=== PATIENT | female | born 1970 | race Caucasian/White ===

== ENCOUNTER → 2020-07-24 14:32 | Outpatient (BNVA) | payer OTHER, SELFPAY | PROVIDERS: PCP Internal Medicine; Referring Provider Internal Medicine; Visit Provider Student in an Organized Health Care Education/Training Program | DX: M25.50 Pain in unspecified joint (principal); R70.0 Elevated erythrocyte sedimentation rate; R79.82 Elevated C-reactive protein (CRP) | CPT/HCPCS: 99212 ==

== ENCOUNTER 2020-07-28 10:46 | Outpatient (REF) | payer OTHER, SELFPAY ==
[2020-07-30 14:21] LABS: Prot Elec - Albumin 3.3 g/dL (3.8-4.8); Prot Elec - Alpha1 0.3 g/dL (0.2-0.3); Prot Elec - Alpha2 0.8 g/dL (0.5-0.9); Prot Elec - Beta 1 0.5 g/dL (0.4-0.6); Prot Elec - Beta 2 0.5 g/dL (0.2-0.5); Prot Elec - Total Protein 6.3 g/dL (6.1-8.1)
[2020-08-01 09:47] LABS: IgA 357 mg/dL (47-310); IgG 1096 mg/dL (600-1640); IgM 42 mg/dL (50-300)
== END 2020-07-28 10:47 | disposition home or self-care (01) ==
LOC: HO.LAB 10:46
PROVIDERS: PCP Internal Medicine; Visit Provider Student in an Organized Health Care Education/Training Program
DX: R70.0 Elevated erythrocyte sedimentation rate (principal)
CPT/HCPCS: 36415; 82784; 84155; 84165; 86334; 86335

== ENCOUNTER 2020-08-13 15:13 | Outpatient (REF) | payer OTHER, SELFPAY | END 2020-08-13 15:14 | disposition home or self-care (01) | LOC: HO.US 15:13 | PROVIDERS: Visit Provider Student in an Organized Health Care Education/Training Program | DX: Z13.89 Encounter for screening for other disorder (principal) ==

== ENCOUNTER → 2020-08-20 10:34 | Outpatient (BNVA) | payer OTHER, SELFPAY | PROVIDERS: PCP Internal Medicine; Visit Provider Surgery | DX: Z76.89 Persons encountering health services in other specified circumstances (principal) ==

== ENCOUNTER → 2020-08-21 09:25 | Outpatient (BNVA) | payer OTHER, SELFPAY | PROVIDERS: PCP Internal Medicine; Visit Provider Surgery | DX: Z76.89 Persons encountering health services in other specified circumstances (principal) ==

== ENCOUNTER 2020-08-25 08:27 | Outpatient (REF) | payer OTHER, SELFPAY ==
--- NOTE | 2020-08-25 09:51 | ECG_ITS ---
Test Reason : FATTY LIVER, PREOP Blood Pressure : / mmHG Vent. Rate : 098 BPM Atrial Rate : 098 BPM P-R Int : 134 ms QRS Dur : 080 ms QT Int : 354 ms P-R-T Axes : 060 057 013 degrees QTc Int : 451 ms Normal sinus rhythm Normal ECG No previous ECGs available Referred By: Pb Harrell Electronically Signed By:RAFI CASTANEDA MD
[2020-08-25 10:21] LABS: MANUAL DIFF FLAG NO
[2020-08-25 10:26] LABS: Basophils Absolute Auto 0.1 X10*3/uL (0.0-0.2); Basophils Percent Auto 0.4 % (0-2); Eosinophils Absolute Auto 0.3 X10*3/uL (0.0-0.4); Hematocrit 38.3 % (37-47); Hemoglobin 12.3 g/dl (12.0-16.0); Imm Gran Abs Auto 0.05 X10*3/uL (0.00-0.03); Imm Gran Pct Auto 0.4 % (0.0-0.4); Lymphocytes Absolute Auto 2.1 X10*3/uL (1.2-4.9); Lymphocytes Percent Auto 16.3 % (20-40); Mean Corpuscular HGB Conc 32.1 g/dl (31.0-35.0); Mean Corpuscular Hemoglobin 28.7 pg (27.0-33.0); Mean Corpuscular Volume 89.3 fL (80-98); Mean Platelet Volume 10.2 fL (9.4-12.3); Monocytes Absolute Auto 0.6 X10*3/uL (0.1-1.2); Monocytes Percent Auto 4.6 % (2-11); Neutrophils Percent Auto 76.3 % (45-73); Platelet Count 328 X10*3/uL (160-400); Red Blood Count 4.29 X10*6/uL (4.20-5.50); Red Cell Distribution Width 13.8 % (11.0-16.0); White Blood Count 13.1 X10*3/uL (4.8-10.8)
[2020-08-25 10:55] LABS: Alanine Aminotransferase 35 U/L (0-31); Alkaline Phosphatase 148 U/L (39-117); Anion Gap 14 (12-20); Aspartate Amino Transferase 26 U/L (5-31); Bilirubin Total 0.3 mg/dL (0.0-1.0); Blood Urea Nitrogen 23 mg/dL (9-16); C Reactive Protein 2.33 mg/dL (< or = 0.50); Calcium 9.4 mg/dL (8.4-10.2); Carbon Dioxide 27 mmol/L (22-29); Chloride 101 mmol/L (96-108); Cholesterol 211 mg/dL; Estimated Glomerular Filt Rate > 60; Glucose Random 195 mg/dL (60-115); HDL Cholesterol 52 mg/dL; LDL Cholesterol Calculated 122 mg/dl; Potassium 4.5 mmol/l (3.3-5.1); Sodium 137 mmol/L (135-145); Total Protein 7.5 g/dL (6.5-8.0); Triglycerides 186 mg/dL
[2020-08-25 11:16] LABS: Ferritin 137 ng/mL (10-250); TSH reflex Free T4 0.66 mIU/mL (0.32-4.0); Vitamin D 25-OH Total 29.3 ng/mL (>30)
[2020-08-25 11:41] LABS: Folate 9.4 ng/mL (> or = 4.0); Vitamin B12 187 pg/mL (200-900)
[2020-08-25 12:03] LABS: Estimated Average Glucose 197 mg/dL; Hemoglobin A1c % 8.5 %
[2020-08-26 13:43] LABS: Calcium (PTHI) 9.4 mg/dL (8.6-10.4); PTHI 53 pg/mL (14-64)
[2020-08-26 17:12] LABS: Insulin Level Total 34.6 uIU/mL
[2020-08-27 13:53] LABS: H Pylori Breath Test NOT DETECTED (NOT DETECTED)
[2020-08-28 15:38] LABS: Zinc 78 mcg/dL (60-130)
[2020-08-30 10:22] LABS: Vitamin A 51 mcg/dL (38-98)
[2020-08-31 12:03] LABS: Vitamin B1 <6 nmol/L (8-30)
== END 2020-08-25 08:28 | disposition home or self-care (01) ==
LOC: HO.LAB 08:27
PROVIDERS: PCP Internal Medicine; Referring Provider Surgery; Visit Provider Physician Assistant
DX: K76.0 Fatty (change of) liver, not elsewhere classified (principal); Z11.0 Encounter for screening for intestinal infectious diseases
CPT/HCPCS: 36415; 80053; 80061; 82306; 82607; 82728; 82746; 83013; 83036; 83525; 83970; 84425; 84443; 84590; 84630; 85025; 86140; 93005; 99211

== ENCOUNTER 2020-09-11 08:38 | Outpatient (REF) | payer OTHER, SELFPAY ==
--- NOTE | 2020-09-11 | FL_ITS ---
EXAMINATION: FL UPPER GI SERIES CLINICAL INFORMATION: Bariatric service evaluation. K76.0. COMPARISON: None TECHNIQUE: Upper GI series is performed using fluoroscopic evaluation in addition to multiple fluoroscopic spot views. The patient is imaged both upright and prone and using both thick and thin barium sulfate along with effervescent granules. Exam is technically challenging with some difficulty breath-holding. Fluoroscopy time: 1.7 minutes DAP: 38.372 Gycm2 Fluoroscopic spot images: 17 FINDINGS: There is respiratory motion artifact on some of the images. There is normal esophageal motility. There is no obstruction, stricture, or ulceration. There is small intermittent sliding hiatal hernia. No gastroesophageal reflux is demonstrated. The stomach shows no thickened folds or ulcer crater or outlet obstruction. The duodenal bulb is pliable and without ulcer crater or scarring. The post bulbar duodenum the jejunal mucosal pattern are unremarkable. FL/FL upper GI series IMPRESSION: 1. Small intermittent sliding hiatal hernia. No reflux demonstrated. 2. Otherwise unremarkable exam.
--- NOTE | 2020-09-11 08:42 | XR_ITS ---
EXAMINATION: XR CHEST CLINICAL INFORMATION: Fatty change of liver. Chest pain per COMPARISON: None TECHNIQUE: 2 views of the chest were obtained. FINDINGS: No significant abnormality is noted involving the heart, lungs, mediastinum, bony thorax or soft tissues. XR/XR chest 2V IMPRESSION: Unremarkable chest examination.
--- NOTE | 2020-09-11 08:42 | US_ITS ---
EXAMINATION: US COMPLETE ABDOMEN WITH LIVER ELASTOGRAPHY CLINICAL INFORMATION: Obesity. COMPARISON: None. TECHNIQUE: Real-time imaging of the abdominal viscera. Noninvasive ultrasound liver fibrosis assessment is performed using Giovanni ElastPQ point quantification shear wave elastography (pSWE) with a 5 MHz transducer. Multiple elastography samples are obtained. FINDINGS: PANCREAS: The visualized pancreatic head and body are normal in appearance. The tail of the pancreas is obscured from visualization by the overlying bowel gas. ABDOMINAL AORTA: The proximal and mid aortic segments are normal in caliber. The distal abdominal aorta is obscured by overlying gas. INFERIOR VENA CAVA: Visualized portions are normal. LIVER: The liver demonstrates increased size, normal contour and increased echogenicity. There are areas of focal fatty sparing. No other focal lesion or intrahepatic biliary duct dilatation. The right lobe measures 26.8 cm in length. The left lobe measures 16.2 cm in length. There is normal hepatopedal flow seen in the portal vein. Shear wave elastography provides a median stiffness of 1.56 m/s (reference: normal median stiffness is 0.81 - 1.22 m/s). The IQR/median stiffness to assess sampling precision is 0.29 (reference: optimal IQR/median stiffness is under 0.3). GALLBLADDER: Normal. The gallbladder is physiologically distended without evidence of stones, sludge, polyps, wall thickening, or pericholecystic fluid. COMMON BILE DUCT: Normal in caliber measuring 0.24 cm in diameter. RIGHT KIDNEY: Normal. No hydronephrosis. No renal calculi or focal parenchymal lesions. The kidney measures 12.5 cm in maximum dimension. LEFT KIDNEY: Normal. No hydronephrosis. No renal calculi or focal parenchymal lesions. The kidney measures 11.9 cm in maximum dimension. SPLEEN: Normal. The spleen measures 12.2 cm in maximum dimension. FREE FLUID: None. US/US abdomen comp w elastography IMPRESSION: 1. Diffuse fatty infiltration of the liver with areas of focal fatty sparing. Mild hepatomegaly. 2. The rest of the abdominal ultrasound is unremarkable. 3. Elastography: [id number] fibrosis.
== END 2020-09-11 08:39 | disposition home or self-care (01) ==
LOC: HO.US 08:38
PROVIDERS: Visit Provider Surgery
DX: Z01.818 Encounter for other preprocedural examination (principal); E66.01 Morbid (severe) obesity due to excess calories; K21.9 Gastro-esophageal reflux disease without esophagitis; E11.65 Type 2 diabetes mellitus with hyperglycemia; I10 Essential (primary) hypertension; E78.5 Hyperlipidemia, unspecified; K76.0 Fatty (change of) liver, not elsewhere classified
CPT/HCPCS: 71046; 74240; 76705; 76981

== ENCOUNTER → 2020-09-17 09:38 | Outpatient (REF) | payer OTHER, SELFPAY | LOC: HO.SL 09:38 | PROVIDERS: Visit Provider Surgery | DX: Z01.818 Encounter for other preprocedural examination (principal); E66.9 Obesity, unspecified; G47.10 Hypersomnia, unspecified; G47.19 Other hypersomnia | CPT/HCPCS: 95806 ==

== ENCOUNTER → 2020-09-19 08:16 | Outpatient (BNVA) | payer OTHER, SELFPAY | PROVIDERS: PCP Internal Medicine; Visit Provider Surgery | DX: Z76.89 Persons encountering health services in other specified circumstances (principal) ==

== ENCOUNTER → 2020-09-29 08:11 | Outpatient (BNVA) | payer OTHER, SELFPAY | PROVIDERS: PCP Internal Medicine; Visit Provider Dietitian, Registered ==

== ENCOUNTER → 2020-10-09 12:34 | Outpatient (BNVA) | payer OTHER, SELFPAY | PROVIDERS: PCP Internal Medicine; Visit Provider Physician Assistant ==

== ENCOUNTER 2020-10-09 12:54 | Outpatient (REF) | payer OTHER, SELFPAY | END 2020-10-09 12:55 | disposition home or self-care (01) | LOC: HO.LAB 12:54 | PROVIDERS: Visit Provider Internal Medicine | DX: Z20.822 Contact with and (suspected) exposure to COVID-19 (principal) | CPT/HCPCS: 36415; C9803; U0003; U0005 ==

== ENCOUNTER → 2020-10-15 11:21 | Outpatient (BNVA) | payer OTHER, SELFPAY | PROVIDERS: PCP Internal Medicine; Visit Provider Surgery | DX: E66.01 Morbid (severe) obesity due to excess calories (principal); I10 Essential (primary) hypertension; E11.65 Type 2 diabetes mellitus with hyperglycemia | CPT/HCPCS: 99212 ==

== ENCOUNTER → 2020-10-21 12:51 | Outpatient (BNVA) | payer OTHER, SELFPAY | PROVIDERS: PCP Internal Medicine; Visit Provider Physician Assistant ==

== ENCOUNTER → 2020-10-22 11:18 | Outpatient (BNVA) | payer OTHER, SELFPAY | PROVIDERS: PCP Internal Medicine; Visit Provider Physician Assistant ==

== ENCOUNTER → 2020-10-29 09:25 | Outpatient (BNVA) | payer OTHER, SELFPAY | PROVIDERS: PCP Internal Medicine; Visit Provider Physician Assistant ==

== ENCOUNTER → 2020-11-05 11:14 | Outpatient (BNVA) | payer OTHER, SELFPAY | PROVIDERS: PCP Internal Medicine; Visit Provider Physician Assistant ==

== ENCOUNTER → 2020-11-10 07:34 | Outpatient (BNVA) | payer OTHER, SELFPAY | PROVIDERS: PCP Internal Medicine; Visit Provider Surgery ==

== ENCOUNTER → 2020-11-12 12:57 | Outpatient (BNVA) | payer OTHER, SELFPAY | PROVIDERS: PCP Internal Medicine; Visit Provider Physician Assistant ==

== ENCOUNTER → 2020-11-19 10:47 | Outpatient (BNVA) | payer OTHER, SELFPAY | PROVIDERS: PCP Internal Medicine; Visit Provider Physician Assistant ==

== ENCOUNTER → 2020-11-26 10:06 | Outpatient (BNVA) | payer OTHER, SELFPAY | PROVIDERS: PCP Internal Medicine; Visit Provider Physician Assistant ==

== ENCOUNTER 2020-12-04 10:32 | Outpatient (REF) | payer OTHER, SELFPAY ==
[2020-12-04 12:02] LABS: Alanine Aminotransferase 19 U/L (0-31); Albumin Level 4.1 g/dL (3.5-5.0); Alkaline Phosphatase 126 U/L (39-117); Anion Gap 14 (12-20); Aspartate Amino Transferase 17 U/L (5-31); Bilirubin Total 0.3 mg/dL (0.0-1.0); Blood Urea Nitrogen 22 mg/dL (9-16); Calcium 9.3 mg/dL (8.4-10.2); Carbon Dioxide 29 mmol/L (22-29); Chloride 102 mmol/L (96-108); Estimated Glomerular Filt Rate > 60; Glucose Fasting 103 mg/dL (60-99); Potassium 5.2 mmol/L (3.3-5.1); Sodium 140 mmol/L (135-145); Total Protein 7.3 g/dL (6.5-8.0)
[2020-12-04 12:20] LABS: Creatinine Urine 55.84 mg/dL; Microalbumin Urine < 5.0 mg/L
[2020-12-04 13:44] LABS: Folate 10.5 ng/mL (> or = 4.0); Vitamin B12 192 pg/mL (200-900)
[2020-12-08 06:51] LABS: Vitamin B1 43 nmol/L (8-30)
[2020-12-08 20:22] LABS: Intrinsic Factor Antibodies Negative (Negative)
[2020-12-14 11:36] LABS: Parietal Cell Antibody 22.8 Unit (<=20.0)
== END 2020-12-04 10:33 | disposition home or self-care (01) ==
LOC: HO.LAB 10:32
PROVIDERS: PCP Internal Medicine; Visit Provider Internal Medicine
DX: E11.65 Type 2 diabetes mellitus with hyperglycemia (principal); E51.9 Thiamine deficiency, unspecified; E53.8 Deficiency of other specified B group vitamins
CPT/HCPCS: 36415; 80053; 82043; 82607; 82746; 83516; 84425; 86340

== ENCOUNTER → 2020-12-05 08:12 | Outpatient (BNVA) | payer OTHER, SELFPAY | PROVIDERS: PCP Internal Medicine; Visit Provider Surgery ==

== ENCOUNTER → 2020-12-09 08:09 | Outpatient (BNVA) | payer OTHER, SELFPAY | PROVIDERS: PCP Internal Medicine; Visit Provider Dietitian, Registered ==

== ENCOUNTER → 2020-12-10 14:36 | Outpatient (BNVA) | payer OTHER, SELFPAY | PROVIDERS: PCP Internal Medicine; Visit Provider Dietitian, Registered | DX: E66.01 Morbid (severe) obesity due to excess calories (principal) | CPT/HCPCS: 97803 ==

== ENCOUNTER → 2020-12-11 11:49 | Outpatient (BNVA) | payer OTHER, SELFPAY | PROVIDERS: PCP Internal Medicine ==

== ENCOUNTER → 2020-12-18 11:54 | Outpatient (BNVA) | payer OTHER, SELFPAY | PROVIDERS: PCP Internal Medicine; Visit Provider Physician Assistant ==

== ENCOUNTER → 2020-12-23 12:31 | Outpatient (BNVA) | payer OTHER, SELFPAY | PROVIDERS: PCP Internal Medicine; Visit Provider Dietitian, Registered | DX: E66.01 Morbid (severe) obesity due to excess calories (principal); Z68.43 Body mass index [BMI] 50.0-59.9, adult | CPT/HCPCS: 97803 ==

== ENCOUNTER → 2020-12-26 12:37 | Outpatient (BNVA) | payer OTHER, SELFPAY | PROVIDERS: PCP Internal Medicine; Visit Provider Physician Assistant ==

== ENCOUNTER → 2020-12-31 08:29 | Outpatient (BNVA) | payer OTHER, SELFPAY | PROVIDERS: PCP Internal Medicine; Visit Provider Surgery ==

== ENCOUNTER 2021-01-01 11:01 | Outpatient (REF) | payer OTHER, SELFPAY ==
[2021-01-01 12:19] LABS: MANUAL DIFF FLAG NO
[2021-01-01 12:43] LABS: Basophils Absolute Auto 0.1 X10*3/uL (0.0-0.2); Basophils Percent Auto 0.4 % (0-2); Eosinophils Absolute Auto 0.4 X10*3/uL (0.0-0.4); Eosinophils Percent Auto 2.5 % (0-4); Hematocrit 36.9 % (37-47); Hemoglobin 11.6 g/dl (12.0-16.0); Imm Gran Abs Auto 0.06 X10*3/uL (0.00-0.03); Imm Gran Pct Auto 0.4 % (0.0-0.4); Lymphocytes Absolute Auto 2.6 X10*3/uL (1.2-4.9); Lymphocytes Percent Auto 18.3 % (20-40); Mean Corpuscular HGB Conc 31.4 g/dl (31.0-35.0); Mean Corpuscular Hemoglobin 28.2 pg (27.0-33.0); Mean Corpuscular Volume 89.8 fL (80-98); Mean Platelet Volume 10.6 fL (9.4-12.3); Monocytes Absolute Auto 0.6 X10*3/uL (0.1-1.2); Monocytes Percent Auto 4.3 % (2-11); Neutrophils Absolute Auto 10.5 X10*3/uL (2.0-8.3); Neutrophils Percent Auto 74.1 % (45-73); Platelet Count 373 X10*3/uL (160-400); Red Blood Count 4.11 X10*6/uL (4.20-5.50); Red Cell Distribution Width 13.2 % (11.0-16.0); White Blood Count 14.2 X10*3/uL (4.8-10.8)
[2021-01-01 12:55] LABS: Alanine Aminotransferase 17 U/L (0-31); Alkaline Phosphatase 142 U/L (39-117); Anion Gap 16 (12-20); Aspartate Amino Transferase 12 U/L (5-31); Bilirubin Total 0.4 mg/dL (0.0-1.0); Blood Urea Nitrogen 36 mg/dL (9-16); Calcium 9.3 mg/dL (8.4-10.2); Carbon Dioxide 24 mmol/L (22-29); Chloride 104 mmol/L (96-108); Cholesterol 132 mg/dL; Estimated Glomerular Filt Rate > 60; Glucose Fasting 120 mg/dL (60-99); HDL Cholesterol 36 mg/dL; LDL Cholesterol Calculated 70 mg/dl; Potassium 4.6 mmol/L (3.3-5.1); Sodium 139 mmol/L (135-145); Total Protein 7.1 g/dL (6.5-8.0); Triglycerides 132 mg/dL
[2021-01-01 13:15] LABS: Folate 9.5 ng/mL (> or = 4.0); Vitamin B12 411 pg/mL (200-900)
[2021-01-01 13:49] LABS: Creatinine Urine 79.24 mg/dL; Microalbumin Urine < 5.0 mg/L
[2021-01-01 13:53] LABS: Estimated Average Glucose 120 mg/dL; Hemoglobin A1c % 5.8 %
[2021-01-05 14:01] LABS: Vitamin B1 98 nmol/L (8-30)
== END 2021-01-01 11:02 | disposition home or self-care (01) ==
LOC: HO.LAB 11:01
PROVIDERS: PCP Internal Medicine; Visit Provider Surgery
DX: E66.01 Morbid (severe) obesity due to excess calories (principal); E11.65 Type 2 diabetes mellitus with hyperglycemia; D64.9 Anemia, unspecified; E53.8 Deficiency of other specified B group vitamins; E78.5 Hyperlipidemia, unspecified; E51.9 Thiamine deficiency, unspecified
CPT/HCPCS: 36415; 80053; 80061; 82043; 82607; 82746; 83036; 84425; 85025

== ENCOUNTER → 2021-01-08 11:47 | Outpatient (BNVA) | payer OTHER, SELFPAY | PROVIDERS: PCP Internal Medicine; Visit Provider Physician Assistant ==

== ENCOUNTER → 2021-01-14 08:48 | Outpatient (BNVA) | payer OTHER, SELFPAY | PROVIDERS: PCP Internal Medicine; Visit Provider Dietitian, Registered | DX: E66.01 Morbid (severe) obesity due to excess calories (principal); Z68.42 Body mass index [BMI] 45.0-49.9, adult | CPT/HCPCS: 97803 ==

== ENCOUNTER → 2021-01-21 11:58 | Outpatient (BNVA) | payer OTHER, SELFPAY | PROVIDERS: PCP Internal Medicine; Visit Provider Physician Assistant ==

== ENCOUNTER → 2021-01-23 08:01 | Outpatient (BNVA) | payer OTHER, SELFPAY | PROVIDERS: PCP Internal Medicine; Visit Provider Surgery ==

== ENCOUNTER → 2021-01-30 11:13 | Outpatient (BNVA) | payer OTHER, SELFPAY | PROVIDERS: PCP Internal Medicine; Visit Provider Physician Assistant ==

== ENCOUNTER 2021-02-03 09:27 | Outpatient (REF) | payer OTHER, SELFPAY ==
[2021-02-03 10:12] LABS: MANUAL DIFF FLAG NO
[2021-02-03 10:16] LABS: Basophils Absolute Auto 0.1 X10*3/uL (0.0-0.2); Basophils Percent Auto 0.4 % (0-2); Eosinophils Absolute Auto 0.3 X10*3/uL (0.0-0.4); Hemoglobin 12.4 g/dl (12.0-16.0); Imm Gran Abs Auto 0.03 X10*3/uL (0.00-0.03); Imm Gran Pct Auto 0.2 % (0.0-0.4); Lymphocytes Absolute Auto 2.1 X10*3/uL (1.2-4.9); Lymphocytes Percent Auto 16.1 % (20-40); Mean Corpuscular HGB Conc 32.6 g/dl (31.0-35.0); Mean Corpuscular Volume 88.8 fL (80-98); Mean Platelet Volume 10.2 fL (9.4-12.3); Monocytes Absolute Auto 0.8 X10*3/uL (0.1-1.2); Neutrophils Percent Auto 75.3 % (45-73); Platelet Count 378 X10*3/uL (160-400); Red Blood Count 4.28 X10*6/uL (4.20-5.50); Red Cell Distribution Width 12.9 % (11.0-16.0); White Blood Count 13.3 X10*3/uL (4.8-10.8)
[2021-02-03 10:35] LABS: Estimated Average Glucose 114 mg/dL; Hemoglobin A1c % 5.6 %
== END 2021-02-03 09:28 | disposition home or self-care (01) ==
LOC: HO.LAB 09:27
PROVIDERS: PCP Internal Medicine; Visit Provider Surgery
DX: E11.65 Type 2 diabetes mellitus with hyperglycemia (principal)
CPT/HCPCS: 36415; 83036; 85025

== ENCOUNTER → 2021-02-09 10:08 | Outpatient (BNVA) | payer OTHER, SELFPAY | PROVIDERS: PCP Internal Medicine; Visit Provider Surgery ==

== ENCOUNTER → 2021-02-16 09:05 | Outpatient (BNVA) | payer OTHER, SELFPAY | PROVIDERS: PCP Internal Medicine; Referring Provider Internal Medicine; Visit Provider Physician Assistant ==

== ENCOUNTER → 2021-02-19 07:49 | Outpatient (BNVA) | payer OTHER, SELFPAY | PROVIDERS: PCP Internal Medicine; Visit Provider Surgery ==

== ENCOUNTER → 2021-02-23 09:30 | Outpatient (BNVA) | payer OTHER, SELFPAY | PROVIDERS: PCP Internal Medicine; Visit Provider Physician Assistant ==

== ENCOUNTER → 2021-03-06 08:57 | Outpatient (BNVA) | payer OTHER, SELFPAY | PROVIDERS: PCP Internal Medicine; Referring Provider Internal Medicine; Visit Provider Physician Assistant ==

== ENCOUNTER → 2021-03-12 11:22 | Outpatient (BNVA) | payer OTHER, SELFPAY | PROVIDERS: PCP Internal Medicine; Visit Provider Physician Assistant ==

== ENCOUNTER 2021-03-17 07:43 | Inpatient (IN) | payer OTHER, SELFPAY ==
[2021-03-17 07:55] VITALS: BP 115/66; PULSE 93; RESP 16; TEMP 37.1; O2SAT 95; BMI 48.1
--- NOTE | 2021-03-17 08:20 | ED.GENADULT ---
HPI - General Adult General Chief complaint: General Medical Stated complaint: Low Sodium Time Seen by Provider: 03/17/21 08:09 Source: patient Mode of arrival: ambulatory Limitations: no limitations History of Present Illness HPI narrative: 51 y/o female with history of morbid obesity, DM2, HTN, HLD, anxiety, fatty liver who presents to the ER from short stay surgery for evaluation of hyponatremia. Sodium level was found to be 120. She was there for a lap gastric sleeve with Dr. Schwab. She reports over the weekend she started a medication to help clear her bowels and she has been having watery diarrhea several times per day, she lost count of how many episodes. Yesterday she continued having diarrhea and also developed nausea and vomiting. She had several episodes of vomiting liquid yesterday and was dry heaving this morning. She has essentially been on a liquid diet for weight loss and feels very weak. She has some epigastric abdominal pain that she attributes to hunger pains. MD complaint: hyponatremia Onset (ago): day(s) Location: abdomen Radiation: non-radiation Quality: aching Pain Consistency: intermittent Relieving factors: none Exacerbating factors: eating Associated symptoms: loss of appetite, malaise, nausea/vomiting and weakness Treatments prior to arrival: none Related Data Home Medications Medication Instructions Recorded Confirmed lisinopril 40 mg PO BEDTIME 03/11/21 03/17/21 dulaglutide [Trulicity] 0.75 mg SUBCUT FR 03/17/21 03/17/21 ondansetron HCl [Zofran] 4 mg PO Q12H PRN 03/17/21 03/17/21 Previous Rx's Medication Instructions Recorded blood sugar diagnostic #50 ea 09/17/20 glimepiride 4 mg tablet 4 mg PO DAILY #90 tab 09/17/20 hydrochlorothiazide 50 mg tablet 50 mg PO DAILY #90 tab 09/17/20 lancets 28 gauge #100 ea 09/17/20 metformin 1,000 mg tablet 1,000 mg PO BID 90 Days #180 tab 09/17/20 metoprolol succinate 100 mg 100 mg PO DAILY #90 tab 09/17/20 tablet,extended release 24 hr naproxen 375 mg tablet 375 mg PO BID PRN 30 Days #60 tab 09/17/20 atorvastatin 20 mg tablet 20 mg PO BEDTIME 90 Days #90 tab 11/13/20 folic acid 1 mg tablet 1 mg PO DAILY 90 Days #90 tab 11/13/20 thiamine HCl (vitamin B1) 100 mg 100 mg PO DAILY 30 Days #30 tab 11/13/20 tablet insulin syringe,safetyneedle 1 mL #1 ea 12/06/20 30 gauge x 3/16 cyanocobalamin (vitamin B-12) 1,000 mcg IM .once a month 30 Days 12/10/20 1,000 mcg/mL injection kit #1 ea syringe with needle, safety 3 mL #1 ea 12/10/20 22 gauge x 1 1/2 pantoprazole 40 mg tablet,delayed 40 mg PO DAILY #30 tab 02/19/21 release sucralfate 100 mg/mL oral 10 ml PO BID #400 ml 02/19/21 suspension Allergies Allergy/AdvReac Type Severity Reaction Status Date / Time sertraline Allergy Severe Anaphylaxis Verified 03/17/21 07:55 citalopram Allergy Mild Rash Verified 03/17/21 07:55 Review of Systems Review of Systems: Constitutional: No Fever, No Chills ENT/Mouth: No sore throat, No Rhinorrhea, No Swallowing Difficulty Cardiovascular: No Chest Pain, No SOB, No Orthopnea, No Edema Respiratory: No Cough, No Sputum, No Wheezing, No dyspnea Gastrointestinal: + Nausea, + Vomiting, + Diarrhea, + abdominal Pain, No Hematochezia, No Melena Genitourinary: No Dysuria, No Urinary Frequency, No Hematuria Musculoskeletal: No joint pain, No Myalgias Skin: No Skin Lesions, No rash Neuro: + Weakness, No Numbness, + Dizziness, No Headache Psych: No Anxiety/Panic, No Depression Heme/Lymph: No Bruising, No Lymphadenopathy Endocrine: No Polyuria, No Polydipsia PMFSH Past Medical History Attestation statement: The following information was validated with the patient. Medical History Anxiety B12 deficiency Depression Diabetes mellitus Essential hypertension Hyperlipidemia Morbid obesity Obese Pure hypercholesterolemia Rash Steatosis, liver Thiamine deficiency Surgical History History of foot surgery History of total abdominal hysterectomy and bilateral salpingo-oophorectomy Status post debridement Family History Family History Father Diabetes Hypertension Prostate cancer Mother Hypertension Stomach cancer Social History Social History Household Members Other:: Brother Are you a primary housekeeper child care to a significant other at home: No Do you presently have visiting nurse or other home services: No Alcohol intake: never Patient Tobacco Use Status: Never used Tobacco Use of substances other than those prescribed or required for medical reasons: No Advance Directives: Yes Advance Directives Information Provided: Yes Advance Directives on File: No Patient : No Physical Exam Vital Signs: Vital Signs: Last Vital Signs Temp 98.7 F 03/17/21 09:58 Pulse 88 03/17/21 09:58 Resp 16 03/17/21 09:58 BP 121/67 03/17/21 09:58 Pulse Ox 95 03/17/21 09:58 Body Mass Index 48.1 Appearance: Alert. Oriented X3. No acute distress. Eyes: Pupils equal, round and reactive to light. ENT: Pharynx normal. Neck: Normal inspection. Neck supple. CVS: Normal heart rate and rhythm. Pulses normal. Respiratory: No respiratory distress. Breath sounds normal. Abdomen: Obese Soft with epigastric tenderness +BS x4 Skin: Skin warm and dry. Normal skin color. Normal skin turgor. No rashes. Extremities: No lower extremity edema. Neuro: Oriented X 3. No motor deficit. No sensory deficit. Course Course Course Narrative: 51 y/o female with morbid obesity and plan for gastric sleeve today presents to the ER with sodium of 120, associated with GI losses of diarrhea and vomiting. She is also on HCTZ 50 mg per day. Her hyponatremia does not appear to be acute; her sodium was 126 on 03/10 (although normal back in December). She is currently symptomatic with nausea, vomiting and generalized weakness. Suspect due to diarrhea in combination with her HCTZ. Will give 500 cc NS and repeat labs. Reevaluation(s) Reevaluation #1: Sodium went from 122 to 124 after IVF. She has an MAURI with BUN/Cr 18/1.63 from a baseline of 20/1.04 last week. Will continue gentle IVF 100cc/hr of NS. Dr. Harrell TT for recs, question admission for continued hydration prior to surgery. Reevaluation #2: Case reviewed by Daniela Carrera - recommending admission to medicine for further management of MAURI and hyponatremia. Repeat chemistry pending. Will plan for admission. Dr. Vargas TT for admit. Consultations Consultation #1: Bariatric surgery - Dr. Harrell & Daniela Carrera Medical Decision Making Lab Data Result diagrams: 03/17/21 09:05 03/17/21 09:05 Labs: Lab Results 03/17/21 03/17/21 03/17/21 Range/Units 09:05 09:05 09:05 WBC 18.8 H (4.8-10.8) X10*3/uL RBC 3.99 L (4.20-5.50) X10*6/uL Hgb 11.2 L (12.0-16.0) g/dl Hct 32.2 L (37-47) % MCV 80.7 (80-98) fL MCH 28.1 (27.0-33.0) pg MCHC 34.8 (31.0-35.0) g/dl RDW 12.3 (11.0-16.0) % Plt Count 430 H (160-400) X10*3/uL MPV 9.5 (9.4-12.3) fL Immature Gran % (Auto) 0.5 H (0.0-0.4) % Neut % (Auto) 87.1 H (45-73) % Lymph % (Auto) 8.0 L (20-40) % [place] % (Auto) 3.9 (2-11) % Eos % (Auto) 0.2 (0-4) % Baso % (Auto) 0.3 (0-2) % Lymph # (Auto) 1.5 (1.2-4.9) X10*3/uL [place] # (Auto) 0.7 (0.1-1.2) X10*3/uL Eos # (Auto) 0.0 (0.0-0.4) X10*3/uL Baso # (Auto) 0.1 (0.0-0.2) X10*3/uL Abs Immat Gran (auto) 0.09 H (0.00-0.03) X10*3/uL Absolute Neuts (auto) 16.4 H (2.0-8.3) X10*3/uL Absolute Nucleated RBC 0.000 (0.0-0.012) X10*3/uL Nucleated RBC % (auto) 0.0 (0.0-0.2) /100WBC Sodium 124 L (135-145) mmol/L Potassium 4.9 D (3.3-5.1) mmol/L Chloride 87 L (96-108) mmol/L Carbon Dioxide 23 (22-29) mmol/L Anion Gap 19 (12-20) BUN 18 H (9-16) mg/dL Creatinine 1.63 H (0.5-1.4) mg/dL Estim Creat Clear Calc 42.8 Estimated GFR 33 Random Glucose 95 (60-115) mg/dL Osmolality 265 L (281-305) mosm/kg Calcium 9.6 D (8.4-10.2) mg/dL Magnesium 1.7 (1.6-2.6) mg/dL Total Bilirubin 0.4 (0.0-1.0) mg/dL Direct Bilirubin 0.2 (0.0-0.5) mg/dL AST 19 (5-31) U/L ALT 18 (0-31) U/L Alkaline Phosphatase 129 H (39-117) U/L B-Natriuretic Peptide (<100) pg/mL Total Protein 7.3 (6.5-8.0) g/dL Albumin 4.3 (3.5-5.0) g/dL Lipase 20 (8-78) U/L // Range/Units 09:05 WBC (4.8-10.8) X10*3/uL RBC (4.20-5.50) X10*6/uL Hgb (12.0-16.0) g/dl Hct (37-47) % MCV (80-98) fL MCH (27.0-33.0) pg MCHC (31.0-35.0) g/dl RDW (11.0-16.0) % Plt Count (160-400) X10*3/uL MPV (9.4-12.3) fL Immature Gran % (Auto) (0.0-0.4) % Neut % (Auto) (45-73) % Lymph % (Auto) (20-40) % [place] % (Auto) (2-11) % Eos % (Auto) (0-4) % Baso % (Auto) (0-2) % Lymph # (Auto) (1.2-4.9) X10*3/uL [place] # (Auto) (0.1-1.2) X10*3/uL Eos # (Auto) (0.0-0.4) X10*3/uL Baso # (Auto) (0.0-0.2) X10*3/uL Abs Immat Gran (auto) (0.00-0.03) X10*3/uL Absolute Neuts (auto) (2.0-8.3) X10*3/uL Absolute Nucleated RBC (0.0-0.012) X10*3/uL Nucleated RBC % (auto) (0.0-0.2) /100WBC Sodium (135-145) mmol/L Potassium (3.3-5.1) mmol/L Chloride (96-108) mmol/L Carbon Dioxide (22-29) mmol/L Anion Gap (12-20) BUN (9-16) mg/dL Creatinine (0.5-1.4) mg/dL Estim Creat Clear Calc Estimated GFR Random Glucose (60-115) mg/dL Osmolality (281-305) mosm/kg Calcium (8.4-10.2) mg/dL Magnesium (1.6-2.6) mg/dL Total Bilirubin (0.0-1.0) mg/dL Direct Bilirubin (0.0-0.5) mg/dL AST (5-31) U/L ALT (0-31) U/L Alkaline Phosphatase (39-117) U/L B-Natriuretic Peptide < 10 (<100) pg/mL Total Protein (6.5-8.0) g/dL Albumin (3.5-5.0) g/dL Lipase (8-78) U/L Critical Care Time Critical Care Time Critical Care Time: Yes Total Critical Care Time: 42 Attestation: I have personally provided critical care time exclusive of time spent on separately billable procedures. Time includes review of lab data, radiology results, discussion with consultants, and monitoring for potential decompensation. Intervention performed as documented. Discharge Plan Discharge Clinical Impression: Hyponatremia, MAURI (acute kidney injury), Dehydration Patient Disposition: Admitted As Inpatient
[2021-03-17] MEDS: 0.9 % Sodium Chloride 500 ML IV (09:07)
[2021-03-17] MEDS: ondansetron HCL 4 MG/2 ML VIAL IVPUSH (09:09)
[2021-03-17 09:51] LABS: MANUAL DIFF FLAG NO
[2021-03-17 09:57] LABS: Basophils Absolute Auto 0.1 X10*3/uL (0.0-0.2); Basophils Percent Auto 0.3 % (0-2); Eosinophils Percent Auto 0.2 % (0-4); Hematocrit 32.2 % (37-47); Hemoglobin 11.2 g/dl (12.0-16.0); Imm Gran Abs Auto 0.09 X10*3/uL (0.00-0.03); Imm Gran Pct Auto 0.5 % (0.0-0.4); Lymphocytes Absolute Auto 1.5 X10*3/uL (1.2-4.9); Mean Corpuscular HGB Conc 34.8 g/dl (31.0-35.0); Mean Corpuscular Hemoglobin 28.1 pg (27.0-33.0); Mean Corpuscular Volume 80.7 fL (80-98); Mean Platelet Volume 9.5 fL (9.4-12.3); Monocytes Absolute Auto 0.7 X10*3/uL (0.1-1.2); Monocytes Percent Auto 3.9 % (2-11); Neutrophils Absolute Auto 16.4 X10*3/uL (2.0-8.3); Neutrophils Percent Auto 87.1 % (45-73); Platelet Count 430 X10*3/uL (160-400); Red Blood Count 3.99 X10*6/uL (4.20-5.50); Red Cell Distribution Width 12.3 % (11.0-16.0); White Blood Count 18.8 X10*3/uL (4.8-10.8)
[2021-03-17 09:58] VITALS: BP 121/67; PULSE 88; RESP 16; TEMP 37.1; O2SAT 95
[2021-03-17 10:19] LABS: Alanine Aminotransferase 18 U/L (0-31); Albumin Level 4.3 g/dL (3.5-5.0); Alkaline Phosphatase 129 U/L (39-117); Aspartate Amino Transferase 19 U/L (5-31); B Type Natriuretic Peptide < 10 pg/mL (<100); Bilirubin Direct 0.2 mg/dL (0.0-0.5); Bilirubin Total 0.4 mg/dL (0.0-1.0); Blood Urea Nitrogen 18 mg/dL (9-16); Calcium 9.6 mg/dL (8.4-10.2); Creatinine Clr Calc Pharmacy 42.8; Estimated Glomerular Filt Rate 33; Glucose Random 95 mg/dL (60-115); Magnesium 1.7 mg/dL (1.6-2.6); Total Protein 7.3 g/dL (6.5-8.0)
[2021-03-17 10:25] LABS: Anion Gap 19 (12-20); Carbon Dioxide 23 mmol/L (22-29); Chloride 87 mmol/L (96-108); Potassium 4.9 mmol/L (3.3-5.1); Sodium 124 mmol/L (135-145)
[2021-03-17 10:29] LABS: Osmolality, Serum 265 mosm/kg (281-305)
[2021-03-17 10:45] LABS: Lipase 20 U/L (8-78)
[2021-03-17] MEDS: 0.9 % Sodium Chloride 1,000 ML 100 ML IVCONT ×2 (11:04→23:13)
--- NOTE | 2021-03-17 11:48 | PHA.MEDREC ---
Pharmacy Consult ? Medication Reconciliation Pharmacy has completed the medication reconciliation.
[2021-03-17 14:01] LABS: Glucose Urine UA NEG (NEG); Leukocyte Esterase Urine 1+ (NEG); Nitrite Urine NEG (NEG); PH 5.5 (5.0-8.0); Specific Gravity - Urine >= 1.030 (1.005-1.025); UACC Culture Trigger YES; Urine Blood 2+ (NEG); Urine Ketones 15 MG/DL (NEG); Urine Protein TRACE MG/DL (NEG-TRACE)
[2021-03-17 14:02] LABS: Appearance Urine HAZY; Color Urine YELLOW
[2021-03-17 14:14] LABS: Osmolality Urine 497 mosm/kg (373-1093)
[2021-03-17 14:15] LABS: Bacteria Urine 1+ /LPF; RBC Urine 0-2 /HPF (0); Sodium Urine Random < 20.0 mmol/L; Squamous Epithelial Cell Urine 1+ /LPF
[2021-03-17 14:19] LABS: COVID-19 Test Negative (Negative); IDNOW Serial# 9DD0AD1C
[2021-03-17 14:25] LABS: Blood Urea Nitrogen 17 mg/dL (9-16); Calcium 9.2 mg/dL (8.4-10.2); Creatinine Clr Calc Pharmacy 46.4; Estimated Glomerular Filt Rate 37; Glucose Random 95 mg/dL (60-115)
--- NOTE | 2021-03-17 14:29 | P.HPHOSP_ITS ---
History of Present Illness Date of Service: 03/17/21 Chief Complaint: nausea, weakness 51F presented from preop for Gastric sleeve with hyponatremia and MAURI found on preop labs. patient is on HCTZ, has been getting bowel prep for surgery and having diarrhea. patient reports that she has been feeling weak for the last couple of days. denies chest pain, sob, fever, chills, dyspnea. sodium was 124, creatinine 1.63. uriene sodium <20, urine osm 497. patient was given NS. Review of Systems Review of Systems: Constitutional: Denies fever, denies Chills Eyes: denies blurry vision ENT: denies sore throat CVS: denies chest pain Respiratory: Denies dyspnea GI: no abdominal pain : denies dysuria MSK: denies neck pain Skin: denies rash Neuro: denies specific motor weakness Psych: denies suicidal ideation Endocrine: denies heat/cold intoleratnce Hematologic: denies easy bleeding Allergy: denies hives [facility] Medical History Anxiety B12 deficiency Depression Diabetes mellitus Essential hypertension Hyperlipidemia Morbid obesity Obese Pure hypercholesterolemia Rash Steatosis, liver Thiamine deficiency Family History Father Diabetes Hypertension Prostate cancer Mother Hypertension Stomach cancer Family history: reviewed and not pertinent Surgical History History of foot surgery History of total abdominal hysterectomy and bilateral salpingo-oophorectomy Status post debridement Social History Household Members Other:: Brother Are you a primary acute care physical therapist to a significant other at home: No Do you presently have visiting nurse or other home services: No Alcohol intake: never Patient Tobacco Use Status: Never used Tobacco Use of substances other than those prescribed or required for medical reasons: No Advance Directives: Yes Advance Directives Information Provided: Yes Advance Directives on File: No Patient : No Meds Allergies Allergy/AdvReac Type Severity Reaction Status Date / Time sertraline Allergy Severe Anaphylaxis Verified 03/17/21 07:55 citalopram Allergy Mild Rash Verified 03/17/21 07:55 Active Medications: Current Medications Generic Name Dose Route Start Last Admin Trade Name Freq PRN Reason Stop Dose Admin Atorvastatin Calcium 20 mg 03/17/21 21:00 Atorvastatin Calcium 20 Mg Tablet PO BEDTIME [facility] Folic Acid 1 mg 03/18/21 09:00 Folic Acid 1 Mg Tablet PO DAILY [facility] Sodium Chloride 1,000 mls @ 100 mls/hr 03/17/21 10:45 03/17/21 11:04 Ns IVCONT 100 mls/hr .Q10H [facility] Administration Sodium Chloride 1,000 mls @ 100 mls/hr 03/17/21 14:30 Ns IVCONT .Q10H [facility] Insulin Human Lispro 0 unit 03/17/21 16:30 Insulin Lispro 100 Unit/Ml 3 Ml Vial SUBCUT QIDACHS [facility] Protocol Metoprolol Succinate 100 mg 03/18/21 09:00 Metoprolol Succinate Er 100 Mg Tab.Er.24h PO DAILY [facility] Protocol Non-Formulary Medication 40 mg 03/18/21 09:00 Pantoprazole PO DAILY [facility] Ondansetron HCl 4 mg 03/17/21 14:23 Ondansetron Odt 4 Mg Tab.Rapdis TRANSLINGU Q12H PRN Nausea And Vomiting Pharmacy Consult 1 each 03/17/21 08:10 Consult Rx Perform Med Rec MISCELLANE ONCE PRN Consult order Rivaroxaban 10 mg 03/18/21 09:00 Rivaroxaban 10 Mg Tablet PO DAILY [facility] Sodium Chloride 3 ml 03/17/21 16:00 0.9 % Sodium Chloride Flush 3 Ml Syringe IVFLUSH QSHIFT [facility] Sucralfate gm 03/17/21 21:00 Sucralfate Oral Suspension 1 Gm/10 Ml Oral.Susp PO BID [facility] Thiamine HCl 100 mg 03/18/21 09:00 Thiamine Hcl 100 Mg Tablet PO DAILY [facility] Home Medications Medication Instructions Recorded Confirmed Last Taken Type lisinopril 40 mg PO BEDTIME 03/11/21 03/17/21 03/16/21 History dulaglutide [Trulicity] 0.75 mg SUBCUT FR 03/17/21 03/17/21 03/13/21 History ondansetron HCl [Zofran] 4 mg PO Q12H PRN 03/17/21 03/17/21 Unknown History Physical Exam Vital Signs and Narrative: Vital Signs: Last Vital Signs Temp 98.7 F 03/17/21 09:58 Pulse 88 07/13/21 09:58 Resp 16 03/17/21 09:58 BP 121/67 03/17/21 09:58 Pulse Ox 95 03/17/21 09:58 Body Mass Index 48.1 General: no acute distress HEENT: atraumatic Neck: normal to visual inspection CVS: S1, S2, RRR Resp: CTA bilateral Chest: non tender GI: soft, non tender, non distended : no CVA tenderness Skin: no rashes Extremities: no edema Neuro: Oriented X3, grossly intact Psych: cooperative Results Labs CBC and Chem 7: 03/17/21 09:05 03/17/21 13:45 Labs: Laboratory Results - last 24 hr 03/17/21 03/17/21 03/17/21 09:05 09:05 09:05 MCV 80.7 MCH 28.1 MCHC 34.8 RDW 12.3 Plt Count 430 H MPV 9.5 Immature Gran % (Auto) 0.5 H Neut % (Auto) 87.1 H Lymph % (Auto) 8.0 L [place] % (Auto) 3.9 Eos % (Auto) 0.2 Baso % (Auto) 0.3 Lymph # (Auto) 1.5 [place] # (Auto) 0.7 Eos # (Auto) 0.0 Baso # (Auto) 0.1 Abs Immat Gran (auto) 0.09 H Absolute Neuts (auto) 16.4 H Absolute Nucleated RBC 0.000 Nucleated RBC % (auto) 0.0 Anion Gap 19 Estim Creat Clear Calc 42.8 Estimated GFR 33 Random Glucose 95 Osmolality 265 L Calcium 9.6 D Magnesium 1.7 Total Bilirubin 0.4 Direct Bilirubin 0.2 AST 19 ALT 18 Alkaline Phosphatase 129 H B-Natriuretic Peptide Total Protein 7.3 Albumin 4.3 Lipase 20 Urine Color Urine Appearance Urine pH Ur Specific [place] Urine Protein Urine Glucose (UA) Urine Ketones Urine Blood Urine Nitrite Ur Leukocyte Esterase Urine RBC Urine WBC Ur Squamous Epith Cells Urine Bacteria Urine Osmolality Ur Random Sodium COVID-19 ([facility]) COVID-19 Clin Com 03/17/21 03/17/21 03/17/21 09:05 13:42 13:42 MCV MCH MCHC RDW Plt Count MPV Immature Gran % (Auto) Neut % (Auto) Lymph % (Auto) [place] % (Auto) Eos % (Auto) Baso % (Auto) Lymph # (Auto) [place] # (Auto) Eos # (Auto) Baso # (Auto) Abs Immat Gran (auto) Absolute Neuts (auto) Absolute Nucleated RBC Nucleated RBC % (auto) Anion Gap Estim Creat Clear Calc Estimated GFR Random Glucose Osmolality Calcium Magnesium Total Bilirubin Direct Bilirubin AST ALT Alkaline Phosphatase B-Natriuretic Peptide < 10 Total Protein Albumin Lipase Urine Color YELLOW Urine Appearance HAZY Urine pH 5.5 Ur Specific [place] >= 1.030 H Urine Protein TRACE Urine Glucose (UA) NEG Urine Ketones 15 Urine Blood 2+ H Urine Nitrite NEG Ur Leukocyte Esterase 1+ H Urine RBC 0-2 Urine WBC 1-4 Ur Squamous Epith Cells 1+ Urine Bacteria 1+ Urine Osmolality 497 Ur Random Sodium COVID-19 ([facility]A) COVID-19 [place] Com 03/17/21 03/17/21 03/17/21 13:42 13:45 13:57 MCV MCH MCHC RDW Plt Count MPV Immature Gran % (Auto) Neut % (Auto) Lymph % (Auto) [place] % (Auto) Eos % (Auto) Baso % (Auto) Lymph # (Auto) [place] # (Auto) Eos # (Auto) Baso # (Auto) Abs Immat Gran (auto) Absolute Neuts (auto) Absolute Nucleated RBC Nucleated RBC % (auto) Anion Gap Estim Creat Clear Calc 46.4 Estimated GFR 37 Random Glucose 95 Osmolality Calcium 9.2 Magnesium Total Bilirubin Direct Bilirubin AST ALT Alkaline Phosphatase B-Natriuretic Peptide Total Protein Albumin Lipase Urine Color Urine Appearance Urine pH Ur Specific [place] Urine Protein Urine Glucose (UA) Urine Ketones Urine Blood Urine Nitrite Ur Leukocyte Esterase Urine RBC Urine WBC Ur Squamous Epith Cells Urine Bacteria Urine Osmolality Ur Random Sodium < 20.0 COVID-19 ([facility]) Negative COVID-19 Clin Com See Note Assessment and Plan (1) Morbid obesity: Status: Acute 51F presented with hyponatremia and mauri hyponatremia and MAURI hold kalina-i and hctz conitnue IV NS monitor bmp nephro eval DM insulin hld statin HTN toprol Quality Stroke Does the patient have a stroke diagnosis?: No VTE Prior VTE?: No VTE Risk Level:: Medical - moderate - high VTE Device Contraindication: Treatment Not Indicated VTE Drug Contraindication: N/A - Med Ordered
[2021-03-17 14:33] LABS: Anion Gap 17 (12-20); Carbon Dioxide 23 mmol/L (22-29); Chloride 90 mmol/L (96-108); Potassium 4.7 mmol/L (3.3-5.1); Sodium 125 mmol/L (135-145)
[2021-03-17 15:56] VITALS: BP 121/67; PULSE 72; RESP 16; O2SAT 98
[2021-03-17 17:37] LABS: Glucose, Whole Blood 90 mg/dL (60-115)
--- NOTE | 2021-03-17 20:33 | MHC.CM.PN ---
Addendum entered by Dorota Sawyer 03/17/21 21:23: IMM completed in error. Pt has [facility], not [facility] Original Note: CM met with pt using medical delivery technician. Pt is Slovenian speaking only. Brother, Roel Ingram present ([phone]). IMM reviewed and signed per protocol 03/17/21@3154. Reviewed HCP. At this time, pt does not wish to complete. Will think about it. Pt aware that CM will meet with her tomorrow and they can complete a HCP if she changes her mind. Pt lives with her brother. Pt uses a cane and has diabetic testing supplies. Pt has no services. Expect d/c plan is home without services. Transportation by brother Roel to home. Pt will need to speak with weight management regarding re-scheduling surgery. CM to follow for d/c needs.
--- NOTE | 2021-03-17 20:51 | PC.NURSE ---
nurse to nurse report given to Aydin SALAZAR
[2021-03-17 21:28] VITALS: BP 128/69; PULSE 75; RESP 20; TEMP 36; O2SAT 96
[2021-03-17 22:01] VITALS: BMI 50.6
[2021-03-17 23:11] LABS: Glucose, Whole Blood 98 mg/dL (60-115)
--- NOTE | 2021-03-17 23:11 | PM.CNNEP ---
History of Present Illness Reason for Consult Consult date: 03/17/21 Chief Complaint Chief complaint: MAURI Hyponatremia Review of Systems Review of Systems Constitutional: Denies fever, denies Chills Eyes: denies blurry vision ENT: denies sore throat CVS: denies chest pain Respiratory: Denies dyspnea GI: no abdominal pain : denies dysuria MSK: denies neck pain Skin: denies rash Neuro: denies specific motor weakness Psych: denies suicidal ideation Endocrine: denies heat/cold intoleratnce Hematologic: denies easy bleeding Allergy: denies hives PMFSH Past Medical History Medical History Anxiety B12 deficiency Depression Diabetes mellitus Essential hypertension Hyperlipidemia Morbid obesity Obese Pure hypercholesterolemia Rash Steatosis, liver Thiamine deficiency Family History Family History Father Diabetes Hypertension Prostate cancer Mother Hypertension Stomach cancer Family history: reviewed and not pertinent Surgical History Surgical History History of foot surgery History of total abdominal hysterectomy and bilateral salpingo-oophorectomy Status post debridement Social History Social History Household Members: Family Household Members Other:: Brother Housing: Apartment Are you a primary grounds caretaker to a significant other at home: No Do you presently have visiting nurse or other home services: No Alcohol intake: never Patient Tobacco Use Status: Never used Tobacco Use of substances other than those prescribed or required for medical reasons: No Have you been hit, kicked, punched, or otherwise hurt by someone within the past year? If so, by whom?: No Are you DNR?: No Advance Directives: No Advance Directives Information Provided: No Advance Directives on File: No Patient : No service: No 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al status: disabled Meds Allergies Allergy/AdvReac Type Severity Reaction Status Date / Time sertraline Allergy Severe Anaphylaxis Verified 03/17/21 07:55 citalopram Allergy Mild Rash Verified 03/17/21 07:55 Active Medications: Current Medications Generic Name Dose Route Start Last Admin Trade Name Freq PRN Reason Stop Dose Admin Atorvastatin Calcium 20 mg 03/17/21 21:00 Atorvastatin Calcium 20 Mg Tablet PO BEDTIME [facility] Folic Acid 1 mg 03/18/21 09:00 Folic Acid 1 Mg Tablet PO DAILY [facility] Sodium Chloride 1,000 mls @ 100 mls/hr 03/17/21 10:45 03/17/21 11:04 Ns IVCONT 100 mls/hr .Q10H [facility] Administration Sodium Chloride 1,000 mls @ 100 mls/hr 03/17/21 14:30 03/17/21 14:58 Ns IVCONT Not Given .Q10H [facility] Insulin Human Lispro 0 unit 03/17/21 16:30 03/17/21 17:35 Insulin Lispro 100 Unit/Ml 3 Ml Vial SUBCUT Not Given QIDACHS [facility] Protocol Metoprolol Succinate 100 mg 03/18/21 09:00 Metoprolol Succinate Er 100 Mg Tab.Er.24h PO DAILY [facility] Protocol Omeprazole 20 mg 03/18/21 06:30 Omeprazole 20 Mg Capsule.Dr PO DAILY@0630 [facility] Ondansetron HCl 4 mg 03/17/21 14:23 Ondansetron Odt 4 Mg Tab.Rapdis TRANSLINGU Q12H PRN Nausea And Vomiting Pharmacy Consult 1 each 03/17/21 08:10 Consult Rx Perform Med Rec MISCELLANE ONCE PRN Consult order Rivaroxaban 10 mg 03/18/21 09:00 Rivaroxaban 10 Mg Tablet PO DAILY [facility] Sodium Chloride 3 ml 03/17/21 16:00 03/17/21 17:06 0.9 % Sodium Chloride Flush 3 Ml Syringe IVFLUSH Not Given QSHIFT [facility] Sucralfate 1 gm 03/17/21 21:00 Sucralfate Oral Suspension 1 Gm/10 Ml Oral.Susp PO BID [facility] Thiamine HCl 100 mg 03/18/21 09:00 Thiamine Hcl 100 Mg Tablet PO DAILY [facility] Home Medications Medication Instructions Recorded Confirmed Last Taken Type lisinopril 40 mg PO BEDTIME 03/11/21 03/17/21 03/16/21 History dulaglutide [Trulicity] 0.75 mg SUBCUT FR 03/17/21 03/17/21 03/13/21 History ondansetron HCl [Zofran] 4 mg PO Q12H PRN 03/17/21 03/17/21 Unknown History Physical Exam Vital Signs: Last Vital Signs Temp 96.8 F 03/17/21 21:28 Pulse 75 03/17/21 21:28 Resp 20 03/17/21 21:28 BP 128/69 03/17/21 21:28 Pulse Ox 96 03/17/21 21:28 Body Mass Index 50.6 Results Lab Results Result Diagrams: 03/17/21 09:05 03/17/21 13:45 Lab results: Chemistry 03/17/21 03/17/21 09:05 13:45 Sodium 124 L 125 L Potassium 4.9 D 4.7 Carbon Dioxide 23 23 BUN 18 H 17 H Creatinine 1.63 H 1.50 H Calcium 9.6 D 9.2 Hematology 03/17/21 09:05 WBC 18.8 H Hgb 11.2 L Plt Count 430 H Urinalysis 03/17/21 13:42 Urine Color YELLOW Urine Appearance HAZY Urine pH 5.5 Ur Specific [place] >= 1.030 H Urine Protein TRACE Urine Glucose (UA) NEG Urine Ketones 15 Urine Blood 2+ H Urine Nitrite NEG Ur Leukocyte Esterase 1+ H Urine RBC 0-2 Urine WBC 1-4 Ur Squamous Epith Cells 1+ Urine Studies 03/17/21 13:42 Urine Osmolality 497 Assessment and Plan (1) Morbid obesity: Status: Acute 51F presented with hyponatremia and mauri hyponatremia and MAURI hold kailna-i and hctz continue IV NS high urine osm suspect pre-renal as cause of MAURI and low NA ordered susannah and creat Procedures Date of Service Date of Service: 03/17/21
[2021-03-17] MEDS: Atorvastatin Calcium 20 MG TABLET PO (23:13)
[2021-03-17] MEDS: Sucralfate Oral Suspension 1 GM/10 ML ORAL.SUSP PO (23:13)
[2021-03-17 23:26] VITALS: BP 112/64; PULSE 67; RESP 18; TEMP 36.4; O2SAT 96
[2021-03-18] VITALS (7 sets, daily range): BP systolic 96–116; BP diastolic 50–61; PULSE 63–77; RESP 18–20; TEMP 36–36.6; O2SAT 95–100
[2021-03-18 02:46] LABS: Creatinine Urine 31.44 mg/dL
[2021-03-18] MEDS: hydrOXYzine HCL 25 MG TABLET PO (04:05)
[2021-03-18] MEDS: traZODone HCL 25 MG HALFTAB PO ×2 (04:05→22:45)
[2021-03-18] MEDS: 0.9 % Sodium Chloride 1,000 ML 100 ML IVCONT (05:36)
[2021-03-18] MEDS: Omeprazole 20 MG CAPSULE.DR PO (05:36)
[2021-03-18 06:15] LABS: Hematocrit 31.3 % (37-47); Hemoglobin 10.7 g/dl (12.0-16.0); Mean Corpuscular HGB Conc 34.2 g/dl (31.0-35.0); Mean Corpuscular Volume 81.9 fL (80-98); Mean Platelet Volume 9.5 fL (9.4-12.3); Platelet Count 385 X10*3/uL (160-400); Red Blood Count 3.82 X10*6/uL (4.20-5.50); Red Cell Distribution Width 12.6 % (11.0-16.0); White Blood Count 13.9 X10*3/uL (4.8-10.8)
[2021-03-18 06:59] LABS: Anion Gap 13 (12-20); Blood Urea Nitrogen 15 mg/dL (9-16); Calcium 8.8 mg/dL (8.4-10.2); Carbon Dioxide 25 mmol/L (22-29); Chloride 93 mmol/L (96-108); Creatinine Clr Calc Pharmacy 66.6; Estimated Glomerular Filt Rate 53; Glucose Random 89 mg/dL (60-115); Potassium 4.2 mmol/L (3.3-5.1); Sodium 127 mmol/L (135-145)
[2021-03-18 07:17] LABS: Glucose, Whole Blood 101 mg/dL (60-115)
--- NOTE | 2021-03-18 07:36 | PM.PNNEP ---
Subjective Subjective Date of Service: 03/18/21 Physical Exam Vital Signs: Vital Signs: Last Vital Signs Temp 97.1 F 03/18/21 07:24 Pulse 63 03/18/21 07:24 Resp 19 03/18/21 07:24 BP 102/60 03/18/21 07:24 Pulse Ox 95 03/18/21 07:24 Body Mass Index 50.6 Objective Data Labs CBC & Chem 7: 03/18/21 05:24 03/18/21 05:24 Labs: Laboratory Results - last 24 hr 03/17/21 03/17/21 03/17/21 09:05 09:05 09:05 WBC 18.8 H RBC 3.99 L Hgb 11.2 L Hct 32.2 L MCV 80.7 MCH 28.1 MCHC 34.8 RDW 12.3 Plt Count 430 H MPV 9.5 Immature Gran % (Auto) 0.5 H Neut % (Auto) 87.1 H Lymph % (Auto) 8.0 L [place] % (Auto) 3.9 Eos % (Auto) 0.2 Baso % (Auto) 0.3 Lymph # (Auto) 1.5 [place] # (Auto) 0.7 Eos # (Auto) 0.0 Baso # (Auto) 0.1 Abs Immat Gran (auto) 0.09 H Absolute Neuts (auto) 16.4 H Absolute Nucleated RBC 0.000 Nucleated RBC % (auto) 0.0 Sodium 124 L Potassium 4.9 D Chloride 87 L Carbon Dioxide 23 Anion Gap 19 BUN 18 H Creatinine 1.63 H Estim Creat Clear Calc 42.8 Estimated GFR 33 POC Glucose Random Glucose 95 Osmolality 265 L Calcium 9.6 D Magnesium 1.7 Total Bilirubin 0.4 Direct Bilirubin 0.2 AST 19 ALT 18 Alkaline Phosphatase 129 H B-Natriuretic Peptide Total Protein 7.3 Albumin 4.3 Lipase 20 Urine Color Urine Appearance Urine pH Ur Specific [place] Urine Protein Urine Glucose (UA) Urine Ketones Urine Blood Urine Nitrite Ur Leukocyte Esterase Urine RBC Urine WBC Ur Squamous Epith Cells Urine Bacteria Urine Osmolality Ur Random Sodium Urine Creatinine COVID-19 ([facility]) COVID-19 Clin Com 03/17/21 03/17/21 03/17/21 09:05 13:42 13:42 WBC RBC Hgb Hct MCV MCH MCHC RDW Plt Count MPV Immature Gran % (Auto) Neut % (Auto) Lymph % (Auto) [place] % (Auto) Eos % (Auto) Baso % (Auto) Lymph # (Auto) [place] # (Auto) Eos # (Auto) Baso # (Auto) Abs Immat Gran (auto) Absolute Neuts (auto) Absolute Nucleated RBC Nucleated RBC % (auto) Sodium Potassium Chloride Carbon Dioxide Anion Gap BUN Creatinine Estim Creat Clear Calc Estimated GFR POC Glucose Random Glucose Osmolality Calcium Magnesium Total Bilirubin Direct Bilirubin AST ALT Alkaline Phosphatase B-Natriuretic Peptide < 10 Total Protein Albumin Lipase Urine Color YELLOW Urine Appearance HAZY Urine pH 5.5 Ur Specific [place] >= 1.030 H Urine Protein TRACE Urine Glucose (UA) NEG Urine Ketones 15 Urine Blood 2+ H Urine Nitrite NEG Ur Leukocyte Esterase 1+ H Urine RBC 0-2 Urine WBC 1-4 Ur Squamous Epith Cells 1+ Urine Bacteria 1+ Urine Osmolality 497 Ur Random Sodium Urine Creatinine COVID-19 (ROSA) COVID-[place] 03/17/21 03/17/21 03/17/21 13:42 13:45 13:57 WBC RBC Hgb Hct MCV MCH MCHC RDW Plt Count MPV Immature Gran % (Auto) Neut % (Auto) Lymph % (Auto) [place] % (Auto) Eos % (Auto) Baso % (Auto) Lymph # (Auto) [place] # (Auto) Eos # (Auto) Baso # (Auto) Abs Immat Gran (auto) Absolute Neuts (auto) Absolute Nucleated RBC Nucleated RBC % (auto) Sodium 125 L Potassium 4.7 Chloride 90 L Carbon Dioxide 23 Anion Gap 17 BUN 17 H Creatinine 1.50 H Estim Creat Clear Calc 46.4 Estimated GFR 37 POC Glucose Random Glucose 95 Osmolality Calcium 9.2 Magnesium Total Bilirubin Direct Bilirubin AST ALT Alkaline Phosphatase B-Natriuretic Peptide Total Protein Albumin Lipase Urine Color Urine Appearance Urine pH Ur Specific [place] Urine Protein Urine Glucose (UA) Urine Ketones Urine Blood Urine Nitrite Ur Leukocyte Esterase Urine RBC Urine WBC Ur Squamous Epith Cells Urine Bacteria Urine Osmolality Ur Random Sodium < 20.0 Urine Creatinine COVID-19 ([facility]) Negative COVID-19 [employer] See Note 03/17/21 03/17/21 03/18/21 17:33 23:08 02:23 WBC RBC Hgb Hct MCV MCH MCHC RDW Plt Count MPV Immature Gran % (Auto) Neut % (Auto) Lymph % (Auto) [place] % (Auto) Eos % (Auto) Baso % (Auto) Lymph # (Auto) [place] # (Auto) Eos # (Auto) Baso # (Auto) Abs Immat Gran (auto) Absolute Neuts (auto) Absolute Nucleated RBC Nucleated RBC % (auto) Sodium Potassium Chloride Carbon Dioxide Anion Gap BUN Creatinine Estim Creat Clear Calc Estimated GFR POC Glucose 90 98 Random Glucose Osmolality Calcium Magnesium Total Bilirubin Direct Bilirubin AST ALT Alkaline Phosphatase B-Natriuretic Peptide Total Protein Albumin Lipase Urine Color Urine Appearance Urine pH Ur Specific [place] Urine Protein Urine Glucose (UA) Urine Ketones Urine Blood Urine Nitrite Ur Leukocyte Esterase Urine RBC Urine WBC Ur Squamous Epith Cells Urine Bacteria Urine Osmolality Ur Random Sodium 37.0 Urine Creatinine 31.44 COVID-19 ([facility]) COVID-19 [employer] 03/18/21 03/18/21 03/18/21 05:24 05:24 07:13 WBC 13.9 H RBC 3.82 L Hgb 10.7 L Hct 31.3 L MCV 81.9 MCH 28.0 MCHC 34.2 RDW 12.6 Plt Count 385 MPV 9.5 Immature Gran % (Auto) Neut % (Auto) Lymph % (Auto) [place] % (Auto) Eos % (Auto) Baso % (Auto) Lymph # (Auto) [place] # (Auto) Eos # (Auto) Baso # (Auto) Abs Immat Gran (auto) Absolute Neuts (auto) Absolute Nucleated RBC 0.000 Nucleated RBC % (auto) 0.0 Sodium 127 L Potassium 4.2 Chloride 93 L Carbon Dioxide 25 Anion Gap 13 BUN 15 Creatinine 1.08 Estim Creat Clear Calc 66.6 Estimated GFR 53 POC Glucose 101 Random Glucose 89 Osmolality Calcium 8.8 Magnesium Total Bilirubin Direct Bilirubin AST ALT Alkaline Phosphatase B-Natriuretic Peptide Total Protein Albumin Lipase Urine Color Urine Appearance Urine pH Ur Specific [place] Urine Protein Urine Glucose (UA) Urine Ketones Urine Blood Urine Nitrite Ur Leukocyte Esterase Urine RBC Urine WBC Ur Squamous Epith Cells Urine Bacteria Urine Osmolality Ur Random Sodium Urine Creatinine COVID-19 ([facility]) COVID-19 [employer] Assessment & Plan Assessment and plan (1) Morbid obesity: Status: Acute Assessment and Plan: 51F presented with hyponatremia and mauri hyponatremia and MAURI hold kalina-i and hctz continue IV NS high urine osm pre-renal as cause of MAURI and low NA creat improved initial FENA was low now high so resolving prerenal MAURI the na should slowly normalize Time Spent With Patient Time: Total time spent is greater than 50% in coordination of care (as documented) at patient's floor/unit and/or counseling patient: Procedures Date of Service Date of Service: 03/18/21 Progress Note: Quality Stroke Does the patient have a stroke diagnosis?: No
--- NOTE | 2021-03-18 07:55 | P.PNNP_ITS ---
Subjective Subjective Date of Service: 03/19/21 Physical Exam Vital Signs: Vital Signs: Last Vital Signs Temp 97.1 F 03/18/21 07:24 Pulse 63 03/18/21 07:24 Resp 19 03/18/21 07:24 BP 102/60 03/18/21 07:24 Pulse Ox 95 03/18/21 07:24 Body Mass Index 50.6 Const: Other: General: AO X 3, no acute distress Resp: CTA bilateral CVS: S1,S2,RRR GI: +BS, NT, no distention Skin: No rash Neuro: motor grossly intact Psych: appropriate affect Objective Data Labs CBC & Chem 7: 03/19/21 05:38 03/19/21 05:38 Labs: Laboratory Results - last 24 hr 03/17/21 03/17/21 03/17/21 09:05 09:05 09:05 WBC 18.8 H RBC 3.99 L Hgb 11.2 L Hct 32.2 L MCV 80.7 MCH 28.1 MCHC 34.8 RDW 12.3 Plt Count 430 H MPV 9.5 Immature Gran % (Auto) 0.5 H Neut % (Auto) 87.1 H Lymph % (Auto) 8.0 L [place] % (Auto) 3.9 Eos % (Auto) 0.2 Baso % (Auto) 0.3 Lymph # (Auto) 1.5 [place] # (Auto) 0.7 Eos # (Auto) 0.0 Baso # (Auto) 0.1 Abs Immat Gran (auto) 0.09 H Absolute Neuts (auto) 16.4 H Absolute Nucleated RBC 0.000 Nucleated RBC % (auto) 0.0 Sodium 124 L Potassium 4.9 D Chloride 87 L Carbon Dioxide 23 Anion Gap 19 BUN 18 H Creatinine 1.63 H Estim Creat Clear Calc 42.8 Estimated GFR 33 POC Glucose Random Glucose 95 Osmolality 265 L Calcium 9.6 D Magnesium 1.7 Total Bilirubin 0.4 Direct Bilirubin 0.2 AST 19 ALT 18 Alkaline Phosphatase 129 H B-Natriuretic Peptide Total Protein 7.3 Albumin 4.3 Lipase 20 Urine Color Urine Appearance Urine pH Ur Specific [place] Urine Protein Urine Glucose (UA) Urine Ketones Urine Blood Urine Nitrite Ur Leukocyte Esterase Urine RBC Urine WBC Ur Squamous Epith Cells Urine Bacteria Urine Osmolality Ur Random Sodium Urine Creatinine COVID-19 (ROSA) COVID-19 Clin Com 03/17/21 03/17/21 03/17/21 09:05 13:42 13:42 WBC RBC Hgb Hct MCV MCH MCHC RDW Plt Count MPV Immature Gran % (Auto) Neut % (Auto) Lymph % (Auto) [place] % (Auto) Eos % (Auto) Baso % (Auto) Lymph # (Auto) [place] # (Auto) Eos # (Auto) Baso # (Auto) Abs Immat Gran (auto) Absolute Neuts (auto) Absolute Nucleated RBC Nucleated RBC % (auto) Sodium Potassium Chloride Carbon Dioxide Anion Gap BUN Creatinine Estim Creat Clear Calc Estimated GFR POC Glucose Random Glucose Osmolality Calcium Magnesium Total Bilirubin Direct Bilirubin AST ALT Alkaline Phosphatase B-Natriuretic Peptide < 10 Total Protein Albumin Lipase Urine Color YELLOW Urine Appearance HAZY Urine pH 5.5 Ur Specific [place] >= 1.030 H Urine Protein TRACE Urine Glucose (UA) NEG Urine Ketones 15 Urine Blood 2+ H Urine Nitrite NEG Ur Leukocyte Esterase 1+ H Urine RBC 0-2 Urine WBC 1-4 Ur Squamous Epith Cells 1+ Urine Bacteria 1+ Urine Osmolality 497 Ur Random Sodium Urine Creatinine COVID-19 (ROSA) COVID-19 HeadCount 03/17/21 03/17/21 03/17/21 13:42 13:45 13:57 WBC RBC Hgb Hct MCV MCH MCHC RDW Plt Count MPV Immature Gran % (Auto) Neut % (Auto) Lymph % (Auto) [place] % (Auto) Eos % (Auto) Baso % (Auto) Lymph # (Auto) [place] # (Auto) Eos # (Auto) Baso # (Auto) Abs Immat Gran (auto) Absolute Neuts (auto) Absolute Nucleated RBC Nucleated RBC % (auto) Sodium 125 L Potassium 4.7 Chloride 90 L Carbon Dioxide 23 Anion Gap 17 BUN 17 H Creatinine 1.50 H Estim Creat Clear Calc 46.4 Estimated GFR 37 POC Glucose Random Glucose 95 Osmolality Calcium 9.2 Magnesium Total Bilirubin Direct Bilirubin AST ALT Alkaline Phosphatase B-Natriuretic Peptide Total Protein Albumin Lipase Urine Color Urine Appearance Urine pH Ur Specific [place] Urine Protein Urine Glucose (UA) Urine Ketones Urine Blood Urine Nitrite Ur Leukocyte Esterase Urine RBC Urine WBC Ur Squamous Epith Cells Urine Bacteria Urine Osmolality Ur Random Sodium < 20.0 Urine Creatinine COVID-19 (ROSA) Negative COVID-19 HeadCount See Note 03/17/21 03/17/21 03/18/21 17:33 23:08 02:23 WBC RBC Hgb Hct MCV MCH MCHC RDW Plt Count MPV Immature Gran % (Auto) Neut % (Auto) Lymph % (Auto) [place] % (Auto) Eos % (Auto) Baso % (Auto) Lymph # (Auto) [place] # (Auto) Eos # (Auto) Baso # (Auto) Abs Immat Gran (auto) Absolute Neuts (auto) Absolute Nucleated RBC Nucleated RBC % (auto) Sodium Potassium Chloride Carbon Dioxide Anion Gap BUN Creatinine Estim Creat Clear Calc Estimated GFR POC Glucose 90 98 Random Glucose Osmolality Calcium Magnesium Total Bilirubin Direct Bilirubin AST ALT Alkaline Phosphatase B-Natriuretic Peptide Total Protein Albumin Lipase Urine Color Urine Appearance Urine pH Ur Specific [place] Urine Protein Urine Glucose (UA) Urine Ketones Urine Blood Urine Nitrite Ur Leukocyte Esterase Urine RBC Urine WBC Ur Squamous Epith Cells Urine Bacteria Urine Osmolality Ur Random Sodium 37.0 Urine Creatinine 31.44 COVID-19 (ROSA) COVID-19 HeadCount 03/18/21 03/18/21 03/18/21 05:24 05:24 07:13 WBC 13.9 H RBC 3.82 L Hgb 10.7 L Hct 31.3 L MCV 81.9 MCH 28.0 MCHC 34.2 RDW 12.6 Plt Count 385 MPV 9.5 Immature Gran % (Auto) Neut % (Auto) Lymph % (Auto) [place] % (Auto) Eos % (Auto) Baso % (Auto) Lymph # (Auto) [place] # (Auto) Eos # (Auto) Baso # (Auto) Abs Immat Gran (auto) Absolute Neuts (auto) Absolute Nucleated RBC 0.000 Nucleated RBC % (auto) 0.0 Sodium 127 L Potassium 4.2 Chloride 93 L Carbon Dioxide 25 Anion Gap 13 BUN 15 Creatinine 1.08 Estim Creat Clear Calc 66.6 Estimated GFR 53 POC Glucose 101 Random Glucose 89 Osmolality Calcium 8.8 Magnesium Total Bilirubin Direct Bilirubin AST ALT Alkaline Phosphatase B-Natriuretic Peptide Total Protein Albumin Lipase Urine Color Urine Appearance Urine pH Ur Specific [place] Urine Protein Urine Glucose (UA) Urine Ketones Urine Blood Urine Nitrite Ur Leukocyte Esterase Urine RBC Urine WBC Ur Squamous Epith Cells Urine Bacteria Urine Osmolality Ur Random Sodium Urine Creatinine COVID-19 (ROSA) COVID-19 HeadCount Assessment & Plan Assessment and plan (1) Morbid obesity: Status: Acute Assessment and Plan: 51F presented with hyponatremia and mauri hyponatremia and MAURI hold kalina-i and hctz continue IV NS high urine osm pre-renal as cause of MAURI and low NA creat improved initial FENA was low now high so resolving prerenal MAURI the na should slowly normalize Procedures Date of Service Date of Service: 03/18/21 Progress Note: Quality Stroke Does the patient have a stroke diagnosis?: No
[2021-03-18] MEDS: Folic Acid 1 MG TABLET PO (09:42)
[2021-03-18] MEDS: Rivaroxaban 10 MG TABLET PO (09:42)
[2021-03-18] MEDS: Metoprolol Succinate ER 100 MG TAB.ER.24H PO (09:43)
[2021-03-18] MEDS: Sucralfate Oral Suspension 1 GM/10 ML ORAL.SUSP PO ×2 (09:43→21:59)
[2021-03-18 11:06] LABS: Glucose, Whole Blood 117 mg/dL (60-115)
--- NOTE | 2021-03-18 13:53 | P.PNIM_ITS ---
Subjective Subjective Date of Service: 03/18/21 Interval History: Seen in f/u for MAURI, hypOnatremia, overall is better Review of Systems Gen: no fever Resp: no sob, no cough CV: no chest, no PETERS, no leg edema GI: No n/v, no abd pain Neuro: No confusion Physical Exam Vital Signs: Vital Signs: Last Vital Signs Temp 97.6 F 03/18/21 11:29 Pulse 77 03/18/21 11:29 Resp 19 03/18/21 11:29 BP 101/55 L 03/18/21 11:29 Pulse Ox 97 03/18/21 11:29 Body Mass Index 50.6 Const: Other: General: AO X 3, no acute distress Resp: CTA bilateral CVS: S1,S2,RRR GI: +BS, NT, no distention Skin: No rash Neuro: motor grossly intact Psych: appropriate affect Objective Data Current Medications Generic Name Dose Route Start Last Admin Trade Name Freq PRN Reason Stop Dose Admin Atorvastatin Calcium 20 mg 03/17/21 21:00 03/17/21 23:13 Atorvastatin Calcium 20 Mg Tablet PO 20 mg BEDTIME SAMMY Administration Folic Acid 1 mg 03/18/21 09:00 03/18/21 09:42 Folic Acid 1 Mg Tablet PO 1 mg DAILY SAMMY Administration Sodium Chloride 1,000 mls @ 100 mls/hr 03/17/21 10:45 03/18/21 05:36 Ns IVCONT 100 mls/hr .Q10H SAMMY Administration Sodium Chloride 1,000 mls @ 100 mls/hr 03/17/21 14:30 03/18/21 13:17 Ns IVCONT Not Given .Q10H SAMMY Insulin Human Lispro 0 unit 03/17/21 16:30 03/18/21 13:17 Insulin Lispro 100 Unit/Ml 3 Ml Vial SUBCUT Not Given QIDACHS [facility] Protocol Metoprolol Succinate 100 mg 03/18/21 09:00 03/18/21 09:43 Metoprolol Succinate Er 100 Mg Tab.Er.24h PO 100 mg DAILY SAMMY Administration Protocol Omeprazole 20 mg 03/18/21 06:30 03/18/21 05:36 Omeprazole 20 Mg Capsule.Dr PO 20 mg DAILY@0630 SAMMY Administration Ondansetron HCl 4 mg 03/17/21 14:23 Ondansetron Odt 4 Mg Tab.Rapdis TRANSLINGU Q12H PRN Nausea And Vomiting Pharmacy Consult 1 each 03/17/21 08:10 Consult Rx Perform Med Rec MISCELLANE ONCE PRN Consult order Rivaroxaban 10 mg 03/18/21 09:00 03/18/21 09:42 Rivaroxaban 10 Mg Tablet PO 10 mg DAILY SAMMY Administration Sodium Chloride 3 ml 03/17/21 16:00 03/18/21 09:45 0.9 % Sodium Chloride Flush 3 Ml Syringe IVFLUSH Not Given QSHIFT [facility] Sucralfate 1 gm 03/17/21 21:00 03/18/21 09:43 Sucralfate Oral Suspension 1 Gm/10 Ml Oral.Susp PO 1 gm BID SAMMY Administration Thiamine HCl 100 mg 03/18/21 09:00 Thiamine Hcl 100 Mg Tablet PO DAILY [facility] Labs CBC & Chem 7: 03/18/21 05:24 03/18/21 05:24 Labs: Laboratory Results - last 24 hr 03/17/21 03/17/21 03/17/21 13:42 13:42 13:42 WBC RBC Hgb Hct MCV MCH MCHC RDW Plt Count MPV Absolute Nucleated RBC Nucleated RBC % (auto) Sodium Potassium Chloride Carbon Dioxide Anion Gap BUN Creatinine Estim Creat Clear Calc Estimated GFR POC Glucose Random Glucose Calcium Urine Color YELLOW Urine Appearance HAZY Urine pH 5.5 Ur Specific [place] >= 1.030 H Urine Protein TRACE Urine Glucose (UA) NEG Urine Ketones 15 Urine Blood 2+ H Urine Nitrite NEG Ur Leukocyte Esterase 1+ H Urine RBC 0-2 Urine WBC 1-4 Ur Squamous Epith Cells 1+ Urine Bacteria 1+ Urine Osmolality 497 Ur Random Sodium < 20.0 Urine Creatinine COVID-19 (ROSA) COVID-19 Clin Com 03/17/21 03/17/21 03/17/21 13:45 13:57 17:33 WBC RBC Hgb Hct MCV MCH MCHC RDW Plt Count MPV Absolute Nucleated RBC Nucleated RBC % (auto) Sodium 125 L Potassium 4.7 Chloride 90 L Carbon Dioxide 23 Anion Gap 17 BUN 17 H Creatinine 1.50 H Estim Creat Clear Calc 46.4 Estimated GFR 37 POC Glucose 90 Random Glucose 95 Calcium 9.2 Urine Color Urine Appearance Urine pH Ur Specific [place] Urine Protein Urine Glucose (UA) Urine Ketones Urine Blood Urine Nitrite Ur Leukocyte Esterase Urine RBC Urine WBC Ur Squamous Epith Cells Urine Bacteria Urine Osmolality Ur Random Sodium Urine Creatinine COVID-19 (ROSA) Negative COVID-[employer] Com See Note 03/17/21 03/18/21 03/18/21 23:08 02:23 05:24 WBC 13.9 H RBC 3.82 L Hgb 10.7 L Hct 31.3 L MCV 81.9 MCH 28.0 MCHC 34.2 RDW 12.6 Plt Count 385 MPV 9.5 Absolute Nucleated RBC 0.000 Nucleated RBC % (auto) 0.0 Sodium Potassium Chloride Carbon Dioxide Anion Gap BUN Creatinine Estim Creat Clear Calc Estimated GFR POC Glucose 98 Random Glucose Calcium Urine Color Urine Appearance Urine pH Ur Specific [place] Urine Protein Urine Glucose (UA) Urine Ketones Urine Blood Urine Nitrite Ur Leukocyte Esterase Urine RBC Urine WBC Ur Squamous Epith Cells Urine Bacteria Urine Osmolality Ur Random Sodium 37.0 Urine Creatinine 31.44 COVID-19 (ROSA) [employer] 03/18/21 03/18/21 03/18/21 05:24 07:13 11:02 WBC RBC Hgb Hct MCV MCH MCHC RDW Plt Count MPV Absolute Nucleated RBC Nucleated RBC % (auto) Sodium 127 L Potassium 4.2 Chloride 93 L Carbon Dioxide 25 Anion Gap 13 BUN 15 Creatinine 1.08 Estim Creat Clear Calc 66.6 Estimated GFR 53 POC Glucose 101 117 H Random Glucose 89 Calcium 8.8 Urine Color Urine Appearance Urine pH Ur Specific [place] Urine Protein Urine Glucose (UA) Urine Ketones Urine Blood Urine Nitrite Ur Leukocyte Esterase Urine RBC Urine WBC Ur Squamous Epith Cells Urine Bacteria Urine Osmolality Ur Random Sodium Urine Creatinine COVID-19 (ROSA) COVID-19 [employer] Com Microbiology Microbiology Results: Microbiology 03/17/21 Unknown Urine Culture - Preliminary Urine clean catch - Urine young top Gram negative paz Quality Stroke Does the patient have a stroke diagnosis?: No VTE Prior VTE?: No VTE Risk Level:: Medical - moderate - high VTE Device Contraindication: Treatment Not Indicated VTE Drug Contraindication: N/A - Med Ordered Assessment and Plan (1) Morbid obesity: Status: Acute Assessment and Plan: 51F presented with hyponatremia and mauri hyponatremia and MAURI--likrly gtom pre renal and ACEi hold kalina-i and hctz conitnue IV NS monitor bmp nephro eval input noted DM insulin hld statin HTN toprol Leukocytosis likely reactive and going down without Abx
[2021-03-18] MEDS: Thiamine HCL 100 MG TABLET PO (14:26)
[2021-03-18 16:06] LABS: Glucose, Whole Blood 120 mg/dL (60-115)
[2021-03-18 20:07] LABS: Glucose, Whole Blood 98 mg/dL (60-115)
[2021-03-18] MEDS: Atorvastatin Calcium 20 MG TABLET PO (21:59)
[2021-03-18] MEDS: Acetaminophen 325 MG TABLET 650 MG PO (22:45)
[2021-03-18] MEDS: 0.9 % Sodium Chloride Flush 3 ML SYRINGE IVFLUSH (23:48)
[2021-03-19] MEDS: 0.9 % Sodium Chloride 1,000 ML 100 ML IVCONT (02:25)
[2021-03-19 03:29] VITALS: BP 119/76; PULSE 72; RESP 18; TEMP 36.4; O2SAT 99
[2021-03-19] MEDS: Omeprazole 20 MG CAPSULE.DR PO (05:31)
[2021-03-19 06:48] LABS: Hemoglobin 9.9 g/dl (12.0-16.0); Mean Corpuscular Hemoglobin 27.9 pg (27.0-33.0); Mean Corpuscular Volume 84.5 fL (80-98); Mean Platelet Volume 9.5 fL (9.4-12.3); Platelet Count 343 X10*3/uL (160-400); Red Blood Count 3.55 X10*6/uL (4.20-5.50); Red Cell Distribution Width 12.8 % (11.0-16.0); White Blood Count 12.7 X10*3/uL (4.8-10.8)
[2021-03-19 07:05] LABS: Anion Gap 13 (12-20); Blood Urea Nitrogen 18 mg/dL (9-16); Carbon Dioxide 23 mmol/L (22-29); Chloride 99 mmol/L (96-108); Creatinine Clr Calc Pharmacy 68.5; Estimated Glomerular Filt Rate 55; Glucose Random 105 mg/dL (60-115); Potassium 4.2 mmol/L (3.3-5.1); Sodium 131 mmol/L (135-145)
[2021-03-19 07:21] LABS: Glucose, Whole Blood 99 mg/dL (60-115)
--- NOTE | 2021-03-19 07:29 | PM.PNNEP ---
Subjective Subjective Date of Service: 03/19/21 Interval history: Seen in f/u for MAURI, hyponatremia, overall is better Physical Exam Vital Signs: Vital Signs: Last Vital Signs Temp 97.5 F 03/19/21 03:29 Pulse 72 03/19/21 03:29 Resp 18 03/19/21 03:29 BP 119/76 03/19/21 03:29 Pulse Ox 99 03/19/21 03:29 Body Mass Index 50.6 Const: Other: General: AO X 3, no acute distress Resp: CTA bilateral CVS: S1,S2,RRR GI: +BS, NT, no distention Skin: No rash Neuro: motor grossly intact Psych: appropriate affect Objective Data Labs CBC & Chem 7: 03/19/21 05:38 03/19/21 05:38 Labs: Laboratory Results - last 24 hr 03/18/21 03/18/21 03/18/21 11:02 16:01 20:03 WBC RBC Hgb Hct MCV MCH MCHC RDW Plt Count MPV Absolute Nucleated RBC Nucleated RBC % (auto) Sodium Potassium Chloride Carbon Dioxide Anion Gap BUN Creatinine Estim Creat Clear Calc Estimated GFR POC Glucose 117 H 120 H 98 Random Glucose Calcium 03/19/21 03/19/21 03/19/21 05:38 05:38 07:12 WBC 12.7 H RBC 3.55 L Hgb 9.9 L Hct 30.0 L MCV 84.5 MCH 27.9 MCHC 33.0 RDW 12.8 Plt Count 343 MPV 9.5 Absolute Nucleated RBC 0.000 Nucleated RBC % (auto) 0.0 Sodium 131 L Potassium 4.2 Chloride 99 Carbon Dioxide 23 Anion Gap 13 BUN 18 H Creatinine 1.05 Estim Creat Clear Calc 68.5 Estimated GFR 55 POC Glucose 99 Random Glucose 105 Calcium 8.0 L D Microbiology Microbiology Results: Microbiology 03/17/21 Unknown Urine clean catch - Urine young top Urine Culture - Preliminary Gram negative paz Assessment & Plan Assessment and plan (1) Morbid obesity: Status: Acute Assessment and Plan: 51F presented with hyponatremia and mauri hyponatremia and MAURI hold kalina-i and hctz continue IV NS high urine osm pre-renal as cause of MAURI and low NA creat back to normal initial FENA was low initially so prerenal MAURI the na is slowly normalize no new suggestions Time Spent With Patient Time: Total time spent is greater than 50% in coordination of care (as documented) at patient's floor/unit and/or counseling patient: Procedures Date of Service Date of Service: 03/19/21 Progress Note: Quality Stroke Does the patient have a stroke diagnosis?: No
[2021-03-19 07:43] VITALS: BP 103/66; PULSE 68; RESP 18; TEMP 36.5; O2SAT 97
[2021-03-19] MEDS: Sucralfate Oral Suspension 1 GM/10 ML ORAL.SUSP PO (08:34)
[2021-03-19] MEDS: Thiamine HCL 100 MG TABLET PO (08:34)
[2021-03-19] MEDS: Metoprolol Succinate ER 100 MG TAB.ER.24H PO (08:34)
[2021-03-19] MEDS: Folic Acid 1 MG TABLET PO (08:35)
[2021-03-19] MEDS: Rivaroxaban 10 MG TABLET PO (08:35)
--- NOTE | 2021-03-19 10:22 | MHC.CM.PN ---
Patient has been medically cleared for dc to home today, no services.
--- NOTE | 2021-03-19 10:23 | PM.DS ---
DS: Providers Provider Date of Service: 03/19/21 Date of admission: 03/17/21 14:26 Primary care physician: Radha Woodson MD Consults: 03/17/21 14:25 Consult to Nephrology Routine Consulting Provider: Dixon Canales Reason for consultation: hyponatremia, mauri DS: Diagnosis Discharge Diagnosis (1) Morbid obesity: Status: Acute DS: Medications Discharge Medications Home Medications: Home Medications Medication Instructions Recorded Confirmed lisinopril 40 mg PO BEDTIME 03/11/21 03/17/21 dulaglutide [Trulicity] 0.75 mg SUBCUT FR 03/17/21 03/17/21 ondansetron HCl [Zofran] 4 mg PO Q12H PRN 03/17/21 03/17/21 Previous Rx's Medication Instructions Recorded blood sugar diagnostic #50 ea 09/17/20 glimepiride 4 mg tablet 4 mg PO DAILY #90 tab 09/17/20 hydrochlorothiazide 50 mg tablet 50 mg PO DAILY #90 tab 09/17/20 lancets 28 gauge #100 ea 09/17/20 metformin 1,000 mg tablet 1,000 mg PO BID 90 Days #180 tab 09/17/20 metoprolol succinate 100 mg 100 mg PO DAILY #90 tab 09/17/20 tablet,extended release 24 hr naproxen 375 mg tablet 375 mg PO BID PRN 30 Days #60 tab 09/17/20 atorvastatin 20 mg tablet 20 mg PO BEDTIME 90 Days #90 tab 11/13/20 folic acid 1 mg tablet 1 mg PO DAILY 90 Days #90 tab 11/13/20 thiamine HCl (vitamin B1) 100 mg 100 mg PO DAILY 30 Days #30 tab 11/13/20 tablet insulin syringe,safetyneedle 1 mL #1 ea 12/06/20 30 gauge x 3/16 cyanocobalamin (vitamin B-12) 1,000 mcg IM .once a month 30 Days 12/10/20 1,000 mcg/mL injection kit #1 ea syringe with needle, safety 3 mL #1 ea 12/10/20 22 gauge x 1 1/2 pantoprazole 40 mg tablet,delayed 40 mg PO DAILY #30 tab 02/19/21 release sucralfate 100 mg/mL oral 10 ml PO BID #400 ml 02/19/21 suspension DS: Summary Hospital Course Hospital Course: Chief Complaint: nausea, weakness 51F presented from preop for Gastric sleeve with hyponatremia and MAURI found on preop labs. patient is on HCTZ, has been getting bowel prep for surgery and having diarrhea. patient reports that she has been feeling weak for the last couple of days. denies chest pain, sob, fever, chills, dyspnea. sodium was 124, creatinine 1.63. uriene sodium <20, urine osm 497. patient was given NS. Hospital course: Patient is essentilly diabetic with HTN and takes HCTZ and Lisinopril 40, she is morbidly ob[place] and was planned gastric sleeve done and had pre surgery lab work done and noted to be have MAURI and hyponatremia, Sodium was 124 and ultimately dropped to 122, Creatinine was 1.63. Patient was having diarreha from bowel prep too. She was manged with discontinuating of HCTZ and Lisnopril, water restrictiona and given Normal saline under the guidance of nephrology. At this point Creatinine is now normal at 1, sodium is up to 131, she is eating and drinking. Her blood pressure tent to be on the low side with Systolic no more than 120 without medication, therefore Lisinopril and HCTZ have been discontinued. She should follow up with her PCP and should have lab work done again before surgery Time Spent with Patient Time attestation: Total time spent providing and/or coordinating discharge services: Discharge coordination time: Greater than 30 minutes Quality: Stroke Does the patient have a stroke diagnosis?: No Physical Exam Vital Signs: Vital Signs: Last Vital Signs Temp 97.7 F 03/19/21 07:43 Pulse 68 03/19/21 07:43 Resp 18 03/19/21 07:43 BP 103/66 03/19/21 07:43 Pulse Ox 97 03/19/21 07:43 Body Mass Index 50.6 Const: Other: Constitutional Awake and Alert, No apparent distress Neck Supple, No lymphadenopathy Cardiovascular RRR, No M/R/G, S1 S2, No S3 S4, No pedal edema Respiratory Lungs clear, No respiratory distress Gastrointestinal Non tender, Non-distended Skin No rash Neurological Alert & oriented x3 Psychological Appropriate affect DS: Data Data Completed and Pending Labs on day of discharge: Laboratory Results - last 24 hr 03/18/21 03/18/21 03/18/21 11:02 16:01 20:03 WBC RBC Hgb Hct MCV MCH MCHC RDW Plt Count MPV Absolute Nucleated RBC Nucleated RBC % (auto) Sodium Potassium Chloride Carbon Dioxide Anion Gap BUN Creatinine Estim Creat Clear Calc Estimated GFR POC Glucose 117 H 120 H 98 Random Glucose Calcium 03/19/21 03/19/21 03/19/21 05:38 05:38 07:12 WBC 12.7 H RBC 3.55 L Hgb 9.9 L Hct 30.0 L MCV 84.5 MCH 27.9 MCHC 33.0 RDW 12.8 Plt Count 343 MPV 9.5 Absolute Nucleated RBC 0.000 Nucleated RBC % (auto) 0.0 Sodium 131 L Potassium 4.2 Chloride 99 Carbon Dioxide 23 Anion Gap 13 BUN 18 H Creatinine 1.05 Estim Creat Clear Calc 68.5 Estimated GFR 55 POC Glucose 99 Random Glucose 105 Calcium 8.0 L D Preliminary micro results at discharge 03/17/21 Unknown Urine Culture - Preliminary Urine clean catch - Urine young top Gram negative paz Discharge Plan Discharge Anticipated Discharge Date/Time: 03/19/21 09:57 Patient Disposition: Home, Self-Care Discharge Diagnosis: MAURI, Hyponatremia Referrals: Radha Arevalo MD [Primary Care Provider] - 04/01/21 11:30 am (You have a follow up appointment with your primary care physician on April 01 at 11:30 am. Please call your doctors office if you need to reschedule.) Discharge Medications: Continued (DME) blood sugar diagnostic Strip See Rx Instructions ea Not Applicable DAILY Qty: 50 RF: 11 (DME) lancets 28 gauge misc See Rx Instructions ea topical DAILY Qty: 100 RF: 11 (DME) insulin syringe,safetyneedle 1 mL 30 gauge x 3/16 syringe See Rx Instructions .ROUTE .MEDSUPPLY Qty: 1 RF: 6 ondansetron HCl [Zofran] 4 mg tablet 4 mg PO Q12H PRN (Reason: Nausea And Vomiting) RF: 0 thiamine HCl (vitamin B1) 100 mg tablet 100 mg PO DAILY 30 Days Qty: 30 RF: 5 folic acid 1 mg tablet 1 mg PO DAILY 90 Days Qty: 90 RF: 3 atorvastatin 20 mg tablet 20 mg PO BEDTIME 90 Days Qty: 90 RF: 3 cyanocobalamin (vitamin B-12) 1,000 mcg/mL kit 1,000 mcg IM .once a month 30 Days Qty: 1 RF: 6 (DME) BD Safety-Madina Detachable Needl 3 mL 22 gauge x 1 1/2 syringe See Rx Instructions .ROUTE .MEDSUPPLY Qty: 1 RF: 6 pantoprazole 40 mg tablet,delayed release (DR/EC) 40 mg PO DAILY Qty: 30 RF: 2 sucralfate 100 mg/mL suspension 10 ml PO BID Qty: 400 RF: 2 Discontinued hydrochlorothiazide 50 mg tablet 50 mg PO DAILY Qty: 90 RF: 1 naproxen 375 mg tablet 375 mg PO BID PRN (Reason: pain) 30 Days Qty: 60 RF: 6 lisinopril 40 mg tablet 40 mg PO BEDTIME RF: 0 No Action glimepiride 4 mg tablet 4 mg PO DAILY Qty: 90 RF: 2 metformin 1,000 mg tablet 1,000 mg PO BID 90 Days Qty: 180 RF: 1 Trulicity 0.75 mg/0.5 mL pen injector 0.75 mg subcut FR 90 Days Qty: 6.5 RF: 3 hydrochlorothiazide 50 mg tablet 50 mg PO DAILY Qty: 90 RF: 2 lisinopril 40 mg tablet 40 mg PO DAILY Qty: 90 RF: 1 metoprolol succinate 100 mg tablet extended release 24 hr 100 mg PO DAILY Qty: 90 RF: 2 Discharge Orders: Discharge Order (Routine); Ordered 03/19/21 Ordered By: Arnulfo Faith Diet: advance to usual diet and diabetic diet Activity on Discharge: As tolerated Stand Alone Forms: Patient Portal Discharge page Care Plan Goals: prevent rehospitalization Health Concerns: hyponatremia and renal failure Plan of Treatment: Stop taking Hydrochlorothiazide and Lisinopril, follow up with your primary care Doctor in a week, call for appointment Assessment: See above Discharge Date/Time: 03/19/21 13:00
[2021-03-19 11:22] LABS: Glucose, Whole Blood 100 mg/dL (60-115)
[2021-03-19 11:46] VITALS: BP 100/54; PULSE 70; RESP 19; TEMP 37.1; O2SAT 99
== END 2021-03-19 13:00 | disposition home or self-care (01) | DRG 426 ==
LOC: HO.ED 13:56 → HO.EDOVER 17:27 → HO.IMC 18:46
PROVIDERS: Internal Medicine Nephrology; Physician Assistant; Admitting Provider Internal Medicine; Emergency Provider Student in an Organized Health Care Education/Training Program; PCP Internal Medicine; Visit Provider Internal Medicine
DX: E87.1 Hypo-osmolality and hyponatremia (principal); N17.9 Acute kidney failure, unspecified; E66.01 Morbid (severe) obesity due to excess calories; E86.0 Dehydration; E11.9 Type 2 diabetes mellitus without complications; E78.5 Hyperlipidemia, unspecified; Z20.822 Contact with and (suspected) exposure to COVID-19; Z79.84 Long term (current) use of oral hypoglycemic drugs; Z68.43 Body mass index [BMI] 50.0-59.9, adult; Z79.899 Other long term (current) drug therapy
CPT/HCPCS: 36415; 80048; 80051; 80053; 80061; 80076; 81001; 81003; 82947; 83036; 83525; 83690; 83735; 83880; 83930; 83935; 84295; 84300; 84443; 85025; 85027; 85610; 85730; 86140; 86850; 86900; 86901; 87086; 87088; 87186; 87635; 99285; J2405; J3010

== ENCOUNTER → 2021-03-17 | Day surgery (SDC) | payer OTHER, SELFPAY ==
[2021-03-10 11:34] LABS: MANUAL DIFF FLAG NO
[2021-03-10 11:50] LABS: Basophils Percent Auto 0.3 % (0-2); Eosinophils Absolute Auto 0.1 X10*3/uL (0.0-0.4); Eosinophils Percent Auto 0.6 % (0-4); Hematocrit 35.2 % (37-47); Hemoglobin 11.9 g/dl (12.0-16.0); Imm Gran Abs Auto 0.06 X10*3/uL (0.00-0.03); Imm Gran Pct Auto 0.5 % (0.0-0.4); Lymphocytes Absolute Auto 1.3 X10*3/uL (1.2-4.9); Lymphocytes Percent Auto 10.7 % (20-40); Mean Corpuscular HGB Conc 33.8 g/dl (31.0-35.0); Mean Corpuscular Volume 82.8 fL (80-98); Mean Platelet Volume 10.1 fL (9.4-12.3); Monocytes Absolute Auto 0.7 X10*3/uL (0.1-1.2); Monocytes Percent Auto 5.8 % (2-11); Neutrophils Absolute Auto 10.3 X10*3/uL (2.0-8.3); Neutrophils Percent Auto 82.1 % (45-73); Platelet Count 379 X10*3/uL (160-400); Red Blood Count 4.25 X10*6/uL (4.20-5.50); Red Cell Distribution Width 12.8 % (11.0-16.0); White Blood Count 12.5 X10*3/uL (4.8-10.8)
[2021-03-10 11:52] LABS: INTERNATIONAL NORM RATIO 1.1 (0.9-1.1); Prothrombin Time 12.6 SEC (9.9-13.0)
[2021-03-10 11:55] LABS: Partial Thromboplastin Time 37.5 SEC (24.1-38.0)
[2021-03-10 12:16] LABS: Estimated Average Glucose 117 mg/dL; Hemoglobin A1c % 5.7 %
[2021-03-10 12:30] LABS: Alanine Aminotransferase 14 U/L (0-31); Albumin Level 4.4 g/dL (3.5-5.0); Alkaline Phosphatase 133 U/L (39-117); Anion Gap 17 (12-20); Aspartate Amino Transferase 18 U/L (5-31); Bilirubin Total 0.5 mg/dL (0.0-1.0); Blood Urea Nitrogen 20 mg/dL (9-16); C Reactive Protein 1.84 mg/dL (< or = 0.50); Calcium 10.6 mg/dL (8.4-10.2); Carbon Dioxide 25 mmol/L (22-29); Chloride 89 mmol/L (96-108); Cholesterol 171 mg/dL; Estimated Glomerular Filt Rate 56; Glucose Random 117 mg/dL (60-115); HDL Cholesterol 41 mg/dL; LDL Cholesterol Calculated 102 mg/dl; Potassium 5.1 mmol/L (3.3-5.1); Sodium 126 mmol/L (135-145); Total Protein 7.6 g/dL (6.5-8.0); Triglycerides 144 mg/dL
[2021-03-10 13:03] LABS: TSH reflex Free T4 0.52 uIU/mL (0.32-4.0)
[2021-03-11 09:42] LABS: Insulin Level Total 49.3 uIU/mL
[2021-03-11 11:53] VITALS: BMI 49.5
--- NOTE | 2021-03-16 08:37 | P.CONAN_ITS ---
Documented by User: Brianda Adamney 03/16/21 14:09 HPI - Anesthesia Eval Consult details Narrative: 51yo F for Gastrectomy Sleeve, EGD, Poss Diaphragmatic Hernia, Poss Ventral Hernia, Poss open New hyponatremia @ 126 with 03/10/21 labs. No h/o previous. Dr Weir office ([facility]) notified, but unable to reach Dr Weir. Reviewed with Dr Coello. OK to recheck DOS. PMFSH Active Problems Active Problems: All Active Problems (Updated 11/13/20 @ 10:06 by Radha Woodson MD) Polyarthralgia (Acute) Elevated erythrocyte sedimentation rate (Acute) Sleep apnea with use of continuous positive airway pressure (CPAP) (Acute) Thiamine deficiency (Acute) B12 deficiency (Acute) Anxiety (Acute) Depression (Acute) Steatosis, liver (Acute) Hyperlipidemia (Acute) Morbid obesity (Acute) Obese (Acute) Rash (Acute) Pure hypercholesterolemia (Acute) Diabetes mellitus (Acute) Essential hypertension (Acute) Past Medical History Medical History Anxiety B12 deficiency Depression Diabetes mellitus Essential hypertension Hyperlipidemia Morbid obesity Obese Pure hypercholesterolemia Rash Steatosis, liver Thiamine deficiency Family History Family History Father Diabetes Hypertension Prostate cancer Mother Hypertension Stomach cancer Surgical History Surgical History History of foot surgery History of total abdominal hysterectomy and bilateral salpingo-oophorectomy Status post debridement Social History Social History Household Members Other:: Brother Are you a primary nanny caregiver to a significant other at home: No Do you presently have visiting nurse or other home services: No Alcohol intake: never Patient Tobacco Use Status: Never used Tobacco Use of substances other than those prescribed or required for medical reasons: No Have you been hit, kicked, punched, or otherwise hurt by someone within the past year? If so, by whom?: No Are you DNR?: No Advance Directives: No Advance Directives Information Provided: No Advance Directives on File: No Patient : No Meds Allergies Allergy/AdvReac Type Severity Reaction Status Date / Time sertraline Allergy Severe Anaphylaxis Verified 03/11/21 11:52 citalopram Allergy Mild Rash Verified 03/11/21 11:52 Home Medications Medication Instructions Recorded Confirmed Last Taken Type lisinopril 40 mg PO BEDTIME 03/11/21 03/11/21 Unknown History Exam Exam Date and Time: March 16, 2021 0837 Height,Weight and Vital Signs: Height 4 ft 10 in Weight 107.501 kg Pertinent Lab Results Pertinent Lab Results: Laboratory Tests 03/10/21 03/10/21 03/10/21 10:10 10:10 10:10 WBC 12.5 H RBC 4.25 Hgb 11.9 L Hct 35.2 L MCV 82.8 MCH 28.0 MCHC 33.8 RDW 12.8 Plt Count 379 MPV 10.1 Immature Gran % (Auto) 0.5 H Neut % (Auto) 82.1 H Lymph % (Auto) 10.7 L [place] % (Auto) 5.8 Eos % (Auto) 0.6 Baso % (Auto) 0.3 Lymph # (Auto) 1.3 [place] # (Auto) 0.7 Eos # (Auto) 0.1 Baso # (Auto) 0.0 Abs Immat Gran (auto) 0.06 H Absolute Neuts (auto) 10.3 H Absolute Nucleated RBC 0.000 Nucleated RBC % (auto) 0.0 PT 12.6 INR 1.1 APTT 37.5 Sodium 126 L Potassium 5.1 Chloride 89 L Carbon Dioxide 25 Anion Gap 17 BUN 20 H Creatinine 1.04 Estim Creat Clear Calc TNP Estimated GFR 56 Random Glucose 117 H D Estimat Average Glucose Hemoglobin A1c % Total Insulin Calcium 10.6 H D Total Bilirubin 0.5 AST 18 D ALT 14 Alkaline Phosphatase 133 H C-Reactive Protein 1.84 H Total Protein 7.6 Albumin 4.4 Triglycerides 144 Cholesterol 171 D LDL Cholesterol, Calc 102 HDL Cholesterol 41 TSH 0.52 Blood Type Antibody Screen 03/10/21 03/10/21 03/10/21 10:10 10:10 10:10 WBC RBC Hgb Hct MCV MCH MCHC RDW Plt Count MPV Immature Gran % (Auto) Neut % (Auto) Lymph % (Auto) [place] % (Auto) Eos % (Auto) Baso % (Auto) Lymph # (Auto) [place] # (Auto) Eos # (Auto) Baso # (Auto) Abs Immat Gran (auto) Absolute Neuts (auto) Absolute Nucleated RBC Nucleated RBC % (auto) PT INR APTT Sodium Potassium Chloride Carbon Dioxide Anion Gap BUN Creatinine Estim Creat Clear Calc Estimated GFR Random Glucose Estimat Average Glucose 117 Hemoglobin A1c % 5.7 Total Insulin 49.3 H Calcium Total Bilirubin AST ALT Alkaline Phosphatase C-Reactive Protein Total Protein Albumin Triglycerides Cholesterol LDL Cholesterol, Calc HDL Cholesterol TSH Blood Type O Positive Antibody Screen NEGATIVE Assessment and Plan Assessment Anesthesia Assessment: Chart Reviewed Documented by User: Praful Coello 03/17/21 07:07 [facility] Past Medical History Medical History Anxiety B12 deficiency Depression Diabetes mellitus Essential hypertension Hyperlipidemia Morbid obesity Obese Pure hypercholesterolemia Rash Steatosis, liver Thiamine deficiency Family History Family History Father Diabetes Hypertension Prostate cancer Mother Hypertension Stomach cancer Surgical History Surgical History History of foot surgery History of total abdominal hysterectomy and bilateral salpingo-oophorectomy Status post debridement Social History Social History Household Members Other:: Brother Are you a primary nanny caregiver to a significant other at home: No Do you presently have visiting nurse or other home services: No Alcohol intake: never Patient Tobacco Use Status: Never used Tobacco Use of substances other than those prescribed or required for medical reasons: No Have you been hit, kicked, punched, or otherwise hurt by someone within the past year? If so, by whom?: No Are you DNR?: No Advance Directives: No Advance Directives Information Provided: No Advance Directives on File: No Patient : No Meds Allergies Allergy/AdvReac Type Severity Reaction Status Date / Time sertraline Allergy Severe Anaphylaxis Verified 03/11/21 11:52 citalopram Allergy Mild Rash Verified 03/11/21 11:52 Home Medications Medication Instructions Recorded Confirmed Last Taken Type lisinopril 40 mg PO BEDTIME 03/11/21 03/11/21 Unknown History Exam Airway Mallampati Class: III TM Dist: >3cm Neck ROM: Full Loose/Missing/Broken Teeth: Yes Heart: [id number] Lungs: cta b/l Assessment and Plan Assessment Anesthesia Assessment: Anesthesia Plan Discussed, PAT Visit and Chart Reviewed Final Anesthetic Review NPO: Yes ASA Class: III Final Preanesthetic Review: No Changes in Pt Med Stat, Meds/Allgs Chart Reviewed, Consent Obtained/Reviewed and Anes Risks/Benef Reviewed Patient Risk: Intermediate Procedure Risk: Low Assessment/Block/Sedation in SS: Assess/Block/Sedation-SS Anesthetic Plan Anesthetic Plan: GA and Agree w/ Assess. and Plan Disposition: Standard PACU
[2021-03-16 18:48] LABS: Sodium 124 mmol/L (135-145)
--- NOTE | 2021-03-17 00:01 | P.HPSUR_ITS ---
Pre-Procedural Eval Section A Date of Service: 03/17/21 The patient is an INPATIENT: Yes The History & Physical has been completed within 30 days and I have reviewed it.: Yes Section B Chief Complaint: Morbid Severe Obesity Details of Present Illness: Obesity Relevant Family History (Specify if Yes): No Relevant Social History: None Present Medications: see Short Stay Collaborative assessment Medical History: No relevant PMH History of Previous Operations: No relevant previous surgery Allergies: Allergies Allergy/AdvReac Type Severity Reaction Status Date / Time sertraline Allergy Severe Anaphylaxis Verified 03/11/21 11:52 citalopram Allergy Mild Rash Verified 03/11/21 11:52 Review of Systems Sugical H&P ROS: Negative: Constitution, Cardiovascular, Respiratory, Neurological, Psychiatric, Hem-Onc, Allergic/Immunologic, Gastrointestinal, Genitourinary, Musculoskeletal, Integumentary, Endocrine and Eyes/Ears/Nose/Throat Exam Surgical H&P Exam: Normal: HEENT, Normal: Heart, Normal: Lungs, Normal: Extremit ies, Normal: Abdomen, Normal: Skin and Normal: Neurological Plan Diagnosis/Plan: Unchanged I have reviewed the history and physical and performed a pertinent physical examination on my patient. No changes have occurred unless specified.
[2021-03-17 06:40] VITALS: BP 95/38; PULSE 94; RESP 20; TEMP 36.3; O2SAT 96
[2021-03-17 06:47] LABS: Glucose, Whole Blood 116 mg/dL (60-115)
--- NOTE | 2021-03-17 06:59 | PC.NURSE ---
Blood pressure on upper left arm 95/38. Anesthesia Saviri aware and okay to proceed. Recheck on left forearm with blue cuff for 114/73.
[2021-03-17 07:11] LABS: COVID-19 Test Negative (Negative); IDNOW Serial# 9DD0AD1C
[2021-03-17 07:17] LABS: Anion Gap 17 (12-20); Carbon Dioxide 22 mmol/L (22-29); Chloride 87 mmol/L (96-108); Sodium 122 mmol/L (135-145)
== END ==
LOC: HO.SSSA 07:25 → HO.SSS 03-23 09:45
PROVIDERS: Nurse Practitioner; PCP Internal Medicine; Referring Provider Physician Assistant; Visit Provider Surgery
DX: E66.01 Morbid (severe) obesity due to excess calories (principal); Z68.42 Body mass index [BMI] 45.0-49.9, adult; Z53.09 Procedure and treatment not carried out because of other contraindication; E87.1 Hypo-osmolality and hyponatremia; I10 Essential (primary) hypertension; E11.65 Type 2 diabetes mellitus with hyperglycemia; Z20.822 Contact with and (suspected) exposure to COVID-19; Z79.4 Long term (current) use of insulin; Z79.899 Other long term (current) drug therapy
CPT/HCPCS: 36415; 80048; 80051; 80053; 80061; 80076; 81001; 81003; 82947; 83036; 83525; 83690; 83735; 83880; 83930; 83935; 84295; 84300; 84443; 85025; 85027; 85610; 85730; 86140; 86850; 86900; 86901; 87086; 87088; 87186; 87635; 99285; J0131; J0690; J1100; J1170; J2250; J2405; J3010

== ENCOUNTER 2021-03-23 10:23 | Outpatient (REF) | payer OTHER, SELFPAY ==
[2021-03-23 12:10] LABS: Anion Gap 11 (12-20); Blood Urea Nitrogen 21 mg/dL (9-16); Calcium 9.2 mg/dL (8.4-10.2); Carbon Dioxide 26 mmol/L (22-29); Chloride 109 mmol/L (96-108); Estimated Glomerular Filt Rate > 60; Glucose Random 107 mg/dL (60-115); Sodium 141 mmol/L (135-145)
== END 2021-03-23 10:24 | disposition home or self-care (01) ==
LOC: HO.LAB 10:23
PROVIDERS: Internal Medicine; PCP Internal Medicine; Visit Provider Surgery
DX: E87.1 Hypo-osmolality and hyponatremia (principal); N17.9 Acute kidney failure, unspecified
CPT/HCPCS: 36415; 80048

== ENCOUNTER → 2021-03-27 06:54 | Outpatient (BNVA) | payer OTHER, SELFPAY | PROVIDERS: PCP Internal Medicine; Visit Provider Surgery ==

== ENCOUNTER 2021-04-06 11:26 | Outpatient (REF) | payer OTHER, SELFPAY ==
[2021-04-06 13:17] LABS: MANUAL DIFF FLAG NO
[2021-04-06 13:25] LABS: Basophils Absolute Auto 0.1 X10*3/uL (0.0-0.2); Basophils Percent Auto 0.6 % (0-2); Eosinophils Absolute Auto 0.3 X10*3/uL (0.0-0.4); Eosinophils Percent Auto 2.7 % (0-4); Hemoglobin 10.9 g/dl (12.0-16.0); Imm Gran Abs Auto 0.04 X10*3/uL (0.00-0.03); Imm Gran Pct Auto 0.3 % (0.0-0.4); Lymphocytes Absolute Auto 2.1 X10*3/uL (1.2-4.9); Lymphocytes Percent Auto 18.2 % (20-40); Mean Corpuscular HGB Conc 32.1 g/dl (31.0-35.0); Mean Corpuscular Hemoglobin 27.9 pg (27.0-33.0); Mean Platelet Volume 10.1 fL (9.4-12.3); Monocytes Absolute Auto 0.6 X10*3/uL (0.1-1.2); Monocytes Percent Auto 5.4 % (2-11); Neutrophils Absolute Auto 8.4 X10*3/uL (2.0-8.3); Neutrophils Percent Auto 72.8 % (45-73); Platelet Count 422 X10*3/uL (160-400); Red Blood Count 3.91 X10*6/uL (4.20-5.50); Red Cell Distribution Width 13.4 % (11.0-16.0); White Blood Count 11.6 X10*3/uL (4.8-10.8)
[2021-04-06 13:49] LABS: Alanine Aminotransferase 11 U/L (0-31); Albumin Level 4.1 g/dL (3.5-5.0); Alkaline Phosphatase 125 U/L (39-117); Anion Gap 14 (12-20); Aspartate Amino Transferase 12 U/L (5-31); Bilirubin Total 0.3 mg/dL (0.0-1.0); Blood Urea Nitrogen 23 mg/dL (9-16); Calcium 9.6 mg/dL (8.4-10.2); Carbon Dioxide 27 mmol/L (22-29); Chloride 108 mmol/L (96-108); Cholesterol 136 mg/dL; Estimated Glomerular Filt Rate > 60; Glucose Fasting 110 mg/dL (60-99); HDL Cholesterol 38 mg/dL; Iron 55 mcg/dL (30-160); LDL Cholesterol Calculated 76 mg/dl; Percent Iron Saturation 18 % (15-50); Sodium 144 mmol/L (135-145); Total Iron Binding Capacity 312 mcg/dL (228-428); Total Protein 7.1 g/dL (6.5-8.0); Triglycerides 114 mg/dL; Unsaturated Iron Binding 257 ug/dL
[2021-04-06 15:08] LABS: Creatinine Urine 119.02 mg/dL; Microalbum/Creatinine Ratio Ur 18.4 ug/mg cr
[2021-04-10 13:11] LABS: Vitamin D 25-OH, D2 <4 ng/mL; Vitamin D 25-OH, D3 29 ng/mL; Vitamin D 25-OH, Total 29 ng/mL (30-100)
== END 2021-04-06 11:27 | disposition home or self-care (01) ==
LOC: HO.LAB 11:26
PROVIDERS: PCP Internal Medicine; Visit Provider Internal Medicine
DX: D64.9 Anemia, unspecified (principal); E55.9 Vitamin D deficiency, unspecified; E78.5 Hyperlipidemia, unspecified; E11.65 Type 2 diabetes mellitus with hyperglycemia
CPT/HCPCS: 36415; 80053; 80061; 82043; 82306; 83540; 85025

== ENCOUNTER → 2021-04-27 07:26 | Outpatient (BNVA) | payer OTHER, SELFPAY | PROVIDERS: PCP Internal Medicine; Visit Provider Surgery ==

== ENCOUNTER → 2021-05-04 12:32 | Outpatient (BNVA) | payer OTHER, SELFPAY | PROVIDERS: PCP Internal Medicine; Visit Provider Physician Assistant ==

== ENCOUNTER 2021-05-05 06:18 | Inpatient (IN) | payer OTHER, SELFPAY ==
[2021-04-29 10:43] LABS: MANUAL DIFF FLAG NO
[2021-04-29 10:57] LABS: Basophils Percent Auto 0.3 % (0-2); Eosinophils Absolute Auto 0.2 X10*3/uL (0.0-0.4); Hematocrit 36.2 % (37-47); Hemoglobin 11.6 g/dl (12.0-16.0); INTERNATIONAL NORM RATIO 1.1 (0.9-1.1); Imm Gran Abs Auto 0.03 X10*3/uL (0.00-0.03); Imm Gran Pct Auto 0.3 % (0.0-0.4); Lymphocytes Absolute Auto 1.8 X10*3/uL (1.2-4.9); Lymphocytes Percent Auto 15.6 % (20-40); Mean Corpuscular Hemoglobin 27.2 pg (27.0-33.0); Mean Platelet Volume 10.1 fL (9.4-12.3); Monocytes Absolute Auto 0.7 X10*3/uL (0.1-1.2); Monocytes Percent Auto 5.7 % (2-11); Neutrophils Absolute Auto 8.9 X10*3/uL (2.0-8.3); Neutrophils Percent Auto 76.1 % (45-73); Platelet Count 322 X10*3/uL (160-400); Red Blood Count 4.26 X10*6/uL (4.20-5.50); Red Cell Distribution Width 13.3 % (11.0-16.0); White Blood Count 11.6 X10*3/uL (4.8-10.8)
[2021-04-29 11:00] LABS: Partial Thromboplastin Time 38.7 SEC (24.1-38.0)
[2021-04-29 11:24] LABS: Alanine Aminotransferase 12 U/L (0-31); Albumin Level 4.2 g/dL (3.5-5.0); Alkaline Phosphatase 124 U/L (39-117); Anion Gap 12 (12-20); Aspartate Amino Transferase 12 U/L (5-31); Bilirubin Total 0.4 mg/dL (0.0-1.0); Blood Urea Nitrogen 15 mg/dL (9-16); C Reactive Protein 1.89 mg/dL (< or = 0.50); Calcium 9.5 mg/dL (8.4-10.2); Carbon Dioxide 29 mmol/L (22-29); Chloride 103 mmol/L (96-108); Cholesterol 124 mg/dL; Estimated Glomerular Filt Rate > 60; Glucose Random 90 mg/dL (60-115); HDL Cholesterol 40 mg/dL; LDL Cholesterol Calculated 62 mg/dl; Potassium 4.1 mmol/L (3.3-5.1); Sodium 140 mmol/L (135-145); Total Protein 7.1 g/dL (6.5-8.0); Triglycerides 110 mg/dL
[2021-04-29 11:53] LABS: TSH reflex Free T4 0.94 uIU/mL (0.32-4.0)
[2021-04-29 11:58] LABS: Estimated Average Glucose 103 mg/dL; Hemoglobin A1c % 5.2 %
[2021-05-01 10:06] LABS: Insulin Level Total 43.6 uIU/mL
--- NOTE | 2021-05-04 21:28 | P.HPSUR_ITS ---
Pre-Procedural Eval Section A Date of Service: 05/04/21 The patient is an INPATIENT: Yes The History & Physical has been completed within 30 days and I have reviewed it.: No Section B Chief Complaint: morbid obesity Relevant Family History (Specify if Yes): No Relevant Social History: None Present Medications: see Short Stay Collaborative assessment Medical History: No relevant PMH History of Previous Operations: No relevant previous surgery Allergies: Allergies Allergy/AdvReac Type Severity Reaction Status Date / Time citalopram Allergy Mild Rash Verified 04/27/21 08:57 Review of Systems Sugical H&P ROS: Negative: Constitution, Cardiovascular, Respiratory, Neurological, Psychiatric, Hem-Onc, Allergic/Immunologic, Gastrointestinal, Genitourinary, Musculoskeletal, Integumentary, Endocrine and Eyes/Ears/N ose/Throat Exam Surgical H&P Exam: Normal: HEENT, Normal: Heart, Normal: Lungs, Normal: Extremities, Normal: Abdomen, Normal: Skin and Normal: Neurological Plan Diagnosis/Plan: Unchanged I have reviewed the history and physical and performed a pertinent physical examination on my patient. No changes have occurred unless specified.
[2021-05-05] VITALS (13 sets, daily range): BP systolic 119–169; BP diastolic 58–83; PULSE 76–99; RESP 14–20; TEMP 36.1–37.1; O2SAT 91–99; BMI 47.8
[2021-05-05 06:45] LABS: Glucose, Whole Blood 102 mg/dL (60-115)
[2021-05-05 07:00] LABS: COVID-19 Test Negative (Negative); IDNOW Serial# 9DD0AD1C
[2021-05-05] MEDS: Lactated Ringers 1,000 ML 999 ML IV (07:16)
--- NOTE | 2021-05-05 07:19 | P.CONAN_ITS ---
[facility] Active Problems Active Problems: All Active Problems (Updated 04/27/21 @ 09:00 by Pb farah MD) Preprocedural examination (Acute) Mild depression (Acute) Depression with anxiety (Acute) Anemia (Acute) Hyponatremia (Acute) Polyarthralgia (Acute) Elevated erythrocyte sedimentation rate (Acute) Sleep apnea with use of continuous positive airway pressure (CPAP) (Acute) Thiamine deficiency (Acute) B12 deficiency (Acute) Anxiety (Acute) Depression (Acute) Steatosis, liver (Acute) Hyperlipidemia (Acute) Morbid obesity (Acute) Obese (Acute) Rash (Acute) Pure hypercholesterolemia (Acute) Diabetes mellitus (Acute) Essential hypertension (Acute) Past Medical History Medical History (Updated 04/27/21 @ 09:00 by Pb Harrell MD) Anemia Anxiety B12 deficiency Depression Depression with anxiety Diabetes mellitus Essential hypertension Hyperlipidemia Mild depression Morbid obesity Obese Pure hypercholesterolemia Rash Steatosis, liver Thiamine deficiency Family History Family History Father Diabetes Hypertension Prostate cancer Mother Hypertension Stomach cancer Surgical History Surgical History History of foot surgery History of total abdominal hysterectomy and bilateral salpingo-oophorectomy Status post debridement Social History Social History Household Members: Family Household Members Other:: Brother Housing: Apartment Are you a primary home health care coordinator to a significant other at home: No Do you presently have visiting nurse or other home services: No Alcohol intake: never Patient Tobacco Use Status: Never used Tobacco e-Cigarette/Vaping Use: Never Used Second Hand Smoke Exposure: No Use of substances other than those prescribed or required for medical reasons: No Are you DNR?: No Advance Directives: No Advance Directives Information Provided: No Advance Directives on File: No service: No 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al status: disabled Meds Allergies Allergy/AdvReac Type Severity Reaction Status Date / Time citalopram Allergy Mild Rash Verified 04/27/21 08:57 Home Medications Medication Instructions Recorded Confirmed Last Taken Type sertraline 100 mg tablet 100 mg PO DAILY 03/25/21 04/27/21 Unknown History hydroxyzine pamoate 50 mg capsule 50 mg PO DAILY 04/08/21 04/27/21 Unknown History loratadine 10 mg tablet 10 mg PO DAILY 04/08/21 04/27/21 Unknown History Exam Exam Date and Time: May 05, [id number] Height,Weight and Vital Signs: Height 4 ft 10 in Weight 103.873 kg Last Vital Signs Temp 97.0 F 05/05/21 06:32 Pulse 91 05/05/21 06:32 Resp 16 05/05/21 06:32 BP 149/76 H 05/05/21 06:32 Pulse Ox 96 05/05/21 06:32 Pertinent Lab Results Pertinent Lab Results: Laboratory Tests 04/29/21 04/29/21 04/29/21 10:15 10:15 10:15 WBC 11.6 H RBC 4.26 Hgb 11.6 L Hct 36.2 L MCV 85.0 MCH 27.2 MCHC 32.0 RDW 13.3 Plt Count 322 MPV 10.1 Immature Gran % (Auto) 0.3 Neut % (Auto) 76.1 H Lymph % (Auto) 15.6 L Churchill % (Auto) 5.7 Eos % (Auto) 2.0 Baso % (Auto) 0.3 Lymph # (Auto) 1.8 Churchill # (Auto) 0.7 Eos # (Auto) 0.2 Baso # (Auto) 0.0 Abs Immat Gran (auto) 0.03 Absolute Neuts (auto) 8.9 H Absolute Nucleated RBC 0.000 Nucleated RBC % (auto) 0.0 PT 13.0 INR 1.1 APTT 38.7 H Sodium 140 Potassium 4.1 Chloride 103 Carbon Dioxide 29 Anion Gap 12 BUN 15 Creatinine 0.87 Estim Creat Clear Calc TNP Estimated GFR > 60 POC Glucose Random Glucose 90 Estimat Average Glucose Hemoglobin A1c % Total Insulin Calcium 9.5 Total Bilirubin 0.4 AST 12 ALT 12 Alkaline Phosphatase 124 H C-Reactive Protein 1.89 H Total Protein 7.1 Albumin 4.2 Triglycerides 110 Cholesterol 124 LDL Cholesterol, Calc 62 HDL Cholesterol 40 TSH 0.94 COVID-19 ([facility]) COVID-19 Clin Com Blood Type Antibody Screen 04/29/21 04/29/21 04/29/21 10:15 10:15 10:15 WBC RBC Hgb Hct MCV MCH MCHC RDW Plt Count MPV Immature Gran % (Auto) Neut % (Auto) Lymph % (Auto) Churchill % (Auto) Eos % (Auto) Baso % (Auto) Lymph # (Auto) Churchill # (Auto) Eos # (Auto) Baso # (Auto) Abs Immat Gran (auto) Absolute Neuts (auto) Absolute Nucleated RBC Nucleated RBC % (auto) PT INR APTT Sodium Potassium Chloride Carbon Dioxide Anion Gap BUN Creatinine Estim Creat Clear Calc Estimated GFR POC Glucose Random Glucose Estimat Average Glucose 103 Hemoglobin A1c % 5.2 Total Insulin 43.6 H Calcium Total Bilirubin AST ALT Alkaline Phosphatase C-Reactive Protein Total Protein Albumin Triglycerides Cholesterol LDL Cholesterol, Calc HDL Cholesterol TSH COVID-19 ([facility]) COVID-19 Clin Com Blood Type O Positive Antibody Screen NEGATIVE 05/05/21 05/05/21 06:26 06:42 WBC RBC Hgb Hct MCV MCH MCHC RDW Plt Count MPV Immature Gran % (Auto) Neut % (Auto) Lymph % (Auto) Churchill % (Auto) Eos % (Auto) Baso % (Auto) Lymph # (Auto) Churchill # (Auto) Eos # (Auto) Baso # (Auto) Abs Immat Gran (auto) Absolute Neuts (auto) Absolute Nucleated RBC Nucleated RBC % (auto) PT INR APTT Sodium Potassium Chloride Carbon Dioxide Anion Gap BUN Creatinine Estim Creat Clear Calc Estimated GFR POC Glucose 102 Random Glucose Estimat Average Glucose Hemoglobin A1c % Total Insulin Calcium Total Bilirubin AST ALT Alkaline Phosphatase C-Reactive Protein Total Protein Albumin Triglycerides Cholesterol LDL Cholesterol, Calc HDL Cholesterol TSH COVID-19 ([facility]) Negative COVID-19 Clin Com See Note Blood Type Antibody Screen Airway Mallampati Class: III TM Dist: >3cm Neck ROM: Full
--- NOTE | 2021-05-05 10:58 | P.BOP_ITS ---
Brief Operative Note Date of Service: 05/05/21 Pre-op diagnosis: Morbid obesity and comorbidities (see below) Post-op diagnosis: same (& diaphragmatic hernia) Procedure: INITIAL PATIENT BMI ON PRESENTATION AT OUR OFFICE: 55.9 kg/m2 LAST BMI BEFORE SURGERY: 48.7 kg/m2 COMORBIDITIES: sleep apnea, non-insulin dependent diabetes, hyperlipidemia, hypertension, DJD, depression, anxiety, GERD, umbilical hernia, liver steatosis, liver fibrosis, incarcerated umbilical hernia The patient participated in an intensive weekly lifestyle ?intervention and exercise program during which the patient ?has lost between the initial office visit and the last preoperative visit 38.4lbs, or 14.36% of initial actual body weight. The patient met the BMI-criteria for bariatric surgery based on the BMI on initial presentation. The patient should not be penalized for achieving such weight loss because ?it is not sustainable long-term without surgical intervention and it was achieved in preparation for bariatric surgery ?under my direction and based on my published research ([email or web address] and? [email or web address])83530-X/pdf ) ?that a 10% preop erative weight loss improves long-term weight loss after surgery and reduces perioperative complications.? Insurance carriers such as [facility] have endorsed my recommendations ?and have included in their policies criteria to include a 10% preoperative weight loss requirement. PROCEDURE: Esophago-gastroscopy, laparoscopic repair of incarcerated diaphragmatic hernia, laparoscopic lysis of adhesions, laparoscopic sleeve gastrectomy and laparoscopic gastropexy INDICATIONS: This is a 51 year-old female who was electively scheduled for laparoscopic, possibly open sleeve gastrectomy. The risks and complications of the procedure were discussed with the patient in advance, particularly the possibility of ; pulmonary embolism; staple line leak; bleeding; GERD; cardiac, pulmonary, or renal complications; as well as long-term problems such as insufficient weight loss, vitamin deficiency, strictures, or ulcers. The patient understood all the risks, and was in agreement to proceed with surgery. DESCRIPTION OF PROCEDURE: After informed consent was obtained from the patient, the patient was given preoperative antibiotics, and was transferred to the operating room. After successful induction of general anesthesia, pneumatic compressive devices were placed on both lower extremities. An upper endoscopy was performed next. The oropharynx and esophagus appeared to be within normal limits. There was a diaphragmatic hernia present that was not reported at the preoperative upper GI. The stomach was entered. Then after all fluid and air were suctioned and the stomach was fully decompressed, the scope was withdrawn and secured in the mid esophagus. The patient was then prepped and draped in the usual sterile manner, and abdominal access was established at the right upper quadrant with the Sarah technique. A 12 mm blunt port was inserted, and the abdomen was insufflated with CO2 to a pressure of 15 mmHg. Under direct visualization, additional ports were placed, specifically two 5 mm Versi-step ports to the left upper quadrant, and a 5 mm Versi-Step port to the right upper quadrant. 1% lidocaine plain was used to infiltrate all port sites as well as all fascia defects. Following that, the patient was placed in a steep reverse Trendelenburg position. An additional 5 mm port was placed to the right flank for the Mediflex retractor that was used to retract the left lobe of the liver. The gastro-esophageal fat pad was opened with the ultrasonic device (Thunderbeat, Olympus) and the anterior esophagus and hiatus were exposed. The angle of His was opened with the ultrasonic device the fundus of the stomach from any diaphragmatic and splenic attachments. I then opened the gastrocolic ligament between the transverse colon and the greater curvature of the stomach with the ultrasonic device to enter the lesser sac and facilitate the ligation of the short gastric vessels. I started at a mid-point along the greater curvature and using the Thunderbeat, all short louise chantal vessels were divided all the way to the angle of His until the left roselyn was completely dissected at its entirety. I then divided the gastro-colic ligament distally to a distance of about 3-4 cm proximal to the esophagus. There was an obvious significant-sized hiatal hernia. I continued dissecting along the hiatus toward the left roselyn and the angle of His. I fully mobilized the fat pad that was incarcerated in the hernia. I then continued by dissecting even further into the posterior retro-esophageal space all the way to the angle of His. I continued to mobilize the esophagus into the mediastinum circumferentially. Both vagal nerves were seen and preserved. At that point, I was able to have at least 3 to 5 cm of esophagus into the abdomen.? After I completely mobilized the esophagus from both the left and right roselyn and I had a good mobilization of the esophagus circumferentially, I closed the hernia defect with two interrupted #0 Surgidac sutures using the Endo Stitch device, one of which was placed posterior and one anterior to the esophagus. ? The stomach was then divided transversely with one Endo KASSIE-45 purple, one KASSIE- 45 orange, three KASSIE-60 orange and three KASSIE-60 articulating purple loads using the [employer] staplers and loads. Every effort was made that the gastric sleeve had a tubular shape and an even caliber throughout. Once the sleeve resection was completed, the staple line of the gastric sleeve was reinforced with Hemoclips. The resected stomach was retrieved without difficulty from the Sarah port. A gastropexy was then performed in order to prevent postoperative GERD and partial gastric volvulus. Several interrupted 2.0 Surgidac sutures were placed between the sleeve's staple line and the previously divided greater omentum and gastro-colic ligament using the Endo-Stitch device. ?An upper endoscopy was performed. There was no narrowing at the GE junction. The scope was easily advanced all the way to the pylorus which was clearly visualized. There was no narrowing anywhere and the sleeve's caliber was even throughout. The sleeve's staple line was inspected and there was no evidence of ischemia, bleeding or dehiscence. At that point the gastroscope was withdrawn from the patient?s mouth while we were decompressing the bowel and the stomach from any remaining air. I looked into the lesser sac to see how the sleeve was situating and it was s ituating well. There was no bleeding from the staple line, spleen, or short gastric vessels. The Mediflex retractor was removed, and the undersurface of the liver was inspected and there was no bleeding. The patient was placed in supine position. I closed the fascial defect of the 12 mm port site with a figure of eight #1 Polysorb suture. Then 100 cc 0.25 % Marcaine plain with 10 mg of Dexamethasone were used to infiltrate the fascial closure as well as all skin incisions. At this point, the abdomen was deflated, all ports were removed under direct vision, and no bleeding was noted from any of the port sites. The skin incisions were irrigated with saline and were closed with 4-0 absorbable monofilament sutures. Steri-Strips and OpSites were used to cover all incisions. The patient was extubated and was transferred in stable condition to the recovery room for further care. I was present and performed all stuart parts of the procedure. Deandre was the psych assistant. There were no residents to assist with this case. Brett Harrell MD, PhD, FACS [employer] [email or web address]?8.71 GB Program Policies [email or web address] Powered by?Google [email or web address]/ Last account activity: 1 minute agoDetails Surgeon: Pb Harrell MD Anesthesia: GETA, local and other (TAP block) Was an Tool Turret Lathe Set Up Operator used for this Procedure?: Yes Tool Turret Lathe Set Up Operator: Daniela Carrera Estimated blood loss (mL): 10 IV fluids (mL): 2,000 Urine output (mL): 0 (No Shukla to record) Pathology: other (Stomach) Condition: stable Disposition: PACU
--- NOTE | 2021-05-05 11:04 | PM.PNGS ---
Subjective Subjective Date of Service: 05/06/21 Interval history: Patient had mild incisional pain but was able to ambulate and use the incentive spirometer. She is tolerating phase 1 bariatric diet. Physical Exam Vital Signs: Vital Signs: Last Vital Signs Temp 98.7 F 05/05/21 10:55 Pulse 97 05/05/21 11:00 Resp 16 05/05/21 11:00 BP 158/78 H 05/05/21 11:00 Pulse Ox 98 05/05/21 11:00 Body Mass Index 47.8 GI: Inspection: Yes normal to inspection and Yes incision (clean, dry and intact) Extrem: Right lower extremity: normal to inspection (no calf tenderness) Left lower extremity: normal to inspection (no calf tenderness) Procedures Date of Service Date of Service: 05/06/21 Progress Note: A&P Assessment and plan (1) Morbid obesity: Status: Acute Assessment and Plan: s/p laparoscopic sleeve gastrectomy, diaphragmatic hernia repair and gastropexy Doing well Check am labs, If OK, will discharge patient home (2) Hyperlipidemia: Status: Acute (3) Diabetes mellitus: Status: Acute (4) Essential hypertension: Status: Acute (5) Steatosis, liver: Status: Acute (6) Depression: Status: Acute (7) Anxiety: Status: Acute (8) Sleep apnea with use of continuous positive airway pressure (CPAP): Status: Acute (9) Status post repair of paraesophageal diaphragmatic hernia: Status: Acute (10) S/P laparoscopic sleeve gastrectomy: Status: Acute (11) Diaphragmatic hernia: Status: Acute Fall Risk Details Current Medications: Current Medications Generic Name Dose Route Start Last Admin Trade Name Freq PRN Reason Stop Dose Admin Hydromorphone HCl 0.5 mg 05/05/21 07:21 Hydromorphone Hcl 0.5 Mg/0.5 Ml Syringe IVPUSH Q5M PRN Pain, Severe (Pain Scale 7-10) Protocol Lactated Ringer's 1,000 mls @ 100 mls/hr 05/05/21 07:30 Lr IVCONT .Q10H SAMMY Ondansetron HCl 4 mg 05/05/21 07:21 Ondansetron Hcl 4 Mg/2 Ml Vial IVPUSH ONCE PRN Nausea and Vomiting Time Spent With Patient Time: Total time spent is greater than 50% in coordination of care (as documented) at patient's floor/unit and/or counseling patient: Time with patient: less than 15 minutes Quality Stroke Does the patient have a stroke diagnosis?: No VTE Prior VTE?: No VTE Risk Level:: Surgical - moderate VTE Device Contraindication: N/A - Device Ordered VTE Drug Contraindication: Treatment Not Indicated
--- NOTE | 2021-05-05 11:07 | P.DS_ITS ---
DS: Providers Provider Date of Service: 05/06/21 Date of admission: 05/05/21 06:18 Primary care physician: Radha Woodson MD DS: Medications Discharge Medications Home Medications: Home Medications Medication Instructions Recorded Confirmed sertraline 100 mg tablet 100 mg PO DAILY 03/25/21 04/27/21 hydroxyzine pamoate 50 mg capsule 50 mg PO DAILY 04/08/21 04/27/21 loratadine 10 mg tablet 10 mg PO DAILY 04/08/21 04/27/21 Previous Rx's Medication Instructions Recorded blood sugar diagnostic #50 ea 09/17/20 lancets 28 gauge #100 ea 09/17/20 atorvastatin 20 mg tablet 20 mg PO BEDTIME 90 Days #90 tab 11/13/20 folic acid 1 mg tablet 1 mg PO DAILY 90 Days #90 tab 11/13/20 insulin syringe,safetyneedle 1 mL #1 ea 12/06/20 30 gauge x 3/16 syringe with needle, safety 3 mL #1 ea 12/10/20 22 gauge x 1 1/2 (BD Safety-Madina Detachable Needle) pantoprazole 40 mg tablet,delayed 40 mg PO DAILY #30 tab 02/19/21 release sucralfate 100 mg/mL oral 10 ml PO BID #400 ml 02/19/21 suspension dulaglutide 0.75 mg/0.5 mL 0.75 mg SUBCUT FR 90 Days #6.5 ml 03/21/21 subcutaneous pen injector (Trulicity) glimepiride 4 mg tablet 4 mg PO DAILY #90 tab 03/21/21 metformin 1,000 mg tablet 1,000 mg PO BID 90 Days #180 tab 03/21/21 metoprolol succinate 100 mg 100 mg PO DAILY #90 tab 03/24/21 tablet,extended release 24 hr ferrous sulfate 325 mg (65 mg 325 mg PO DAILY 90 Days #90 tab 03/25/21 iron) tablet,delayed release polyethylene glycol 3350 17 gram 17 g PO DAILY #14 ea 04/27/21 oral powder packet (Miralax) DS: Summary Hospital Course Hospital Course: ADMITTING DIAGNOSIS: morbid obesity, DM, HTN, hyperlipidemia, depression/anxiiety DISCHARGE DIAGNOSIS: same, s/p laparoscopic sleeve gastrectomy and repair diaphragmatic hernia PAST SURGICAL HISTORY: PROCEDURE: upper endoscopy, laparoscopic sleeve gastrectomy and repair of diaphragmatic hernia hernia DISCHARGE SUMMARY: History of Present Illness: The patient is a 51 year-old woman with a BMI of 55.9 kg/m2 and associated co- morbidities as described above. The patient had extensive work-up,lost 38.4 lbs preoperatively and was electively scheduled for laparoscopic, possible open sleeve gastrectomy and gastropexy. Risks and complications of the surgery were discussed with the patient in advance, particularly the possibility of , pulmonary embolism, anastomotic leak, bleeding, bowel injury, GERD, cardiac, renal or pulmonary complications. The patient understood all the risks and was in agreement with the surgical plan. Hospital Course: The patient underwent an uneventful laparoscopic sleeve gastrectomy with gastropexy and repair of diaphragmatic hernia on the day of admission. Postoperatively, the patient was transferred to the surgical floor. The patient received IV Acetaminophen and IV dilaudid for pain control. Patient was started on bariatric phase 1 diet POD #0. On postoperative day one, the patient was feeling well without nausea, vomiting, fevers, or tachycardia. The patient had some mild incisional pain and the abdomen was soft. On the morning of postoperative day one, the patient was continued on 1 ounce of water or ice every half hour. During the day, the patient did fairly well, having some incisional pain, but able to ambulate adequately and to tolerate liquids well. Since the patient is doing well, we decided that the patient was ready to be d ischarged. The patient was given instructions to follow-up with me next week and to call my office for any fever over 101, persistent abdominal pain, nausea, vomiting, GERD, symptoms of DVT such as calf tenderness, or leg swelling, or pulmonary embolism such as chest pain or shortness of breath. The patient was also instructed to drink 40-60 ounces of liquids per day using the 1-ounce cups. The patient had been given prescriptions for Tylenol for pain, Zofran prn for nausea, and pantoprazole and carafate previously. The patient was encouraged to ambulate and use the incentive spirometer. The patient was allowed to shower, but no baths, and encouraged to stay active at home. All of these instructions were given to the patient personally. All questions were answered and the patient understood all instructions, the instructions were also given to the patient in print. Time Spent with Patient Time attestation: Total time spent providing and/or coordinating discharge services: Discharge coordination time: Less than 30 minutes Quality: Stroke Does the patient have a stroke diagnosis?: No Physical Exam Vital Signs: Vital Signs: Last Vital Signs Temp 98.7 F 05/05/21 10:55 Pulse 98 05/05/21 11:05 Resp 16 05/05/21 11:05 BP 149/76 H 05/05/21 11:05 Pulse Ox 97 05/05/21 11:05 Body Mass Index 47.8 DS: Data Data Completed and Pending Pending studies at discharge: Pending at discharge 05/05/21 10:10 Surgical [PTH] Routine Labs on day of discharge: Laboratory Results - last 24 hr 05/05/21 05/05/21 06:26 06:42 POC Glucose 102 COVID-19 ([facility]) Negative COVID-19 Clin Com See Note Discharge Plan Discharge Anticipated Discharge Date/Time: 05/06/21 10:03 Patient Disposition: Home, Self-Care Discharge Diagnosis: s/p sleeve gastrectomy Referrals: Radha Arevalo MD [Primary Care Provider] - 1 Week Discharge Medications: Continued (DME) blood sugar diagnostic Strip See Rx Instructions ea Not Applicable DAILY Qty: 50 RF: 11 (DME) lancets 28 gauge misc See Rx Instructions ea topical DAILY Qty: 100 RF: 11 (DME) insulin syringe,safetyneedle 1 mL 30 gauge x 3/16 syringe See Rx Instructions .ROUTE .MEDSUPPLY Qty: 1 RF: 6 metoprolol succinate 100 mg tablet extended release 24 hr 100 mg PO DAILY Qty: 90 RF: 2 atorvastatin 20 mg tablet 20 mg PO BEDTIME 90 Days Qty: 90 RF: 3 sertraline 100 mg tablet 100 mg PO DAILY RF: 0 (DME) BD Safety-Madina Detachable Needl 3 mL 22 gauge x 1 1/2 syringe See Rx Instructions .ROUTE .MEDSUPPLY Qty: 1 RF: 6 loratadine 10 mg tablet 10 mg PO DAILY RF: 0 hydroxyzine pamoate 50 mg capsule 50 mg PO DAILY RF: 0 pantoprazole 40 mg tablet,delayed release (DR/EC) 40 mg PO DAILY Qty: 30 RF: 2 sucralfate 100 mg/mL suspension 10 ml PO BID Qty: 400 RF: 2 Held glimepiride 4 mg tablet 4 mg PO DAILY Qty: 90 RF: 2 Hold Instructions: Discuss with Dr Weir when to restart metformin 1,000 mg tablet 1,000 mg PO BID 90 Days Qty: 180 RF: 1 Hold Instructions: Discuss with Dr Weir when to restart Trulicity 0.75 mg/0.5 mL pen injector 0.75 mg subcut FR 90 Days Qty: 6.5 RF: 3 Hold Instructions: Discuss with Dr Weir when to restart Discontinued folic acid 1 mg tablet 1 mg PO DAILY 90 Days Qty: 90 RF: 3 ferrous sulfate 325 mg (65 mg iron) tablet,delayed release (DR/EC) 325 mg PO DAILY 90 Days Qty: 90 RF: 1 polyethylene glycol 3350 [Miralax] 17 gram powder in packet 17 g PO DAILY Qty: 14 RF: 0 Discharge Orders: Discharge Order (Routine); Ordered 05/06/21 Ordered By: Pb Harrell Diet: other Activity on Discharge: No heavy lifting Stand Alone Forms: Patient Portal Discharge page Care Plan Goals: weight loss Health Concerns: morbid obesity Plan of Treatment: No tub baths, sex or returning to work until discussed at first post op appointment. No exercise, alcohol, tobacco or illegal drug use. Continue to use incentive spirometer hourly while awake. Walk in home for 5- 10 minutes every 2 hours during the first week. Continue phase 1 diet today and start phase 2 diet tomorrow morning. Follow all instructions in the bariatric handbook and call with any questions. The patient's medical history has been reviewed and they are considered low risk for post op DVT and therefore DVT prophylaxis is not considered necessary. Travel after surgery was reviewed. The patient has not disclosed any travel plans during the first 30 days after surgery and they have been advised that within the first 30 days after surgery any bus, plane, train or car travel over 2 hours in duration is contraindicated due to the possibility of developing blood clots from immobility. Any travel, needs to include periods of ambulation of 10 minutes in duration every 2 hours. The patient was instructed to discuss any plans for travel during this period with their bariatric surgeon. Assessment: stable s/p sleeve gastrectomy
[2021-05-05] MEDS: Famotidine/PF 20 MG/2 ML VIAL IVPUSH ×2 (11:23→21:00)
[2021-05-05 11:38] LABS: Hemoglobin 11.3 g/dl (12.0-16.0)
[2021-05-05 12:05] LABS: Anion Gap 16 (12-20); Blood Urea Nitrogen 14 mg/dL (9-16); Calcium 8.7 mg/dL (8.4-10.2); Carbon Dioxide 22 mmol/L (22-29); Chloride 98 mmol/L (96-108); Creatinine Clr Calc Pharmacy 63.7; Estimated Glomerular Filt Rate 53; Glucose Random 175 mg/dL (60-115); Sodium 132 mmol/L (135-145)
[2021-05-05] MEDS: Lactated Ringers 1,000 ML 125 ML IVCONT (12:10)
[2021-05-05 12:37] LABS: Glucose, Whole Blood 178 mg/dL (60-115)
[2021-05-05] MEDS: Insulin Lispro 100 UNIT/ML 3 ML VIAL SUBCUT (12:48)
[2021-05-05] MEDS: 0.9 % Sodium Chloride 1,000 ML 125 ML IV ×2 (14:13→21:00)
[2021-05-05] MEDS: Metoprolol Succinate ER 100 MG TAB.ER.24H PO (14:20)
[2021-05-05 16:01] LABS: Glucose, Whole Blood 139 mg/dL (60-115)
[2021-05-05] MEDS: ceFAZolin Sodium/Dextrose,Iso 2 GM/50 ML PIGGYBACK IV (19:19)
[2021-05-05] MEDS: ondansetron HCL 4 MG/2 ML VIAL IVPUSH (19:21)
[2021-05-05] MEDS: 0.9 % Sodium Chloride Flush 3 ML SYRINGE IVFLUSH (19:24)
[2021-05-05 20:22] LABS: Glucose, Whole Blood 140 mg/dL (60-115)
[2021-05-05] MEDS: Clotrimazole 1 % Cream 15 GM TUBE 1 APPL TOPICAL (21:01)
[2021-05-05 23:26] LABS: Glucose, Whole Blood 116 mg/dL (60-115)
[2021-05-06] MEDS: Metoclopramide HCl 10 MG/2 ML VIAL IVPUSH (00:28)
[2021-05-06] MEDS: ondansetron HCL 4 MG/2 ML VIAL IVPUSH (03:06)
[2021-05-06 03:11] VITALS: BP 143/77; PULSE 69; RESP 16; TEMP 36.6; O2SAT 95
[2021-05-06 03:23] LABS: Glucose, Whole Blood 96 mg/dL (60-115)
[2021-05-06] MEDS: 0.9 % Sodium Chloride 1,000 ML 125 ML IV (05:06)
[2021-05-06 07:21] VITALS: O2SAT 97
[2021-05-06 07:24] LABS: Basophils Percent Auto 0.2 % (0-2); Eosinophils Percent Auto 0.1 % (0-4); Hematocrit 32.3 % (37-47); Hemoglobin 10.7 g/dl (12.0-16.0); Imm Gran Abs Auto 0.06 X10*3/uL (0.00-0.03); Imm Gran Pct Auto 0.4 % (0.0-0.4); Lymphocytes Absolute Auto 2.3 X10*3/uL (1.2-4.9); Lymphocytes Percent Auto 14.1 % (20-40); MANUAL DIFF FLAG SCAN; Mean Corpuscular HGB Conc 33.1 g/dl (31.0-35.0); Mean Corpuscular Hemoglobin 27.6 pg (27.0-33.0); Mean Corpuscular Volume 83.2 fL (80-98); Monocytes Absolute Auto 1.4 X10*3/uL (0.1-1.2); Monocytes Percent Auto 8.6 % (2-11); Neutrophils Absolute Auto 12.4 X10*3/uL (2.0-8.3); Neutrophils Percent Auto 76.6 % (45-73); PLT CLUMP 1; Red Blood Count 3.88 X10*6/uL (4.20-5.50); Red Cell Distribution Width 13.2 % (11.0-16.0); SCAN SMEAR FLAG 1
[2021-05-06 07:32] VITALS: BP 140/76; PULSE 67; RESP 17; TEMP 36; O2SAT 97
[2021-05-06 07:37] LABS: Glucose, Whole Blood 83 mg/dL (60-115)
[2021-05-06 07:47] LABS: Anion Gap 15 (12-20); Blood Urea Nitrogen 10 mg/dL (9-16); Calcium 8.4 mg/dL (8.4-10.2); Carbon Dioxide 21 mmol/L (22-29); Chloride 104 mmol/L (96-108); Creatinine Clr Calc Pharmacy 90.1; Estimated Glomerular Filt Rate > 60; Glucose Random 80 mg/dL (60-115); Potassium 4.1 mmol/L (3.3-5.1); Sodium 136 mmol/L (135-145)
[2021-05-06 08:07] LABS: Platelet Count 320 X10*3/uL (160-400); SLIDE REVIEW VERIFIED; White Blood Count 16.2 X10*3/uL (4.8-10.8)
[2021-05-06] MEDS: Famotidine/PF 20 MG/2 ML VIAL IVPUSH (08:40)
[2021-05-06] MEDS: Metoprolol Succinate ER 100 MG TAB.ER.24H PO (08:40)
--- NOTE | 2021-05-06 09:26 | HO.POSTANES ---
Post Anesthesia Evaluation Post Anesthesia Evaluation Vital Signs: Vital Signs Temp Pulse Resp BP Pulse Ox 05/06/21 07:32 96.8 F 67 17 140/76 H 97 05/06/21 07:21 97 05/06/21 03:11 97.9 F 69 16 143/77 H 95 05/05/21 23:49 98 F 76 18 149/75 H 97 Anesthesia: General Endotracheal-GETA Mental Status: Awake Pain Control: Satisfactory Nausea/Vomiting: Mild (Earlier today. Now resolved) Hydration: Adequate Anesthesia-Related Issues: No Anes. Related Issues
--- NOTE | 2021-05-06 09:26 | MHC.CM.PN ---
EMR REVIEWED, PT ADMITTED S/P LAP SLEEVE GASTRECTOMY, CM MET W/PT WHO IS A&OX4, PT REPORTS SHE LIVES W/HER BROTHER, IS INDEPENDENT W/CARE, USES A CANE, CPAP AND DIABETIC SUPPLIES, NO HOME SERVICES, PT REPORTS SHE IS CURRENT W/PCP MEJIA HERNANDEZ, PT DENIES HAVING A HCP, PT PROVIDED INFORMATION AND DECLINES TO COMPLETE THIS ADMISSION. D/C PLAN: HOME TODAY SELF-CARE, PT'S BROTHER FOR TRANSPORT.
== END 2021-05-06 09:58 | disposition home or self-care (01) | DRG 403 ==
LOC: HO.SSSA 11:06 → HO.S3 11:22
PROVIDERS: Physician Assistant; Admitting Provider Surgery; PCP Internal Medicine; Visit Provider Surgery
PROC: 0DB64Z3 Excision of Stomach, Percutaneous Endoscopic Approach, Vertical (ICD-10-PCS; CPT 43845; principal; 2021-05-05 07:30)
DX: E66.01 Morbid (severe) obesity due to excess calories (principal); K76.0 Fatty (change of) liver, not elsewhere classified; K44.0 Diaphragmatic hernia with obstruction, without gangrene; E11.9 Type 2 diabetes mellitus without complications; G47.30 Sleep apnea, unspecified; Z68.42 Body mass index [BMI] 45.0-49.9, adult; Z20.822 Contact with and (suspected) exposure to COVID-19; E78.5 Hyperlipidemia, unspecified; I10 Essential (primary) hypertension; M19.90 Unspecified osteoarthritis, unspecified site; F32.9 Major depressive disorder, single episode, unspecified; F41.9 Anxiety disorder, unspecified; K21.9 Gastro-esophageal reflux disease without esophagitis; Z79.4 Long term (current) use of insulin; Z79.899 Other long term (current) drug therapy
CPT/HCPCS: 36415; 80048; 80053; 80061; 82947; 83036; 83525; 84443; 85014; 85018; 85025; 85610; 85730; 86140; 86850; 86900; 86901; 87635; 88307; 88342; 99024; A4649; J0131; J0690; J1100; J1170; J2250; J2370; J2405; J2765; J3010

== ENCOUNTER → 2021-05-13 07:24 | Outpatient (BNVA) | payer OTHER, SELFPAY | PROVIDERS: PCP Internal Medicine; Visit Provider Surgery | DX: E66.01 Morbid (severe) obesity due to excess calories (principal); Z68.42 Body mass index [BMI] 45.0-49.9, adult | CPT/HCPCS: 99212 ==

== ENCOUNTER → 2021-05-21 11:10 | Outpatient (BNVA) | payer OTHER, SELFPAY | PROVIDERS: PCP Internal Medicine; Referring Provider Internal Medicine; Visit Provider Physician Assistant Surgical ==

== ENCOUNTER → 2021-06-10 08:07 | Outpatient (BNVA) | payer OTHER, SELFPAY | PROVIDERS: PCP Internal Medicine; Visit Provider Surgery | DX: Z98.84 Bariatric surgery status (principal) | CPT/HCPCS: 99212 ==

== ENCOUNTER 2021-06-25 10:04 | Outpatient (REF) | payer OTHER, SELFPAY ==
--- NOTE | ~2021-06-25 | MM_ITS ---
EXAMINATION: MM SCREENING DIGITAL BREAST TOMOSYNTHESIS, BILATERAL CLINICAL INFORMATION: Screening. Asymptomatic. The lifetime risk of breast cancer based on the Tyrer-Cuzick Model is 7%. COMPARISON: Mammography: 05/02/2020 TECHNIQUE: Digital breast tomosynthesis is performed in both the craniocaudal and mediolateral oblique views along with computer-aided detection (CAD). Synthesized 2D images are generated from the tomosynthesis. FINDINGS: There are scattered areas of fibroglandular density (ACR BI-RADS breast composition Category b). Parenchymal pattern is similar to prior study. There is no interval mass or architectural abnormality or abnormal calcifications. Again, there are scattered bilateral benign round and rim calcifications and dermal calcifications. Heavily calcified smooth masses again seen anterior right breast likely related to prior benign fat necrosis. MM/MM tomosynthesis screening BI IMPRESSION: No mammographic evidence of malignancy. ASSESSMENT: BI-RADS 2: Benign RECOMMENDATION: Routine annual mammography screening. This patient's information was entered into a reminder system with a target due date for their next mammogram.
== END 2021-06-25 10:05 | disposition home or self-care (01) ==
LOC: HO.MAMMO 10:04
PROVIDERS: Visit Provider Internal Medicine
DX: Z12.31 Encounter for screening mammogram for malignant neoplasm of breast (principal)
CPT/HCPCS: 77063; 77067

== ENCOUNTER → 2021-07-13 08:00 | Outpatient (BNVA) | payer OTHER, SELFPAY | PROVIDERS: PCP Internal Medicine; Visit Provider Surgery | DX: E66.01 Morbid (severe) obesity due to excess calories (principal) | CPT/HCPCS: 99212 ==

== ENCOUNTER → 2021-07-20 15:50 | Outpatient (BNVA) | payer OTHER, SELFPAY | PROVIDERS: PCP Internal Medicine; Referring Provider Internal Medicine; Visit Provider Physician Assistant | DX: E66.01 Morbid (severe) obesity due to excess calories (principal); R11.2 Nausea with vomiting, unspecified; K21.9 Gastro-esophageal reflux disease without esophagitis; E11.65 Type 2 diabetes mellitus with hyperglycemia; E53.8 Deficiency of other specified B group vitamins; E51.9 Thiamine deficiency, unspecified; E78.5 Hyperlipidemia, unspecified; E78.00 Pure hypercholesterolemia, unspecified; F41.8 Other specified anxiety disorders; Z68.41 Body mass index [BMI] 40.0-44.9, adult; Z98.84 Bariatric surgery status; Z88.8 Allergy status to other drugs, medicaments and biological substances; Z79.4 Long term (current) use of insulin; Z79.84 Long term (current) use of oral hypoglycemic drugs; Z79.899 Other long term (current) drug therapy | CPT/HCPCS: 99212 ==

== ENCOUNTER → 2021-08-03 08:11 | Outpatient (BNVA) | payer OTHER, SELFPAY | PROVIDERS: PCP Internal Medicine; Visit Provider Physician Assistant ==

== ENCOUNTER → 2021-08-04 12:47 | Outpatient (BNVA) | payer OTHER, SELFPAY | PROVIDERS: PCP Internal Medicine; Referring Provider Internal Medicine; Visit Provider Physician Assistant ==

== ENCOUNTER → 2021-08-05 09:31 | Outpatient (BNVA) | payer OTHER, SELFPAY | PROVIDERS: PCP Internal Medicine; Referring Provider Internal Medicine; Visit Provider Physician Assistant | DX: R19.7 Diarrhea, unspecified (principal); Z98.84 Bariatric surgery status | CPT/HCPCS: 99212 ==

== ENCOUNTER 2021-08-11 09:49 | Outpatient (REF) | payer OTHER, SELFPAY ==
[2021-08-11 10:28] LABS: MANUAL DIFF FLAG NO
[2021-08-11 10:32] LABS: Basophils Absolute Auto 0.1 X10*3/uL (0.0-0.2); Basophils Percent Auto 0.5 % (0-2); Eosinophils Absolute Auto 0.3 X10*3/uL (0.0-0.4); Eosinophils Percent Auto 3.4 % (0-4); Hematocrit 38.2 % (37.0-47.0); Hemoglobin 11.9 g/dl (12.0-16.0); Imm Gran Abs Auto 0.02 X10*3/uL (0.00-0.03); Imm Gran Pct Auto 0.2 % (0.0-0.4); Lymphocytes Absolute Auto 2.3 X10*3/uL (1.2-4.9); Lymphocytes Percent Auto 23.7 % (20-40); Mean Corpuscular HGB Conc 31.2 g/dl (31.0-35.0); Mean Corpuscular Hemoglobin 26.2 pg (27.0-33.0); Mean Corpuscular Volume 84.1 fL (80.0-98.0); Mean Platelet Volume 10.2 fL (9.4-12.3); Monocytes Absolute Auto 0.7 X10*3/uL (0.1-1.2); Monocytes Percent Auto 7.5 % (2-11); Neutrophils Absolute Auto 6.4 x10*3/uL (2.0-8.3); Neutrophils Percent Auto 64.7 % (45-73); Platelet Count 318 X10*3/uL (160-400); Red Blood Count 4.54 X10*6/uL (4.20-5.50); Red Cell Distribution Width 14.8 % (11.0-16.0); White Blood Count 9.8 X10*3/uL (4.8-10.8)
[2021-08-11 11:11] LABS: Estimated Average Glucose 105 mg/dL; Hemoglobin A1c % 5.3 %
[2021-08-11 11:19] LABS: Alanine Aminotransferase 16 U/L (0-31); Albumin Level 3.8 g/dL (3.5-5.0); Alkaline Phosphatase 138 U/L (39-117); Anion Gap 11 (12-20); Aspartate Amino Transferase 17 U/L (5-31); Bilirubin Total 0.5 mg/dL (0.0-1.0); Blood Urea Nitrogen 13 mg/dL (9-16); C Reactive Protein 0.68 mg/dL (< or = 0.50); Calcium 9.7 mg/dL (8.4-10.2); Carbon Dioxide 29 mmol/L (22-29); Chloride 109 mmol/L (96-108); Cholesterol 184 mg/dL; Estimated Glomerular Filt Rate > 60; HDL Cholesterol 44 mg/dL; Iron 50 mcg/dL (30-160); LDL Cholesterol Calculated 109 mg/dl; Percent Iron Saturation 15 % (15-50); Potassium 4.6 mmol/L (3.3-5.1); Sodium 144 mmol/L (135-145); Total Iron Binding Capacity 333 mcg/dL (228-428); Total Protein 6.5 g/dL (6.5-8.0); Triglycerides 156 mg/dL; Unsaturated Iron Binding 283 ug/dL
[2021-08-11 11:29] LABS: Creatinine Urine 183.11 mg/dL; Microalbum/Creatinine Ratio Ur 7.6 ug/mg cr
[2021-08-11 11:36] LABS: Insulin 13 uU/mL (2-29); TSH reflex Free T4 1.24 uIU/mL (0.32-4.0); Vitamin D 25-OH Total 30.5 ng/mL (>30)
[2021-08-11 11:44] LABS: Glucose Fasting 44 mg/dL (60-99)
[2021-08-11 11:48] LABS: Ferritin 105 ng/mL (10-250)
[2021-08-11 11:58] LABS: Folate 17.3 ng/mL (> or = 4.0); Vitamin B12 370 pg/mL (200-900)
[2021-08-12 16:16] LABS: Calcium (PTHI) 9.2 mg/dL (8.6-10.4); PTHI 39 pg/mL (14-64)
[2021-08-14 02:27] LABS: Zinc 79 mcg/dL (60-130)
[2021-08-15 11:06] LABS: Vitamin B1 10 nmol/L (8-30)
[2021-08-15 14:21] LABS: Vitamin A 54 mcg/dL (38-98)
[2021-08-16 14:46] LABS: Vitamin D 25-OH, D2 <4 ng/mL; Vitamin D 25-OH, D3 33 ng/mL; Vitamin D 25-OH, Total 33 ng/mL (30-100)
== END 2021-08-11 09:50 | disposition home or self-care (01) ==
LOC: HO.LAB 09:49
PROVIDERS: Absent Provider Internal Medicine; PCP Internal Medicine; Visit Provider Physician Assistant
DX: D51.0 Vitamin B12 deficiency anemia due to intrinsic factor deficiency (principal); E11.9 Type 2 diabetes mellitus without complications; E78.5 Hyperlipidemia, unspecified; E55.9 Vitamin D deficiency, unspecified; Z98.84 Bariatric surgery status
CPT/HCPCS: 36415; 80053; 80061; 82043; 82306; 82607; 82728; 82746; 83036; 83525; 83540; 83970; 84425; 84443; 84590; 84630; 85025; 86140

== ENCOUNTER → 2021-08-12 13:24 | Outpatient (BNVA) | payer OTHER, SELFPAY | PROVIDERS: PCP Internal Medicine; Visit Provider Nurse Practitioner Family | DX: M25.50 Pain in unspecified joint (principal); M17.0 Bilateral primary osteoarthritis of knee; R70.0 Elevated erythrocyte sedimentation rate | CPT/HCPCS: 99212 ==

== ENCOUNTER → 2021-08-24 10:37 | Outpatient (BNVA) | payer OTHER, SELFPAY | PROVIDERS: PCP Internal Medicine; Referring Provider Internal Medicine; Visit Provider Physician Assistant | DX: Z98.84 Bariatric surgery status (principal) | CPT/HCPCS: 99212 ==

== ENCOUNTER 2021-10-06 11:00 | Outpatient (RCR) | payer OTHER, SELFPAY ==
--- NOTE | 2021-08-26 12:13 | MHC.OT.OEV ---
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 She reports it has been a few years, she has not tried therapy in the past. Nerve conduction ordered but not scheduled. 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 Current Level of Function and Occupation Self Care, Employment, Leisure: Difficulty making rice, unable to open a new bottle, difficulty getting dressed Sleep: Horrible Nighttime pain is worse Pain Assessment Pain Score: 7 Pain Scale Used: Numeric (0 - 10) Pain Location and Description: Both hands equally painful, distal volar forearm radiating into palm and digits Numbness in all fingers Aggravating Factors: Gripping, activity Alleviating Factors: Pt reports she has been given wrist orthosis but they bother her (She will bring to next visit) Massage, Tylenol Skin and Soft Tissue Assessment Comments: No thenar or hypothenar atrophy noted Nerve assessment Ulnar Nerve: WFL Median Nerve: WFL Radial Nerve: WFL Comments: Limited due to pain, not necessarily weakness Sensory Assessment Light Touch: WFL Comments: [place]burnett James 3.61 B/L'ly in ulnar and median distribution Edema Assessment Comments: Edema throughout hands, wrists Dexterity Assessment Comments: Nine Hole Peg R 50 sec L Special Tests Comments: (-) Tinel's at carpal tunnel, cubital tunnel and guyons canal (+) Phalan's test B/L'ly (+) Byrd's test B/L'ly AROM(PROM) Strength Cervical Cervical Rotation: R 45 L 45 Shoulder Comments: WFL, decreased end range Flexion: Elbow Flexion: Extension: Pronation: Supination: Comments: WFL Flexion: Extension: Pronation: Supination: Comments: Wrist Flexion: R 60 L 65 Extension: R 55 L 60 Ulnar Deviation: Radial Deviation: Comments: Flexion: Extension: Ulnar Deviation: Radial Deviation: Comments: Thumb Thumb CMC Flexion: Thumb MCP Flexion: Thumb IP Flexion: Radial Abduction: Palmar Abduction: [place] ([place] 0-10): Comments: WFL Digits Index MCP: PIP: DIP: Long MCP: PIP: DIP: Ring MCP: PIP: DIP: Small MCP: PIP: DIP: Comments: WFL Gross Grasp: R 10 L 5 Lateral Pinch: Two-Point Pinch: Three-Jaw Joshua: Comments: Patient Education Primary Language: Digital Strategy Director Required: Yes Current Knowledge: Teaching Method: Demonstration Handouts Verbal Education Needs Identified on Evaluation: ADL's Disease Information Equipment Use Exercise Pain Safety How did patient/family demonstrate learning? Patient demonstrates Patient verbalizes Barriers to Learning: None Readiness for Learning: Accepting Who was educated? Patient Comments: Plan of Care Assessment: 51 yo female presents w/ persistent hand pain B/L'ly over the past few years, also w/ numbness worsened at nighttime. Symptoms and assessment appear consistent with B/L carpal tunnel syndrome w/ lumbrical involvement; at this time she does not have significant loss of motor strength or muscle atrophy. She will benefit from cont'd therapy services to address nerve compression and progress exercise for optimal gains. STG Duration: 2 weeks Short Term Goals: Ind w/ orthosis wear, trial custom orthosis w/ MCP block Ind w/ HEP Pt to report good follow through w/ nighttime sleeping modifications Pt to report <5/10 pain B/L'ly at rest LTG Duration: 6 weeks Heading And Priming Tool Setter Goals: Ind w/ postural strengthening exercises and awareness Pt to report <3/10 B/L'ly at rest B/L gross grasp >20lb QuickDASH score <50 pts Frequency and Duration: The patient will be seen 2x/wk for 6 weeks Treatment Plan: Therapeutic Exercise Therapeutic Activity Home Exercise Program Splinting Patient Education ADL Training Ultrasound MHP Joint Mobilization Soft Tissue Mobilization Kinesiotaping MCP block resting wrist orthosis for CTS B/L'ly Electronically Signed By: Angela Park, OTR/L CHT Reviewed/agree with student documentation: N/A Therapist: Please sign and return to therapist, Thank you for your referral.
--- NOTE | 2021-10-06 12:08 | MHC.OT.DC ---
[address] [phone] F: [phone] Occupational Therapy Discharge Note Provider: JIM Cook Diagnosis: B/L Hand Pain Date of Evaluation: 08/26/21 Date of Discharge: 10/06/21 Treatments to Date: 8 Discharge Status: Recommend MD Follow-up Discharge Summary: Betty was referred to OT w/ bilateral hand pain and numbness. She has been seen for course of OT, but continues to have high pain, reports no significant changes or improvements. She has been unable to tolerate nighttime orthosis (custom or pre-ashley). She states she is completing home exercises and has been motivated through therapy, but at this time we will discharge from services due to continued pain and no progress made towards goals. She likely has median nerve compression in forearm, possible pronator syndome and/or carpal tunnel syndrome. She reports parasthesia through volar D1-D3 including thenar eminence, indicative of higher level compression. Pain/tenderness to palpate volar forearm soft tissue wrist to elbow and pain w/ resisted pronation and resisted elbow flexion in supinated position. She would benefit from cont'd work-up, has EMG scheduled next week and may benefit from orthopedic consult. Electronically Signed By: LEE Walls/Darinel MADISONT Reviewed/agree with student documentation: N/A Therapist: Please Sign and return to therapist, thank you for your referral.
== END 2021-10-06 12:08 | disposition home or self-care (01) ==
LOC: HO.OT 11:00
PROVIDERS: PCP Internal Medicine; Visit Provider Nurse Practitioner Family
DX: M79.641 Pain in right hand (principal)
CPT/HCPCS: 29125; 97035; 97110; 97140; 97166; 97760

== ENCOUNTER → 2021-10-08 10:48 | Outpatient (BNVA) | payer OTHER, SELFPAY | PROVIDERS: PCP Internal Medicine; Referring Provider Internal Medicine; Visit Provider Physician Assistant | DX: E66.01 Morbid (severe) obesity due to excess calories (principal); E11.65 Type 2 diabetes mellitus with hyperglycemia; Z98.84 Bariatric surgery status; Z68.41 Body mass index [BMI] 40.0-44.9, adult | CPT/HCPCS: 99212 ==

== ENCOUNTER 2021-10-12 08:44 | Outpatient (REF) | payer OTHER, SELFPAY ==
--- NOTE | ~2021-10-12 | XR_ITS ---
EXAMINATION: XR BILATERAL KNEES XR BILATERAL KNEES STANDING CLINICAL INFORMATION: Pain in the knee. COMPARISON: X-rays of both knees March 2020 TECHNIQUE: 3 views of each knee including AP upright FINDINGS: Right Knee: Medial compartment: Joint space narrowing and marginal osteophytes indicative of moderate osteoarthritis, unchanged. Lateral compartment: Marginal osteophytes without joint space narrowing indicative of mild to moderate osteoarthritis. Patellofemoral compartment: Marginal osteophytes and subchondral irregularity of the medial trochlea. Findings indicative of mild to moderate osteoarthritis slightly progressed. There is no joint effusion. Left Knee: Marginal osteophytes about all compartments without definite joint space narrowing indicative of mild tricompartmental osteoarthritis. This is unchanged. There is no joint effusion. XR/XR knee standing BI IMPRESSION: Right Knee: Tricompartmental osteoarthritis with degenerative changes slightly progressed compared with the March 2020 exam. Degenerative changes most prominent medial compartment being moderate. Left Knee: Mild tricompartmental osteoarthritis. Unchanged.
--- NOTE | ~2021-10-12 | XR_ITS ---
EXAMINATION: XR BILATERAL KNEES XR BILATERAL KNEES STANDING CLINICAL INFORMATION: Pain in the knee. COMPARISON: X-rays of both knees March 2020 TECHNIQUE: 3 views of each knee including AP upright FINDINGS: Right Knee: Medial compartment: Joint space narrowing and marginal osteophytes indicative of moderate osteoarthritis, unchanged. Lateral compartment: Marginal osteophytes without joint space narrowing indicative of mild to moderate osteoarthritis. Patellofemoral compartment: Marginal osteophytes and subchondral irregularity of the medial trochlea. Findings indicative of mild to moderate osteoarthritis slightly progressed. There is no joint effusion. Left Knee: Marginal osteophytes about all compartments without definite joint space narrowing indicative of mild tricompartmental osteoarthritis. This is unchanged. There is no joint effusion. XR/XR knee LT 2V IMPRESSION: Right Knee: Tricompartmental osteoarthritis with degenerative changes slightly progressed compared with the March 2020 exam. Degenerative changes most prominent medial compartment being moderate. Left Knee: Mild tricompartmental osteoarthritis. Unchanged.
--- NOTE | ~2021-10-12 | XR_ITS ---
EXAMINATION: XR BILATERAL KNEES XR BILATERAL KNEES STANDING CLINICAL INFORMATION: Pain in the knee. COMPARISON: X-rays of both knees March 2020 TECHNIQUE: 3 views of each knee including AP upright FINDINGS: Right Knee: Medial compartment: Joint space narrowing and marginal osteophytes indicative of moderate osteoarthritis, unchanged. Lateral compartment: Marginal osteophytes without joint space narrowing indicative of mild to moderate osteoarthritis. Patellofemoral compartment: Marginal osteophytes and subchondral irregularity of the medial trochlea. Findings indicative of mild to moderate osteoarthritis slightly progressed. There is no joint effusion. Left Knee: Marginal osteophytes about all compartments without definite joint space narrowing indicative of mild tricompartmental osteoarthritis. This is unchanged. There is no joint effusion. XR/XR knee RT 2V IMPRESSION: Right Knee: Tricompartmental osteoarthritis with degenerative changes slightly progressed compared with the March 2020 exam. Degenerative changes most prominent medial compartment being moderate. Left Knee: Mild tricompartmental osteoarthritis. Unchanged.
== END 2021-10-12 08:45 | disposition home or self-care (01) ==
LOC: HO.HOSX 08:44
PROVIDERS: Visit Provider Orthopaedic Surgery
DX: M17.0 Bilateral primary osteoarthritis of knee (principal); E11.65 Type 2 diabetes mellitus with hyperglycemia
CPT/HCPCS: 20610; 73560; 73565; 99212; J1100

== ENCOUNTER 2021-10-14 10:25 | Outpatient (REF) | payer OTHER, SELFPAY ==
--- NOTE | 2021-10-14 10:28 | EMG_ITS ---
This is a 51-year-old woman with bilateral upper extremity pain, numbness, and tingling. Neurological examination is normal with no Tinel or Phalen sign. Normal reflexes. IMPRESSION: Rule out carpal tunnel syndrome. Nerve conduction EMG study: Moderate carpal tunnel syndrome bilaterally, worse on the right. Normal EMG in the left C5-T1 innervated muscles. MD KASI Costello/RICH / [phone]
== END 2021-10-14 10:26 | disposition home or self-care (01) ==
LOC: HO.NEURO 10:25
PROVIDERS: PCP Internal Medicine; Visit Provider Nurse Practitioner Family
DX: R20.0 Anesthesia of skin (principal); R20.2 Paresthesia of skin
CPT/HCPCS: 95885; 95913

== ENCOUNTER → 2021-10-22 11:30 | Outpatient (BNVA) | payer OTHER, SELFPAY | PROVIDERS: PCP Internal Medicine; Referring Provider Internal Medicine; Visit Provider Physician Assistant ==

== ENCOUNTER → 2021-11-06 08:13 | Outpatient (BNVA) | payer OTHER, SELFPAY | PROVIDERS: PCP Internal Medicine; Visit Provider Physician Assistant ==

== ENCOUNTER → 2021-12-02 08:38 | Outpatient (BNVA) | payer OTHER, SELFPAY | PROVIDERS: PCP Internal Medicine; Visit Provider Physician Assistant | DX: Z13.89 Encounter for screening for other disorder (principal) ==

== ENCOUNTER → 2021-12-28 08:19 | Outpatient (BNVA) | payer OTHER, SELFPAY | PROVIDERS: PCP Internal Medicine; Visit Provider Physician Assistant | DX: Z13.89 Encounter for screening for other disorder (principal) ==

== ENCOUNTER → 2022-02-22 12:52 | Outpatient (BNVA) | payer OTHER, SELFPAY | PROVIDERS: Visit Provider Orthopaedic Surgery | DX: G56.03 Carpal tunnel syndrome, bilateral upper limbs (principal) | CPT/HCPCS: 99202 ==

== ENCOUNTER 2022-03-18 08:17 | Day surgery (SDC) | payer OTHER, SELFPAY ==
[2022-03-18 07:02] VITALS: BMI 45.9
[2022-03-18 08:41] VITALS: BP 166/82; PULSE 79; RESP 18; TEMP 36.1; O2SAT 99
--- NOTE | 2022-03-18 10:30 | MHC.SHP ---
Pre-Procedural Eval Section A Date of Service: 03/18/22 The patient is an INPATIENT: No Changes since office visit: No Cold of Flu in the past 2 weeks, No New Medical Problems, No Changes in Medication and No Patient answered all questions The History & Physical has been completed within 30 days and I have reviewed it.: Yes Section B Chief Complaint: Carpal tunnel syndrome, right upper limb Allergies: Allergies Allergy/AdvReac Type Severity Reaction Status Date / Time citalopram Allergy Mild Rash Verified 02/22/22 13:01 Plan I have reviewed the history and physical and performed a pertinent physical examination on my patient. No changes have occurred unless specified.
--- NOTE | 2022-03-18 10:30 | W.PM.OPN ---
Operative Note Operative Note Date of Service: 03/18/22 Narrative: Preop diagnosis: 1. right Carpal tunnel syndrome Postop diagnosis: same Procedure: 1. right Carpal tunnel release Surgeon: Pilar Encarnacion MD Anesthesia: local block using 1% lidocaine with epinephrine Findings: Thickened transverse carpal ligament. EBL: Less than 5 mL Specimens: None Complications: None Disposition: Brought to recovery room in stable condition Plan: Follow-up for 10-14 days for wound check and suture removal Indications: The patient is 52 years old, with right carpal tunnel syndrome that has been unresponsive to nonoperative management. The risks and benefits of operative treatment including but not limited to risk of damage to blood vessels, nerves, tendons, infection, persistent pain, persistent symptoms, or possible need for additional surgery were discussed with the patient and the patient wishes to proceed with surgery. Procedure: Once consent was obtained a local block was performed using a combination of 1% lidocaine with epinephrine. The patient was then brought back to the operating suite and placed on the operative table in supine position. A tourniquet was applied to the proximal aspect of the right upper extremity and the limb was prepped and draped in a standard surgical fashion. Once assured that we had a good block, a 1.5 cm longitudinal incision was made centered over the carpal tunnel. The incision was made through the skin to the subcutaneous tissues using a #15 blade. Dissection was made down to the level of the transverse carpal ligament with care being taken to protect the palmar cutaneous nerve. Once the transverse carpal ligament was clearly visualized, a longitudinal incision was made in the transverse carpal ligament 1st using a #15 blade, then using tenotomy scissors under direct visualization. Care was taken to look for and protect the motor branch of the median nerve when seen in this area. Once satisfied with our carpal tunnel release the wound was copiously irrigated with normal saline and hemostasis was obtained with a brief period of local pressure. The skin edges were reapproximated with some 5.0 nylon suture material and a sterile dressing was applied. The patient appears to have tolerated the procedure well and with no complications. All digits were well vascularized at the conclusion of the case.
[2022-03-18 11:06] VITALS: BP 145/75; PULSE 69; RESP 18; TEMP 36.4; O2SAT 98
== END 2022-03-18 11:26 | disposition home or self-care (01) ==
PROVIDERS: PCP Internal Medicine; Visit Provider Orthopaedic Surgery
PROC: (CPT 64721; principal; 2022-03-18 10:20)
DX: G56.01 Carpal tunnel syndrome, right upper limb (principal); R20.0 Anesthesia of skin; D51.0 Vitamin B12 deficiency anemia due to intrinsic factor deficiency; E78.5 Hyperlipidemia, unspecified; E51.9 Thiamine deficiency, unspecified; K76.0 Fatty (change of) liver, not elsewhere classified; E66.01 Morbid (severe) obesity due to excess calories; Z68.42 Body mass index [BMI] 45.0-49.9, adult; F41.8 Other specified anxiety disorders; I10 Essential (primary) hypertension; E11.9 Type 2 diabetes mellitus without complications; Z79.84 Long term (current) use of oral hypoglycemic drugs; Z88.8 Allergy status to other drugs, medicaments and biological substances; Z90.710 Acquired absence of both cervix and uterus
CPT/HCPCS: 64721; J0171

== ENCOUNTER 2022-03-24 10:15 | Outpatient (REF) | payer OTHER, SELFPAY ==
[2022-03-24 10:41] LABS: MANUAL DIFF FLAG NO
[2022-03-24 12:02] LABS: Basophils Absolute Auto 0.1 X10*3/uL (0.0-0.2); Basophils Percent Auto 0.7 % (0-2); Eosinophils Absolute Auto 0.3 X10*3/uL (0.0-0.4); Eosinophils Percent Auto 3.3 % (0-4); Hematocrit 38.2 % (37.0-47.0); Hemoglobin 12.2 g/dl (12.0-16.0); Imm Gran Abs Auto 0.02 X10*3/uL (0.00-0.03); Imm Gran Pct Auto 0.2 % (0.0-0.4); Lymphocytes Percent Auto 20.2 % (20-40); Mean Corpuscular HGB Conc 31.9 g/dl (31.0-35.0); Mean Corpuscular Hemoglobin 27.4 pg (27.0-33.0); Mean Corpuscular Volume 85.7 fL (80.0-98.0); Mean Platelet Volume 10.1 fL (9.4-12.3); Monocytes Absolute Auto 0.8 X10*3/uL (0.1-1.2); Monocytes Percent Auto 8.6 % (2-11); Neutrophils Absolute Auto 6.6 x10*3/uL (2.0-8.3); Platelet Count 291 X10*3/uL (160-400); Red Blood Count 4.46 X10*6/uL (4.20-5.50); Red Cell Distribution Width 13.3 % (11.0-16.0); White Blood Count 9.8 X10*3/uL (4.8-10.8)
[2022-03-24 12:52] LABS: Vitamin D 25-OH Total 30.4 ng/mL (>30)
[2022-03-24 13:48] LABS: Alanine Aminotransferase 19 U/L (0-31); Alkaline Phosphatase 151 U/L (39-117); Anion Gap 12 (12-20); Aspartate Amino Transferase 19 U/L (5-31); Bilirubin Total 0.3 mg/dL (0.0-1.0); Blood Urea Nitrogen 10 mg/dL (9-16); Calcium 9.1 mg/dL (8.4-10.2); Carbon Dioxide 28 mmol/L (22-29); Chloride 107 mmol/L (96-108); Cholesterol 188 mg/dL; Estimated Glomerular Filt Rate > 60; Glucose Fasting 48 mg/dL (60-99); HDL Cholesterol 47 mg/dL; Iron 71 mcg/dL (30-160); LDL Cholesterol Calculated 105 mg/dl; Percent Iron Saturation 20 % (15-50); Potassium 4.5 mmol/L (3.3-5.1); Sodium 142 mmol/L (135-145); Total Iron Binding Capacity 362 mcg/dL (228-428); Total Protein 6.9 g/dL (6.5-8.0); Triglycerides 182 mg/dL; Unsaturated Iron Binding 291 ug/dL
[2022-03-24 14:43] LABS: Creatinine Urine 116.97 mg/dL; Microalbum/Creatinine Ratio Ur 6.8 ug/mg cr
== END 2022-03-24 10:16 | disposition home or self-care (01) ==
LOC: HO.LAB 10:15
PROVIDERS: PCP Internal Medicine; Visit Provider Internal Medicine
DX: D64.9 Anemia, unspecified (principal); E78.5 Hyperlipidemia, unspecified; E55.9 Vitamin D deficiency, unspecified; E11.9 Type 2 diabetes mellitus without complications
CPT/HCPCS: 36415; 80053; 80061; 82043; 82306; 83540; 85025

== ENCOUNTER → 2022-03-25 10:33 | Outpatient (BNVA) | payer OTHER, SELFPAY | PROVIDERS: PCP Internal Medicine; Visit Provider Physician Assistant Surgical | DX: E66.01 Morbid (severe) obesity due to excess calories (principal); Z98.84 Bariatric surgery status; Z68.42 Body mass index [BMI] 45.0-49.9, adult | CPT/HCPCS: 99212 ==

== ENCOUNTER 2022-03-30 09:22 | Outpatient (REF) | payer OTHER, SELFPAY ==
[2022-03-30 09:55] LABS: MANUAL DIFF FLAG NO
--- NOTE | 2022-03-30 10:05 | ECG_ITS ---
Test Reason : PREOP Blood Pressure : / mmHG Vent. Rate : 068 BPM Atrial Rate : 068 BPM P-R Int : 144 ms QRS Dur : 086 ms QT Int : 402 ms P-R-T Axes : 029 037 028 degrees QTc Int : 427 ms Normal sinus rhythm Normal ECG When compared with ECG of 25-AUG-2020 09:56, No significant change was found Referred By: Roel Chahal Electronically Signed By:ÁNGEL SAAVEDRA
[2022-03-30 10:41] LABS: Basophils Absolute Auto 0.1 X10*3/uL (0.0-0.2); Basophils Percent Auto 0.6 % (0-2); Eosinophils Absolute Auto 0.3 X10*3/uL (0.0-0.4); Hematocrit 37.6 % (37.0-47.0); Hemoglobin 12.2 g/dl (12.0-16.0); Imm Gran Abs Auto 0.03 X10*3/uL (0.00-0.03); Imm Gran Pct Auto 0.3 % (0.0-0.4); Lymphocytes Absolute Auto 2.1 X10*3/uL (1.2-4.9); Lymphocytes Percent Auto 21.2 % (20-40); Mean Corpuscular HGB Conc 32.4 g/dl (31.0-35.0); Mean Corpuscular Volume 86.4 fL (80.0-98.0); Monocytes Absolute Auto 0.7 X10*3/uL (0.1-1.2); Monocytes Percent Auto 7.6 % (2-11); Neutrophils Absolute Auto 6.5 x10*3/uL (2.0-8.3); Neutrophils Percent Auto 67.3 % (45-73); Platelet Count 267 X10*3/uL (160-400); Red Blood Count 4.35 X10*6/uL (4.20-5.50); Red Cell Distribution Width 13.2 % (11.0-16.0); White Blood Count 9.7 X10*3/uL (4.8-10.8)
[2022-03-30 11:06] LABS: Anion Gap 10 (12-20); Blood Urea Nitrogen 11 mg/dL (9-16); Calcium 9.2 mg/dL (8.4-10.2); Carbon Dioxide 29 mmol/L (22-29); Chloride 107 mmol/L (96-108); Estimated Glomerular Filt Rate > 60; Glucose Random 80 mg/dL (60-115); Potassium 4.9 mmol/L (3.3-5.1); Sodium 141 mmol/L (135-145)
== END 2022-03-30 09:23 | disposition home or self-care (01) ==
LOC: HO.LAB 09:22
PROVIDERS: PCP Internal Medicine; Visit Provider Orthopaedic Surgery
DX: Z01.810 Encounter for preprocedural cardiovascular examination (principal); Z01.812 Encounter for preprocedural laboratory examination
CPT/HCPCS: 36415; 80048; 85025; 93005

== ENCOUNTER → 2022-04-07 10:11 | Outpatient (BNVA) | payer OTHER, SELFPAY | PROVIDERS: PCP Internal Medicine; Visit Provider Physician Assistant | DX: M17.12 Unilateral primary osteoarthritis, left knee (principal) | CPT/HCPCS: 99212 ==

== ENCOUNTER 2022-04-13 07:35 | Inpatient (IN) | payer OTHER, SELFPAY ==
[2022-04-05 12:21] VITALS: BP 121/77; PULSE 77; RESP 20; O2SAT 98
[2022-04-05 14:57] LABS: MRSA Nasal PCR NEGATIVE (Negative); SA Nasal PCR NEGATIVE (Negative)
--- NOTE | 2022-04-12 11:46 | P.CONAN_ITS ---
Documented by User: Brianda Yarbrough NP 04/12/22 11:47 HPI - Anesthesia Eval Consult details Narrative: 52yo F for Left Knee Replacement Total PCP cleared PMFSH Active Problems Active Problems: All Active Problems (Updated 04/07/22 @ 10:35 by Trevon Campbell) Osteoarthritis of left knee (Acute) Polyarthralgia (Acute) Elevated erythrocyte sedimentation rate (Acute) Depression (Acute) Anxiety (Acute) Sleep apnea with use of continuous positive airway pressure (CPAP) (Acute) Hyponatremia (Acute) Mild depression (Acute) Preprocedural examination (Acute) Status post repair of paraesophageal diaphragmatic hernia (Acute) Diaphragmatic hernia (Acute) Watery diarrhea (Acute) Osteoarthritis of knees, bilateral (Acute) Bilateral carpal tunnel syndrome (Acute) Enteritis (Acute) Pre-op evaluation (Acute) S/P laparoscopic sleeve gastrectomy (Acute) Hand pain (Acute) Pernicious anemia (Acute) Depression with anxiety (Acute) Anemia (Acute) Thiamine deficiency (Acute) B12 deficiency (Acute) Steatosis, liver (Acute) Hyperlipidemia (Acute) Morbid obesity (Acute) Obese (Acute) Rash (Acute) Pure hypercholesterolemia (Acute) Diabetes mellitus (Acute) Essential hypertension (Acute) Past Medical History Medical History Anemia B12 deficiency COVID-19 vaccine series completed Depression with anxiety Diabetes mellitus Essential hypertension Hand pain Hyperlipidemia Morbid obesity Obese Pernicious anemia Pure hypercholesterolemia Rash Sleep apnea Steatosis, liver Thiamine deficiency Family History Family History Father Diabetes Hypertension Prostate cancer Mother Hypertension Stomach cancer Surgical History Surgical History History of foot surgery History of total abdominal hysterectomy and bilateral salpingo-oophorectomy Hx of carpal tunnel repair S/P laparoscopic sleeve gastrectomy Status post debridement Social History Social History Household Members: Family Household Members Other:: Brother Housing: Apartment Are you a primary health care marketing specialist to a significant other at home: No Do you presently have visiting nurse or other home services: No Alcohol intake: never Patient Tobacco Use Status: Never used Tobacco e-Cigarette/Vaping Use: Never Used Second Hand Smoke Exposure: No Use of substances other than those prescribed or required for medical reasons: No Have you been hit, kicked, punched, or otherwise hurt by someone within the past year? 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 Cognitive needs: No Hearing needs: No Vision needs: No Meds Allergies Allergy/AdvReac Type Severity Reaction Status Date / Time citalopram Allergy Mild Rash Verified 04/01/22 10:19 Home Medications Medication Instructions Recorded Confirmed Last Taken Type sertraline 100 mg tablet 100 mg PO BEDTIME 03/25/21 04/05/22 Unknown History hydroxyzine pamoate 50 mg capsule 50 mg PO BID 04/08/21 04/05/22 04/13/22 06:30 History metformin 1,000 mg tablet 1,000 mg PO BID 02/22/22 04/05/22 Unknown History glimepiride 4 mg tablet 1 tab PO DAILY 04/05/22 04/05/22 Unknown History quetiapine 50 mg tablet (Seroquel) 50 mg PO BEDTIME 04/05/22 04/05/22 Unknown History Exam Exam Date and Time: April 12, 2022 1146 Height,Weight and Vital Signs: Height 4 ft 10 in Last Vital Signs Pulse 77 04/05/22 12:21 Resp 20 04/05/22 12:21 BP 121/77 04/05/22 12:21 Pulse Ox 98 04/05/22 12:21 O2 Del Method 04/05/22 12:21 Pertinent Lab Results Pertinent Lab Results: Laboratory Tests 04/05/22 04/05/22 12:30 13:10 Nasal Screen MRSA (PCR) NEGATIVE Nasal S. aureus Screen NEGATIVE Nasal MRSA/S.aureus Interp SEE NOTE Blood Type O Positive Antibody Screen NEGATIVE Laboratory Tests 03/30/22 03/30/22 09:55 09:55 WBC 9.7 Hgb 12.2 Hct 37.6 Plt Count 267 Sodium 141 Potassium 4.9 Chloride 107 Carbon Dioxide 29 BUN 11 Creatinine 0.82 Narrative Narrative: EKG 03/2022 Vent. Rate : 068 BPM ? ? Atrial Rate : 068 BPM ?? P-R Int : 144 ms? QRS Dur : 086 ms ? ? QT Int : 402 ms ? ? ? P-R-T Axes : 029 037 028 degrees ?? QTc Int : 427 ms ? Normal sinus rhythm Normal ECG When compared with ECG of 25-AUG-2020 09:56, No significant change was found Assessment and Plan Assessment Anesthesia Assessment: Chart Reviewed Documented by User: Ayo Ceballos MD 04/13/22 11:37 PMFSH Past Medical History Medical History Anemia B12 deficiency COVID-19 vaccine series completed Depression with anxiety Diabetes mellitus Essential hypertension Hand pain Hyperlipidemia Morbid obesity Obese Pernicious anemia Pure hypercholesterolemia Rash Sleep apnea Steatosis, liver Thiamine deficiency Family History Family History Father Diabetes Hypertension Prostate cancer Mother Hypertension Stomach cancer Family history of problems with anesthesia: No Surgical History Surgical History History of foot surgery History of total abdominal hysterectomy and bilateral salpingo-oophorectomy Hx of carpal tunnel repair S/P laparoscopic sleeve gastrectomy Status post debridement History of Problems with Anesthesia: No Social History Social History Household Members: Family Household Members Other:: Brother Housing: Apartment Are you a primary health care marketing specialist to a significant other at home: No Do you presently have visiting nurse or other home services: No Alcohol intake: never Patient Tobacco Use Status: Never used Tobacco e-Cigarette/Vaping Use: Never Used Second Hand Smoke Exposure: No Use of substances other than those prescribed or required for medical reasons: No Have you been hit, kicked, punched, or otherwise hurt by someone within the past year? 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 Cognitive needs: No Hearing needs: No Vision needs: No Meds Allergies Allergy/AdvReac Type Severity Reaction Status Date / Time citalopram Allergy Mild Rash Verified 04/01/22 10:19 Home Medications Medication Instructions Recorded Confirmed Last Taken Type sertraline 100 mg tablet 100 mg PO BEDTIME 03/25/21 04/05/22 Unknown History hydroxyzine pamoate 50 mg capsule 50 mg PO BID 04/08/21 04/05/22 04/13/22 06:30 History metformin 1,000 mg tablet 1,000 mg PO BID 02/22/22 04/05/22 Unknown History glimepiride 4 mg tablet 1 tab PO DAILY 04/05/22 04/05/22 Unknown History quetiapine 50 mg tablet (Seroquel) 50 mg PO BEDTIME 04/05/22 04/05/22 Unknown History Exam Airway Mallampati Class: I TM Dist: >3cm Neck ROM: Full Loose/Missing/Broken Teeth: Yes Assessment and Plan Assessment Anesthesia Assessment: Anesthesia Plan Discussed Final Anesthetic Review Family History of Problems with Anesthesia: No History of Problems with Anesthesia: No NPO: Yes ASA Class: III Final Preanesthetic Review: No Changes in Pt Med Stat, Meds/Allgs Chart Reviewed, Consent Obtained/Reviewed and Anes Risks/Benef Reviewed Patient Risk: Intermediate Procedure Risk: Intermediate Anesthetic Plan Anesthetic Plan: GA Disposition: Standard PACU
[2022-04-13] VITALS (16 sets, daily range): BP systolic 103–162; BP diastolic 50–87; PULSE 72–86; RESP 15–20; TEMP 36–37.3; O2SAT 93–99; BMI 46.5
--- NOTE | ~2022-04-13 | XR_ITS ---
EXAMINATION: XR KNEE, LEFT CLINICAL INFORMATION: Left knee replacement COMPARISON: Previous x-ray October 2021 TECHNIQUE: Two views of the left knee. FINDINGS: There is a 3 component left knee replacement in satisfactory position. No fracture or dislocation is seen. There are postoperative changes to the soft tissues. XR/XR knee LT 2V IMPRESSION: Satisfactory appearance of left knee replacement.
[2022-04-13 08:06] LABS: Glucose, Whole Blood 80 mg/dL (60-115)
[2022-04-13 08:07] LABS: COVID-19 Test Negative (Negative)
[2022-04-13 08:31] LABS: Hematocrit 37.5 % (37.0-47.0); Hemoglobin 12.1 g/dl (12.0-16.0)
[2022-04-13] MEDS: Lactated Ringers 1,000 ML 100 ML IVCONT ×3 (08:55→21:17)
--- NOTE | 2022-04-13 10:57 | P.BOP_ITS ---
Brief Operative Note Date of Service: 04/13/22 Pre-op diagnosis: Left knee OA Post-op diagnosis: same Procedure: Left TKA Implants: [place] [employer] press fit cruciate substituing 10/08/09 Surgeon: Roel Chahal MD Anesthesia: GETA and regional Was an Coroner'S Juror used for this Procedure?: Yes Coroner'S Juror: Lori Cortes Estimated blood loss (mL): 150 IV fluids (mL): 1,000 Pathology: other Condition: stable Disposition: PACU
--- NOTE | 2022-04-13 11:03 | W.PM.OPN ---
Operative Note Operative Note Date of Service: 04/13/22 Narrative: Date of Service: 04/13/22 Pre-op diagnosis: Left? knee OA Post-op diagnosis: same Procedure: Left TKA Implants: [place] [employer] press fit cruciate substituing 10/08/09 Surgeon: Roel Chahal MD Anesthesia: GETA and regional Was an Advertising Layout Worker used for this Procedure?: Yes Advertising Layout Worker: Lori Cortes Estimated blood loss (mL): 150 IV fluids (mL): 1,000 Pathology: other Condition: stable Disposition: PACU Procedure in detail: The patient was brought to the operating room and prepped and draped in standard sterile fashion. A time-out was called to identify proper site proper procedure proper surgeon and IV antibiotics were administered. 1 g of IV tranexamic acid was administered. I began by making a midline incision to the retinaculum and performed a medial parapatellar arthrotomy. The patella was translated laterally and the knee was flexed up.There was tricompartmental disease that was severe. I performed a small medial peel and resected the infrapatellar fat pad. Wales's line was then used to drill my intramedullary femoral guide and my distal femur cut of 10 mm was made in 5 degrees of valgus while protecting the soft tissues. I then measured a # 2 femur and placed my cutting guide and made my anterior posterior and chamfer cuts protecting the soft tissues at all times. I then made my box but removing the PCL. Once I was satisfied with my cuts I turned my attention to the tibia. I removed the meniscus medially and laterally and , using an external cutting guide, in line with the tibial crest and the third ray, I made my distal tibial cut in 3 deg slope while protecting the posterior soft tissues at all times. An extension block was used to confirm appropriate amount of bony resection. I then sized a #3 tibia and once I was satisfied that there was complete tibial coverage I placed my trial and with the trial femur in place took the knee through range of motion. I was satisfied with the extension and flexion as well as the stability and balance at 0, 30 and 90 degrees. I then turned my attention to the patella where I removed 1 cm from the undersurface of the patella and then trialed a 29a patellar button. Again the knee was taken through range of motion I was satisfied with the tracking. I then returned to the femur and drilled my femoral lug holes and prepared the tibia. A femoral bone plug was placed and the knee was irrigated copiously. I then press fit the patella, tibia and femur in standard fashion. I trialed different inserts until I selected a #10 insert. The final insert was placed and a 3 minutes iodine soak with local TXA was performed. The knee was then closed with a running Quill suture, a 3 0 Vicryl and melissa on the skin. Patient was then placed in sterile dressing and brought to recovery room in stable condition there were no known complications.
--- NOTE | 2022-04-13 15:31 | PHA.MEDREC ---
Pharmacy Consult ? Medication Reconciliation Pharmacy has completed the medication reconciliation. Patient reports taking glimepiride however there are no recent fills, last filled 2021. Per Daniela Leal note on 10/08/2021 patient was to stop glimepiride and trulicity due to low blood sugars. Patient has recent fills for Trulicity. Patient reports trying Seroqul 100 mg but had side effects so she went back down to 50mg. Karolyn Galarza, SilviaD
[2022-04-13] MEDS: HYDROmorphone HCl 0.5 MG/0.5 ML SYRINGE 0.25 MG IVPUSH (15:58)
[2022-04-13] MEDS: ceFAZolin Sodium/Dextrose,Iso 2 GM/50 ML PIGGYBACK IV (16:00)
[2022-04-13 16:08] LABS: Glucose, Whole Blood 134 mg/dL (60-115)
--- NOTE | 2022-04-13 16:29 | PM.IMCN ---
History of Present Illness Data of Consult Service Date: 04/13/22 Primary Care Provider: Radha Woodson MD HPI Reason for consult: medical maangement 52 yo female pmx anemia, hypertension, diabetes, morbid obesity, B12 deficiency, hyperlipidemia, possible sleep apnea on cpap,depression anxiety- admitted for left knee pain -She is scheduled for left total knee arthroplasty with Dr. Chahal. She continues to have pain and difficulty with ambulation in the left knee, which is affecting her quality of life. Patient is surgery today, and ask for medical management for consult. Denies any new complaint of chest pain or shortness of breath or abdominal pain or fever or chills or nausea or vomiting Denies any cough Denies any weakness or numbness. Review of Systems Review of Systems: As above. [facility] Medical History Anemia B12 deficiency COVID-19 vaccine series completed Depression with anxiety Diabetes mellitus Essential hypertension Hand pain Hyperlipidemia Morbid obesity Obese Pernicious anemia Pure hypercholesterolemia Rash Sleep apnea Steatosis, liver Thiamine deficiency Family History Father Diabetes Hypertension Prostate cancer Mother Hypertension Stomach cancer Surgical History History of foot surgery History of total abdominal hysterectomy and bilateral salpingo-oophorectomy Hx of carpal tunnel repair S/P laparoscopic sleeve gastrectomy Status post debridement Social History Household Members: Family Household Members Other:: Brother Housing: Apartment Are you a primary senior care assistant to a significant other at home: No Do you presently have visiting nurse or other home services: No Alcohol intake: never Patient Tobacco Use Status: Never used Tobacco e-Cigarette/Vaping Use: Never Used Second Hand Smoke Exposure: No Use of substances other than those prescribed or required for medical reasons: No Have you been hit, kicked, punched, or otherwise hurt by someone within the past year? If so, by whom?: No Do you feel safe in your current relationship?: Yes Is there a partner from a previous relationship who is making you feel unsafe now?: No Are you made to feel afraid or neglected: No [facility] Practices: baptism Are you DNR?: No Advance Directives Information Provided: Yes (brochure given) Advance Directives on File: No Do you have thoughts of harming others: None Do you have a plan to hurt others: No Plan Recently lost weight without trying: No Eating poorly because of decreased appetite: No Nutrition Risks: No Nutritional Risk Patient : No FDLMP: had hysterectomy : No Poor oral hygiene: No service: No 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al status: disabled 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 Cognitive needs: No Hearing needs: No Vision needs: No Meds Allergies Allergy/AdvReac Type Severity Reaction Status Date / Time citalopram Allergy Mild Rash Verified 04/01/22 10:19 Active Medications: Current Medications Acetaminophen (Acetaminophen 325 Mg Tablet) 650 mg PO Q6H PRN PRN Reason: Pain, Mild (Pain Scale 1-3) Celecoxib (Celecoxib 200 Mg Capsule) 200 mg PO BID COUNT INCLUDES THE [facility] Docusate Sodium (Docusate Sodium 100 Mg Capsule) 100 mg PO BID COUNT INCLUDES THE [facility] Ferrous Sulfate (Ferrous Sulfate 324 Mg Tablet.Dr) 324 mg PO DAILY COUNT INCLUDES THE [facility] Folic Acid (Folic Acid 1 Mg Tablet) 1 mg PO DAILY COUNT INCLUDES THE [facility] Hydromorphone HCl (Hydromorphone Hcl 0.5 Mg/0.5 Ml Syringe) 0.25 mg IVPUSH Q5M PRN; Protocol PRN Reason: Pain, Severe (Pain Scale 7-10) Hydromorphone HCl (Hydromorphone Hcl 0.5 Mg/0.5 Ml Syringe) 0.25 mg IVPUSH Q4H PRN; Protocol PRN Reason: Pain, Severe (Pain Scale 7-10) Last Admin: 04/13/22 15:58 Dose: 0.25 mg Hydroxyzine HCl (Hydroxyzine Hcl 50 Mg Tablet) 50 mg PO BID COUNT INCLUDES THE [facility] Promethazine HCl 12.5 mg/ (Sodium Chloride) 50.5 mls @ 202 mls/hr IV ONCE PRN PRN Reason: Nausea and Vomiting Lactated Ringer's (Lr) 1,000 mls @ 100 mls/hr IVCONT .Q10H COUNT INCLUDES THE [facility] Last Admin: 04/13/22 12:34 Dose: 100 mls/hr Metoprolol Succinate (Metoprolol Succinate Er 100 Mg Tab.Er.24h) 100 mg PO DAILY COUNT INCLUDES THE [facility]; Protocol Ondansetron HCl (Ondansetron Hcl 4 Mg/2 Ml Vial) 4 mg IVPUSH ONCE PRN PRN Reason: Nausea and Vomiting Ondansetron HCl (Ondansetron Hcl 4 Mg/2 Ml Vial) 4 mg IVPUSH Q8H PRN PRN Reason: Nausea and Vomiting Oxycodone HCl (Oxycodone Hcl Immed Release 5 Mg Tablet) 10 mg PO Q4H PRN PRN Reason: Pain, Moderate (Pain Scale 4-6 Oxycodone HCl (Oxycodone Hcl Er 10 Mg Tab.Er.12h) 10 mg PO BID SAMMY Quetiapine Fumarate (Quetiapine Fumarate 50 Mg Tablet) 50 mg PO BEDTIME SAMMY Sertraline HCl (Sertraline Hcl 100 Mg Tablet) 100 mg PO BEDTIME SAMMY Sodium Chloride (0.9 % Sodium Chloride Flush 3 Ml Syringe) 3 ml IVFLUSH QSHIFT SAMMY Last Admin: 04/13/22 15:56 Dose: Not Given Home Medications Medication Instructions Recorded Confirmed Last Taken Type sertraline 100 mg tablet 100 mg PO BEDTIME 03/25/21 04/05/22 Unknown History hydroxyzine pamoate 50 mg capsule 50 mg PO BID 04/08/21 04/05/22 04/13/22 06:30 History metformin 1,000 mg tablet 1,000 mg PO BID 02/22/22 04/05/22 Unknown History quetiapine 50 mg tablet (Seroquel) 25 mg PO Q6H PRN Anxiety 04/05/22 04/13/22 Unknown History quetiapine 100 mg tablet 50 mg PO BEDTIME 04/13/22 04/13/22 Unknown History Physical Exam Vital Signs and Narrative: Vital Signs: Last Vital Signs Temp 96.8 F 04/13/22 15:30 Pulse 76 04/13/22 15:30 Resp 18 04/13/22 15:30 BP 142/84 H 04/13/22 15:30 Pulse Ox 96 04/13/22 15:30 O2 Del Method 04/13/22 15:30 O2 Flow Rate 0.2 04/13/22 14:54 BMI result Body Mass Index 46.5 Appearance: Alert.? Oriented X3.? not in distress.? Eyes: Pupils equal, round and reactive to light.? Sclera nonicteric.? ENT: Pharynx normal.? Moist mucous membranes. cvs: rrr, [id number] . res: clear to auscultation ,no rhonchii or wheezing abd: no rebound or guarding ,nt, bs present. ext pulses present , no cyanosis ,left knee wrapped -no erythema or swelling around it. neuro: axo3 , nonfocal. Results Labs CBC and Chem 7: 04/13/22 08:08 Labs: Laboratory Results - last 24 hr 04/13/22 04/13/22 04/13/22 07:40 08:03 16:03 POC Glucose 80 134 H COVID-19 ([facility]) Negative COVID-19 Clin Com See Note XR/XR knee LT 2V IMPRESSION: Satisfactory appearance of left knee replacement. Imaging Radiologist's Impressions: Impressions Knee X-Ray 04/13/22 12:00 IMPRESSION: Satisfactory appearance of left knee replacement. 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 1. knee arthritis: s/p Left TKA continue pain managment,bowel regimen incentive sprio 2.Depression with anxiety: continue home meds. 3.Diabetes mellitus: hold metformin/trulicity fs with coverage 3.Essential hypertension: continue metoprolol,hold lisinopril. 4.Hyperlipidemia: start statin 5.Morbid obesity: Encouraged to lose weight, cut down clories. 6.Sleep apnea: continue sleep apnea . [facility]. Above management discussed with the patient at length the she understand and in agreement with above plan. Time spent 70 minutes.
[2022-04-13] MEDS: oxyCODONE HCl Immed Release 5 MG TABLET 10 MG PO (19:25)
[2022-04-13 19:47] LABS: Glucose, Whole Blood 143 mg/dL (60-115)
[2022-04-13] MEDS: oxyCODONE HCl ER 10 MG TAB.ER.12H PO (21:10)
[2022-04-13] MEDS: Celecoxib 200 MG CAPSULE PO (21:10)
[2022-04-13] MEDS: hydrOXYzine HCL 50 MG TABLET PO (21:11)
[2022-04-13] MEDS: Docusate Sodium 100 MG CAPSULE PO (21:11)
[2022-04-13] MEDS: Sertraline HCL 100 MG TABLET PO (21:11)
[2022-04-13] MEDS: Atorvastatin Calcium 40 MG TABLET PO (21:11)
[2022-04-13] MEDS: QUEtiapine Fumarate 50 MG TABLET PO (21:12)
[2022-04-14] VITALS (7 sets, daily range): BP systolic 84–149; BP diastolic 47–74; PULSE 66–79; RESP 16–17; TEMP 36–36.9; O2SAT 92–98
[2022-04-14] MEDS: HYDROmorphone HCl 0.5 MG/0.5 ML SYRINGE 0.25 MG IVPUSH ×2 (05:36→11:38)
[2022-04-14 06:05] LABS: MANUAL DIFF FLAG NO
[2022-04-14 06:13] LABS: Basophils Percent Auto 0.2 % (0-2); Eosinophils Percent Auto 0.1 % (0-4); Hematocrit 32.1 % (37.0-47.0); Hemoglobin 10.6 g/dl (12.0-16.0); Imm Gran Abs Auto 0.05 X10*3/uL (0.00-0.03); Imm Gran Pct Auto 0.4 % (0.0-0.4); Lymphocytes Absolute Auto 1.8 X10*3/uL (1.2-4.9); Lymphocytes Percent Auto 13.1 % (20-40); Mean Corpuscular Hemoglobin 27.7 pg (27.0-33.0); Mean Platelet Volume 10.1 fL (9.4-12.3); Monocytes Absolute Auto 1.5 X10*3/uL (0.1-1.2); Monocytes Percent Auto 10.8 % (2-11); Neutrophils Absolute Auto 10.5 x10*3/uL (2.0-8.3); Neutrophils Percent Auto 75.4 % (45-73); Platelet Count 242 X10*3/uL (160-400); Red Blood Count 3.82 X10*6/uL (4.20-5.50); Red Cell Distribution Width 13.3 % (11.0-16.0); White Blood Count 13.9 X10*3/uL (4.8-10.8)
[2022-04-14 06:54] LABS: Anion Gap 12 (12-20); Blood Urea Nitrogen 14 mg/dL (9-16); Calcium 8.3 mg/dL (8.4-10.2); Carbon Dioxide 26 mmol/L (22-29); Chloride 103 mmol/L (96-108); Creatinine Clr Calc Pharmacy 85.4; Estimated Glomerular Filt Rate > 60; Glucose Fasting 96 mg/dL (60-99); Potassium 4.4 mmol/L (3.3-5.1); Sodium 137 mmol/L (135-145)
--- NOTE | 2022-04-14 07:21 | PM.PNORT ---
Subjective Subjective Date of Service: 04/14/22 Interval history: POD1 s/p LTKA. Resting comfortably in bed. No overnight events. Pain is managed. No additional complaints. Physical Exam Vital Signs: Vital Signs: Last Vital Signs Temp 96.8 F 04/14/22 03:49 Pulse 77 04/14/22 03:49 Resp 17 04/14/22 03:49 BP 121/64 04/14/22 03:49 Pulse Ox 94 04/14/22 03:49 O2 Del Method 04/14/22 03:49 O2 Flow Rate 2.0 04/13/22 19:35 BMI result Body Mass Index 46.5 Const: General: cooperative, healthy appearing and no acute distress Resp: Effort & Inspection: normal respiratory effort and able to speak in complete sentences Cardio: Rate: regular rate Peripheral pulses: Peripheral pulses 2+ throughout GI: Palpation (GI): Soft to palpation Skin: Lesions: no lesions Rashes: no rashes Extrem: Other: Left knee Aquacel is clean, dry, and intact. Able to dorsiflex and plantarflex. NVI. Procedures Date of Service Date of Service: 04/14/22 Progress Note: A&P Assessment and plan (1) Status post total left knee replacement: Status: Acute Assessment and Plan: Continue pain mgmnt Begin Lovenox for dvt ppx begin PT for LTKA Dispo planning-Pending PT eval, pain mgmnt Time Spent With Patient Time: Total time spent is greater than 50% in coordination of care (as documented) at patient's floor/unit and/or counseling patient: Quality Stroke Does the patient have a stroke diagnosis?: No VTE Prior VTE?: No VTE Risk Level:: Medical - moderate - high VTE Device Contraindication: N/A - Device Ordered VTE Drug Contraindication: N/A - Med Ordered
[2022-04-14 07:28] LABS: Glucose, Whole Blood 93 mg/dL (60-115)
[2022-04-14] MEDS: oxyCODONE HCl Immed Release 5 MG TABLET 10 MG PO ×3 (07:59→18:51)
[2022-04-14] MEDS: Celecoxib 200 MG CAPSULE PO ×2 (07:59→20:58)
[2022-04-14] MEDS: Enoxaparin Sodium 40 MG/0.4 ML SYRINGE SUBCUT (07:59)
[2022-04-14] MEDS: Folic Acid 1 MG TABLET PO (08:05)
[2022-04-14] MEDS: Metoprolol Succinate ER 100 MG TAB.ER.24H PO (08:06)
[2022-04-14] MEDS: oxyCODONE HCl ER 10 MG TAB.ER.12H PO ×2 (08:06→20:57)
[2022-04-14] MEDS: Ferrous Sulfate 324 MG TABLET.DR PO (08:07)
[2022-04-14] MEDS: hydrOXYzine HCL 50 MG TABLET PO ×2 (08:07→20:58)
[2022-04-14] MEDS: Lactated Ringers 1,000 ML 100 ML IVCONT (08:07)
[2022-04-14] MEDS: 0.9 % Sodium Chloride Flush 3 ML SYRINGE IVFLUSH ×2 (08:08→15:45)
--- NOTE | 2022-04-14 08:50 | MHC.CM.PN ---
Addendum entered by Betty Weston 04/14/22 13:40: PT has recommended STR. Patient shared she would like to stay close to home ([place]) she also agreed to [place] and [place] search. Referrals sent to 9 STR's. Addendum entered by Betty Weston 04/14/22 09:05: HCP completed, original and copies given to patients, copy uploaded to [facility], and copy filed in chart Original Note: No IMM required Patient is Slovak speaking Patient reports she lives with her brother Дмитрий. She is independent at home and community, denies any home services. She reports she has a CPAP machine, cane, walker, and DM supplies/equipment. She is Cm reese'anand x3 (MRNA), PCP is Radha Woodson, Brother will transport home. HCP will be completed with patient. D/C Plan: Home (self-care) vs (pending PT eval) Home with New [facility] vs STR
--- NOTE | 2022-04-14 09:52 | MHC.CLN ---
NUTRITION DIETARY CALORIES INCREASED FROM 1200 TO 1800. DIET=DIABETIC 1800 KCALS.
[2022-04-14 11:14] LABS: Glucose, Whole Blood 121 mg/dL (60-115)
--- NOTE | 2022-04-14 11:58 | HO.PM.IMPN ---
Subjective Subjective Date of Service: 04/14/22 Interval History: htn,dm Review of Systems seems still has knee soarness Denies any chest pain shortness of breath or abdominal pain or fever or chills. Physical Exam Vital Signs: Vital Signs: Last Vital Signs Temp 98.2 F 04/14/22 11:24 Pulse 68 04/14/22 11:37 Resp 16 04/14/22 11:37 BP 106/58 L 04/14/22 11:37 Pulse Ox 95 04/14/22 11:37 O2 Del Method 04/14/22 11:37 O2 Flow Rate 2.0 04/14/22 07:42 BMI result Body Mass Index 46.5 ?Appearance: Alert.? Oriented X3.? not in distress.? cvs: [id number], [id number] . res: clear to auscultation ,no rhonchii or wheezing abd: no rebound or guarding ,nt, bs present. ext pulses present , no cyanosis ,left knee wrapped -no erythema or swelling around it. neuro: axo3 , nonfocal. Objective Data Active Medications Acetaminophen (Acetaminophen 325 Mg Tablet) 650 mg PO Q6H PRN PRN Reason: Pain, Mild (Pain Scale 1-3) Atorvastatin Calcium (Atorvastatin Calcium 40 Mg Tablet) 40 mg PO BEDTIME [facility] Last Admin: 04/13/22 21:11 Dose: 40 mg Documented By: LAWSON Celecoxib (Celecoxib 200 Mg Capsule) 200 mg PO BID [facility] Last Admin: 04/14/22 07:59 Dose: 200 mg Documented By: BUCK Dextrose (Dextrose 50 % 25 Gm/50 Ml Syringe) 25 gm IVPUSH Q15M PRN; Protocol PRN Reason: per Hypoglycemia Standing Ord. Docusate Sodium (Docusate Sodium 100 Mg Capsule) 100 mg PO BID [facility] Last Admin: 04/14/22 08:09 Dose: Not Given Documented By: BUCK Non-Admin Reason: Patient Refused Enoxaparin Sodium (Enoxaparin Sodium 40 Mg/0.4 Ml Syringe) 40 mg SUBCUT Q24H [facility] Last Admin: 04/14/22 07:59 Dose: 40 mg Documented By: BUCK Ferrous Sulfate (Ferrous Sulfate 324 Mg Tablet.) 324 mg PO DAILY [facility] Last Admin: 04/14/22 08:07 Dose: 324 mg Documented By: BUCK Folic Acid (Folic Acid 1 Mg Tablet) 1 mg PO DAILY [facility] Last Admin: 04/14/22 08:05 Dose: 1 mg Documented By: BUCK Glucose (Glucose Gel 15 Gm Gel..Gram.) 15 gm PO Q15M PRN; Protocol PRN Reason: per Hypoglycemia Standing Ord. Hydromorphone HCl (Hydromorphone Hcl 0.5 Mg/0.5 Ml Syringe) 0.25 mg IVPUSH Q5M PRN; Protocol PRN Reason: Pain, Severe (Pain Scale 7-10) Hydromorphone HCl (Hydromorphone Hcl 0.5 Mg/0.5 Ml Syringe) 0.25 mg IVPUSH Q4H PRN; Protocol PRN Reason: Pain, Severe (Pain Scale 7-10) Last Admin: 04/14/22 11:38 Dose: 0.25 mg Documented By: BUCK Hydroxyzine HCl (Hydroxyzine Hcl 50 Mg Tablet) 50 mg PO BID [facility] Last Admin: 04/14/22 08:07 Dose: 50 mg Documented By: BUCK Promethazine HCl 12.5 mg/ (Sodium Chloride) 50.5 mls @ 202 mls/hr IV ONCE PRN PRN Reason: Nausea and Vomiting Lactated Ringer's (Lr) 1,000 mls @ 100 mls/hr IVCONT .Q10H [facility] Last Admin: 04/14/22 08:07 Dose: 100 mls/hr Documented By: BUCK Insulin Human Lispro (Insulin Lispro 100 Unit/Ml 3 Ml Vial) 0 unit SUBCUT QIDACHS [facility]; Protocol Last Admin: 04/14/22 11:32 Dose: Not Given Documented By: BUCK Non-Admin Reason: No Insulin Coverage Lisinopril (Lisinopril 40 Mg Tablet) 40 mg PO DAILY [facility]; Protocol Last Admin: 04/14/22 08:07 Dose: Not Given Documented By: BUCK Non-Admin Reason: PATIENT TAKES AT NIGHT Metoprolol Succinate (Metoprolol Succinate Er 100 Mg Tab.Er.24h) 100 mg PO DAILY [facility]; Protocol Last Admin: 04/14/22 08:06 Dose: 100 mg Documented By: BUCK Non-Formulary Medication ([id number]-Fid-Rmqq-Fa-Vit K [Bariatric Multivitamins]) 1 cap PO DAILY [facility] Ondansetron HCl (Ondansetron Hcl 4 Mg/2 Ml Vial) 4 mg IVPUSH ONCE PRN PRN Reason: Nausea and Vomiting Ondansetron HCl (Ondansetron Hcl 4 Mg/2 Ml Vial) 4 mg IVPUSH Q8H PRN PRN Reason: Nausea and Vomiting Oxycodone HCl (Oxycodone Hcl Immed Release 5 Mg Tablet) 10 mg PO Q4H PRN PRN Reason: Pain, Moderate (Pain Scale 4-6 Last Admin: 04/14/22 07:59 Dose: 10 mg Documented By: BUCK Oxycodone HCl (Oxycodone Hcl Er 10 Mg Tab.Er.12h) 10 mg PO BID [facility] Last Admin: 04/14/22 08:06 Dose: 10 mg Documented By: BUCK Quetiapine Fumarate (Quetiapine Fumarate 50 Mg Tablet) 50 mg PO BEDTIME [facility] Last Admin: 04/13/22 21:12 Dose: 50 mg Documented By: LAWSON Sertraline HCl (Sertraline Hcl 100 Mg Tablet) 100 mg PO BEDTIME [facility] Last Admin: 04/13/22 21:11 Dose: 100 mg Documented By: LAWSON Sodium Chloride (0.9 % Sodium Chloride Flush 3 Ml Syringe) 3 ml IVFLUSH QSHIFT [facility] Last Admin: 04/14/22 08:08 Dose: 3 ml Documented By: BUCK Labs CBC & Chem 7: 04/14/22 05:15 04/14/22 05:15 Labs: Laboratory Results - last 24 hr 04/13/22 04/13/22 04/14/22 16:03 19:35 05:15 MCV 84.0 MCH 27.7 MCHC 33.0 RDW 13.3 Plt Count 242 MPV 10.1 Immature Gran % (Auto) 0.4 Neut % (Auto) 75.4 H Lymph % (Auto) 13.1 L [place] % (Auto) 10.8 Eos % (Auto) 0.1 Baso % (Auto) 0.2 Lymph # (Auto) 1.8 [place] # (Auto) 1.5 H Eos # (Auto) 0.0 Baso # (Auto) 0.0 Abs Immat Gran (auto) 0.05 H Absolute Neuts (auto) 10.5 H Absolute Nucleated RBC 0.000 Nucleated RBC % (auto) 0.0 Anion Gap Estim Creat Clear Calc Estimated GFR POC Glucose 134 H 143 H Fasting Glucose Calcium 04/14/22 04/14/22 04/14/22 05:15 07:19 11:04 MCV MCH MCHC RDW Plt Count MPV Immature Gran % (Auto) Neut % (Auto) Lymph % (Auto) [place] % (Auto) Eos % (Auto) Baso % (Auto) Lymph # (Auto) [place] # (Auto) Eos # (Auto) Baso # (Auto) Abs Immat Gran (auto) Absolute Neuts (auto) Absolute Nucleated RBC Nucleated RBC % (auto) Anion Gap 12 Estim Creat Clear Calc 85.4 Estimated GFR > 60 POC Glucose 93 121 H Fasting Glucose 96 Calcium 8.3 L D Assessment and Plan (1) Sleep apnea with use of continuous positive airway pressure (CPAP): Status: Acute (2) Diabetes mellitus: Status: Acute (3) Essential hypertension: Status: Acute Plan 52 yo female with knee arthritis. 1. knee arthritis: s/p Left TKA continue pain managment,bowel regimen incentive sprio Postop anemia-monitor . 2.Depression with anxiety: continue home meds. 3.Diabetes mellitus: hold metformin/trulicity fs 90-120 range fs with coverage-avoid coverage below 200mg/dl. 3.Essential hypertension: flactuating hold metoprolol,hold lisinopril. 4.Hyperlipidemia: start statin 5.Morbid obesity:? Encouraged to lose weight, cut down clories. 6.Sleep apnea: continue cpap. 7. leucocytosis : no fevers Asymptomatic Possible reactive . dvt prophylaxsis: [facility] devices as per primary team. Quality Stroke Does the patient have a stroke diagnosis?: No VTE Prior VTE?: No VTE Risk Level:: Medical - moderate - high VTE Device Contraindication: N/A - Device Ordered VTE Drug Contraindication: N/A - Med Ordered
--- NOTE | 2022-04-14 13:47 | HO.POSTANES ---
Post Anesthesia Evaluation Post Anesthesia Evaluation Vital Signs: Vital Signs Temp Pulse Resp BP Pulse Ox O2 Del Method O2 Flow Rate 04/14/22 11:37 68 16 106/58 L 95 Room Air 04/14/22 11:24 98.2 F 66 16 84/47 L 92 Room Air 04/14/22 07:42 98.2 F 73 16 114/59 L 98 Nasal Cannula 2.0 04/14/22 03:49 96.8 F 77 17 121/64 94 CPAP Anesthesia: Nerve Block and General Mental Status: Awake Pain Control: Satisfactory Nausea/Vomiting: None Hydration: Adequate Anesthesia-Related Issues: No Anes. Related Issues
[2022-04-14 15:49] LABS: Glucose, Whole Blood 107 mg/dL (60-115)
[2022-04-14 20:18] LABS: Glucose, Whole Blood 107 mg/dL (60-115)
[2022-04-14] MEDS: QUEtiapine Fumarate 50 MG TABLET PO (20:58)
[2022-04-14] MEDS: Sertraline HCL 100 MG TABLET PO (20:58)
[2022-04-14] MEDS: Atorvastatin Calcium 40 MG TABLET PO (20:59)
[2022-04-15] MEDS: oxyCODONE HCl Immed Release 5 MG TABLET 10 MG PO ×2 (00:12→12:44)
[2022-04-15] MEDS: 0.9 % Sodium Chloride Flush 3 ML SYRINGE IVFLUSH ×2 (00:12→08:54)
[2022-04-15 01:22] VITALS: RESP 18
[2022-04-15 03:25] VITALS: BP 124/64; PULSE 77; RESP 16; TEMP 36.5; O2SAT 92
[2022-04-15 05:52] LABS: MANUAL DIFF FLAG NO
[2022-04-15 05:53] LABS: Basophils Absolute Auto 0.1 X10*3/uL (0.0-0.2); Basophils Percent Auto 0.4 % (0-2); Eosinophils Absolute Auto 0.1 X10*3/uL (0.0-0.4); Eosinophils Percent Auto 0.9 % (0-4); Hematocrit 31.9 % (37.0-47.0); Hemoglobin 10.6 g/dl (12.0-16.0); Imm Gran Abs Auto 0.05 X10*3/uL (0.00-0.03); Imm Gran Pct Auto 0.4 % (0.0-0.4); Lymphocytes Absolute Auto 2.2 X10*3/uL (1.2-4.9); Lymphocytes Percent Auto 17.4 % (20-40); Mean Corpuscular HGB Conc 33.2 g/dl (31.0-35.0); Mean Corpuscular Hemoglobin 28.2 pg (27.0-33.0); Mean Corpuscular Volume 84.8 fL (80.0-98.0); Mean Platelet Volume 10.3 fL (9.4-12.3); Monocytes Absolute Auto 1.5 X10*3/uL (0.1-1.2); Neutrophils Absolute Auto 8.7 x10*3/uL (2.0-8.3); Neutrophils Percent Auto 68.9 % (45-73); Platelet Count 208 X10*3/uL (160-400); Red Blood Count 3.76 X10*6/uL (4.20-5.50); Red Cell Distribution Width 13.2 % (11.0-16.0); White Blood Count 12.5 X10*3/uL (4.8-10.8)
[2022-04-15 06:31] LABS: Anion Gap 13 (12-20); Blood Urea Nitrogen 11 mg/dL (9-16); Calcium 8.3 mg/dL (8.4-10.2); Carbon Dioxide 27 mmol/L (22-29); Chloride 102 mmol/L (96-108); Creatinine Clr Calc Pharmacy 86.5; Estimated Glomerular Filt Rate > 60; Glucose Fasting 102 mg/dL (60-99); Potassium 4.1 mmol/L (3.3-5.1); Sodium 138 mmol/L (135-145)
[2022-04-15 07:16] LABS: Glucose, Whole Blood 121 mg/dL (60-115)
[2022-04-15 07:35] VITALS: BP 96/52; PULSE 75; RESP 16; TEMP 36.9; O2SAT 94
--- NOTE | 2022-04-15 08:27 | PM.PNORT ---
Subjective Subjective Date of Service: 04/15/22 Interval history: POD2 s/p LTKA. Patient resting comfortably in bed. No overnight events. No additional complaints. Physical Exam Vital Signs: Vital Signs: Last Vital Signs Temp 98.5 F 04/15/22 07:35 Pulse 75 04/15/22 07:35 Resp 16 04/15/22 07:35 BP 96/52 L 04/15/22 07:35 Pulse Ox 94 04/15/22 07:35 O2 Del Method 04/15/22 07:35 O2 Flow Rate 2.0 04/15/22 07:35 BMI result Body Mass Index 46.5 Const: General: cooperative, healthy appearing and no acute distress Resp: Effort & Inspection: normal respiratory effort and able to speak in complete sentences Cardio: Rate: regular rate Peripheral pulses: Peripheral pulses 2+ throughout GI: Palpation (GI): Soft to palpation Skin: Lesions: no lesions Rashes: no rashes Extrem: Other: Left knee Aquacel dressing changed. [place] intact. No erythema or drainage. Sensation intact. Able to dorsiflex and plantarflex. NVI. New Aquacel dressing applied. Procedures Date of Service Date of Service: 04/15/22 Progress Note: A&P Assessment and plan (1) Status post total left knee replacement: Status: Acute Plan Continue pain mgmnt Continue Lovenox for dvt ppx Contninue PT for LTKA Dispo planning-Pending rehab placement, pain mgmnt, upon d/c hold bp meds x 2 days and then may resume Time Spent With Patient Time: Total time spent is greater than 50% in coordination of care (as documented) at patient's floor/unit and/or counseling patient: Quality Stroke Does the patient have a stroke diagnosis?: No VTE Prior VTE?: No VTE Risk Level:: Medical - moderate - high VTE Device Contraindication: N/A - Device Ordered VTE Drug Contraindication: N/A - Med Ordered
[2022-04-15] MEDS: Acetaminophen 325 MG TABLET 650 MG PO (08:55)
[2022-04-15] MEDS: Folic Acid 1 MG TABLET PO (08:55)
[2022-04-15] MEDS: Docusate Sodium 100 MG CAPSULE PO (08:56)
[2022-04-15] MEDS: hydrOXYzine HCL 50 MG TABLET PO (08:56)
[2022-04-15] MEDS: Celecoxib 200 MG CAPSULE PO (08:56)
[2022-04-15] MEDS: Ferrous Sulfate 324 MG TABLET.DR PO (08:56)
[2022-04-15] MEDS: Enoxaparin Sodium 40 MG/0.4 ML SYRINGE SUBCUT (08:56)
[2022-04-15] MEDS: oxyCODONE HCl ER 10 MG TAB.ER.12H PO (08:56)
[2022-04-15 11:06] VITALS: BP 103/55; PULSE 69; RESP 18; TEMP 36.2; O2SAT 96
[2022-04-15 11:17] LABS: Glucose, Whole Blood 91 mg/dL (60-115)
--- NOTE | 2022-04-15 12:40 | PM.DS ---
DS: Providers Provider Date of Service: 04/15/22 Date of admission: 04/13/22 07:35 Primary care physician: Radha Woodson MD Consults: 04/13/22 14:25 Consult to Hospitalist Routine Consulting Provider: Hospitalist Reason For Exam: Type II DM DS: Diagnosis Discharge Diagnosis (1) Status post total left knee replacement: Status: Acute DS: Summary Hospital Course Hospital Course: The patient underwent a successful left total knee arthroplasty, they were transferred to PACU and then to the floor to recover. During their stay, their vitals were stable, afebrile at 98.5. Labs were unremarkable, H/H 10.6/31.9. POD 1 they were started on Aspirin 325mg po bid for DVT ppx, they also received Physical Therapy services twice a day. Prior to discharge, their dressing was changed, incision clean dry and intact, new Aquacel dressing applied and the plan was to be discharged to rehab facility. Will require a less than 30 days stay. Time Spent with Patient Time attestation: Total time spent providing and/or coordinating discharge services: Discharge coordination time: Less than 30 minutes Quality: Safe Use of Opioids Does Pt have an Active Cancer Diagnosis on the Problem List?: No Quality: Stroke Does the patient have a stroke diagnosis?: No Physical Exam Vital Signs: Vital Signs: Last Vital Signs Temp 97.1 F 04/15/22 11:06 Pulse 69 04/15/22 11:06 Resp 18 04/15/22 11:06 BP 103/55 L 04/15/22 11:06 Pulse Ox 96 04/15/22 11:06 O2 Del Method 04/15/22 11:06 O2 Flow Rate 2.0 04/15/22 11:06 BMI result Body Mass Index 46.5 Const: General: cooperative, healthy appearing and no acute distress Resp: Effort & Inspection: normal respiratory effort and able to speak in complete sentences Cardio: Rate: regular rate Peripheral pulses: Peripheral pulses 2+ throughout GI: Palpation (GI): Soft to palpation Skin: Lesions: no lesions Rashes: no rashes Extrem: Other: Left knee Aquacel dressing changed. [place] intact. No erythema or drainage. Sensation intact. Able to dorsiflex and plantarflex. NVI. New Aquacel dressing applied. DS: Data Data Completed and Pending Completed studies during hospitalization [Text1]: Pending at discharge 04/13/22 10:47 Surgical [PTH] Routine Procedures Excision of Stomach, Percutaneous Endoscopic Approach, Vertical (05/05/21) Repair Diaphragm, Percutaneous Endoscopic Approach (05/05/21) Labs on day of discharge: Laboratory Results - last 24 hr 04/14/22 04/14/22 04/15/22 15:46 20:02 05:12 WBC 12.5 H RBC 3.76 L Hgb 10.6 L Hct 31.9 L MCV 84.8 MCH 28.2 MCHC 33.2 RDW 13.2 Plt Count 208 MPV 10.3 Immature Gran % (Auto) 0.4 Neut % (Auto) 68.9 Lymph % (Auto) 17.4 L [place] % (Auto) 12.0 H Eos % (Auto) 0.9 Baso % (Auto) 0.4 Lymph # (Auto) 2.2 [place] # (Auto) 1.5 H Eos # (Auto) 0.1 Baso # (Auto) 0.1 Abs Immat Gran (auto) 0.05 H Absolute Neuts (auto) 8.7 H Absolute Nucleated RBC 0.000 Nucleated RBC % (auto) 0.0 Sodium Potassium Chloride Carbon Dioxide Anion Gap BUN Creatinine Estim Creat Clear Calc Estimated GFR POC Glucose 107 107 Fasting Glucose Calcium 04/15/22 04/15/22 04/15/22 05:12 07:11 11:09 WBC RBC Hgb Hct MCV MCH MCHC RDW Plt Count MPV Immature Gran % (Auto) Neut % (Auto) Lymph % (Auto) [place] % (Auto) Eos % (Auto) Baso % (Auto) Lymph # (Auto) [place] # (Auto) Eos # (Auto) Baso # (Auto) Abs Immat Gran (auto) Absolute Neuts (auto) Absolute Nucleated RBC Nucleated RBC % (auto) Sodium 138 Potassium 4.1 Chloride 102 Carbon Dioxide 27 Anion Gap 13 BUN 11 Creatinine 0.78 Estim Creat Clear Calc 86.5 Estimated GFR > 60 POC Glucose 121 H 91 Fasting Glucose 102 H Calcium 8.3 L Discharge Plan Discharge Patient Disposition: Xfer [facility] Discharge Diagnosis: s/p LTKA Referrals: Lori Cortes PA-C [Physician Project Planner] - 04/27/22 11:30 am Discharge Medications: New celecoxib 200 mg Capsule 200 mg PO BID 30 Days Qty: 60 0RF acetaminophen 325 mg Tablet 650 mg PO Q6H PRN (Reason: Pain, Mild (Pain Scale 1-3)) 30 Days Qty: 240 0RF enoxaparin 40 mg/0.4 mL Syringe 40 mg subcut Q24H 40 Days Qty: 16 0RF oxycodone 10 mg tablet 10 mg PO Q4H PRN (Reason: Pain, Moderate (Pain Scale 4-6) 7 Days Qty: 42 0RF Rx Instructions: Partial Fill upon patient request. docusate sodium 100 mg Capsule 100 mg PO BID 30 Days Qty: 60 0RF Continued (DME) lancets 28 gauge misc See Rx Instructions topical DAILY Qty: 100 11RF Rx Instructions: Use 1 lancet twice a day (DME) insulin syringe,safetyneedle 1 mL 30 gauge x 3/16 syringe See Rx Instructions .ROUTE .MEDSUPPLY Qty: 1 6RF Rx Instructions: Use 1 needle once a month Trulicity 0.75 mg/0.5 mL pen injector 0.75 mg subcut FR 90 Days Qty: 6.5 3RF Hold Instructions: Doctor's Order (DME) blood sugar diagnostic Strip See Rx Instructions Not Applicable DAILY Qty: 50 11RF Rx Instructions: Use 1 test strip twice a day folic acid 1 mg tablet 1 mg PO DAILY 90 Days Qty: 90 3RF metoprolol succinate 100 mg tablet extended release 24 hr 100 mg PO DAILY Qty: 90 2RF ferrous sulfate 325 mg (65 mg iron) tablet 325 mg PO DAILY 90 Days Qty: 90 1RF lisinopril 40 mg tablet 40 mg PO DAILY 90 Days Qty: 90 1RF (DME) Grab [place] [facility] [place] Instructions .Route Qty: 1 0RF Rx Instructions: As directed quetiapine [Seroquel] 50 mg Tablet 25 mg PO Q6H PRN (Reason: Anxiety) quetiapine 100 mg tablet 50 mg PO BEDTIME sertraline 100 mg tablet 100 mg PO BEDTIME (DME) BD Safety-[place] Detachable Needl 3 mL 22 gauge x 1 1/2 syringe See Rx Instructions .ROUTE .MEDSUPPLY Qty: 1 6RF Rx Instructions: As directed hydroxyzine pamoate 50 mg capsule 50 mg PO BID (DME) walker [facility] [place] Rx Instructions .Route Qty: 1 0RF Rx Instructions: Walker with seat and wheels atorvastatin 40 mg tablet 40 mg PO BEDTIME 90 Days Qty: 90 1RF Bariatric Multivitamins 45 mg iron- 800 mcg-120 mcg capsule 1 cap PO DAILY Qty: 30 11RF (DME) walker Misc See Rx Instructions .MEDSUPPLY Qty: 1 0RF Rx Instructions: Folding Front wheeled walker metformin 1,000 mg tablet 1,000 mg PO BID Discharge Orders: Discharge Order (Routine); Ordered 04/15/22 Ordered By: Joyce Cerrato Activity on Discharge: Use cane or walker Stand Alone Forms: Patient Portal Discharge page Care Plan Goals: restore fxn to left knee Health Concerns: none Plan of Treatment: Physical Therapy for ROM 0-120, quad strength, gait training. Use walker for ambulation Limit stair climbing, No shower, No tub bath, No driving Continue anticoagulant Keep Aquacel dressing clean, dry and intact. Follow up with orthopedics in 2 weeks Assessment: stable for discharge
--- NOTE | 2022-04-15 13:02 | HO.PM.IMPN ---
Subjective Subjective Date of Service: 04/15/22 Interval History: htn, dm, leucocytosis Review of Systems Patient seems significantly better, Denies any new complaint of chest pain or shortness of breath or abdominal pain or fever or chills or nausea or vomiting Denies any cough Denies any weakness or numbness. Still has knee soreness. Physical Exam Vital Signs: Vital Signs: Last Vital Signs Temp 97.1 F 04/15/22 11:06 Pulse 69 04/15/22 11:06 Resp 18 04/15/22 11:06 BP 103/55 L 04/15/22 11:06 Pulse Ox 96 04/15/22 11:06 O2 Del Method 04/15/22 11:06 O2 Flow Rate 2.0 04/15/22 11:06 BMI result Body Mass Index 46.5 Appearance: Alert.? Oriented X3.? not in distress.? cvs: rrr, [id number] . res: clear to auscultation ,no rhonchii or wheezing abd: no rebound or guarding ,nt, bs present. ext pulses present , no cyanosis ,left knee wrapped -no erythema or swelling around it. neuro: axo3 , nonfocal. Objective Data Active Medications Acetaminophen (Acetaminophen 325 Mg Tablet) 650 mg PO Q6H PRN PRN Reason: Pain, Mild (Pain Scale 1-3) Last Admin: 04/15/22 08:55 Dose: 650 mg Documented By: JOVAN Atorvastatin Calcium (Atorvastatin Calcium 40 Mg Tablet) 40 mg PO BEDTIME [facility] Last Admin: 04/14/22 20:59 Dose: 40 mg Documented By: LAWSON Celecoxib (Celecoxib 200 Mg Capsule) 200 mg PO BID [facility] Last Admin: 04/15/22 08:56 Dose: 200 mg Documented By: JOVAN Dextrose (Dextrose 50 % 25 Gm/50 Ml Syringe) 25 gm IVPUSH Q15M PRN; Protocol PRN Reason: per Hypoglycemia Standing Ord. Docusate Sodium (Docusate Sodium 100 Mg Capsule) 100 mg PO BID [facility] Last Admin: 04/15/22 08:56 Dose: 100 mg Documented By: JOVAN Enoxaparin Sodium (Enoxaparin Sodium 40 Mg/0.4 Ml Syringe) 40 mg SUBCUT Q24H [facility] Last Admin: 04/15/22 08:56 Dose: 40 mg Documented By: JOVAN Ferrous Sulfate (Ferrous Sulfate 324 Mg Tablet.) 324 mg PO DAILY [facility] Last Admin: 04/15/22 08:56 Dose: 324 mg Documented By: JOVAN Folic Acid (Folic Acid 1 Mg Tablet) 1 mg PO DAILY [facility] Last Admin: 04/15/22 08:55 Dose: 1 mg Documented By: JOVAN Glucose (Glucose Gel 15 Gm Gel..Gram.) 15 gm PO Q15M PRN; Protocol PRN Reason: per Hypoglycemia Standing Ord. Hydromorphone HCl (Hydromorphone Hcl 0.5 Mg/0.5 Ml Syringe) 0.25 mg IVPUSH Q5M PRN; Protocol PRN Reason: Pain, Severe (Pain Scale 7-10) Hydromorphone HCl (Hydromorphone Hcl 0.5 Mg/0.5 Ml Syringe) 0.25 mg IVPUSH Q4H PRN; Protocol PRN Reason: Pain, Severe (Pain Scale 7-10) Last Admin: 04/14/22 11:38 Dose: 0.25 mg Documented By: BUCK Hydroxyzine HCl (Hydroxyzine Hcl 50 Mg Tablet) 50 mg PO BID [facility] Last Admin: 04/15/22 08:56 Dose: 50 mg Documented By: JOVAN Promethazine HCl 12.5 mg/ (Sodium Chloride) 50.5 mls @ 202 mls/hr IV ONCE PRN PRN Reason: Nausea and Vomiting Insulin Human Lispro (Insulin Lispro 100 Unit/Ml 3 Ml Vial) 0 unit SUBCUT QIDACHS [facility]; Protocol Last Admin: 04/15/22 11:26 Dose: Not Given Documented By: JOVAN Non-Admin Reason: No Insulin Coverage Lisinopril (Lisinopril 40 Mg Tablet) 40 mg PO DAILY [facility]; Protocol Last Admin: 04/14/22 08:07 Dose: Not Given Documented By: BUCK Non-Admin Reason: PATIENT TAKES AT NIGHT Metoprolol Succinate (Metoprolol Succinate Er 100 Mg Tab.Er.24h) 100 mg PO DAILY [facility]; Protocol Last Admin: 04/14/22 08:06 Dose: 100 mg Documented By: BUCK Non-Formulary Medication (Uukgtklprwmd-[id number]-Fa-Vit K [Bariatric Multivitamins]) 1 cap PO DAILY [facility] Ondansetron HCl (Ondansetron Hcl 4 Mg/2 Ml Vial) 4 mg IVPUSH ONCE PRN PRN Reason: Nausea and Vomiting Ondansetron HCl (Ondansetron Hcl 4 Mg/2 Ml Vial) 4 mg IVPUSH Q8H PRN PRN Reason: Nausea and Vomiting Oxycodone HCl (Oxycodone Hcl Immed Release 5 Mg Tablet) 10 mg PO Q4H PRN PRN Reason: Pain, Moderate (Pain Scale 4-6 Last Admin: 04/15/22 12:44 Dose: 10 mg Documented By: JOVAN Oxycodone HCl (Oxycodone Hcl Er 10 Mg Tab.Er.12h) 10 mg PO BID [facility] Last Admin: 04/15/22 08:56 Dose: 10 mg Documented By: JOVAN Quetiapine Fumarate (Quetiapine Fumarate 50 Mg Tablet) 50 mg PO BEDTIME [facility] Last Admin: 04/14/22 20:58 Dose: 50 mg Documented By: LAWSON Sertraline HCl (Sertraline Hcl 100 Mg Tablet) 100 mg PO BEDTIME [facility] Last Admin: 04/14/22 20:58 Dose: 100 mg Documented By: LAWSON Sodium Chloride (0.9 % Sodium Chloride Flush 3 Ml Syringe) 3 ml IVFLUSH QSHIFT [facility] Last Admin: 04/15/22 08:54 Dose: 3 ml Documented By: JOVAN Labs CBC & Chem 7: 04/15/22 05:12 04/15/22 05:12 Labs: Laboratory Results - last 24 hr 04/14/22 04/14/22 04/15/22 15:46 20:02 05:12 MCV 84.8 MCH 28.2 MCHC 33.2 RDW 13.2 Plt Count 208 MPV 10.3 Immature Gran % (Auto) 0.4 Neut % (Auto) 68.9 Lymph % (Auto) 17.4 L [place] % (Auto) 12.0 H Eos % (Auto) 0.9 Baso % (Auto) 0.4 Lymph # (Auto) 2.2 [place] # (Auto) 1.5 H Eos # (Auto) 0.1 Baso # (Auto) 0.1 Abs Immat Gran (auto) 0.05 H Absolute Neuts (auto) 8.7 H Absolute Nucleated RBC 0.000 Nucleated RBC % (auto) 0.0 Anion Gap Estim Creat Clear Calc Estimated GFR POC Glucose 107 107 Fasting Glucose Calcium 04/15/22 04/15/22 04/15/22 05:12 07:11 11:09 MCV MCH MCHC RDW Plt Count MPV Immature Gran % (Auto) Neut % (Auto) Lymph % (Auto) [place] % (Auto) Eos % (Auto) Baso % (Auto) Lymph # (Auto) [place] # (Auto) Eos # (Auto) Baso # (Auto) Abs Immat Gran (auto) Absolute Neuts (auto) Absolute Nucleated RBC Nucleated RBC % (auto) Anion Gap 13 Estim Creat Clear Calc 86.5 Estimated GFR > 60 POC Glucose 121 H 91 Fasting Glucose 102 H Calcium 8.3 L Assessment and Plan (1) Status post total left knee replacement: Status: Acute (2) Sleep apnea with use of continuous positive airway pressure (CPAP): Status: Acute (3) Diabetes mellitus: Status: Acute (4) Essential hypertension: Status: Acute Plan 1. knee arthritis: s/p Left TKA continue pain managment,bowel regimen incentive sprio Postop anemia-h/h stable around 10.6/31.9. 2.Depression with anxiety: continue home meds. 3.Diabetes mellitus:controlled start home meds upon discharge. 3.Essential hypertension: flactuating ?Start metoprolol,hold lisinopril for 3-4 days and restart. 4.Hyperlipidemia: continu statin 5.Morbid obesity:? Encouraged to lose weight, cut down clories. 6.Sleep apnea: continue cpap. 7. leucocytosis : Leukocytosis trending down no fevers Asymptomatic Possible reactive . dvt prophylaxsis: mech devices? as per primary team. Above management discussed with the primary team in detail length as well as the staff. Will sign off now, call us for any questions. Quality Stroke Does the patient have a stroke diagnosis?: No VTE Prior VTE?: No VTE Risk Level:: Medical - moderate - high VTE Device Contraindication: N/A - Device Ordered VTE Drug Contraindication: N/A - Med Ordered
[2022-04-15 13:21] LABS: COVID-19 Test Negative (Negative); IDNOW Serial# 16C4AD1C
--- NOTE | 2022-04-15 13:54 | MHC.CM.PN ---
Patient has been medically cleared for dc to SNF/[facility] today. Patient will dc to [facility] today at 5PM, via [facility].
[2022-04-15 15:31] VITALS: BP 118/56; PULSE 67; RESP 15; TEMP 36.3; O2SAT 96
[2022-04-15 15:59] LABS: Glucose, Whole Blood 114 mg/dL (60-115)
== END 2022-04-15 17:25 | disposition skilled nursing facility (03) | DRG 326 ==
LOC: HO.SSSA 07:45 → HO.S3 13:42
PROVIDERS: Physician Assistant; Student in an Organized Health Care Education/Training Program; Admitting Provider Orthopaedic Surgery; PCP Internal Medicine; Responsible Provider Internal Medicine; Visit Provider Orthopaedic Surgery
PROC: 0SRD0JA Replacement of Left Knee Joint with Synthetic Substitute, Uncemented, Open Approach (ICD-10-PCS; CPT 27447; principal; 2022-04-13 09:30)
DX: M17.12 Unilateral primary osteoarthritis, left knee (principal); D64.89 Other specified anemias; D72.829 Elevated white blood cell count, unspecified; E11.65 Type 2 diabetes mellitus with hyperglycemia; E66.01 Morbid (severe) obesity due to excess calories; E78.5 Hyperlipidemia, unspecified; F32.A Depression, unspecified; G47.30 Sleep apnea, unspecified; F41.9 Anxiety disorder, unspecified; Z20.822 Contact with and (suspected) exposure to COVID-19; Z68.42 Body mass index [BMI] 45.0-49.9, adult; Z98.84 Bariatric surgery status; Z88.8 Allergy status to other drugs, medicaments and biological substances; Z79.84 Long term (current) use of oral hypoglycemic drugs; Z79.899 Other long term (current) drug therapy
CPT/HCPCS: 36415; 73560; 80048; 82947; 85014; 85018; 85025; 86850; 86900; 86901; 87635; 87640; 87641; 88305; 88311; 97116; 97161; 97530; C1776; J0131; J0690; J1100; J1170; J1650; J2250; J2405; J2795; J3010

== ENCOUNTER → 2022-05-20 08:57 | Outpatient (BNVA) | payer OTHER, SELFPAY | PROVIDERS: PCP Internal Medicine; Visit Provider Physician Assistant Surgical | DX: E66.01 Morbid (severe) obesity due to excess calories (principal); Z98.84 Bariatric surgery status; Z68.42 Body mass index [BMI] 45.0-49.9, adult | CPT/HCPCS: 99212 ==

== ENCOUNTER 2022-07-23 13:00 | Outpatient (RCR) | payer OTHER, SELFPAY ==
--- NOTE | 2022-04-29 12:21 | MHC.PT.EP ---
[facility] [place] Office [place] Office [place] Office [address] Anthony Martinez [address] [phone] F: [phone] F: [phone] F: [phone] F: [phone] Physical Therapy Plan of Care Date of Evaluation: Date of Surgery: 04/13/22 Diagnosis: S/P LEFT TKA Assessment: 52 YO FEMALE REF TO PT S/P LEFT TKR ON 04/13/22- SHE RESIDES W HER BROTHER IN A 6TH FLOOR APT AND IS CURRENTLY AMB W A W/WALKER . OBJECTIVE FINDINGS: LIMITED AROM Lt KNEE, TIGHT PSOAS MM ARNOLDO AND DECR ANKLE DF ARNOLDO; DECR STRENGTH IN PROX / LUMBOPELVIC AND Lt LE, POST-OP PAIN IN LEFT KNEE ,AND HEALING ANT Lt KNEE INCISION. FUNCTIONALLY, Pt IS AMB W A W/WALKER- SHE HAS COMPENSATORY GAIT, (+) LEFT KNEE EXTEN LAG, MODIFIED STAIR MGMT, DECR STANDING, SLEEPING, AND DECR MIKI TO ADLs REQ LEFT KNEE FLEX. Pt IS A VERY GOOD PT CANDIDATE TO GUIDE HER IN HER POST-OP TKR COURSE, ADDRESSING THE ABOVE FINDINGS, PAIN MGMT, AND MAXIMIZING FUNCTIONAL INDEPENDENCE. Frequency and Duration: The patient will be seen 2 x WK x 6 WKS Short Term Goals: *Pt'S LEFT KNEE PAIN DECR TO 2-3/10 *IMPROVE Lt QUAD CONTROL/ ACTIV-> RESOLVE EXTEN LAG *INCR AROM Lt KNEE *IMPROVE PSOAS AND CALF MM FLEXIB-> ADV GAIT ON LEVEL AND STAIRS Handbag Operator Goals: *Pt INDEP W PROGR HEP AND SELF-SX MGMT TECHN *Pt DEMON LEFT KNEE AROM AT LEAST 0* TO 120* *Pt DEMON EFFICIENT GAIT LEVEL AND STAIRS, RESUME REG ADLs-> IMPROVED LEFI BBY 8-10 POINTS (AT EVAL 10/80) *WFL STRENGTH LEFT LE/ LUMBOPELVIC REGION Treatment Plan: Modalities to reduce pain, spasms and effusion. Manual therapy to restore motion and function. Therapeutic exercise to improve strength and flexibility. Neuromuscular re-education for posture and balance. Therapeutic activities to return to functional activities of daily living. Electronically signed by: JUDY GUERRA,PT Please sign and return to therapist. Thank you for your referral.
--- NOTE | 2022-08-03 14:23 | MHC.PT.DC ---
[facility] [place] Office [place] Office [place] Office [address] Anthony Martinez [address] [phone] F: [phone] F: [phone] F: [phone] F: [phone] Physical Therapy Discharge Report Diagnosis: S/P LEFT TKA Date of Surgery: 04/13/22 Date of Evaluation: 04/29/22 Date of Discharge: 08/03/22 Treatments to Date: 14 Cancellations to Date: 1 No Shows to Date: 7 Discharge Status: Improved Function Independent with HEP Visit Non-compliance Discharge Summary: Pt HAS PROGRESSED IN PT FOR HER LEFT TKA- HER CURRENT AROM L knee IS -4* to 100* ; PROM to 0* EXTENSION. SHE HAS A MORE EFFICIENT GAIT AND SHE HAS A THOROUGH HEP FOR CONTINUED PROGRESSION. Pt HAS NOT ATTENDED THE LAST 5 SCHED PT APPTS AND IS D/C THIS DATE FROM PT. She did report in August she will be going away to [place]. Electronically signed by: Monica Holbrook, PT Please sign and return to therapist. Thank you for your referral.
== END 2022-08-03 14:22 | disposition home or self-care (01) ==
LOC: HO.PT 13:00
PROVIDERS: Visit Provider Physician Assistant
DX: Z96.652 Presence of left artificial knee joint (principal)
CPT/HCPCS: 97110; 97112; 97140; 97162; 97530

== ENCOUNTER 2022-08-05 12:16 | Outpatient (REF) | payer OTHER, SELFPAY ==
--- NOTE | ~2022-08-05 | XR_ITS ---
EXAMINATION: XR BOTH KNEES AP STANDING XR KNEE, LEFT CLINICAL INFORMATION: Pain COMPARISON: Most recent left knee radiographs dated 04/13/2022. TECHNIQUE: Standing AP view of both knees and lateral and sunrise views of the left knee. FINDINGS: Right Knee: Moderate medial compartment joint space narrowing. Tricompartmental marginal osteophytes. No osseous erosion. No fracture or dislocation. Left Knee: Total left knee arthroplasty in expected anatomic alignment. No hardware fracture. No perihardware lucency to suggest loosening or infection. No osseous fracture. No dislocation. No significant joint effusion. XR/XR knee standing BI IMPRESSION: RIGHT KNEE: Tricompartmental osteoarthritis, most prominent within the medial compartment. LEFT KNEE: Total left knee arthroplasty without evidence of hardware complication.
--- NOTE | ~2022-08-05 | XR_ITS ---
EXAMINATION: XR BOTH KNEES AP STANDING XR KNEE, LEFT CLINICAL INFORMATION: Pain COMPARISON: Most recent left knee radiographs dated 04/13/2022. TECHNIQUE: Standing AP view of both knees and lateral and sunrise views of the left knee. FINDINGS: Right Knee: Moderate medial compartment joint space narrowing. Tricompartmental marginal osteophytes. No osseous erosion. No fracture or dislocation. Left Knee: Total left knee arthroplasty in expected anatomic alignment. No hardware fracture. No perihardware lucency to suggest loosening or infection. No osseous fracture. No dislocation. No significant joint effusion. XR/XR knee LT 2V IMPRESSION: RIGHT KNEE: Tricompartmental osteoarthritis, most prominent within the medial compartment. LEFT KNEE: Total left knee arthroplasty without evidence of hardware complication.
== END 2022-08-05 12:17 | disposition home or self-care (01) ==
LOC: HO.HOSX 12:16
PROVIDERS: Visit Provider Orthopaedic Surgery
DX: M17.11 Unilateral primary osteoarthritis, right knee (principal); Z96.652 Presence of left artificial knee joint
CPT/HCPCS: 20610; 73560; 73565; 99212; J1100

== ENCOUNTER 2022-08-10 13:01 | Outpatient (REF) | payer OTHER, SELFPAY ==
[2022-08-10 14:25] LABS: Creatinine Urine 105.63 mg/dL; Microalbum/Creatinine Ratio Ur 9.4 ug/mg cr
[2022-08-10 14:47] LABS: Alanine Aminotransferase 11 U/L (0-31); Albumin Level 3.9 g/dL (3.5-5.0); Alkaline Phosphatase 142 U/L (39-117); Anion Gap 8 (12-20); Aspartate Amino Transferase 12 U/L (5-31); Bilirubin Total 0.3 mg/dL (0.0-1.0); Blood Urea Nitrogen 10 mg/dL (9-16); Carbon Dioxide 32 mmol/L (22-29); Chloride 108 mmol/L (96-108); Cholesterol 223 mg/dL; Estimated Glomerular Filt Rate > 60; Glucose Fasting 88 mg/dL (60-99); HDL Cholesterol 47 mg/dL; LDL Cholesterol Calculated 139 mg/dl; Potassium 4.5 mmol/L (3.3-5.1); Sodium 143 mmol/L (135-145); Total Protein 6.6 g/dL (6.5-8.0); Triglycerides 185 mg/dL; Vitamin D 25-OH Total 32.3 ng/mL (>30)
[2022-08-10 14:57] LABS: Folate 12.4 ng/mL (> or = 4.0); Vitamin B12 301 pg/mL (200-900)
== END 2022-08-10 13:02 | disposition home or self-care (01) ==
LOC: HO.LAB 13:01
PROVIDERS: PCP Internal Medicine; Visit Provider Internal Medicine
DX: E53.8 Deficiency of other specified B group vitamins (principal); E78.5 Hyperlipidemia, unspecified; E55.9 Vitamin D deficiency, unspecified; E11.9 Type 2 diabetes mellitus without complications; E66.01 Morbid (severe) obesity due to excess calories
CPT/HCPCS: 36415; 80053; 80061; 82043; 82306; 82607; 82746

== ENCOUNTER 2022-11-25 09:35 | Outpatient (REF) | payer OTHER, SELFPAY ==
--- NOTE | 2022-11-25 09:40 | ECG_ITS ---
Test Reason : preop Blood Pressure : / mmHG Vent. Rate : 079 BPM Atrial Rate : 079 BPM P-R Int : 142 ms QRS Dur : 088 ms QT Int : 394 ms P-R-T Axes : 055 038 031 degrees QTc Int : 451 ms Normal sinus rhythm Normal ECG When compared with ECG of 30-MAR-2022 10:13, No significant change was found Referred By: Radha Woodson Electronically Signed By:RAFI CASTANEDA MD
[2022-11-25 09:55] LABS: MANUAL DIFF FLAG NO
[2022-11-25 10:54] LABS: Basophils Percent Auto 0.5 % (0-2); Eosinophils Absolute Auto 0.2 X10*3/uL (0.0-0.4); Eosinophils Percent Auto 2.1 % (0-4); Hematocrit 39.5 % (37.0-47.0); Imm Gran Abs Auto 0.02 X10*3/uL (0.00-0.03); Imm Gran Pct Auto 0.2 % (0.0-0.4); Lymphocytes Absolute Auto 1.4 X10*3/uL (1.2-4.9); Lymphocytes Percent Auto 16.5 % (20-40); Mean Corpuscular HGB Conc 32.9 g/dl (31.0-35.0); Mean Corpuscular Hemoglobin 27.6 pg (27.0-33.0); Mean Corpuscular Volume 83.9 fL (80.0-98.0); Mean Platelet Volume 10.7 fL (9.4-12.3); Monocytes Absolute Auto 0.6 X10*3/uL (0.1-1.2); Monocytes Percent Auto 6.8 % (2-11); Neutrophils Absolute Auto 6.4 x10*3/uL (2.0-8.3); Neutrophils Percent Auto 73.9 % (45-73); Platelet Count 270 X10*3/uL (160-400); Red Blood Count 4.71 X10*6/uL (4.20-5.50); Red Cell Distribution Width 13.2 % (11.0-16.0); White Blood Count 8.7 X10*3/uL (4.8-10.8)
[2022-11-25 11:17] LABS: Alanine Aminotransferase 12 U/L (0-31); Albumin Level 3.7 g/dL (3.5-5.0); Alkaline Phosphatase 149 U/L (39-117); Anion Gap 12 (12-20); Aspartate Amino Transferase 14 U/L (5-31); Bilirubin Total 0.5 mg/dL (0.0-1.0); Blood Urea Nitrogen 11 mg/dL (9-16); Calcium 8.6 mg/dL (8.4-10.2); Carbon Dioxide 25 mmol/L (22-29); Chloride 110 mmol/L (96-108); Cholesterol 142 mg/dL; Estimated Glomerular Filt Rate > 60; Glucose Fasting 83 mg/dL (60-99); HDL Cholesterol 46 mg/dL; Iron 58 mcg/dL (30-160); LDL Cholesterol Calculated 79 mg/dl; Percent Iron Saturation 21 % (15-50); Potassium 4.5 mmol/L (3.3-5.1); Sodium 142 mmol/L (135-145); Total Iron Binding Capacity 276 mcg/dL (228-428); Total Protein 6.3 g/dL (6.5-8.0); Triglycerides 88 mg/dL; Unsaturated Iron Binding 218 ug/dL
[2022-11-25 12:08] LABS: Estimated Average Glucose 114 mg/dL; Hemoglobin A1c % 5.6 %
== END 2022-11-25 09:36 | disposition home or self-care (01) ==
LOC: HO.LAB 09:35
PROVIDERS: PCP Internal Medicine; Visit Provider Internal Medicine
DX: Z01.818 Encounter for other preprocedural examination (principal); D64.9 Anemia, unspecified; E11.40 Type 2 diabetes mellitus with diabetic neuropathy, unspecified; E11.65 Type 2 diabetes mellitus with hyperglycemia; E78.5 Hyperlipidemia, unspecified
CPT/HCPCS: 36415; 80053; 80061; 83036; 83540; 85025; 93005

== ENCOUNTER → 2022-12-01 11:14 | Outpatient (BNVA) | payer OTHER, SELFPAY | PROVIDERS: PCP Internal Medicine; Visit Provider Physician Assistant | DX: M17.11 Unilateral primary osteoarthritis, right knee (principal) | CPT/HCPCS: 99212 ==

== ENCOUNTER 2022-12-07 05:44 | Inpatient (IN) | payer OTHER, SELFPAY ==
[2022-11-29 12:11] VITALS: BP 132/69; PULSE 65; RESP 16; O2SAT 97
[2022-11-29 12:23] VITALS: BMI 43.9
--- NOTE | 2022-11-29 12:50 | P.CONAN_ITS ---
Documented by User: Brianda Yarbrough NP 11/29/22 13:12 HPI - Anesthesia Eval Consult details Narrative: 52yo F for Right Knee Replacement Total PCP cleared s/p left knee arthroplasty 04/2022 with nerve block and GA-ETT 7 no problems per patient PMFSH Active Problems Active Problems: All Active Problems (Updated 11/29/22 @ 12:07 by Allegra Medrano RN) Polyarthralgia (Acute) Elevated erythrocyte sedimentation rate (Acute) Depression (Acute) Anxiety (Acute) Hyponatremia (Acute) Mild depression (Acute) Preprocedural examination (Acute) Status post repair of paraesophageal diaphragmatic hernia (Acute) Diaphragmatic hernia (Acute) Watery diarrhea (Acute) Osteoarthritis of knees, bilateral (Acute) Bilateral carpal tunnel syndrome (Acute) Enteritis (Acute) Pre-op evaluation (Acute) Status post total left knee replacement (Acute) Osteoarthritis of right knee (Acute) Allergic reaction (Acute) Hyperlipidemia LDL goal <70 (Acute) Pre-op evaluation (Acute) Essential hypertension (Acute) Diabetes mellitus (Acute) S/P laparoscopic sleeve gastrectomy (Acute) Hand pain (Acute) Pernicious anemia (Acute) Depression with anxiety (Acute) Anemia (Acute) Thiamine deficiency (Acute) B12 deficiency (Acute) Steatosis, liver (Acute) Morbid obesity (Acute) Obese (Acute) Rash (Acute) Pure hypercholesterolemia (Acute) Past Medical History Medical History Anemia B12 deficiency COVID-19 vaccine series completed Depression with anxiety Diabetes mellitus Essential hypertension Hand pain Hyperlipidemia Morbid obesity Obese On beta epifanio at home Osteoarthritis of left knee Pernicious anemia Pure hypercholesterolemia Rash Sleep apnea with use of continuous positive airway pressure (CPAP) Steatosis, liver Thiamine deficiency Family History Family History Father Diabetes Hypertension Prostate cancer Mother Hypertension Stomach cancer Family history of problems with anesthesia: No Surgical History Surgical History History of arthroplasty of left knee History of foot surgery History of total abdominal hysterectomy and bilateral salpingo-oophorectomy Hx of carpal tunnel repair S/P laparoscopic sleeve gastrectomy Status post debridement History of Problems with Anesthesia: No Social History Social History Household Members: Family Household Members Other:: Brother Housing: Apartment Are you a primary care worker to a significant other at home: No Do you presently have visiting nurse or other home services: No Alcohol intake: never Patient Tobacco Use Status: Never used Tobacco e-Cigarette/Vaping Use: Never Used Second Hand Smoke Exposure: No Use of substances other than those prescribed or required for medical reasons: No Currently Displaying Signs/Symptoms of Drug Intoxication Withdrawal: No Have you been hit, kicked, punched, or otherwise hurt by someone within the past year? If so, by whom?: No Do you feel safe in your current relationship?: No Current Relationship Is there a partner from a previous relationship who is making you feel unsafe now?: No Are you made to feel afraid or neglected: No Are you DNR?: No Advance Directives: Yes Advance Directives Information Provided: Yes Advance Directives on File: Yes Advance Directives Date on File: 04/16/22 Do you have thoughts of harming others: None Do you have a plan to hurt others: No Plan Recently lost weight without trying: No How much weight loss: Not applicable Eating poorly because of decreased appetite: No Nutrition screen score: 0 Nutrition Risks: No Nutritional Risk Patient : No : No Poor oral hygiene: No service: No 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al status: disabled 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 Cognitive needs: Yes Hearing needs: No Vision needs: No Meds Allergies Allergy/AdvReac Type Severity Reaction Status Date / Time citalopram Allergy Mild Rash Verified 12/01/22 11:28 Home Medications Medication Instructions Recorded Confirmed Last Taken Type hydroxyzine pamoate 50 mg capsule 50 mg PO BID 04/08/21 11/25/22 12/07/22 History quetiapine 50 mg tablet (Seroquel) 25 mg PO Q6H PRN Anxiety 04/05/22 11/25/22 12/06/22 History quetiapine 100 mg tablet 50 mg PO BEDTIME 04/13/22 11/25/22 12/06/22 History sertraline 25 mg tablet 25 mg PO DAILY 12/07/22 12/07/22 Unknown History sertraline 50 mg tablet 50 mg PO DAILY 12/07/22 12/07/22 12/06/22 History Exam Exam Date and Time: November 29, 2022 1250 Height,Weight and Vital Signs: Height 4 ft 10 in Weight 95.254 kg Last Vital Signs Pulse 65 11/29/22 12:11 Resp 16 11/29/22 12:11 BP 132/69 11/29/22 12:11 Pulse Ox 97 11/29/22 12:11 O2 Del Method Room Air 11/29/22 12:11 Pertinent Lab Results Pertinent Lab Results: Laboratory Tests 11/25/22 11/25/22 09:54 09:54 WBC 8.7 Hgb 13.0 D Hct 39.5 D Plt Count 270 D Sodium 142 Potassium 4.5 Chloride 110 H Carbon Dioxide 25 BUN 11 Creatinine 0.80 Laboratory Tests 08/11/22 13:13 Hgb A1c (Clinic) 5.7 Narrative Narrative: EKG 11/2022 Vent. Rate : 079 BPM ? ? Atrial Rate : 079 BPM ?? P-R Int : 142 ms? QRS Dur : 088 ms ? ? QT Int : 394 ms ? ? ? P-R-T Axes : 055 038 031 degrees ?? QTc Int : 451 ms ? Normal sinus rhythm Normal ECG When compared with ECG of 30-MAR-2022 10:13, No significant change was found Assessment and Plan Assessment Anesthesia Assessment: Anesthesia Plan Discussed (with senior court office assistant) and PAT Visit Final Anesthetic Review Family History of Problems with Anesthesia: No History of Problems with Anesthesia: No Documented by User: Beltran Abreu MD 12/07/22 17:40 REPLACED BY [facility] Past Medical History Medical History Anemia B12 deficiency COVID-19 vaccine series completed Depression with anxiety Diabetes mellitus Essential hypertension Hand pain Hyperlipidemia Morbid obesity Obese On beta epifanio at home Osteoarthritis of left knee Pernicious anemia Pure hypercholesterolemia Rash Sleep apnea with use of continuous positive airway pressure (CPAP) Steatosis, liver Thiamine deficiency Family History Family History Father Diabetes Hypertension Prostate cancer Mother Hypertension Stomach cancer Surgical History Surgical History History of arthroplasty of left knee History of foot surgery History of total abdominal hysterectomy and bilateral salpingo-oophorectomy Hx of carpal tunnel repair S/P laparoscopic sleeve gastrectomy Status post debridement Social History Social History Household Members: Family Household Members Other:: Brother Housing: Apartment Are you a primary care worker to a significant other at home: No Do you presently have visiting nurse or other home services: No Alcohol intake: never Patient Tobacco Use Status: Never used Tobacco e-Cigarette/Vaping Use: Never Used Second Hand Smoke Exposure: No Use of substances other than those prescribed or required for medical reasons: No Currently Displaying Signs/Symptoms of Drug Intoxication Withdrawal: No Have you been hit, kicked, punched, or otherwise hurt by someone within the past year? If so, by whom?: No Do you feel safe in your current relationship?: No Current Relationship Is there a partner from a previous relationship who is making you feel unsafe now?: No Are you made to feel afraid or neglected: No Are you DNR?: No Advance Directives: Yes Advance Directives Information Provided: Yes Advance Directives on File: Yes Advance Directives Date on File: 04/16/22 Do you have thoughts of harming others: None Do you have a plan to hurt others: No Plan Recently lost weight without trying: No How much weight loss: Not applicable Eating poorly because of decreased appetite: No Nutrition screen score: 0 Nutrition Risks: No Nutritional Risk Patient : No : No Poor oral hygiene: No service: No 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al status: disabled 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 Cognitive needs: Yes Hearing needs: No Vision needs: No Meds Allergies Allergy/AdvReac Type Severity Reaction Status Date / Time citalopram Allergy Mild Rash Verified 12/01/22 11:28 Home Medications Medication Instructions Recorded Confirmed Last Taken Type hydroxyzine pamoate 50 mg capsule 50 mg PO BID 04/08/21 11/25/22 12/07/22 History quetiapine 50 mg tablet (Seroquel) 25 mg PO Q6H PRN Anxiety 04/05/22 11/25/22 12/06/22 History quetiapine 100 mg tablet 50 mg PO BEDTIME 04/13/22 11/25/22 12/06/22 History sertraline 25 mg tablet 25 mg PO DAILY 12/07/22 12/07/22 Unknown History sertraline 50 mg tablet 50 mg PO DAILY 12/07/22 12/07/22 12/06/22 History Exam Airway Mallampati Class: IV Neck ROM: Full Loose/Missing/Broken Teeth: Yes (poor dentition ) Assessment and Plan Assessment Anesthesia Assessment: Chart Reviewed Final Anesthetic Review NPO: Yes ASA Class: III Final Preanesthetic Review: Meds/Allgs Chart Reviewed, Consent Obtained/Reviewed and Anes Risks/Benef Reviewed Patient Risk: Intermediate Procedure Risk: Intermediate Assessment/Block/Sedation in SS: Assess/Block/Sedation-SS Anesthetic Plan Anesthetic Plan: GA, Regional Block and Agree w/ Assess. and Plan Disposition: Standard PACU
[2022-11-29 15:51] LABS: MRSA Nasal PCR POSITIVE (Negative); SA Nasal PCR POSITIVE (Negative)
[2022-12-07] VITALS (13 sets, daily range): BP systolic 108–148; BP diastolic 57–84; PULSE 70–86; RESP 16–20; TEMP 36–36.6; O2SAT 96–98
--- NOTE | ~2022-12-07 | XR_ITS ---
EXAMINATION: XR KNEE, RIGHT CLINICAL INFORMATION: Post right knee replacement COMPARISON: Previous x-ray August 2022 TECHNIQUE: Two views of the right knee. FINDINGS: There is a new 3 component right knee replacement in satisfactory position. No fracture or dislocation. Postoperative changes to the soft tissues. XR/XR knee RT 2V IMPRESSION: Satisfactory appearance of right knee replacement.
[2022-12-07 06:35] LABS: COVID-19 Test Negative (Negative); IDNOW Serial# BCCEAD1C
--- NOTE | 2022-12-07 06:40 | PC.NURSE ---
called pharmacy pharmacist stated vanco does is 1500mg per weight
[2022-12-07 06:47] LABS: Hematocrit 40.7 % (37.0-47.0); Hemoglobin 13.1 g/dl (12.0-16.0)
[2022-12-07] MEDS: vancomycin HCL 1,500 MG in 0.9 % Sodium Chloride 500 ML 333.33 MG IV ×2 (06:59→18:11)
[2022-12-07] MEDS: Lactated Ringers 1,000 ML 100 ML IVCONT ×3 (06:59→20:50)
--- NOTE | 2022-12-07 07:13 | PHA.MEDREC ---
Pharmacy Consult ? Medication Reconciliation Pharmacy has reviewed the medication reconciliation completed by nursing. Unpdated seroquel dose to match prescripition. Karolyn Galarza, PharmD
--- NOTE | 2022-12-07 07:25 | PC.NURSE ---
regional block by anesthesia pt tolerating well vss aware careplan
--- NOTE | 2022-12-07 07:33 | MHC.SHP ---
Pre-Procedural Eval Section A Date of Service: 12/07/22 The patient is an INPATIENT: No Changes since office visit: No Cold of Flu in the past 2 weeks, No New Medical Problems, No Changes in Medication and No Patient answered all questions The History & Physical has been completed within 30 days and I have reviewed it.: Yes Section B Chief Complaint: RT TKA Allergies: Allergies Allergy/AdvReac Type Severity Reaction Status Date / Time citalopram Allergy Mild Rash Verified 12/01/22 11:28 Plan I have reviewed the history and physical and performed a pertinent physical examination on my patient. No changes have occurred unless specified. Time Spent With Patient Time: Total time managing care of this patient today ____ minutes.
[2022-12-07 08:56] LABS: Glucose, Whole Blood 86 mg/dL (60-115)
--- NOTE | 2022-12-07 09:13 | PM.OP ---
Brief Operative Note Date of Service: 12/07/22 Pre-op diagnosis: Right knee OA Post-op diagnosis: same Procedure: Right TKA Implants: [place] Tri[employer]lon a press fit Surgeon: Roel Chahal MD Anesthesia: GETA and regional Was an Packaging Sales Representative used for this Procedure?: Yes Packaging Sales Representative: Lori Cortes Estimated blood loss (mL): 200 IV fluids (mL): 800 Pathology: other Condition: stable Disposition: PACU
--- NOTE | 2022-12-07 09:17 | P.OP_ITS ---
Operative Note Operative Note Date of Service: 12/07/22 Narrative: Date of Service: 12/07/22 Pre-op diagnosis: Right knee OA Post-op diagnosis: same Procedure: Right TKA Implants: [place] Triathlon /2/9CR/29a press fit Surgeon: Roel Chahal MD Anesthesia: GETA and regional Was an Mechanical Assembly used for this Procedure?: Yes Mechanical Assembly: Lori Cortes Estimated blood loss (mL): 200 IV fluids (mL): 800 Pathology: other Condition: stable Disposition: PACU Procedure in detail: The patient was brought to the operating room and prepped and draped in standard sterile fashion. A time-out was called to identify proper site proper procedure proper surgeon and IV antibiotics were administered. 1 g of IV tranexamic acid was administered. I began by making a midline incision to the retinaculum and performed a medial parapatellar arthrotomy. The patella was translated laterally and the knee was flexed up. The mecial compartment was eburnated . I performed a small medial peel and resected the infrapatellar fat pad. Joseph's line was then used to drill my intramedullary femoral guide and my distal femur cut of 10 mm was made in 5 degrees of valgus while protecting the soft tissues. I then measured a # 1 femur and placed my cutting guide and made my anterior posterior and chamfer cuts protecting the soft tissues at all times. Once I was satisfied with my cuts I turned my attention to the tibia. I removed the meniscus medially and laterally and , using an external cutting guide, in line with the tibial crest and the third ray, I made my distal tibial cut in 3 deg slope of while protecting the PCL the posterior soft tissues at all times. An extension block was used to confirm appropriate amount of bony resection. I then sized a #2 tibia and once I was satisfied that there was complete tibial coverage I placed my trial and with the trial femur in place took the knee through range of motion. I was satisfied with the extension and flexion as well as the stability and balance at 0, 30 and 90 degrees. I then turned my attention to the patella where I removed 1 cm from the undersurface of the patella and then trialed a 29a patellar button. The knee was taken through range of motion I was satisfied with the tracking. I then returned to the femur and drilled my femoral lug holes and prepared the tibia. A femoral bone plug was placed and the knee was irrigated copiously. I then press fit the patella, tibia and femur in standard fashion. I trialed different inserts until I selected a #9 insert. The final insert was placed and a 3 minutes iodine soak with local TXA was performed. A Werewolf cautery wand was used to maintain hemostasis over the capsule and meniscal beds, the gutters and pericapsular soft tissues. The knee was then closed with a running Quill suture, a 3 0 Vicryl and melissa on the skin. Patient was then placed in sterile dressing and brought to recovery room in stable condition there were no known complications.
[2022-12-07 09:38] LABS: Glucose, Whole Blood 109 mg/dL (60-115)
[2022-12-07 11:38] LABS: Glucose, Whole Blood 117 mg/dL (60-115)
[2022-12-07] MEDS: Acetaminophen 325 MG TABLET 650 MG PO (12:37)
[2022-12-07] MEDS: oxyCODONE HCl Immed Release 5 MG TABLET PO (12:38)
--- NOTE | 2022-12-07 15:15 | P.CONHOSP_ITS ---
History of Present Illness Data of Consult Service Date: 12/07/22 Requesting physician: Joyce Cerrato Primary Care Provider: Radha Woodson MD HPI Reason for consult: medical management 52-year-old female with history of hypertension, vna-[id number] type 2 diabetes, hyperlipidemia, pernicious anemia, GWENDOLYN compliant with CPAP, depression/anxiety admitted to Orthopedic surgery for management of osteoarthritis of the right knee s/p right TKA with consult placed to hospital ist service for medical management. She is feeling well, comfortable, no complaints. Review of Systems Review of Systems: General: No fevers, malaise, unintentional weight loss HEENT: No blurred vision, diplopia. No sore throat, nasal congestion, rhinorrhea, sinus pain, ear pain Cardiovascular: No chest pain, palpitations, or leg edema Respiratory: No shortness of breath, wheezing, cough GI: No abdominal pain, nausea, vomiting, diarrhea, constipation, melena, hematochezia : No dysuria, hematuria, increased urinary frequency, decreased urinary output MSK: No myalgia, back pain Neuro: No headaches, weakness, paresthesias Skin: No rashes or lesions PMFSH Medical History Anemia B12 deficiency COVID-19 vaccine series completed Depression with anxiety Diabetes mellitus Essential hypertension Hand pain Hyperlipidemia Morbid obesity Obese On beta epifanio at home Osteoarthritis of left knee Pernicious anemia Pure hypercholesterolemia Rash Sleep apnea with use of continuous positive airway pressure (CPAP) Steatosis, liver Thiamine deficiency Family History Father Diabetes Hypertension Prostate cancer Mother Hypertension Stomach cancer Surgical History History of arthroplasty of left knee History of foot surgery History of total abdominal hysterectomy and bilateral salpingo-oophorectomy Hx of carpal tunnel repair S/P laparoscopic sleeve gastrectomy Status post debridement Social History Household Members: Family Household Members Other:: Brother Housing: Apartment Are you a primary respiratory care practitioner to a significant other at home: No Do you presently have visiting nurse or other home services: No Alcohol intake: never Patient Tobacco Use Status: Never used Tobacco e-Cigarette/Vaping Use: Never Used Second Hand Smoke Exposure: No Use of substances other than those prescribed or required for medical reasons: No Have you been hit, kicked, punched, or otherwise hurt by someone within the past year? If so, by whom?: No Do you feel safe in your current relationship?: No Current Relationship Is there a partner from a previous relationship who is making you feel unsafe now?: No Are you made to feel afraid or neglected: No Are you DNR?: No Advance Directives: Yes Advance Directives Information Provided: Yes Advance Directives on File: Yes Advance Directives Date on File: 04/16/22 Do you have thoughts of harming others: None Do you have a plan to hurt others: No Plan Recently lost weight without trying: No How much weight loss: Not applicable Eating poorly because of decreased appetite: No Nutrition screen score: 0 Nutrition Risks: No Nutritional Risk Patient : No : No Poor oral hygiene: No service: No 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al status: disabled 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 Cognitive needs: Yes Hearing needs: No Vision needs: No Meds Allergies Allergy/AdvReac Type Severity Reaction Status Date / Time citalopram Allergy Mild Rash Verified 12/01/22 11:28 Active Medications: Current Medications Acetaminophen (Acetaminophen 325 Mg Tablet) 650 mg PO Q6H PRN PRN Reason: Pain, Mild (Pain Scale 1-3) Last Admin: 12/07/22 12:37 Dose: 650 mg Aspirin (Aspirin 325 Mg Tablet) 325 mg PO BID [facility] Atorvastatin Calcium (Atorvastatin Calcium 80 Mg Tablet) 80 mg PO BEDTIME [facility] Celecoxib (Celecoxib 200 Mg Capsule) 200 mg PO BID [facility] Docusate Sodium (Docusate Sodium 100 Mg Capsule) 100 mg PO BID [facility] Empagliflozin (Empagliflozin 25 Mg Tablet) 25 mg PO DAILY [facility] Folic Acid (Folic Acid 1 Mg Tablet) 1 mg PO DAILY [facility] Hydromorphone HCl (Hydromorphone Hcl 0.5 Mg/0.5 Ml Syringe) 0.25 mg IVPUSH Q4H PRN; Protocol PRN Reason: Pain, Severe (Pain Scale 7-10) Hydroxyzine HCl (Hydroxyzine Hcl 50 Mg Tablet) 50 mg PO BID [facility] Lactated Ringer's (Lr) 1,000 mls @ 100 mls/hr IVCONT .Q10H SAMMY Last Admin: 12/07/22 12:13 Dose: 100 mls/hr Vancomycin HCl 1,500 mg/ (Sodium Chloride) 500 mls @ 333.333 mls/hr IV POSTOP ONE Stop: 12/07/22 20:29 Lisinopril (Lisinopril 40 Mg Tablet) 40 mg PO DAILY SAMMY; Protocol Metformin HCl (Metformin Hcl Er 500 Mg Tab.Er.24h) 1,000 mg PO DAILY [facility] Metoprolol Succinate (Metoprolol Succinate Er 100 Mg Tab.Er.24h) 100 mg PO DAILY SAMMY; Protocol Non-Formulary Medication (Semaglutide [Ozempic]) 0.25 mg SUBCUT QWEEK [facility] Ondansetron HCl (Ondansetron Hcl 4 Mg/2 Ml Vial) 4 mg IVPUSH Q8H PRN PRN Reason: Nausea and Vomiting Oxycodone HCl (Oxycodone Hcl Er 10 Mg Tab.Er.12h) 10 mg PO BID [facility] Oxycodone HCl (Oxycodone Hcl Immed Release 5 Mg Tablet) 5 mg PO Q4H PRN PRN Reason: Pain, Moderate (Pain Scale 4-6 Last Admin: 12/07/22 12:38 Dose: 5 mg Pharmacy Consult (Consult Rx Perform Med Rec) 1 each MISCELLANE ONCE PRN PRN Reason: Consult order Pharmacy Consult (Consult Rx Vancomycin Dosing) 1 each MISCELLANE DAILY PRN PRN Reason: Consult order Quetiapine Fumarate (Quetiapine Fumarate 50 Mg Tablet) 50 mg PO BEDTIME [facility] Quetiapine Fumarate (Quetiapine Fumarate 25 Mg Tablet) 25 mg PO Q6H PRN PRN Reason: Anxiety Sertraline HCl (Sertraline Hcl 25 Mg Tablet) 25 mg PO DAILY [facility] Sertraline HCl (Sertraline Hcl 50 Mg Tablet) 50 mg PO DAILY [facility] Sodium Chloride (0.9 % Sodium Chloride Flush 3 Ml Syringe) 3 ml IVFLUSH QSHIFT [facility] Home Medications Medication Instructions Recorded Confirmed Last Taken Type hydroxyzine pamoate 50 mg capsule 50 mg PO BID 04/08/21 11/25/22 12/07/22 History quetiapine 50 mg tablet (Seroquel) 25 mg PO Q6H PRN Anxiety 04/05/22 11/25/22 12/06/22 History quetiapine 100 mg tablet 50 mg PO BEDTIME 0811/25/22 12/06/22 History sertraline 25 mg tablet 25 mg PO DAILY 12/07/22 12/07/22 Unknown History sertraline 50 mg tablet 50 mg PO DAILY 12/07/22 12/07/22 12/06/22 History Physical Exam Vital Signs and Narrative: Vital Signs: Last Vital Signs Temp 97.6 F 12/07/22 11:37 Pulse 73 12/07/22 13:41 Resp 17 12/07/22 11:37 BP 108/57 L 12/07/22 13:41 Pulse Ox 97 12/07/22 13:41 O2 Del Method Nasal Cannula 12/07/22 11:37 O2 Flow Rate 2.0 12/07/22 11:37 BMI result Body Mass Index 43.9 Constitutional - Awake and Alert, No apparent distress Eyes - PERRLA, EOMI Cardiovascular - S1S2, RRR, No edema Respiratory - Normal lung expansion, Normal respiratory effort, No respiratory distress, CTA bilaterally Gastrointestinal - NT / ND; +BS; No rebound or guarding Extremities - no calf tenderness bilaterally, no swelling Skin - Warm/Dry Neurological - Alert & oriented x3, CN II-XII in tact, 5/5 strength BUE and BLE Psychological - Appropriate affect Results Labs 12/07/22 06:37 Labs: Laboratory Results - last 24 hr 12/07/22 12/07/22 12/07/22 06:08 06:14 09:35 POC Glucose 86 109 COVID-19 (ROSA) Negative COVID-19 Clin Com See Note 12/07/22 11:34 POC Glucose 117 H COVID-19 (ROSA) COVID-19 Clin Com Imaging Radiologist's Impressions: Impressions Knee X-Ray 12/07/22 11:08 IMPRESSION: Satisfactory appearance of right knee replacement. Assessment and Plan (1) Osteoarthritis of right knee: Status: Acute Plan 52-year-old female with history of hypertension, gpx-iuetgvo-udtguzaui type 2 diabetes, hyperlipidemia, pernicious anemia, GWENDOLYN compliant with CPAP, depression/anxiety admitted to Orthopedic surgery for management of osteoarthritis of the right knee s/p right TKA with consult placed to hospitalist service for medical management. #OA right knee s/p right TKA POD 0 -plan per ortho surgery #Noninsulin dependence type 2 diabetes- controlled -due for trulicity dose tomorrow. Family to bring in dose from home -POC glucose -Diabetic diet -Humalog on sliding scale #HTN- reasonably controlled on exam -continue home meds #HLD -continue statin #Hx Pernicious anemia -H/H stable, no current anemia -Continue folic acid #Depression/anxiety -continue home meds #GWENDOLYN -CPAP from home at bedtime #Morbid obesity -weight loss efforts encouraged Thank you for allowing me to participate in this consult. Signing off at this time. Please do not hesitate to call for further questions. Time Spent With Patient Time: Total time managing care of this patient today ____ minutes.
[2022-12-07 16:46] LABS: Glucose, Whole Blood 126 mg/dL (60-115)
[2022-12-07 20:26] LABS: Glucose, Whole Blood 182 mg/dL (60-115)
[2022-12-07] MEDS: Celecoxib 200 MG CAPSULE PO (20:51)
[2022-12-07] MEDS: oxyCODONE HCl ER 10 MG TAB.ER.12H PO (20:51)
[2022-12-07] MEDS: Insulin Lispro 100 UNIT/ML 3 ML VIAL SUBCUT (20:52)
[2022-12-07] MEDS: 0.9 % Sodium Chloride Flush 3 ML SYRINGE IVFLUSH (20:52)
[2022-12-07] MEDS: hydrOXYzine HCL 50 MG TABLET PO (20:52)
[2022-12-07] MEDS: Atorvastatin Calcium 80 MG TABLET PO (20:52)
[2022-12-07] MEDS: QUEtiapine Fumarate 50 MG TABLET PO (20:52)
[2022-12-07] MEDS: Docusate Sodium 100 MG CAPSULE PO (20:52)
[2022-12-08] VITALS (7 sets, daily range): BP systolic 99–142; BP diastolic 55–79; PULSE 69–82; RESP 15–18; TEMP 36–36.6; O2SAT 99–100
[2022-12-08] MEDS: HYDROmorphone HCl 0.5 MG/0.5 ML SYRINGE 0.25 MG IVPUSH ×3 (00:28→16:35)
[2022-12-08] MEDS: Acetaminophen 325 MG TABLET 650 MG PO ×2 (00:29→10:41)
[2022-12-08 06:04] LABS: MANUAL DIFF FLAG NO
[2022-12-08] MEDS: Lactated Ringers 1,000 ML 100 ML IVCONT ×2 (06:18→16:34)
[2022-12-08] MEDS: oxyCODONE HCl Immed Release 5 MG TABLET PO ×2 (06:18→10:41)
[2022-12-08 06:19] LABS: Basophils Percent Auto 0.3 % (0-2); Eosinophils Percent Auto 0.1 % (0-4); Hematocrit 31.3 % (37.0-47.0); Hemoglobin 10.1 g/dl (12.0-16.0); Imm Gran Abs Auto 0.07 X10*3/uL (0.00-0.03); Imm Gran Pct Auto 0.5 % (0.0-0.4); Lymphocytes Absolute Auto 2.3 X10*3/uL (1.2-4.9); Lymphocytes Percent Auto 16.2 % (20-40); Mean Corpuscular HGB Conc 32.3 g/dl (31.0-35.0); Mean Corpuscular Hemoglobin 27.9 pg (27.0-33.0); Mean Corpuscular Volume 86.5 fL (80.0-98.0); Mean Platelet Volume 10.4 fL (9.4-12.3); Monocytes Absolute Auto 1.4 X10*3/uL (0.1-1.2); Monocytes Percent Auto 10.2 % (2-11); Neutrophils Absolute Auto 10.2 x10*3/uL (2.0-8.3); Neutrophils Percent Auto 72.7 % (45-73); Platelet Count 230 X10*3/uL (160-400); Red Blood Count 3.62 X10*6/uL (4.20-5.50); Red Cell Distribution Width 13.2 % (11.0-16.0); White Blood Count 14.1 X10*3/uL (4.8-10.8)
[2022-12-08 06:40] LABS: Anion Gap 11 (12-20); Blood Urea Nitrogen 10 mg/dL (9-16); Calcium 8.2 mg/dL (8.4-10.2); Carbon Dioxide 25 mmol/L (22-29); Chloride 108 mmol/L (96-108); Creatinine Clr Calc Pharmacy 82.4; Estimated Glomerular Filt Rate > 60; Glucose Fasting 94 mg/dL (60-99); Potassium 4.3 mmol/L (3.3-5.1); Sodium 140 mmol/L (135-145)
--- NOTE | 2022-12-08 07:25 | PM.PNORT ---
Subjective Subjective Date of Service: 12/08/22 Interval history: POD1 s/p RTKA. Patient is resting in bed comfortably. No overnight events. Pain is managed. No additional complaints. Physical Exam Vital Signs: Vital Signs: Last Vital Signs Temp 97.7 F 12/08/22 07:20 Pulse 73 12/08/22 07:20 Resp 16 12/08/22 07:20 BP 99/55 L 12/08/22 07:20 Pulse Ox 100 12/08/22 07:20 O2 Del Method Nasal Cannula 12/08/22 07:20 O2 Flow Rate 2.0 12/08/22 07:20 BMI result Body Mass Index 43.9 Const: General: cooperative, healthy appearing and no acute distress Resp: Effort & Inspection: normal respiratory effort and able to speak in complete sentences Cardio: Rate: regular rate Peripheral pulses: Peripheral pulses 2+ throughout GI: Palpation (GI): Soft to palpation Skin: Lesions: no lesions Rashes: no rashes Extrem: Other: Right knee Aquacel is c/d/i. Able to dorsi/plantarflex. NVI. Procedures Date of Service Date of Service: 12/08/22 Progress Note: A&P Assessment and plan (1) Status post total knee replacement, right: Status: Acute Plan Continue pain mgmnt Begin Lovenox for dvt ppx begin PT for RTKA Dispo planning-Pending PT eval, pain mgmnt Time Spent With Patient Time: Total time managing care of this patient today ____ minutes. Quality Stroke Does the patient have a stroke diagnosis?: No VTE Prior VTE?: No VTE Risk Level:: Medical - moderate - high VTE Device Contraindication: N/A - Device Ordered VTE Drug Contraindication: N/A - Med Ordered
[2022-12-08 07:35] LABS: Glucose, Whole Blood 97 mg/dL (60-115)
[2022-12-08] MEDS: Celecoxib 200 MG CAPSULE PO ×2 (08:23→21:38)
[2022-12-08] MEDS: Folic Acid 1 MG TABLET PO (08:23)
[2022-12-08] MEDS: Empagliflozin 25 MG TABLET PO (08:23)
[2022-12-08] MEDS: Docusate Sodium 100 MG CAPSULE PO ×2 (08:23→21:38)
[2022-12-08] MEDS: oxyCODONE HCl ER 10 MG TAB.ER.12H PO ×2 (08:24→21:38)
[2022-12-08] MEDS: hydrOXYzine HCL 50 MG TABLET PO ×2 (08:24→21:38)
[2022-12-08] MEDS: Aspirin 325 MG TABLET PO ×2 (08:24→21:37)
[2022-12-08] MEDS: lisinopriL 40 MG TABLET PO (08:24)
[2022-12-08] MEDS: Sertraline HCL 25 MG TABLET PO (08:25)
[2022-12-08] MEDS: Metoprolol Succinate ER 100 MG TAB.ER.24H PO (08:25)
[2022-12-08] MEDS: Enoxaparin Sodium 40 MG/0.4 ML SYRINGE SUBCUT (08:25)
[2022-12-08] MEDS: Sertraline HCL 50 MG TABLET PO (08:25)
[2022-12-08 11:18] LABS: Glucose, Whole Blood 98 mg/dL (60-115)
--- NOTE | 2022-12-08 12:03 | MHC.CM.PN ---
pt lives with brother pt has chosen [facility] to go with ,is mason lamax has own ride home
--- NOTE | 2022-12-08 14:08 | HO.POSTANES ---
Post Anesthesia Evaluation Post Anesthesia Evaluation Vital Signs: Vital Signs Temp Pulse Resp BP Pulse Ox O2 Del Method O2 Flow Rate 12/08/22 13:44 73 99/55 L 100 12/08/22 09:23 73 99/55 L 100 12/08/22 07:20 97.7 F 73 16 99/55 L 100 Nasal Cannula 2.0 12/08/22 03:36 96.8 F 82 16 104/55 L 99 Room Air 12/08/22 02:10 18 Anesthesia: Nerve Block and General Mental Status: Awake Pain Control: Satisfactory Nausea/Vomiting: None Hydration: Adequate Anesthesia-Related Issues: No Anes. Related Issues
[2022-12-08 16:25] LABS: Glucose, Whole Blood 115 mg/dL (60-115)
[2022-12-08 20:20] LABS: Glucose, Whole Blood 125 mg/dL (60-115)
[2022-12-08] MEDS: Atorvastatin Calcium 80 MG TABLET PO (21:37)
[2022-12-08] MEDS: QUEtiapine Fumarate 50 MG TABLET PO (21:38)
[2022-12-09] MEDS: Lactated Ringers 1,000 ML 100 ML IVCONT (02:04)
[2022-12-09 03:44] VITALS: BP 129/65; PULSE 81; RESP 16; TEMP 36; O2SAT 99
[2022-12-09 06:01] LABS: MANUAL DIFF FLAG NO
[2022-12-09 06:08] LABS: Basophils Absolute Auto 0.1 X10*3/uL (0.0-0.2); Basophils Percent Auto 0.4 % (0-2); Eosinophils Absolute Auto 0.2 X10*3/uL (0.0-0.4); Eosinophils Percent Auto 1.3 % (0-4); Hematocrit 28.6 % (37.0-47.0); Hemoglobin 9.4 g/dl (12.0-16.0); Imm Gran Abs Auto 0.04 X10*3/uL (0.00-0.03); Imm Gran Pct Auto 0.3 % (0.0-0.4); Lymphocytes Absolute Auto 2.1 X10*3/uL (1.2-4.9); Lymphocytes Percent Auto 18.1 % (20-40); Mean Corpuscular HGB Conc 32.9 g/dl (31.0-35.0); Mean Corpuscular Volume 85.1 fL (80.0-98.0); Mean Platelet Volume 10.6 fL (9.4-12.3); Monocytes Absolute Auto 1.1 X10*3/uL (0.1-1.2); Monocytes Percent Auto 9.4 % (2-11); Neutrophils Absolute Auto 8.3 x10*3/uL (2.0-8.3); Neutrophils Percent Auto 70.5 % (45-73); Platelet Count 186 X10*3/uL (160-400); Red Blood Count 3.36 X10*6/uL (4.20-5.50); Red Cell Distribution Width 13.2 % (11.0-16.0); White Blood Count 11.8 X10*3/uL (4.8-10.8)
[2022-12-09 06:22] LABS: Anion Gap 12 (12-20)
[2022-12-09 07:37] LABS: Glucose, Whole Blood 79 mg/dL (60-115)
[2022-12-09 07:45] LABS: Blood Urea Nitrogen 8 mg/dL (9-16); Carbon Dioxide 27 mmol/L (22-29); Chloride 106 mmol/L (96-108); Creatinine Clr Calc Pharmacy 87.9; Estimated Glomerular Filt Rate > 60; Glucose Fasting 90 mg/dL (60-99); Potassium 4.3 mmol/L (3.3-5.1); Sodium 141 mmol/L (135-145)
[2022-12-09 07:49] VITALS: BP 125/61; PULSE 76; RESP 16; TEMP 37.6; O2SAT 91
[2022-12-09] MEDS: oxyCODONE HCl ER 10 MG TAB.ER.12H PO (08:15)
[2022-12-09] MEDS: Enoxaparin Sodium 40 MG/0.4 ML SYRINGE SUBCUT (08:15)
[2022-12-09] MEDS: Aspirin 325 MG TABLET PO (08:16)
[2022-12-09] MEDS: Folic Acid 1 MG TABLET PO (08:16)
[2022-12-09] MEDS: Sertraline HCL 25 MG TABLET PO (08:16)
[2022-12-09] MEDS: hydrOXYzine HCL 50 MG TABLET PO (08:16)
[2022-12-09] MEDS: Empagliflozin 25 MG TABLET PO (08:16)
[2022-12-09] MEDS: Celecoxib 200 MG CAPSULE PO (08:16)
[2022-12-09] MEDS: Sertraline HCL 50 MG TABLET PO (08:16)
[2022-12-09] MEDS: Metoprolol Succinate ER 100 MG TAB.ER.24H PO (08:16)
[2022-12-09] MEDS: Docusate Sodium 100 MG CAPSULE PO (08:16)
[2022-12-09] MEDS: lisinopriL 40 MG TABLET PO (08:16)
--- NOTE | 2022-12-09 08:33 | PM.DS ---
DS: Providers Provider Date of Service: 12/09/22 Date of admission: 12/07/22 05:44 Primary care physician: Radha Woodson MD Consults: 12/07/22 11:14 Consult to Hospitalist Routine Comment: Consulting Provider: Hospitalist Reason For Exam: Routine medical management DMII DS: Diagnosis Discharge Diagnosis (1) Status post total knee replacement, right: Status: Acute DS: Summary Hospital Course Hospital Course: The patient underwent a successful right total knee arthroplasty on 12/07/22, was transferred to PACU and then to the floor to recover. During their stay, their vitals were stable, afebrile at 99.6 . Labs were unremarkable, H/H 9.4/28.6. POD 1 she was started on Lovenox for DVT ppx, they also received Physical Therapy services twice a day. Physical therapy should include gait training, ROM to tolerance and quad strength. She is WBAT. Prior to discharge, his dressing was changed, incision clean dry and intact, new Aquacel dressing applied. The Aquacel dressing shoulder remain intact and dry at all times. Any concerns with the dressing, please contact orthopedic office. No showering. The plan is to be discharged home [facility] Time Spent with Patient Time attestation: Total time managing care of this patient today ____ minutes. Discharge coordination time: Less than 30 minutes Quality: Safe Use of Opioids Does Pt have an Active Cancer Diagnosis on the Problem List?: No Quality: Stroke Does the patient have a stroke diagnosis?: No Physical Exam Vital Signs: Vital Signs: Last Vital Signs Temp 99.6 F 12/09/22 07:49 Pulse 76 12/09/22 07:49 Resp 16 12/09/22 07:49 BP 125/61 12/09/22 07:49 Pulse Ox 91 L 12/09/22 07:49 O2 Del Method Room Air 12/09/22 07:49 O2 Flow Rate 2 12/09/22 03:44 BMI result Body Mass Index 43.9 Const: General: cooperative, healthy appearing and no acute distress Resp: Effort & Inspection: normal respiratory effort and able to speak in complete sentences Cardio: Rate: regular rate Peripheral pulses: Peripheral pulses 2+ throughout GI: Palpation (GI): Soft to palpation Skin: Lesions: no lesions Rashes: no rashes Extrem: Other: Right knee Aquacel is c/d/i. Able to dorsi/plantarflex. NVI. DS: Data Data Completed and Pending Completed studies during hospitalization [Text1]: Procedures Excision of Stomach, Percutaneous Endoscopic Approach, Vertical (05/05/21) Repair Diaphragm, Percutaneous Endoscopic Approach (05/05/21) Replacement of Left Knee Joint with Synthetic Substitute, Uncemented, Open Approach (04/13/22) Pending studies at discharge: Pending at discharge 12/07/22 09:06 Surgical [PTH] Routine Labs on day of discharge: Laboratory Results - last 24 hr 12/08/22 12/08/22 12/08/22 11:12 16:12 20:14 WBC RBC Hgb Hct MCV MCH MCHC RDW Plt Count MPV Immature Gran % (Auto) Neut % (Auto) Lymph % (Auto) [place] % (Auto) Eos % (Auto) Baso % (Auto) Lymph # (Auto) [place] # (Auto) Eos # (Auto) Baso # (Auto) Abs Immat Gran (auto) Absolute Neuts (auto) Absolute Nucleated RBC Nucleated RBC % (auto) Sodium Potassium Chloride Carbon Dioxide Anion Gap BUN Creatinine Estim Creat Clear Calc Estimated GFR POC Glucose 98 115 125 H Fasting Glucose Calcium 12/09/22 12/09/22 12/09/22 05:20 05:20 07:16 WBC 11.8 H RBC 3.36 L Hgb 9.4 L Hct 28.6 L MCV 85.1 MCH 28.0 MCHC 32.9 RDW 13.2 Plt Count 186 MPV 10.6 Immature Gran % (Auto) 0.3 Neut % (Auto) 70.5 Lymph % (Auto) 18.1 L [place] % (Auto) 9.4 Eos % (Auto) 1.3 Baso % (Auto) 0.4 Lymph # (Auto) 2.1 [place] # (Auto) 1.1 Eos # (Auto) 0.2 Baso # (Auto) 0.1 Abs Immat Gran (auto) 0.04 H Absolute Neuts (auto) 8.3 Absolute Nucleated RBC 0.000 Nucleated RBC % (auto) 0.0 Sodium 141 Potassium 4.3 Chloride 106 Carbon Dioxide 27 Anion Gap 12 BUN 8 L Creatinine 0.74 Estim Creat Clear Calc 87.9 Estimated GFR > 60 POC Glucose 79 Fasting Glucose 90 Calcium 8.0 L Discharge Plan Discharge Anticipated Discharge Date/Time: 12/09/22 08:32 Patient Disposition: Home Health Service Discharge Diagnosis: s/p RT TKA Referrals: Lori Cortes PA-C [Physician Patient Intake Representative] - 2 Weeks (12/23/22 1:00 [facility] Lori Cortes PA-C) Discharge Medications: New celecoxib 200 mg Capsule 200 mg PO BID 30 Days Qty: 60 0RF acetaminophen 325 mg Tablet 650 mg PO Q6H PRN (Reason: Pain, Mild (Pain Scale 1-3)) 30 Days Qty: 240 0RF docusate sodium 100 mg Capsule 100 mg PO BID 14 Days Qty: 28 0RF oxycodone 5 mg Tablet 5 mg PO Q4H PRN (Reason: Pain, Moderate (Pain Scale 4-6) 7 Days Qty: 42 0RF Rx Instructions: Partial Fill upon patient request. enoxaparin 40 mg/0.4 mL Syringe 40 mg subcut Q24H 40 Days Qty: 16 0RF Continued (DME) lancets 28 gauge [facility] See Rx Instructions topical DAILY Qty: 100 11RF Rx Instructions: Use 1 lancet twice a day (DME) insulin syringe,safetyneedle 1 mL 30 gauge x 3/16 syringe See Rx Instructions .ROUTE .MEDSUPPLY Qty: 1 6RF Rx Instructions: Use 1 needle once a month folic acid 1 mg tablet 1 mg PO DAILY 90 Days Qty: 90 3RF lisinopril 40 mg tablet 40 mg PO DAILY 90 Days Qty: 90 1RF Hold Instructions: Resume on 04/19/22. (DME) Grab bar [place] [facility] [place] See Rx Instructions .Route Qty: 1 0RF Rx Instructions: As directed (DME) Shower Chair [place] [facility] [place] See Rx Instructions .Route Qty: 1 0RF Rx Instructions: As directed (DME) blood sugar diagnostic Strip See Rx Instructions Not Applicable DAILY Qty: 50 0RF Rx Instructions: Use 1 test strip twice a day metoprolol succinate 100 mg tablet extended release 24 hr 100 mg PO DAILY Qty: 90 2RF (DME) walker [place] [facility] [place] See Rx Instructions .Route Qty: 1 0RF Rx Instructions: Walker with seat and wheels atorvastatin 80 mg tablet 80 mg PO BEDTIME 90 Days Qty: 90 1RF quetiapine [Seroquel] 50 mg Tablet 25 mg PO Q6H PRN (Reason: Anxiety) quetiapine 100 mg tablet 50 mg PO BEDTIME sertraline 25 mg tablet 25 mg PO DAILY sertraline 50 mg tablet 50 mg PO DAILY (DME) BD Safety-Madina Detachable Needl 3 mL 22 gauge x 1 1/2 syringe See Rx Instructions .ROUTE .MEDSUPPLY Qty: 1 6RF Rx Instructions: As directed hydroxyzine pamoate 50 mg capsule 50 mg PO BID Ozempic 0.25 mg or 0.5 mg(2 mg/1.5 mL) pen injector 0.25 mg subcut QWEEK 90 Days Qty: 2.6 1RF Rx Instructions: for 4 doses Synjardy XR 25-1,000 mg tablet, IR - ER, biphasic 24hr 1 tab PO DAILY 90 Days Qty: 90 1RF Discharge Orders: Discharge Order (Routine); Ordered 12/09/22 Ordered By: Lori Cortes Diet: Regular diet Activity on Discharge: Use cane or walker Stand Alone Forms: Patient Portal Discharge page Care Plan Goals: Restore function of joint Health Concerns: none Plan of Treatment: .plan Assessment: Physical Therapy for Total knee arthroplasty: WBAT, gait training, ROM 0-12, quad strength Limit stair climbing No showering, no tub bath-keep dressing clean, dry and intact No driving x6 weeks Continue lovenox once a day x 6 weeks Follow up with [facility] in 2 weeks: 12/23/2312:00 [facility]geons[facility]ori Cortes PA-C --you will also have your first out patient PT eval on the day of your post op appt-so please plan on being in the office that day for an extended period of time.
--- NOTE | 2022-12-09 08:37 | P.F2F_ITS ---
Service Date Service Date: 12/09/22 Encounter Date of encounter: 12/09/22 Reasons for Services Signs and symptoms assessed: left knee pain, weakness, difficulty with ambulating. Reason for detention: medication treatment Reason for physical therapy: home safety and mobility, therapeutic exercises, restore joint function, gait/transfer training, ADL training and energy conservation Reason for occupational therapy: home safety and mobility, therapeutic exercises, restore joint function, gait/transfer training, ADL training and energy conservation MD Overseeing Care: Roel Chahal Homebound: Leaving the home is medically contraindicated at this time without the asist of a device and/or another person due th the listed conditions above and below. Reason homebound: unsteady gait / fall risk, pain with ambulation, poor balance / fall risk and unable to drive Homebound supporting statement: Pt. is considered home bound due to recent surgery. Unable to drive, poor balance, poor gait mechanics. Certification: Based on the above findings, I certify that this patient is confined to the home and needs intermittent detention care, physical therapy and/or speech therapy, or continues to need occupational therapy. The patient is under my care, and I have initiated the establishment of the plan of care. The patient will be followed by a physician who will periodically review the plan of care. Time Spent With Patient Time: Total time managing care of this patient today ____ minutes.
--- NOTE | 2022-12-09 09:12 | MHC.CM.PN ---
DP: PT HAS BEEN MEDICALLY CLEARED FOR DC HOME WITH NEW [facility]. PT STATES SHE IS ABLE TO MANAGE HER LOVENOX INJECTIONS. FAMILY TO TRANSPORT HOME.
[2022-12-09 09:25] VITALS: BP 125/61; PULSE 76; O2SAT 91
[2022-12-09 11:24] LABS: Glucose, Whole Blood 87 mg/dL (60-115)
== END 2022-12-09 12:59 | disposition home health service (06) | DRG 326 ==
LOC: HO.SSSA 06:27 → HO.S3 10:37
PROVIDERS: Physician Assistant; Admitting Provider Orthopaedic Surgery; PCP Internal Medicine; Visit Provider Orthopaedic Surgery
PROC: 0SRC0JA Replacement of Right Knee Joint with Synthetic Substitute, Uncemented, Open Approach (ICD-10-PCS; CPT 27447; principal; 2022-12-07 07:30)
DX: M17.11 Unilateral primary osteoarthritis, right knee (principal); K76.0 Fatty (change of) liver, not elsewhere classified; E11.9 Type 2 diabetes mellitus without complications; I10 Essential (primary) hypertension; G47.33 Obstructive sleep apnea (adult) (pediatric); E78.5 Hyperlipidemia, unspecified; E66.01 Morbid (severe) obesity due to excess calories; Z68.41 Body mass index [BMI] 40.0-44.9, adult; F41.9 Anxiety disorder, unspecified; F32.A Depression, unspecified; Z20.822 Contact with and (suspected) exposure to COVID-19; Z98.84 Bariatric surgery status; Z79.84 Long term (current) use of oral hypoglycemic drugs; Z79.899 Other long term (current) drug therapy
CPT/HCPCS: 36415; 73560; 80048; 82947; 85014; 85018; 85025; 86850; 86900; 86901; 87635; 87640; 87641; 88305; 88311; 97110; 97116; 97162; 97530; C1776; J0131; J1100; J1170; J1650; J2250; J2370; J2405; J2795; J3010; J3371

== ENCOUNTER → 2022-12-23 12:46 | Outpatient (BNVA) | payer OTHER, SELFPAY | PROVIDERS: PCP Internal Medicine; Visit Provider Physician Assistant | DX: Z96.653 Presence of artificial knee joint, bilateral (principal); E66.01 Morbid (severe) obesity due to excess calories; Z68.41 Body mass index [BMI] 40.0-44.9, adult | CPT/HCPCS: 99212 ==

== ENCOUNTER → 2023-01-06 10:48 | Outpatient (BNVA) | payer OTHER, SELFPAY | PROVIDERS: PCP Internal Medicine; Visit Provider Physician Assistant | DX: K58.9 Irritable bowel syndrome, unspecified (principal); G47.30 Sleep apnea, unspecified; D51.3 Other dietary vitamin B12 deficiency anemia; Z98.84 Bariatric surgery status | CPT/HCPCS: 99202 ==

== ENCOUNTER → 2023-01-21 11:08 | Outpatient (BNVA) | payer OTHER, SELFPAY | PROVIDERS: PCP Internal Medicine; Visit Provider Physician Assistant | DX: Z47.1 Aftercare following joint replacement surgery (principal); Z96.651 Presence of right artificial knee joint | CPT/HCPCS: 99212 ==

== ENCOUNTER 2023-01-25 11:00 | Outpatient (RCR) | payer OTHER, SELFPAY ==
--- NOTE | 2022-12-23 14:06 | MHC.PT.EP ---
[facility] [place] Office [place] Office [place] Office [address] [phone] F: [phone] F: [phone] F: [phone] F: [phone] Physical Therapy Plan of Care Date of Evaluation: Date of Surgery: 12/07/22 Diagnosis: S/P RIGHT TKA Assessment: 52 YO FEMALE REF TO PT S/P RIGHT TKA ON 12/07/22- SHE HAS H/O PRIOR Lt TKA. SHE RESIDES W HER BROTHER IN A 5TH FLOOR APT AND IS CURRENTLY AMB W A W/ WALKER . OBJECTIVE FINDINGS: LIMITED AROM Rt KNEE, TIGHT PSOAS MM ARNOLDO AND DECR ANKLE DF ARNOLDO; DECR STRENGTH IN PROX / LUMBOPELVIC AND Rt LE, POST-OP PAIN IN RIGHT KNEE ,AND HEALING ANT Rt KNEE INCISION. FUNCTIONALLY, SHE HAS COMPENSATORY GAIT, MODIFIED STAIR MGMT, DECR STANDING, SLEEPING, AND DECR MIKI TO ADLs REQ Rt KNEE FLEX. Pt IS A VERY GOOD PT CANDIDATE TO GUIDE HER IN HER POST-OP TKR COURSE, ADDRESSING THE ABOVE FINDINGS, PAIN MGMT, AND MAXIMIZING FUNCTIONAL INDEPENDENCE. Frequency and Duration: The patient will be seen 2 x WK x 10 WKS Short Term Goals: *Pt'S RIGHT KNEE PAIN DECR TO 2-3/10 *Pt INCREASE Rt KNEE ROM -> 0* EXTEN AND PROGRESSIVELY TO 120* FLEX *INCR FLEXIB IN PSOAS/ CALF MM TO IMPROVE EFFICIENCY OF GAIT ON LEVEL AND STAIRS *REDUCE Rt LE EDEMA AND MONITOR/ ADDRESS SCAR MOB NEEDED Jail Goals: Pt INDEP W HEP PROGRESSION AND SELF-SX MGMT STRATEGIES IN 10 WKS Pt RESUME REG ADLs EVIDENT W IMPROVED LEFI SCORE BY 8-10 POINTS (AT EVAL 34/80 ) IN 10 WKS Pt INCR LE STRENGTH BY 1 GRADE IN 10 WKS Treatment Plan: Modalities to reduce pain, spasms and effusion. Manual therapy to restore motion and function. Therapeutic exercise to improve strength and flexibility. Neuromuscular re-education for posture and balance. Therapeutic activities to return to functional activities of daily living. Electronically signed by: JUDY GUERRA,PT Please sign and return to therapist. Thank you for your referral.
--- NOTE | 2023-03-11 13:00 | MHC.PT.DC ---
[facility] [employer] [place] [facility] [place] [facility] [place] [facility] [address] Anthony Martinez [address] [phone] F: [phone] F: [phone] F: [phone] F: [phone] Physical Therapy Discharge Report Diagnosis: S/P RIGHT TKA Date of Surgery: 12/07/22 Date of Evaluation: 12/23/22 Date of Discharge: 03/11/23 Treatments to Date: 8 Cancellations to Date: 0 No Shows to Date: 1 Discharge Status: Improved Function Independent with HEP Patient Elected to Stop Visit Non-compliance Discharge Summary: THE Pt PROGRESSED FAIRLY WELL IN PT- WE REINFORCED THE IMPORTANCE OF HEP COMPLIANCY AND DEV A THOROUGH HEP. SHE DEMON A MORE EFFICIENT GAIT PATTERN. THE Pt MT HER GOALS TO AMX POTENTIAL AT THIS TIME AND SHE DID NOT ATTEND LAST SCHED APPT. Electronically signed by: JUDY GUERRA,PT Please sign and return to therapist. Thank you for your referral.
== END 2023-03-11 13:01 | disposition home or self-care (01) ==
LOC: HO.PT 11:00
PROVIDERS: Visit Provider Physician Assistant
DX: Z96.652 Presence of left artificial knee joint (principal)
CPT/HCPCS: 97110; 97162; 97530

== ENCOUNTER 2023-02-03 15:33 | Outpatient (REF) | payer OTHER, SELFPAY ==
--- NOTE | ~2023-02-03 | MM_ITS ---
EXAMINATION: MM SCREENING DIGITAL BREAST TOMOSYNTHESIS, BILATERAL CLINICAL INFORMATION: Screening. Asymptomatic. The lifetime risk of breast cancer based on the Tyrer-Cuzick Model is 6%. COMPARISON: Mammography: 06/25/2021, 05/02/2020. TECHNIQUE: Digital breast tomosynthesis is performed in both the craniocaudal and mediolateral oblique views along with computer-aided detection (CAD). Synthesized 2D images are generated from the tomosynthesis. FINDINGS: There are scattered areas of fibroglandular density (ACR BI-RADS breast composition Category b). Parenchymal pattern is similar to prior studies. There is no developing density or interval architectural abnormality or significant mass. Again, there are bilateral scattered benign round rim and dermal calcifications heavily calcified. No abnormal calcifications. The axilla and skin contours are unremarkable. There are no significant changes from prior exams. MM/MM tomosynthesis screening BI IMPRESSION: No mammographic evidence of malignancy. ASSESSMENT: BI-RADS 2: Benign RECOMMENDATION: Routine annual mammography screening. This patient's information was entered into a reminder system with a target due date for their next mammogram.
== END 2023-02-03 15:34 | disposition home or self-care (01) ==
LOC: HO.MAMMO 15:33
PROVIDERS: PCP Internal Medicine; Visit Provider Internal Medicine
DX: Z12.31 Encounter for screening mammogram for malignant neoplasm of breast (principal)
CPT/HCPCS: 77063; 77067

== ENCOUNTER → 2023-03-04 11:22 | Outpatient (BNVA) | payer OTHER, SELFPAY | PROVIDERS: PCP Internal Medicine; Visit Provider Orthopaedic Surgery ==

== ENCOUNTER 2023-03-29 10:00 | Outpatient (REF) | payer OTHER, SELFPAY ==
[2023-03-29 10:26] LABS: MANUAL DIFF FLAG NO
[2023-03-29 11:31] LABS: Basophils Absolute Auto 0.1 X10*3/uL (0.0-0.2); Basophils Percent Auto 0.7 % (0-2); Eosinophils Absolute Auto 0.3 X10*3/uL (0.0-0.4); Eosinophils Percent Auto 2.9 % (0-4); Hematocrit 39.6 % (37.0-47.0); Hemoglobin 12.3 g/dl (12.0-16.0); Imm Gran Abs Auto 0.03 X10*3/uL (0.00-0.03); Imm Gran Pct Auto 0.3 % (0.0-0.4); Lymphocytes Absolute Auto 2.1 X10*3/uL (1.2-4.9); Lymphocytes Percent Auto 24.3 % (20-40); Mean Corpuscular HGB Conc 31.1 g/dl (31.0-35.0); Mean Corpuscular Hemoglobin 26.8 pg (27.0-33.0); Mean Corpuscular Volume 86.3 fL (80.0-98.0); Mean Platelet Volume 10.5 fL (9.4-12.3); Monocytes Absolute Auto 0.8 X10*3/uL (0.1-1.2); Monocytes Percent Auto 9.3 % (2-11); Neutrophils Absolute Auto 5.4 x10*3/uL (2.0-8.3); Neutrophils Percent Auto 62.5 % (45-73); Platelet Count 292 X10*3/uL (160-400); Red Blood Count 4.59 X10*6/uL (4.20-5.50); Red Cell Distribution Width 13.3 % (11.0-16.0); White Blood Count 8.7 X10*3/uL (4.8-10.8)
[2023-03-29 13:12] LABS: Alanine Aminotransferase 17 U/L (0-31); Albumin Level 3.5 g/dL (3.5-5.0); Alkaline Phosphatase 131 U/L (39-117); Anion Gap 7 (12-20); Aspartate Amino Transferase 17 U/L (5-31); Bilirubin Total 0.3 mg/dL (0.0-1.0); Blood Urea Nitrogen 14 mg/dL (9-16); Carbon Dioxide 31 mmol/L (22-29); Chloride 111 mmol/L (96-108); Cholesterol 166 mg/dL; Estimated Glomerular Filt Rate > 60; Glucose Fasting 79 mg/dL (60-99); HDL Cholesterol 56 mg/dL; Iron 42 mcg/dL (30-160); LDL Cholesterol Calculated 92 mg/dl; Percent Iron Saturation 14 % (15-50); Potassium 4.4 mmol/L (3.3-5.1); Sodium 145 mmol/L (135-145); Total Iron Binding Capacity 305 mcg/dL (228-428); Total Protein 6.5 g/dL (6.5-8.0); Triglycerides 90 mg/dL; Unsaturated Iron Binding 263 ug/dL; Vitamin D 25-OH Total 28.3 ng/mL (>30)
[2023-03-29 13:28] LABS: Folate 6.6 ng/mL (> or = 4.0); Vitamin B12 256 pg/mL (200-900)
[2023-03-29 17:22] LABS: Creatinine Urine 111.69 mg/dL
== END 2023-03-29 10:01 | disposition home or self-care (01) ==
LOC: HO.LAB 10:00
PROVIDERS: PCP Internal Medicine; Visit Provider Internal Medicine
DX: D64.9 Anemia, unspecified (principal); E78.5 Hyperlipidemia, unspecified; E55.9 Vitamin D deficiency, unspecified; E11.9 Type 2 diabetes mellitus without complications; E53.8 Deficiency of other specified B group vitamins
CPT/HCPCS: 36415; 80053; 80061; 82043; 82306; 82607; 82746; 83540; 85025

== ENCOUNTER 2023-03-29 10:38 | Outpatient (AMB) | payer OTHER, SELFPAY ==
--- NOTE | 2023-03-29 10:50 | A.OFFPC_ITS ---
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 Required: No Accompanied by: Self / Same As Patient Allergies citalopram Allergy (Mild, Verified 03/29/23 11:13) Rash Medication List - Last Reconciled 03/29/23 by Radha Woodson MD acetaminophen 650 mg (2 x 325 mg) PO Q6H PRN 30 days atorvastatin 80 mg PO BEDTIME 90 days bisacodyl (Dulcolax (bisacodyl)) 10 mg (2 x 5 mg) PO ONCE 1 day blood sugar diagnostic Use 1 test strip twice a day celecoxib 200 mg PO BID 30 days docusate sodium 100 mg PO BID 14 days empagliflozin-metformin 25-1,000 mg ER (Synjardy XR) 1 tab PO DAILY 90 days ferrous sulfate 325 mg PO DAILY 90 days folic acid 1 mg PO DAILY 90 days Grab bar As directed hydroxyzine pamoate 50 mg PO BID insulin syringe,safetyneedle Use 1 needle once a month lancets Use 1 lancet twice a day lisinopril 40 mg PO DAILY 90 days methylcellulose (laxative) (Citrucel) 500 mg PO TID metoprolol succinate ER 100 mg PO DAILY oxycodone 5 mg PO Q4H PRN 7 days pantoprazole 20 mg PO QAM polyethylene glycol 3350 (Miralax) 238 grams PO ONCE PRN 1 day quetiapine 50 mg PO BEDTIME quetiapine (Seroquel) 25 mg PO Q6H PRN semaglutide (Ozempic) 0.25 mg (0.4 mL) subcut QWEEK 30 days sertraline 50 mg PO DAILY sertraline 25 mg PO DAILY Shower Chair As directed syringe with needle, safety (BD Safety-Madina Detachable Needle) As directed walker Walker with seat and wheels Tobacco use date assessed: 11/17/22 Dental Screening Dental Screen Date: 03/29/23 Did you have a dental visit in the last 12 months?: Yes Did you have a dental problem in the last 6 months where you did not have access to dental care?: No Was dental information given to patient?: Patient has dentist HPI HPI Comments History of Present Illness Details This is a 53-year-old female with diabetes mellitus type 2, hypertension, hyperlipidemia and mild depression that comes today for follow-up on her conditions. A1c within goal. Blood pressure stable. Labs including lipid panel was done today and her LDL goal should be less than 70. Labs are still pending. Depression stable with SSRIs and is follow by Psychiatry. Walks with a cane for gait stability due to knee pain. She is obese with a BMI of 39.5 and was advised to do diet and exercise as tolerated to reach BMI goal less than 30. [facility] Medical History Anemia B12 deficiency COVID-19 vaccine series completed Depression with anxiety Diabetes mellitus Essential hypertension Hand pain Hyperlipidemia Morbid obesity Obese On beta epifanio at home Osteoarthritis of left knee Osteoarthritis of right knee Pernicious anemia Pure hypercholesterolemia Rash Sleep apnea with use of continuous positive airway pressure (CPAP) Steatosis, liver Thiamine deficiency Surgical History History of arthroplasty of left knee History of foot surgery History of total abdominal hysterectomy and bilateral salpingo-oophorectomy Hx of carpal tunnel repair S/P laparoscopic sleeve gastrectomy Status post debridement Status post total knee replacement, right Status post total left knee replacement Family History Father Diabetes Hypertension Prostate cancer Mother Hypertension Stomach cancer Social History Household Members: Family Household Members Other:: Brother Housing: Apartment Are you a primary healthcare network pricing consultant to a significant other at home: No Do you presently have visiting nurse or other home services: No Alcohol intake: never Patient Tobacco Use Status: Never used Tobacco e-Cigarette/Vaping Use: Never Used Second Hand Smoke Exposure: No Advance Directives Date on File: 04/16/22 service: No 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al status: disabled 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 Inder Hamm, Nneka BMarcelo Riojas and colleagues, with an educational mabel from [email or web address]. Review of Systems Const All systems reviewed & are unremarkable except as noted in HPI and below Eyes Reports no additional complaints, Denies change in vision and Denies other visual disturbances Card Denies chest pain at rest, Denies chest pain with activity, Denies edema, Denies irregular heart rhythm, Denies claudication, Denies dyspnea, Denies dyspnea on exertion, Denies orthopnea, Denies paroxysmal nocturnal dyspnea and Denies slow heart rate Resp Denies cough, Denies dyspnea and Denies dyspnea on exertion GI Denies abdominal pain, Denies change in bowel habits, Denies excessive flatus, Denies nausea and Denies vomiting Denies urinary incontinence, Denies urinary hesitancy and Denies urinary urgency Musc Denies abnormal gait, Denies atrophy, Denies deformity and Denies limited range of motion Skin/Breast Denies bleeding lesions, Denies changing lesions and Denies rash Neuro Denies abnormal gait and Denies lack of coordination Physical exam (Primary Care) Vital Signs: Last Vital Signs BP 120/72 03/29/23 10:54 BMI result Body Mass Index 39.5 Tobacco/Smoking Status: Tobacco use Status Tobacco use date assessed 11/17/22 03/29/23 10:52 Patient Tobacco Use Status Never used Tobacco 03/29/23 10:52 e-Cigarette/Vaping Use Never Used 03/29/23 10:52 Thrive Assessment: Date of Thrive Assessment Date Thrive assessed 11/17/22 03/29/23 10:52 Const Limitations: ambulation with cane Eyes General: appearance normal, both eyes and all related structures Eyelids: Yes eyelids normal Conjunctivae: conjunctivae normal Neck Neck: Yes normal visual inspection and Yes supple Resp Effort & Inspection: normal respiratory effort Auscultation: clear to auscultation bilaterally Cardio Jugular venous distension: no JVD Rate: regular rate Rhythm: regular rhythm Heart sounds: S1 normal heart sound present and S2 normal heart sound present Extrem General: Yes full ROM Office Meds tuberculin PPD Performing Provider: Radha Woodson MD Administered by: Jessica Giordano RN on 03/29/23 11:32 Dose Route Admin Location Lot Number Expiration Date 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 Follow-up with psychiatry. (2) Diabetes mellitus: Comment: taking metformin, glimepriide & trulicity Code(s): E11.9 - Type 2 diabetes mellitus without complications Qualifiers: Diabetes mellitus complication status: with hyperglycemia Diabetes mellitus long-term insulin use: without watermaster use Diabetes mellitus type: type 2 Qualified Code(s): E11.65 - Type 2 diabetes mellitus with hyperglycemia Plan: Continue Ozempic. A1c goal is equal or less than 7%. (3) Essential hypertension: Code(s): I10 - Essential (primary) hypertension Plan: Continue lisinopril. Blood pressure goal is equal or less than 130/80. (4) Hyperlipidemia LDL goal <70: Code(s): E78.5 - Hyperlipidemia, unspecified Plan: Continue statins. LDL goal should be less than 70. Orders: Orders AMB PPD Planted Today Z11.1 - Encounter for screening for respiratory tuberculosis AMB Hemoglobin A1c Today E11.9 - Type 2 diabetes mellitus without complications Medications: Changed From sertraline 25 mg PO DAILY To sertraline 25 mg PO DAILY 90 tabs 0RF 90 days Coding Level of Care Code Est Pt Level 4 (55696) Diagnoses Mild depression F32.0 Diabetes mellitus E11.65 Diabetes mellitus complication status: with hyperglycemia Diabetes mellitus watermaster insulin use: without long-term use Diabetes mellitus type: type 2 Essential hypertension I10 Hyperlipidemia LDL goal <70 E78.5 Time Spent (min) 23
[2023-03-29 10:54] VITALS: BP 120/72; BMI 39.5
== END 2023-03-29 11:32 | disposition home or self-care (01) ==
PROVIDERS: PCP Internal Medicine; Visit Provider Internal Medicine
DX: F32.0 Major depressive disorder, single episode, mild (principal); E11.65 Type 2 diabetes mellitus with hyperglycemia; I10 Essential (primary) hypertension; E78.5 Hyperlipidemia, unspecified; E11.9 Type 2 diabetes mellitus without complications; Z11.1 Encounter for screening for respiratory tuberculosis
CPT/HCPCS: 83036; 86580; 99214

== ENCOUNTER 2023-03-30 11:17 | Outpatient (REF) | payer OTHER, SELFPAY ==
--- NOTE | ~2023-03-30 | XR_ITS ---
EXAMINATION: XR HAND, LEFT CLINICAL INFORMATION: Pain COMPARISON: Radiographs 05/19/2020 of the hand and wrist TECHNIQUE: PA, lateral, and oblique views of the left hand. FINDINGS: No acute fracture or dislocation. Joint spaces are maintained. Soft tissues are unremarkable. XR/XR hand LT min 3V IMPRESSION: No acute osseous abnormality.
== END 2023-03-30 11:18 | disposition home or self-care (01) ==
LOC: HO.HOSX 11:17
PROVIDERS: Visit Provider Orthopaedic Surgery
DX: M79.642 Pain in left hand (principal); G56.03 Carpal tunnel syndrome, bilateral upper limbs
CPT/HCPCS: 73130; 99212

== ENCOUNTER 2023-03-30 11:53 | Outpatient (AMB) | payer OTHER, SELFPAY ==
[2023-03-30 12:22] VITALS: BMI 39.5
--- NOTE | 2023-03-30 12:22 | MHC.OFFVIS ---
Intake Vital Signs 03/30/23 12:22 Height 5 ft 3 in Weight 223 lb BMI 39.5 Intake Visit Reasons: New Prob- Left hand pain Intake Note: Betty 53 yr old citizen of [place] speak[place] female presents today for a new problem visit of her left hand numbness. Patient states she is having increase numbness in her left hand. Hx of RT hand CTR March with Dr. Encarnacion. Patient states she is ready to have her left hand done as well. A1C done march 2023 5.9. Allergies citalopram Allergy (Mild, Verified 03/30/23 12:26) Rash HPI New Prob- Left hand pain HPI Details Betty is a 53 year old right hand dominant Mongolian speaking woman who presents to discuss her left carpal tunnel syndrome. She has dense numbness in the median nerve distribution of her left hand. She also complains of some slight numbness in the small finger but says this is not too bothersome compared to her other fingers. She has a Hx of right carpal tunnel release, DOS: 03/18/22, with normal sensation following her surgery.. She says sensation in her right hand is normal and she is happy with the results of her surgery She is a Diabetic and her most recent HgA1c was 5.9% on 03/29/23 [facility] Medical History Anemia B12 deficiency COVID-19 vaccine series completed Depression with anxiety Diabetes mellitus Essential hypertension Hand pain Hyperlipidemia Morbid obesity Obese On beta epifanio at home Osteoarthritis of left knee Osteoarthritis of right knee Pernicious anemia Pure hypercholesterolemia Rash Sleep apnea with use of continuous positive airway pressure (CPAP) Steatosis, liver Thiamine deficiency Surgical History History of arthroplasty of left knee History of foot surgery History of total abdominal hysterectomy and bilateral salpingo-oophorectomy Hx of carpal tunnel repair S/P laparoscopic sleeve gastrectomy Status post debridement Status post total knee replacement, right Status post total left knee replacement Family History Father Diabetes Hypertension Prostate cancer Mother Hypertension Stomach cancer Social History Household Members: Family Household Members Other:: Brother Housing: Apartment Are you a primary child care group leader to a significant other at home: No Do you presently have visiting nurse or other home services: No Alcohol intake: never Patient Tobacco Use Status: Never used Tobacco e-Cigarette/Vaping Use: Never Used Second Hand Smoke Exposure: No Advance Directives Date on File: 04/16/22 service: No 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al status: disabled 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 Some mild numbness in the small finger, not as bad as her other fingers No thenar or intrinsic wasting Good APB muscle belly firing and good finger cross Vascular: Cap refill brisk ROM: She can make a fist and extend all her digits No locking or catching Nerve Conduction Study: IMPRESSION: Rule out carpal tunnel syndrome. Nerve conduction EMG study: Moderate carpal tunnel syndrome bilaterally, worse on the right. Normal EMG in the left C5-T1 innervated muscles. Vashti Pruett MD 10/14/2021 Psych Appearance: grossly normal Affect: normal affect Attitude: cooperative Assessment & Plan Assessment & Plan (1) Bilateral carpal tunnel syndrome: Code(s): G56.03 - Carpal tunnel syndrome, bilateral upper limbs Plan Assessment and plan: 1. Left carpal tunnel syndrome, moderate With dense numbness I educated her about this condition I discussed operative and non-operative treatment options The patient would like to proceed with surgery The risks and benefits of operative treatment were discussed with the patient and the patient wishes to proceed with surgery. These risks include, but are not limited to risk of damage to blood vessels, nerves, tendons, infection, recurrence, incomplete relief of preoperative symptoms, persistent pain, possible need for further surgery and the risks associated with regional blocks and anesthesia. The plan is to take the patient to the operating room sometime in the next few weeks for the following procedures: 1. Left Carpal tunnel release, under local All of the preoperative paperwork including the consent was filled out today. All the patient's questions were answered. The patient understands that they will be contacted by our surgery nurse soon to schedule this procedure She denies blood thinners, asthma, heart, lung, kidney issues She is a Diabetic, her most recent HgA1c was 5.9% on 03/29/23 2. Right carpal tunnel syndrome, S/P release DOS: 03/18/22 Pre-operatively with dense numbness Post-operatively with normal sensation Scribed for Pilar Encarnacion MD by Zeus Adhikari, medical services assistant, on 03/30/23 at 1:10 PM, EST. Orders: Orders XR hand LT min 3V Today M79.642 - Pain in left hand Quality Reporting (2019) Adult ([facility] 138/10/27/68) Smoking risk assessment performed?: Yes Patient Tobacco Use Status: Never used Tobacco Coding Level of Care Code Est Pt Level 4 (37158) Diagnoses Bilateral carpal tunnel syndrome G56.03
== END 2023-03-30 13:16 | disposition home or self-care (01) ==
PROVIDERS: PCP Internal Medicine; Visit Provider Orthopaedic Surgery
DX: G56.03 Carpal tunnel syndrome, bilateral upper limbs (principal)
CPT/HCPCS: 99214

== ENCOUNTER 2023-04-25 10:07 | Day surgery (SDC) | payer OTHER, SELFPAY ==
--- NOTE | 2023-04-25 10:11 | W.PM.OPN ---
Operative Note Operative Note Date of Service: 04/25/23 Narrative: Preop diagnosis: 1. left Carpal tunnel syndrome Postop diagnosis: same Procedure: 1. left Carpal tunnel release Surgeon: Pilar Encarnacion MD Anesthesia: local block using 1% lidocaine with epinephrine Findings: Thickened transverse carpal ligament. EBL: Less than 5 mL Specimens: None Complications: None Disposition: Brought to recovery room in stable condition Plan: Follow-up for 10-14 days for wound check and suture removal Indications: The patient is 53 years old, with left carpal tunnel syndrome that has been unresponsive to nonoperative management. The risks and benefits of operative treatment including but not limited to risk of damage to blood vessels, nerves, tendons, infection, persistent pain, persistent symptoms, or possible need for additional surgery were discussed with the patient and the patient wishes to proceed with surgery. Procedure: Once consent was obtained a local block was performed using a combination of 1% lidocaine with epinephrine. The patient was then brought back to the operating suite and placed on the operative table in supine position. The left upper extremity was prepped and draped in a standard surgical fashion. Once assured that we had a good block, a 2.0 cm longitudinal incision was made centered over the carpal tunnel. The incision was made through the skin to the subcutaneous tissues using a #15 blade. Dissection was made down to the level of the transverse carpal ligament with care being taken to protect the palmar cutaneous nerve. Once the transverse carpal ligament was clearly visualized, a longitudinal incision was made in the transverse carpal ligament 1st using a #15 blade, then using tenotomy scissors under direct visualization. Care was taken to look for and protect the motor branch of the median nerve when seen in this area. Once satisfied with our carpal tunnel release the wound was copiously irrigated with normal saline and hemostasis was obtained with a brief period of local pressure. The skin edges were reapproximated with some 5.0 nylon suture material and a sterile dressing was applied. The patient appears to have tolerated the procedure well and with no complications. All digits were well vascularized at the conclusion of the case.
[2023-04-25 12:15] VITALS: BP 132/69; PULSE 66; RESP 16; TEMP 36.3; O2SAT 100
[2023-04-25 12:22] VITALS: BMI 46.0
--- NOTE | 2023-04-25 12:35 | MHC.SHP ---
Pre-Procedural Eval Section A Date of Service: 04/25/23 The patient is an INPATIENT: No Changes since office visit: No Cold of Flu in the past 2 weeks, No New Medical Problems, No Changes in Medication and No Patient answered all questions The History & Physical has been completed within 30 days and I have reviewed it.: Yes Section B Chief Complaint: Carpal tunnel syndrome, left upper limb Allergies: Allergies Allergy/AdvReac Type Severity Reaction Status Date / Time citalopram Allergy Mild Rash Verified 04/25/23 12:16 Plan I have reviewed the history and physical and performed a pertinent physical examination on my patient. No changes have occurred unless specified. Time Spent With Patient Time: Total time managing care of this patient today ____ minutes.
== END 2023-04-25 13:37 | disposition home or self-care (01) ==
PROVIDERS: PCP Internal Medicine; Visit Provider Orthopaedic Surgery
PROC: (CPT 64721; principal; 2023-04-25 11:20)
DX: G56.02 Carpal tunnel syndrome, left upper limb (principal); M79.642 Pain in left hand; R20.0 Anesthesia of skin; E11.9 Type 2 diabetes mellitus without complications; I10 Essential (primary) hypertension; E66.01 Morbid (severe) obesity due to excess calories; Z68.39 Body mass index [BMI] 39.0-39.9, adult; Z98.84 Bariatric surgery status; Z88.8 Allergy status to other drugs, medicaments and biological substances
CPT/HCPCS: 64721; J0171

== ENCOUNTER → 2023-04-25 10:07 | Outpatient (BNV) | payer OTHER, SELFPAY | PROVIDERS: PCP Internal Medicine; Visit Provider Orthopaedic Surgery | DX: G56.02 Carpal tunnel syndrome, left upper limb (principal) | CPT/HCPCS: 64721 ==

== ENCOUNTER 2023-05-06 11:12 | Outpatient (AMB) | payer OTHER, SELFPAY ==
--- NOTE | 2023-05-06 11:22 | A.OFFVIS_ITS ---
Intake Vital Signs 05/06/23 11:23 Height 4 ft 10 in Weight 220 lb BMI 46.0 Intake Visit Reasons: P/O left CTR 04/25/23 wound check Intake Note: Betty is a 53 year old Guatemalan speaking female presents today for a wound check s/p left CTR 04/25/23 AR. Allergies citalopram Allergy (Mild, Verified 04/25/23 12:16) Rash HPI P/O left CTR 04/25/23 wound check HPI Details 53-year-old female who presents in the office today for a wound check; 11 days status post left carpal tunnel release, which was performed on 04/25/[address] Encarnacion. The patient reports she is overall doing well. She denies any pain or concerns while in the office today. Patient has a history of diabetes mellitus. [facility] Medical History Anemia B12 deficiency COVID-19 vaccine series completed Depression with anxiety Diabetes mellitus Essential hypertension Hand pain Hyperlipidemia Morbid obesity Obese On beta epifanio at home Osteoarthritis of left knee Osteoarthritis of right knee Pernicious anemia Pure hypercholesterolemia Rash Sleep apnea with use of continuous positive airway pressure (CPAP) Steatosis, liver Thiamine deficiency Surgical History History of arthroplasty of left knee History of foot surgery History of total abdominal hysterectomy and bilateral salpingo-oophorectomy Hx of carpal tunnel repair S/P laparoscopic sleeve gastrectomy Status post debridement Status post total knee replacement, right Status post total left knee replacement Family History Father Diabetes Hypertension Prostate cancer Mother Hypertension Stomach cancer Social History Household Members: Family Household Members Other:: Brother Housing: Apartment Are you a primary critical care unit nurse to a significant other at home: No Do you presently have visiting nurse or other home services: No Alcohol intake: never Patient Tobacco Use Status: Never used Tobacco e-Cigarette/Vaping Use: Never Used Second Hand Smoke Exposure: No Advance Directives Date on File: 04/16/22 service: No 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al status: disabled 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 Dry skin on either side of the incision site. No active drainage. Mild amount of erythema surrounding the incision site. Currently there is no signs of infection. Full ROM of the wrist and hand. Able to make a closed fist. NVI. Assessment & Plan Assessment & Plan (1) S/P carpal tunnel release: Comment: Left 04/25/2023 AR Code(s): Z98.890 - Other specified postprocedural states (2) Diabetes mellitus: Comment: taking metformin, glimepriide & trulicity Code(s): E11.9 - Type 2 diabetes mellitus without complications Qualifiers: Diabetes mellitus complication status: with hyperglycemia Diabetes mellitus termite exterminator insulin use: without termite exterminator use Diabetes mellitus type: type 2 Qualified Code(s): E11.65 - Type 2 diabetes mellitus with hyperglycemia Plan Ms. Guy is a 53-year-old female who presents in the office today for a wound check; 11 days status post left carpal tunnel release, which was performed on 04/25/[address] Encarnacion. The patient reports she is overall doing well. She denies any pain or concerns while in the office today. Patient has a history of diabetes mellitus. Sutures were removed and steri-stripes were applied. She was instructed to keep the area dry. Advised against leaving the area moist to allow for healing. I would like to see her back in 1 week for a wound check, or sooner if needed. Patient Instructions: Scribed for Joyce Cerrato PA-C by Lucero Lozoya medical office administrator, on 05/06/2023 at 11:15 am, EST. Quality Reporting (2019) Adult ([facility] 138/10/27/68) Smoking risk assessment performed?: Yes Patient Tobacco Use Status: Never used Tobacco Coding Level of Care Code Global (90937) Diagnoses S/P carpal tunnel release Z98.890 Diabetes mellitus E11.65 Diabetes mellitus complication status: with hyperglycemia Diabetes mellitus termite exterminator insulin use: without detention use Diabetes mellitus type: type 2
[2023-05-06 11:23] VITALS: BMI 46.0
== END 2023-05-06 11:35 | disposition home or self-care (01) ==
PROVIDERS: PCP Internal Medicine; Visit Provider Physician Assistant
DX: G56.02 Carpal tunnel syndrome, left upper limb (principal); E11.65 Type 2 diabetes mellitus with hyperglycemia
CPT/HCPCS: 99024

== ENCOUNTER → 2023-05-06 11:12 | Outpatient (BNVA) | payer OTHER, SELFPAY | PROVIDERS: PCP Internal Medicine; Visit Provider Physician Assistant ==

== ENCOUNTER 2023-05-17 09:10 | Outpatient (AMB) | payer OTHER, SELFPAY ==
[2023-05-17 09:30] VITALS: BP 90/62; PULSE 73; TEMP 36.3; O2SAT 98; BMI 46.0
--- NOTE | 2023-05-17 09:30 | MHC.OFFVIS ---
Intake Vital Signs 05/17/23 09:30 Height 4 ft 10 in Weight 220 lb BMI 46.0 BP 90/62 Blood Pressure Location Lt brachial Position Sitting Pulse 73 Pulse Source Pulse Oximeter Temp 97.3 F Temp Source Skin Pulse Oximetry (%) 98 Oxygen Delivery Method Room Air Intake Visit Reasons: OA/Joint Pain Intake Note: Patient here to follow up on OA and joint pain. c/o worsening hand pains, dropping things. Right CTR 03/18/23 Left CTR 3 wks ago -Still having difficulty holding things. Sample Paster Required: Yes Sample Paster Language: Professional Benefits Sales Consultant Name: [id number] Accompanied by: Self / Same As Patient Allergies citalopram Allergy (Mild, Verified 05/17/23 09:50) Rash Medication List - Last Reconciled 05/17/23 by Booker Ballard MD acetaminophen 650 mg (2 x 325 mg) PO Q6H PRN 30 days atorvastatin 80 mg PO BEDTIME 90 days bisacodyl (Dulcolax (bisacodyl)) 10 mg (2 x 5 mg) PO ONCE 1 day blood sugar diagnostic Use 1 test strip twice a day empagliflozin-metformin 25-1,000 mg ER (Synjardy XR) 1 tab PO DAILY 90 days ferrous sulfate 325 mg PO DAILY 90 days folic acid 1 mg PO DAILY 90 days Grab bar As directed hydroxyzine pamoate 50 mg PO BID insulin syringe,safetyneedle Use 1 needle once a month lancets Use 1 lancet twice a day lisinopril 40 mg PO DAILY 90 days methylcellulose (laxative) (Citrucel) 500 mg PO TID metoprolol succinate ER 100 mg PO DAILY pantoprazole 20 mg PO QAM polyethylene glycol 3350 (Miralax) 238 grams PO ONCE PRN 1 day quetiapine mg PO semaglutide (Ozempic) 0.25 mg (0.368 mL) subcut QWEEK 30 days sertraline 50 mg PO QPM sertraline 25 mg PO QAM Shower Chair As directed syringe with needle, safety (BD Safety-Madina Detachable Needle) As directed trazodone 50 mg PO BEDTIME walker Walker with seat and wheels HPI HPI Comments History of Present Illness Details The patient returns for evaluation of her osteoarthritis in knees and carpal tunnel syndrome. She did undergo total knee replacements in the past year. The left replacement was in April 2022 and the right knee was done in December of 2022. She notes the more recent surgery whole procedure still is yet to heal up that well and she still has some pain with walking. She does use a cane. She does feel like she is walking better than previously. She has also had bilateral carpal tunnel surgery done, the most recent of which was in April on the left side. She still has some hand numbness but no pain in the hands. She remains on acetaminophen if needed for pain. She remains on trazodone, sertraline, and Seroquel for anxiety and depression. Those problems seem to be stable for now. [facility] Medical History (Updated 05/17/23 @ 17:14 by Booker Ballard MD) On beta epifanio at home Osteoarthritis of right knee Osteoarthritis of left knee COVID-19 vaccine series completed Hand pain Pernicious anemia Depression with anxiety Anemia Thiamine deficiency B12 deficiency Sleep apnea with use of continuous positive airway pressure (CPAP) Steatosis, liver Hyperlipidemia Morbid obesity Obese Rash Pure hypercholesterolemia Diabetes mellitus Essential hypertension Surgical History (Updated 05/17/23 @ 17:14 by Booker Ballard MD) History of carpal tunnel release Status post total knee replacement, right History of arthroplasty of left knee Status post total left knee replacement Hx of carpal tunnel repair S/P laparoscopic sleeve gastrectomy Status post debridement History of total abdominal hysterectomy and bilateral salpingo-oophorectomy History of foot surgery Family History Father Diabetes Hypertension Prostate cancer Mother Hypertension Stomach cancer Social History Household Members: Family Household Members Other:: Brother Housing: Apartment Are you a primary career coach to a significant other at home: No Do you presently have visiting nurse or other home services: No Alcohol intake: never Patient Tobacco Use Status: Never used Tobacco e-Cigarette/Vaping Use: Never Used Second Hand Smoke Exposure: No Advance Directives Date on File: 04/16/22 service: No 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al status: disabled 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 Negative for appetite change, weight change, fever, chills, malaise Eyes Details: Occasional headaches. Negative for vision change, dry eyes and dizziness Psych Details: anxiety, depression symptoms seem stable. Endo Details: Negative for polyuria and polydypsia Srikanth/Lymph Details: Negative for excessive bruising or bleeding. Physical Exam Vital Signs: Last Vital Signs Temp 97.3 F 05/17/23 09:30 Pulse 73 05/17/23 09:30 BP 90/62 05/17/23 09:30 Pulse Ox 98 05/17/23 09:30 Oxygen Delivery Method Room Air 05/17/23 09:30 BMI result Body Mass Index 46.0 APPEARANCE: Patient in no acute distress EYES no redness, pupils equal and reactive to light, eyelids normal. No temporal artery tenderness redness or swelling. EXTREMITIES: No edema, no calf tenderness, normal peripheral pulses. SKIN: No inflammatory or neoplastic lesions. Normal color and turgor JOINT EXAM:?? Cervical Spine:.? Full range of motion without pain; no tenderness. Thoracic Spine:.? No scoliosis.? No tenderness on palpation. Lumbar Spine:.? Alignment normal.? Mild pain with extremes of range of motion. No tenderness. Chest Wall:.? No tenderness, swelling, increased warmth or erythema. Hands:.? Normal pain-free range of motion without tenderness, swelling, increased warmth or erythema. There is decreased sensation over the fingertips in both hands but there is no weakness. No thenar atrophy or soft tissue swelling. Wrists:.? Left: There is a healing scar at the base of the hand consistent with recent carpal tunnel release surgery. Signs of infection. The area is slightly tender. Right: Well-healed carpal tunnel surgery site. The wrist has normal pain-free range of motion without tenderness, swelling, increased warmth or erythema. Elbows:. Normal pain-free range of motion without tenderness, swelling, increased warmth or erythema. Shoulders:.?? Full range of motion without pain. No tenderness, weakness, swelling, increased warmth or erythema. Hips:.? Full range of motion without pain. Hip bursa:.? No tenderness. Knees:.?? Normal pain-free range of motion without tenderness, swelling, increased warmth or erythema.? There is no effusion or crepitation Ankles:.? Normal pain-free range of motion without tenderness, swelling, increased warmth or erythema. Feet:.? Normal pain-free range of motion without tenderness, swelling, increased warmth or erythema. Tender points:.? Mild tenderness to digital palpation at the the trapezius, second rib, lateral epicondyle, knees, greater trochanter the area bilaterally. ? Assessment & Plan Assessment & Plan (1) S/P carpal tunnel release: Comment: Left 04/25/2023 ; right 2022 Code(s): Z98.890 - Other specified postprocedural states (2) Osteoarthritis of knees, bilateral: Code(s): M17.0 - Bilateral primary osteoarthritis of knee (3) History of total bilateral knee replacement (TKR): Code(s): Z96.653 - Presence of artificial knee joint, bilateral Plan Carpal tunnel syndrome has now been treated by surgery. She still has some hand numbness. This could be part of a underlying syndrome of fibromyalgia as she does have many tender points. I think we will wait however to see if there this does improve over time. The knees are also still painful but she does walk better after knee replacements. I do not think she needs rheumatology follow-up for now. We will return her to the care of her primary doctor. She can be re-referred if she develops other rheumatic problems. Medications: Changed From sertraline 25 mg PO QAM To sertraline 25 mg PO DAILY 90 tabs 0RF 90 days Quality Reporting (2019) Adult ([facility] 138/10/27/68) Smoking risk assessment performed?: Yes Patient Tobacco Use Status: Never used Tobacco Coding Level of Care Code Est Pt Level 3 (44336) Diagnoses S/P carpal tunnel release Z98.890 Osteoarthritis of knees, bilateral M17.0 History of total bilateral knee replacement (TKR) Z96.653
== END 2023-05-17 10:18 | disposition home or self-care (01) ==
PROVIDERS: PCP Internal Medicine; Visit Provider Internal Medicine Rheumatology
DX: Z98.890 Other specified postprocedural states (principal); M17.0 Bilateral primary osteoarthritis of knee; Z96.653 Presence of artificial knee joint, bilateral
CPT/HCPCS: 99213

== ENCOUNTER → 2023-05-17 09:10 | Outpatient (BNVA) | payer OTHER, SELFPAY | PROVIDERS: PCP Internal Medicine; Visit Provider Internal Medicine Rheumatology | DX: Z86.69 Personal history of other diseases of the nervous system and sense organs (principal); Z96.653 Presence of artificial knee joint, bilateral | CPT/HCPCS: 99212 ==

== ENCOUNTER → 2023-05-25 09:53 | Outpatient (BNVA) | payer OTHER, SELFPAY | PROVIDERS: PCP Internal Medicine; Visit Provider Orthopaedic Surgery ==

== ENCOUNTER 2023-05-25 09:54 | Outpatient (AMB) | payer OTHER, SELFPAY ==
[2023-05-25 10:04] VITALS: BMI 46.0
--- NOTE | 2023-05-25 10:04 | MHC.OFFVIS ---
Intake Vital Signs 05/25/23 10:04 Height 4 ft 10 in Weight 220 lb BMI 46.0 Intake Visit Reasons: PO LT CONSERVATION COORDINATOR 04/25/23ASR Intake Note: Betty 53 yr old female presents today for her P/O visit for her left CTR from 04/25/[address] Encarnacion. States she is having sharp electric shock in her finger tips. States she has concerns of her healing due to being diabetic. Allergies citalopram Allergy (Mild, Verified 05/25/23 10:06) Rash HPI PO LT CONSERVATION COORDINATOR 04/25/23ASR HPI Details Betty is a 53 year old right hand dominant Kazakh speaking woman who presents S/P left carpal tunnel release, DOS: 04/25/23. She says she has some shocking sensation in her finger tips which she is concerned about. She says her sensation has improved but is still not normal. She had dense numbness prior to her surgery. She is also concerned about her wound healing progress due to her Diabetes. She has a hx of right carpal tunnel release, DOS: 03/18/22 with normal sensation in her right hand. [facility] Medical History (Updated 05/17/23 @ 17:14 by Booker Ballard MD) On beta epifanio at home Osteoarthritis of right knee Osteoarthritis of left knee COVID-19 vaccine series completed Hand pain Pernicious anemia Depression with anxiety Anemia Thiamine deficiency B12 deficiency Sleep apnea with use of continuous positive airway pressure (CPAP) Steatosis, liver Hyperlipidemia Morbid obesity Obese Rash Pure hypercholesterolemia Diabetes mellitus Essential hypertension Surgical History (Updated 05/17/23 @ 17:14 by Booker Ballard MD) History of carpal tunnel release Status post total knee replacement, right History of arthroplasty of left knee Status post total left knee replacement Hx of carpal tunnel repair S/P laparoscopic sleeve gastrectomy Status post debridement History of total abdominal hysterectomy and bilateral salpingo-oophorectomy History of foot surgery Family History Father Diabetes Hypertension Prostate cancer Mother Hypertension Stomach cancer Social History Household Members: Family Household Members Other:: Brother Housing: Apartment Are you a primary child care worker to a significant other at home: No Do you presently have visiting nurse or other home services: No Alcohol intake: never Patient Tobacco Use Status: Never used Tobacco e-Cigarette/Vaping Use: Never Used Second Hand Smoke Exposure: No Advance Directives Date on File: 04/16/22 service: No 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al status: disabled 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 Cognitive needs: Yes Hearing needs: No Vision needs: No Review of Systems Const All systems reviewed & are unremarkable except as noted in HPI and below Physical Exam Vital Signs: BMI result Body Mass Index 46.0 Const General: no acute distress and alert Orientation/consciousness: patient oriented x3 Neuro General: patient oriented x3 Extrem Other: Evaluation of Upper Extremity: The patient is alert, oriented, and in no acute distress She still had numbness in the median nerve distribution. She can make a fist and extend all of her digits Her wound appeared to be well healed with no erythema drainage or evidence of infection. I showed her to massage the incision site to avoid hypersensitivity. Psych Appearance: grossly normal Affect: normal affect Attitude: cooperative Assessment & Plan Assessment & Plan (1) Bilateral carpal tunnel syndrome: Code(s): G56.03 - Carpal tunnel syndrome, bilateral upper limbs Plan Assessment and plan: 1. Left carpal tunnel syndrome, S/P release DOS: 04/25/23 Pre-operatively with dense numbness Still with numbness but good resolution of her nighttime symptoms The patient appears to be doing well post-operatively I educated her about the post-operative course and the effects of Diabetes on wound healing She appears to be healing well and her sensation perceived to be slightly improving, I explained it can take up to 9 months post-op for her sensation to improve, but as she had dense numbness prior to surgery she may not regain full sensation in her hand. I discussed activity modifications, she is to use her hand for daily activities at this time She can follow up prn 2. Right carpal tunnel syndrome, S/P release DOS: 03/18/22 Pre-operatively with dense numbness Post-operatively with normal sensation Scribed for Pilar Encarnacion MD by Zeus Adhikari biomedical instrument technician, on 05/25/23 at 11:00 AM, EST. Quality Reporting (2019) Adult ([facility] 138/10/27/68) Smoking risk assessment performed?: Yes Patient Tobacco Use Status: Never used Tobacco Coding Level of Care Code Global (66366) Diagnoses Bilateral carpal tunnel syndrome G56.03
== END 2023-05-25 10:55 | disposition home or self-care (01) ==
PROVIDERS: PCP Internal Medicine; Visit Provider Orthopaedic Surgery
DX: G56.03 Carpal tunnel syndrome, bilateral upper limbs (principal)
CPT/HCPCS: 99024

== ENCOUNTER 2023-07-05 09:29 | Outpatient (AMB) | payer OTHER, SELFPAY ==
[2023-07-05 09:40] VITALS: BP 124/78; PULSE 85; O2SAT 99; BMI 49.2
--- NOTE | 2023-07-05 09:40 | A.OFFPC_ITS ---
Vital Signs 07/05/23 09:40 Height 4 ft 10 in Weight 235 lb 6 oz BMI 49.2 BP 124/78 Blood Pressure Location Lt brachial Position Sitting Pulse 85 Pulse Source Pulse Oximeter Pulse Oximetry (%) 99 Oxygen Delivery Method Room Air Intake Visit Reasons: Trans. of Care from [place] [employer] Judge Required: No Accompanied by: Self / Same As Patient Allergies citalopram Allergy (Mild, Verified 07/05/23 10:26) Rash Medication List - Last Reconciled 07/05/23 by Tomy Nash MD acetaminophen 650 mg (2 x 325 mg) PO Q6H PRN 30 days atorvastatin 80 mg PO BEDTIME 90 days bisacodyl (Dulcolax (bisacodyl)) 10 mg (2 x 5 mg) PO ONCE 1 day blood sugar diagnostic Use 1 test strip twice a day empagliflozin-metformin 25-1,000 mg ER (Synjardy XR) 1 tab PO DAILY 90 days ferrous sulfate 325 mg PO DAILY 90 days folic acid 1 mg PO DAILY 90 days Grab bar As directed hydroxyzine pamoate 50 mg PO BID insulin syringe,safetyneedle Use 1 needle once a month lancets Use 1 lancet twice a day lisinopril 40 mg PO DAILY 90 days methylcellulose (laxative) (Citrucel) 500 mg PO TID metoprolol succinate ER 100 mg PO DAILY pantoprazole 20 mg PO QAM polyethylene glycol 3350 (Miralax) 238 grams PO ONCE PRN 1 day quetiapine mg PO semaglutide (Ozempic) 0.25 mg (0.368 mL) subcut QWEEK 30 days sertraline 50 mg PO QPM sertraline 25 mg PO DAILY 90 days Shower Chair As directed syringe with needle, safety (BD Safety-Madina Detachable Needle) As directed trazodone 50 mg PO BEDTIME walker Walker with seat and wheels Tobacco use date assessed: 07/05/23 Dental Screening Dental Screen Date: 07/05/23 Did you have a dental visit in the last 12 months?: No Did you have a dental problem in the last 6 months where you did not have access to dental care?: No Was dental information given to patient?: Patient has dentist HPI Trans. of Care from [place] HPI Details Patient comes in today for her follow up visit States that she's had a recurrent and itchy rash under both of her breasts and in her groin/inguinal areas bilaterally for the past couple of months Notes that she seems to get this rash every year around May 2023 Would like to get something to help clear these up as the rash gets very itchy, especially at night She continues to follow up with Dr. Ballard for rheumatology, Dr. Encarnacion for orthopedics and Dr. Samuel for nephrology Patient states that she feels okay and other than the abovementioned rash, she has no acute issues She denies any headaches or dizziness Denies any chest pains, no SOB No nausea/vomiting, no abdominal pain No change in bowel habits noted States that she will also need all of her current Rx refilled PFSH Medical History (Updated 07/05/23 @ 12:00 by Tomy Nash MD) GERD without esophagitis On beta epifanio at home Osteoarthritis of right knee Osteoarthritis of left knee COVID-19 vaccine series completed Hand pain Pernicious anemia Depression with anxiety Anemia Thiamine deficiency B12 deficiency Sleep apnea with use of continuous positive airway pressure (CPAP) Steatosis, liver Hyperlipidemia Morbid obesity Obese Rash Pure hypercholesterolemia Diabetes mellitus Essential hypertension Surgical History History of carpal tunnel release Status post total knee replacement, right History of arthroplasty of left knee Status post total left knee replacement Hx of carpal tunnel repair S/P laparoscopic sleeve gastrectomy Status post debridement History of total abdominal hysterectomy and bilateral salpingo-oophorectomy History of foot surgery Family History Father Diabetes Hypertension Prostate cancer Mother Hypertension Stomach cancer Social History Household Members: Family Household Members Other:: Brother Housing: Apartment Are you a primary healthcare or medical to a significant other at home: No Do you presently have visiting nurse or other home services: No Alcohol intake: never Patient Tobacco Use Status: Never used Tobacco e-Cigarette/Vaping Use: Never Used Second Hand Smoke Exposure: No Advance Directives Date on File: 04/16/22 service: No 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al status: disabled 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 1. Little interest or pleasure in doing things: not at all 2. Feeling down, depressed, or hopeless: not at all 3. Trouble falling or staying asleep, or sleeping too much: not at all 4. Feeling tired or having little energy: not at all 5. Poor appetite or overeating: not at all 6. Feeling bad about yourself - or that you are a failure or have let yourself or your family down: not at all 7. Trouble concentrating on things, such as reading the newspaper or watching television: not at all 8. Moving or speaking so slowly that other people could have noticed. Or the opposite - being so fidgety or restless that you have been moving around a lot more than usual: not at all 9. Thoughts that you would be better off or of hurting yourself in some way: not at all Total score: 0 Depression Screening Interpretation: Negative Depression Screening Done: Yes [id number] - PHQ-9 Billing: Yes Source: Developed by Drs. Inder Hamm, Nneka Marie, Marcelo Contreras and colleagues, with an educational mabel from [employer]. Thrive Questionnaire Date Thrive assessed: 07/05/23 I am a: Patient What is your living situation today?: I have a steady place to live Within the past 12 months, did the food you bought not last and you didn't have the money to get more?: Never true Within the past 12 months, did you worry whether your food would run out before you got money to buy more?: Never true Do you have trouble paying for medicines?: No Do you have trouble getting transportation to medical appointments?: No Do you have trouble paying your heating and electricity bill?: No Do you have trouble taking care of your child, family member or friend?: No Do you have trouble with day-to-day activities such as bathing, preparing meals, shopping, managing finances, etc.?: No Are you currently unemployed and looking for a job?: No Are you interested in more education?: No Please select the resources that you would like help with: None Currently or been in a relationship where the following occur: no concerns reported AUDIT C Alcohol Use Questionnaire (AUDIT-C) 1. How often do you have a drink containing alcohol?: Never Total Score: 0 Score Reviewed/Action Taken: Yes MELANIE-7 AMB Questionnaire MELANIE-7 Date MELANIE - 7 assessed: 07/05/23 Feeling nervous, anxious, or on edge: 0 = Not at all Not being able to stop or control worryin = Not at all Worrying too much about different things: 0 = Not at all Trouble relaxin = Not at all Being so restless that it is hard to sit still: 0 = Not at all Becoming easily annoyed or irritable: 0 = Not at all Feeling afraid as if something awful might happen: 0 = Not at all Total MELANIE-7 score (0-4 normal; 5-9 mild; 10-14 moderate; 15-21 severe): 0 Source: Developed by Drs. Inder Hamm, Nneka Marie, Marcelo Contreras and colleagues, with an educational mabel from [employer]. Review of Systems Const Denies chills, Denies fatigue, Denies fever(s) and Denies headache(s) ENT Denies dysphagia, Denies dizziness, Denies otalgia, Denies headache(s), Denies neck pain, Denies odynophagia and Denies sore throat Card Denies chest pain, Denies palpitations and Denies dyspnea Resp Denies cough and Denies dyspnea GI Denies abdominal pain, Denies constipation, Denies dysphagia, Denies heartburn, Denies diarrhea, Denies nausea, Denies odynophagia and Denies vomiting Denies difficulty voiding, Denies nocturia and Denies dysuria Musc Denies neck pain Skin/Breast Details: (+) recurrent itchy rash under both of her breasts and over her inguinal areas bilaterally Neuro Denies dizziness and Denies headache(s) Endo Denies fatigue and Denies palpitations Physical exam (Primary Care) Vital Signs: Last Vital Signs Pulse 85 07/05/23 09:40 BP 124/78 07/05/23 09:40 Pulse Ox 99 07/05/23 09:40 Oxygen Delivery Method Room Air 07/05/23 09:40 BMI result Body Mass Index 49.2 Tobacco/Smoking Status: Tobacco use Status Tobacco use date assessed 07/05/23 07/05/23 09:50 Patient Tobacco Use Status Never used Tobacco 07/05/23 09:50 e-Cigarette/Vaping Use Never Used 07/05/23 09:50 PHQ-9: PHQ-9 Score PHQ-9: Total score 0 07/05/23 10:27 Depression Screening Interpretation: Negative Thrive Assessment: Date of Thrive Assessment Date Thrive assessed 07/05/23 07/05/23 09:50 Currently or been in a relationship where the following occur: no concerns reported Const General: no acute distress and alert HENMT Throat: Yes posterior oropharynx normal and Yes tonsils normal (no TP congestion ) Neck Neck: Yes no lymphadenopathy and Yes supple Resp Auscultation: clear to auscultation bilaterally, no rales and no wheezes Cardio Rate: regular rate Rhythm: regular rhythm Heart sounds: no murmurs GI Palpation (GI): Soft to palpation, nontender and No hepatosplenomegaly present Skin Other: (+) large patchy erythematous papular rash under both breasts and over her inguinal areas bilaterally Extrem General: Yes no clubbing, cyanosis or edema Results AMB Hemoglobin A1c AMB Hemoglobin A1c 5.5 % Last Edit by Divine Galvan on 07/05/23 10:45 Assessment and Plan Assessment & Plan (1) Candidal intertrigo: Code(s): B37.2 - Candidiasis of skin and nail Plan: Will start patient on Nystatin powder [id number] u/gm to apply to her rash TID until they clear up completely (2) Diabetes mellitus: Code(s): E11.9 - Type 2 diabetes mellitus without complications Qualifiers: Diabetes mellitus type: type 2 Diabetes mellitus assisted insulin use: without assisted use Diabetes mellitus complication status: with kidney complications Diabetes mellitus complication detail: with microalbuminuria Qualified Code(s): E11.29 - Type 2 diabetes mellitus with other diabetic kidney complication; R80.9 - Proteinuria, unspecified Plan: In-office HgbA1c done today is at 5.5% (was at 5.9% back in March 2023) - goal is <6.5% Reinforced diabetic diet Continue Synjardy XR 25-1000 mg QD and Ozempic 0.25 mg SQ once a week (3) Pure hypercholesterolemia: Code(s): E78.00 - Pure hypercholesterolemia, unspecified Plan: Reinforced low cholesterol diet Continue Atorvastatin 80 mg QD Will have patient recheck her labs and fasting lipids in 3 months for follow up (4) Essential hypertension: Code(s): I10 - Essential (primary) hypertension Plan: Reinforced low sodium diet - goal is systolic BP of 120 mm or less Continue Lisinopril 40 mg QD and Metoprolol ER 100 mg QD (5) Anemia: Comment: may be multifactorial, including due to chronic disease, B12 def and iron def Code(s): D64.9 - Anemia, unspecified Qualifiers: Anemia type: unspecified type Qualified Code(s): D64.9 - Anemia, unspecified Plan: Continue Ferrous Sulfate 325 mg QD Will have patient recheck her CBC in 3 months for follow up (6) Microalbuminuria due to type 2 diabetes mellitus: Code(s): E11.29 - Type 2 diabetes mellitus with other diabetic kidney complication; R80.9 - Proteinuria, unspecified Plan: Stable Follow up with nephrology as scheduled (7) Osteoarthritis of knees, bilateral: Code(s): M17.0 - Bilateral primary osteoarthritis of knee Qualifiers: Osteoarthritis type: primary Qualified Code(s): M17.0 - Bilateral primary osteoarthritis of knee Plan: S/P bilateral TKA Continue Acetaminophen 325 mg 2 tablets (650 mg) Q 6 hours PRN for pain Follow up with rheumatology as scheduled (8) Sleep apnea with use of continuous positive airway pressure (CPAP): Comment: cpap Code(s): G47.30 - Sleep apnea, unspecified Plan: Continue using her CPAP device when sleeping at night Follow up with Sleep Medicine as scheduled (9) Carpal tunnel syndrome: Code(s): G56.00 - Carpal tunnel syndrome, unspecified upper limb Qualifiers: Laterality: bilateral Qualified Code(s): G56.03 - Carpal tunnel syndrome, bilateral upper limbs Plan: S/P bilateral CTR this year (2022) Follow up with orthopedics as scheduled or as needed (10) GERD without esophagitis: Code(s): K21.9 - Gastro-esophageal reflux disease without esophagitis Plan: Dietary restrictions reinforced Continue Pantoprazole 20 mg QD (11) Constipation: Code(s): K59.00 - Constipation, unspecified Qualifiers: Constipation type: unspecified constipation type Qualified Code(s): K5 9.00 - Constipation, unspecified Plan: Reinforced increased oral fluids and dietary fiber Continue Citrucel 500 mg TID for fiber therapy and Miralax 17 gm QD (12) Insomnia: Code(s): G47.00 - Insomnia, unspecified Qualifiers: Insomnia type: unspecified Qualified Code(s): G47.00 - Insomnia, unspecified Plan: Sleep hygiene reinforced Continue Trazodone 50 mg Q HS PRN (13) Anxiety: Code(s): F41.9 - Anxiety disorder, unspecified Plan: Continue Hydroxyzine 50 mg BID PRN Is also on Sertraline (14) Depression: Code(s): F32.9 - Major depressive disorder, single episode, unspecified Qualifiers: Depression Type: major depressive disorder Major depression recurrence: single episode Active/Remission status: currently active Major depression episode severity: mild Qualified Code(s): F32.0 - Major depressive disorder, single episode, mild Plan: Continue Sertraline 25 mg Q AM and 50 mg Q PM Follow up with psychiatry as scheduled (15) Morbid obesity with BMI of 45.0-49.9, adult: Code(s): E66.01 - Morbid (severe) obesity due to excess calories; Z68.42 - Body mass index [BMI] 45.0-49.9, adult Plan: S/P sleeve gastrectomy in 04/2021 Reinforced diet/exercise as tolerated/lose weight Follow up with weight management as scheduled Plan Follow up with PCP in 3 months Orders: Orders Complete Blood Count Auto Diff 3 Months I10 - Essential (primary) hypertension Comprehensive [place]. Panel Fast 3 Months E78.00 - Pure hypercholesterolemia, unspecified Hemoglobin A1c 3 Months E11.9 - Type 2 diabetes mellitus without complications UA CC w/rflx Micro + Cult 3 Months R30.0 - Dysuria Vitamin D 25-OH Total 3 Months E55.9 - Vitamin D deficiency, unspecified Microalbumin, Random (w Creat) 3 Months E11.9 - Type 2 diabetes mellitus without complications AMB Hemoglobin A1c Today Z13.9 - Encounter for screening, unspecified Lipid Panel 3 Months E78.00 - Pure hypercholesterolemia, unspecified TSH reflex Free T4 3 Months E78.00 - Pure hypercholesterolemia, unspecified Medications: New nystatin 1 appl topical TID 10 days 60 grams 3RF loratadine 10 mg PO DAILY 90 days PRN 90 tabs 1RF allergy symptoms J30.9 - Allergic rhinitis, unspecified Changed From sertraline 25 mg PO DAILY 90 days 90 tabs 0RF To sertraline 25 mg PO QAM 30 days 30 tabs 2RF From trazodone 50 mg PO BEDTIME To trazodone 50 mg PO BEDTIME 30 days PRN 30 tabs 1RF insomnia From hydroxyzine pamoate 50 mg PO BID To hydroxyzine pamoate 50 mg PO BID 30 days PRN 60 caps 1RF anxiety From sertraline 50 mg PO QPM To sertraline 50 mg PO QPM 30 days 30 tabs 2RF Refilled atorvastatin 80 mg PO BEDTIME 90 days 90 tabs 1RF lisinopril 40 mg PO DAILY 90 days 90 tabs 1RF pantoprazole 20 mg PO QAM 90 tabs 1RF methylcellulose (laxative) (Citrucel) 500 mg PO TID 90 tabs 2RF semaglutide (Ozempic) for 4 weeks 0.25 mg (0.368 mL) subcut QWEEK 30 days 2 mL 3RF E11.9 - Type 2 diabetes mellitus without complications ferrous sulfate 325 mg PO DAILY 90 days 90 tabs 1RF D64.9 - Anemia, unspecified metoprolol succinate ER 100 mg PO DAILY 90 tabs 1RF empagliflozin-metformin 25-1,000 mg ER (Synjardy XR) 1 tab PO DAILY 90 days 90 ea 1RF Coding Level of Care Code Est Pt Level 4 (07160) Diagnoses Candidal intertrigo B37.2 Type 2 diabetes mellitus with microalbuminuria, without long-term current use of insulin E11.29; R80.9 Diabetes mellitus type: type 2 Diabetes mellitus terminal operations supervisor insulin use: without terminal operations supervisor use Diabetes mellitus complication status: with kidney complications Diabetes mellitus complication detail: with microalbuminuria Pure hypercholesterolemia E78.00 Essential hypertension I10 Anemia, unspecified type D64.9 Anemia type: unspecified type Microalbuminuria due to type 2 diabetes mellitus E11.29; R80.9 Primary osteoarthritis of both knees M17.0 Osteoarthritis type: primary Sleep apnea with use of continuous positive airway pressure (CPAP) G47.30 Bilateral carpal tunnel syndrome G56.03 Laterality: bilateral GERD without esophagitis K21.9 Constipation, unspecified constipation type K59.00 Constipation type: unspecified constipation type Insomnia, unspecified type G47.00 Insomnia type: unspecified Anxiety F41.9 Current mild episode of major depressive disorder without prior episode F32.0 Depression Type: major depressive disorder Major depression recurrence: single episode Active/Remission status: currently active Major depression episode severity: mild Morbid obesity with BMI of 45.0-49.9, adult E66.01; Z68.42
== END 2023-07-05 10:48 | disposition home or self-care (01) ==
PROVIDERS: PCP Internal Medicine; Visit Provider Internal Medicine
DX: E11.29 Type 2 diabetes mellitus with other diabetic kidney complication (principal)
CPT/HCPCS: 83036; 99214

== ENCOUNTER 2023-10-21 07:55 | Outpatient (REF) | payer OTHER, SELFPAY ==
[2023-10-21 08:12] LABS: MANUAL DIFF FLAG NO
[2023-10-21 08:55] LABS: Appearance Urine Cloudy; Color Urine Yellow; Glucose Urine UA >=1000 mg/dL (Negative); Leukocyte Esterase Urine Negative (Negative); Nitrite Urine Negative (Negative); PH 5.5 (5.0-9.0); Specific Gravity - Urine >= 1.030 (1.005-1.025); UMIC TRIGGER UACC YES; Urine Blood Negative (Negative); Urine Ketones Negative (Negative); Urine Protein Negative (Neg-Trace)
[2023-10-21 08:58] LABS: Basophils Absolute Auto 0.1 X10*3/uL (0.0-0.2); Basophils Percent Auto 0.6 % (0-2); Eosinophils Absolute Auto 0.3 X10*3/uL (0.0-0.4); Hemoglobin 12.7 g/dl (12.0-16.0); Imm Gran Abs Auto 0.03 X10*3/uL (0.00-0.03); Imm Gran Pct Auto 0.3 % (0.0-0.4); Lymphocytes Absolute Auto 1.7 X10*3/uL (1.2-4.9); Lymphocytes Percent Auto 18.6 % (20-40); Mean Corpuscular HGB Conc 33.4 g/dl (31.0-35.0); Mean Corpuscular Hemoglobin 29.1 pg (27.0-33.0); Mean Corpuscular Volume 87.2 fL (80.0-98.0); Mean Platelet Volume 9.9 fL (9.4-12.3); Monocytes Absolute Auto 0.6 X10*3/uL (0.1-1.2); Monocytes Percent Auto 6.5 % (2-11); Neutrophils Absolute Auto 6.6 x10*3/uL (2.0-8.3); Platelet Count 271 X10*3/uL (160-400); Red Blood Count 4.36 X10*6/uL (4.20-5.50); Red Cell Distribution Width 13.2 % (11.0-16.0); White Blood Count 9.3 X10*3/uL (4.8-10.8)
[2023-10-21 09:05] LABS: Estimated Average Glucose 117 mg/dL; Hemoglobin A1c % 5.7 % (<6.0)
[2023-10-21 09:18] LABS: Creatinine Urine 113.55 mg/dL
[2023-10-21 09:34] LABS: Bacteria Urine 1+ (None Seen); Calcium Oxalate Crystals Urine Present; Hyaline Casts Urine 0-2 /LPF (0-2); RBC Urine 0-2 /HPF (0-2); UACC Culture Trigger YES; WBC Urine 21-50 /HPF (0-5)
[2023-10-21 09:37] LABS: Alanine Aminotransferase 15 U/L (0-31); Albumin Level 3.8 g/dL (3.5-5.0); Alkaline Phosphatase 176 U/L (39-117); Anion Gap 13 (12-20); Aspartate Amino Transferase 14 U/L (5-31); Bilirubin Total 0.4 mg/dL (0.0-1.0); Blood Urea Nitrogen 11 mg/dL (9-16); Carbon Dioxide 26 mmol/L (22-29); Chloride 107 mmol/L (96-108); Cholesterol 178 mg/dL (<200); Estimated Glomerular Filt Rate > 60; Glucose Fasting 110 mg/dL (60-99); HDL Cholesterol 55 mg/dL (>40); LDL Cholesterol Calculated 94 mg/dL (<100); Potassium 3.8 mmol/L (3.3-5.1); Sodium 142 mmol/L (135-145); Triglycerides 145 mg/dL (<150)
[2023-10-21 09:38] LABS: TSH reflex Free T4 2.01 uIU/mL (0.32-4.0); Vitamin D 25-OH Total 28.8 ng/mL (>30)
== END 2023-10-21 07:56 | disposition home or self-care (01) ==
LOC: HO.LAB 07:55
PROVIDERS: Internal Medicine; PCP Internal Medicine; Visit Provider Internal Medicine
DX: I10 Essential (primary) hypertension (principal); E55.9 Vitamin D deficiency, unspecified; E78.00 Pure hypercholesterolemia, unspecified; E11.9 Type 2 diabetes mellitus without complications; R30.0 Dysuria
CPT/HCPCS: 36415; 80053; 80061; 81001; 82043; 82306; 82570; 83036; 84443; 85025; 87086; 87147

== ENCOUNTER 2023-10-27 13:04 | Outpatient (AMB) | payer OTHER, SELFPAY ==
--- NOTE | 2023-10-27 13:06 | A.OFFPC_ITS ---
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 Accompanied by: Self / Same As Patient Allergies citalopram Allergy (Mild, Verified 10/27/23 13:24) Rash Medication List - Last Reconciled 10/27/23 by Radha Woodson MD acetaminophen 650 mg (2 x 325 mg) PO Q6H PRN 30 days atorvastatin 80 mg PO BEDTIME 90 days bisacodyl (Dulcolax (bisacodyl)) 10 mg (2 x 5 mg) PO ONCE 1 day blood sugar diagnostic Use 1 test strip twice a day empagliflozin-metformin 25-1,000 mg ER (Synjardy XR) 1 tab PO DAILY 90 days ferrous sulfate 325 mg PO DAILY 90 days folic acid 1 mg PO DAILY 90 days Grab bar As directed hydroxyzine pamoate 50 mg PO BID PRN 30 days insulin syringe,safetyneedle Use 1 needle once a month lancets Use 1 lancet twice a day lisinopril 40 mg PO DAILY 90 days loratadine 10 mg PO DAILY PRN 90 days methylcellulose (laxative) (Citrucel) 500 mg PO TID metoprolol succinate ER 100 mg PO DAILY nitrofurantoin macrocrystal 100 mg PO BID 5 days nystatin 1 appl topical TID 10 days pantoprazole 20 mg PO QAM polyethylene glycol 3350 (Miralax) 238 grams PO ONCE PRN 1 day quetiapine mg PO semaglutide (Ozempic) 0.25 mg (0.368 mL) subcut QWEEK 30 days sertraline 25 mg PO QAM 30 days sertraline 50 mg PO QPM 30 days Shower Chair As directed syringe with needle, safety (BD Safety-Madina Detachable Needle) As directed trazodone 50 mg PO BEDTIME PRN 30 days walker Walker with seat and wheels Tobacco use date assessed: 10/27/23 Dental Screening Dental Screen Date: 10/27/23 Did you have a dental visit in the last 12 months?: No Did you have a dental problem in the last 6 months where you did not have access to dental care?: No Was dental information given to patient?: Patient has dentist HPI HPI Comments History of Present Illness Details This is a 53-year-old female with diabetes mellitus type 2, hypertension, hyperlipidemia, morbid obesity and moderate major depression that comes today for follow-up on her conditions. A1c within goal. Blood pressure stable. LDL close to goal and I will add Zetia. Her BMI is 49.9 and had bariatric surgery in 2020. Was advised to do diet and exercise as tolerated to reach BMI goal less than 30. Has moderate major depression that has improved with SSRIs. Walks with a cane due to knee osteoarthritis. No chest pain or shortness of breath. [facility] Medical History (Updated 10/27/23 @ 13:38 by Radha Woodson MD) Microalbuminuria due to type 2 diabetes mellitus GERD without esophagitis On beta epifanio at home Osteoarthritis of right knee Osteoarthritis of left knee COVID-19 vaccine series completed Hand pain Pernicious anemia Depression with anxiety Anemia Thiamine deficiency B12 deficiency Sleep apnea with use of continuous positive airway pressure (CPAP) Steatosis, liver Hyperlipidemia Morbid obesity Obese Rash Pure hypercholesterolemia Diabetes mellitus Essential hypertension Surgical History History of carpal tunnel release Status post total knee replacement, right History of arthroplasty of left knee Status post total left knee replacement Hx of carpal tunnel repair S/P laparoscopic sleeve gastrectomy Status post debridement History of total abdominal hysterectomy and bilateral salpingo-oophorectomy History of foot surgery Family History Father Diabetes Hypertension Prostate cancer Mother Hypertension Stomach cancer Social History Household Members: Family Household Members Other:: Brother Housing: Apartment Are you a primary anesthesiologist and critical care to a significant other at home: No Do you presently have visiting nurse or other home services: No Alcohol intake: never Patient Tobacco Use Status: Never used Tobacco e-Cigarette/Vaping Use: Never Used Second Hand Smoke Exposure: No Advance Directives Date on File: 04/16/22 service: No 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al status: disabled 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 1. Little interest or pleasure in doing things: nearly every day 2. Feeling down, depressed, or hopeless: nearly every day 3. Trouble falling or staying asleep, or sleeping too much: nearly every day 4. Feeling tired or having little energy: nearly every day 5. Poor appetite or overeating: nearly every day 6. Feeling bad about yourself - or that you are a failure or have let yourself or your family down: not at all 7. Trouble concentrating on things, such as reading the newspaper or watching television: several days 8. Moving or speaking so slowly that other people could have noticed. Or the opposite - being so fidgety or restless that you have been moving around a lot more than usual: not at all 9. Thoughts that you would be better off or of hurting yourself in some way: not at all Total score: 16 Depression Screening Interpretation: Positive (no suicidal thoughts) Depression Screening Follow-up: Existing condition and In treatment Depression Screening Done: Yes 41004 - PHQ-9 Billing: Yes Source: Developed by Drs. Inder Hamm, Nneka Marie, Marcelo Contreras and colleagues, with an educational mabel from [employer]. Thrive Questionnaire Date Thrive assessed: 10/27/23 I am a: Patient What is your living situation today?: I have a steady place to live Within the past 12 months, did the food you bought not last and you didn't have the money to get more?: Never true Within the past 12 months, did you worry whether your food would run out before you got money to buy more?: Never true Do you have trouble paying for medicines?: No Do you have trouble getting transportation to medical appointments?: No Do you have trouble paying your heating and electricity bill?: No Do you have trouble taking care of your child, family member or friend?: No Do you have trouble with day-to-day activities such as bathing, preparing meals, shopping, managing finances, etc.?: No Are you currently unemployed and looking for a job?: No Are you interested in more education?: No Please select the resources that you would like help with: None Currently or been in a relationship where the following occur: no concerns reported THRIVE Score: 0 AUDIT C Alcohol Use Questionnaire (AUDIT-C) 1. How often do you have a drink containing alcohol?: Never Total Score: 0 MELANIE-7 AMB Questionnaire MELANIE-7 Date MELANIE - 7 assessed: 10/27/23 Feeling nervous, anxious, or on edge: 3 = Nearly every day Not being able to stop or control worryin = Several days Worrying too much about different things: 2 = More than half the days Trouble relaxin = Several days Being so restless that it is hard to sit still: 0 = Not at all Becoming easily annoyed or irritable: 0 = Not at all Feeling afraid as if something awful might happen: 3 = Nearly every day Total MELANIE-7 score (0-4 normal; 5-9 mild; 10-14 moderate; 15-21 severe): 10 Source: Developed by Drs. Inder Hamm, Nneka Marie, Marcelo Contreras and colleagues, with an educational mabel from [employer]. MELANIE-7 Assessment Billing MELANIE-7 Assessment Tool: MELANIE-7 Assessment 50362 Review of Systems Const All systems reviewed & are unremarkable except as noted in HPI and below Eyes Reports no additional complaints, Denies change in vision and Denies other visual disturbances Card Denies chest pain at rest, Denies chest pain with activity, Denies edema, Denies irregular heart rhythm, Denies claudication, Denies dyspnea, Denies dyspnea on exertion, Denies orthopnea, Denies paroxysmal nocturnal dyspnea and Denies slow heart rate Resp Denies cough, Denies dyspnea and Denies dyspnea on exertion GI Denies abdominal pain, Denies change in bowel habits, Denies excessive flatus, Denies nausea and Denies vomiting Denies urinary incontinence, Denies urinary hesitancy and Denies urinary urgency Musc Denies abnormal gait, Denies atrophy, Denies deformity and Denies limited range of motion Skin/Breast Denies bleeding lesions, Denies changing lesions and Denies rash Neuro Denies abnormal gait, Denies behavioral changes and Denies lack of coordination Psych Denies behavioral changes Physical exam (Primary Care) Vital Signs: Last Vital Signs BP 136/80 10/27/23 13:07 BMI result Body Mass Index 49.9 Tobacco/Smoking Status: Tobacco use Status Tobacco use date assessed 10/27/23 10/27/23 13:18 Patient Tobacco Use Status Never used Tobacco 10/27/23 13:18 e-Cigarette/Vaping Use Never Used 10/27/23 13:18 PHQ-9: PHQ-9 Score PHQ-9: Total score 16 10/27/23 13:18 Depression Screening Interpretation: Positive (no suicidal thoughts) Depression Screening Follow-up: Existing condition and In treatment Thrive Assessment: Date of Thrive Assessment Date Thrive assessed 10/27/23 10/27/23 13:18 Currently or been in a relationship where the following occur: no concerns reported Const Limitations: ambulation with cane Eyes General: appearance normal, both eyes and all related structures Eyelids: Yes eyelids normal Conjunctivae: conjunctivae normal Neck Neck: Yes normal visual inspection and Yes supple Resp Effort & Inspection: normal respiratory effort Auscultation: clear to auscultation bilaterally Cardio Jugular venous distension: no JVD Rate: regular rate Rhythm: regular rhythm Heart sounds: S1 normal heart sound present and S2 normal heart sound present Extrem General: Yes full ROM Assessment and Plan Assessment & Plan (1) Morbid obesity with BMI of 45.0-49.9, adult: Code(s): E66.01 - Morbid (severe) obesity due to excess calories; Z68.42 - Body mass index [BMI] 45.0-49.9, adult Plan: Start diet and exercise. BMI goal is less than 30. (2) Diabetes mellitus: Code(s): E11.9 - Type 2 diabetes mellitus without complications Qualifiers: Diabetes mellitus type: type 2 Diabetes mellitus senior care insulin use: without terminal gauger use Diabetes mellitus complication status: with kidney complications Diabetes mellitus complication detail: with microalbuminuria Qualified Code(s): E11.29 - Type 2 diabetes mellitus with other diabetic kidney complication; R80.9 - Proteinuria, unspecified Plan: Continue Ozempic and Synjardi. A1c goal is equal or less than 7%. (3) Hyperlipidemia LDL goal <70: Code(s): E78.5 - Hyperlipidemia, unspecified Plan: Continue statins. Start Zetia. LDL goal is less than 70. (4) Essential hypertension: Code(s): I10 - Essential (primary) hypertension Plan: Continue lisinopril. Blood pressure goal is equal or less than 130/80. (5) Moderate major depression: Code(s): F32.1 - Major depressive disorder, single episode, moderate Plan: Continue SSRIs. Orders: Orders XR sinus ott view Today J34.89 - Other specified disorders of nose and nasal sinuses Medications: New ezetimibe 10 mg PO DAILY 90 days 90 tabs 1RF Changed From semaglutide (Ozempic) for 4 weeks 0.25 mg (0.368 mL) subcut QWEEK 30 days 2 mL 3RF E11.9 - Type 2 diabetes mellitus without complications To semaglutide (Ozempic) for 4 weeks 0.5 mg (0.736 mL) subcut QWEEK 30 days 3.68 mL 3RF E11.9 - Type 2 diabetes mellitus without complications Refilled loratadine 10 mg PO DAILY 90 days PRN 90 tabs 1RF allergy symptoms J30.9 - Allergic rhinitis, unspecified bisacodyl (Dulcolax (bisacodyl)) Take 2 tablets by mouth at 12:00pm the day before your procedure. 10 mg (2 x 5 mg) PO ONCE 1 day 2 tabs 0RF colonoscopy prep Z12.11 - Encounter for screening for malignant neoplasm of colon Coding Level of Care Code Est Pt Level 4 (76315) Diagnoses Morbid obesity with BMI of 45.0-49.9, adult E66.01; Z68.42 Type 2 diabetes mellitus with microalbuminuria, without long-term current use of insulin E11.29; R80.9 Diabetes mellitus type: type 2 Diabetes mellitus senior care insulin use: without senior care use Diabetes mellitus complication status: with kidney complications Diabetes mellitus complication detail: with microalbuminuria Hyperlipidemia LDL goal <70 E78.5 Essential hypertension I10 Moderate major depression F32.1 Additional Codes MELANIE-7 Assessment Billing - MELANIE-7 Assessment Tool: MELANIE-7 Assessment 89630 ([id number]) Time Spent (min) 24
[2023-10-27 13:07] VITALS: BP 136/80; BMI 49.9
== END 2023-10-27 13:35 | disposition home or self-care (01) ==
PROVIDERS: PCP Internal Medicine; Visit Provider Internal Medicine
DX: E11.29 Type 2 diabetes mellitus with other diabetic kidney complication (principal); E66.01 Morbid (severe) obesity due to excess calories; Z68.42 Body mass index [BMI] 45.0-49.9, adult; F32.1 Major depressive disorder, single episode, moderate; R80.9 Proteinuria, unspecified; E78.5 Hyperlipidemia, unspecified; I10 Essential (primary) hypertension
CPT/HCPCS: 99214

== ENCOUNTER 2023-11-15 09:49 | Outpatient (REF) | payer OTHER, SELFPAY ==
--- NOTE | ~2023-11-15 | XR_ITS ---
EXAMINATION: XR SINUSES CLINICAL INFORMATION: Other specified disorders of nose and nasal sinuses. COMPARISON: None available. TECHNIQUE: 4 views of the sinuses. FINDINGS: Frontal sinuses are hypoplastic, although opacity within the inferomedial aspects of paranasal sinuses cannot be excluded. No gross air-fluid levels identified in the maxillary sinuses. Sclerosis overlying the inferior aspect of the sphenoid sinus and subjacent bone on the lateral view difficult to characterize due to multiple overlying bony structures. Hazy opacities in the ethmoid sinuses. XR/XR sinus min 3V IMPRESSION: 1. Hazy opacities in the ethmoid sinuses. 2. Sclerosis overlying the inferior aspect of the sphenoid sinus and subjacent bone on the lateral view difficult to characterize due to multiple overlying bony structures. 3. CT scan recommended for further evaluation.
== END 2023-11-15 09:50 | disposition home or self-care (01) ==
LOC: HO.XRAY 09:49
PROVIDERS: PCP Internal Medicine; Visit Provider Internal Medicine
DX: J34.89 Other specified disorders of nose and nasal sinuses (principal)
CPT/HCPCS: 70220

== ENCOUNTER 2023-12-22 09:14 | Outpatient (AMB) | payer OTHER, SELFPAY ==
[2023-12-22 09:22] VITALS: BP 126/70; BMI 50.4
--- NOTE | 2023-12-22 09:22 | A.OFFPC_ITS ---
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 Accompanied by: Self / Same As Patient Allergies citalopram Allergy (Mild, Verified 12/22/23 09:41) Rash Medication List - Last Reconciled 12/22/23 by Radha Woodson MD acetaminophen 650 mg (2 x 325 mg) PO Q6H PRN 30 days atorvastatin 80 mg PO BEDTIME 90 days bisacodyl (Dulcolax (bisacodyl)) 10 mg (2 x 5 mg) PO ONCE 1 day blood sugar diagnostic Use 1 test strip twice a day empagliflozin-metformin 25-1,000 mg ER (Synjardy XR) 1 tab PO DAILY 90 days ezetimibe 10 mg PO DAILY 90 days ferrous sulfate 325 mg PO DAILY 90 days folic acid 1 mg PO DAILY 90 days Grab bar As directed hydroxyzine pamoate 50 mg PO BID PRN 30 days insulin syringe,safetyneedle Use 1 needle once a month lancets Use 1 lancet twice a day lisinopril 40 mg PO DAILY 90 days loratadine 10 mg PO DAILY PRN 90 days methylcellulose (laxative) (Citrucel) 500 mg PO TID metoprolol succinate ER 100 mg PO DAILY nystatin 1 appl topical TID 10 days pantoprazole 20 mg PO QAM polyethylene glycol 3350 (Miralax) 238 grams PO ONCE PRN 1 day quetiapine mg PO semaglutide (Ozempic) 1 mg (1.472 mL) subcut QWEEK 30 days sertraline 25 mg PO QAM 30 days sertraline 50 mg PO QPM 30 days Shower Chair As directed syringe with needle, safety (BD Safety-Madina Detachable Needle) As directed trazodone 50 mg PO BEDTIME PRN 30 days walker Walker with seat and wheels Tobacco use date assessed: 10/27/23 Dental Screening Dental Screen Date: 10/27/23 HPI HPI Comments History of Present Illness Details This is a 53-year-old female with morbid obesity, moderate major depression and diabetes mellitus type 2 that comes for her physical exam. She is morbidly obese with a BMI of 50.4 and had bariatric surgery 2020. She said anxiety makes her eat. She is start diet and exercise. She will restart weight management. BMI goal is less than 30. Moderate major depression has been somewhat stable with sertraline and this is follow by Psychiatry. Last A1c was within goal. Last diabetic eye exam was 2022. Last mammogram 2022. No need for Pap smear due to hysterectomy for benign reasons. Will have colonoscopy this month. No chest pain or shortness of breath. Complains of vaginal pruritus and dysuria but urinalysis was negative for infection. [facility], [facility] Medical History (Updated 12/22/23 @ 10:04 by Radha Woodson MD) Morbid obesity with BMI of 45.0-49.9, adult Microalbuminuria due to type 2 diabetes mellitus GERD without esophagitis On beta epifanio at home Osteoarthritis of right knee Osteoarthritis of left knee COVID-19 vaccine series completed Hand pain Pernicious anemia Depression with anxiety Anemia Thiamine deficiency B12 deficiency Sleep apnea with use of continuous positive airway pressure (CPAP) Steatosis, liver Hyperlipidemia Morbid obesity Obese Rash Pure hypercholesterolemia Diabetes mellitus Essential hypertension Surgical History History of carpal tunnel release Status post total knee replacement, right History of arthroplasty of left knee Status post total left knee replacement Hx of carpal tunnel repair S/P laparoscopic sleeve gastrectomy Status post debridement History of total abdominal hysterectomy and bilateral salpingo-oophorectomy History of foot surgery Family History Father Diabetes Hypertension Prostate cancer Mother Hypertension Stomach cancer Social History Household Members: Family Household Members Other:: Brother Housing: Apartment Are you a primary foster care case manager to a significant other at home: No Do you presently have visiting nurse or other home services: No Alcohol intake: never Patient Tobacco Use Status: Never used Tobacco e-Cigarette/Vaping Use: Never Used Second Hand Smoke Exposure: No Advance Directives Date on File: 04/16/22 service: No 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al status: disabled 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 Inder Hamm, Nneka Marie, Marcelo Contreras and colleagues, with an educational mabel from [employer]. Review of Systems Const All systems reviewed & are unremarkable except as noted in HPI and below Eyes Reports no additional complaints, Denies change in vision and Denies other visual disturbances Card Denies chest pain at rest, Denies chest pain with activity, Denies edema, Denies irregular heart rhythm, Denies claudication, Denies dyspnea, Denies dyspnea on exertion, Denies orthopnea, Denies paroxysmal nocturnal dyspnea and Denies slow heart rate Resp Denies cough, Denies dyspnea and Denies dyspnea on exertion GI Denies abdominal pain, Denies change in bowel habits, Denies excessive flatus, Denies nausea and Denies vomiting Denies urinary incontinence, Denies urinary hesitancy and Denies urinary urgency Physical exam (Primary Care) Vital Signs: Last Vital Signs BP 126/70 12/22/23 09:22 BMI result Body Mass Index 50.4 BMI Assessment/Plan discussion: High (Restart weight management) BMI High, discussed plan: lifestyle, weight reduction, dietary and physical activity Tobacco/Smoking Status: Tobacco use Status Tobacco use date assessed 10/27/23 12/22/23 09:25 Patient Tobacco Use Status Never used Tobacco 12/22/23 09:25 e-Cigarette/Vaping Use Never Used 12/22/23 09:25 Thrive Assessment: Date of Thrive Assessment Date Thrive assessed 10/27/23 12/22/23 09:25 Const Orientation/consciousness: patient oriented x3 HENKY Head: Yes normal to inspection, Yes normocephalic and Yes atraumatic Ears: external ears normal Eyes General: appearance normal, both eyes and all related structures Eyelids: Yes eyelids normal Conjunctivae: conjunctivae normal Neck Neck: Yes normal visual inspection and Yes supple Resp Effort & Inspection: normal respiratory effort Auscultation: clear to auscultation bilaterally Cardio Jugular venous distension: no JVD Rate: regular rate Rhythm: regular rhythm Heart sounds: S1 normal heart sound present and S2 normal heart sound present GI Inspection: Yes normal to inspection Palpation (GI): Soft to palpation and nontender Auscultation: normal bowel sounds Skin General skin exam: no rashes or lesions noted Neuro General: patient oriented x3 and no focal motor deficits Extrem General: Yes full ROM Psych Appearance: grossly normal Results AMB Urinalysis, Automated UA Leukoctes 0 Noris/uL Last Edit by Gilberto Doll, RMA on 12/22/23 10:03 UA Nitrite Negative Last Edit by Gilberto Doll, RMA on 12/22/23 10:03 UA Urobilinogen 0.2 mg/dL Last Edit by Gilberto Doll, RMA on 12/22/23 10: 03 UA Protein 0 mg/dL Last Edit by Gilberto Doll, RMA on 12/22/23 10:03 UA pH 6.0 Last Edit by Gilberto Doll, RMA on 12/22/23 10:03 UA Blood 0 Griffin/uL Last Edit by Gilberto Doll, RMA on 12/22/23 10:03 UA Specific [place] 1.020 Last Edit by Gilberto Doll, RMA on 12/22/23 10 :03 UA Ketone Negative Last Edit by Gilberto Doll, RMA on 12/22/23 10:03 UA Bilirubin 0 mg/dL Last Edit by Gilberto Doll, RMA on 12/22/23 10:03 UA Glucose 3 mg/dL Last Edit by Gilberto Doll, RMA on 12/22/23 10:03 Assessment and Plan Assessment & Plan (1) Physical exam: Code(s): Z00.00 - Encounter for general adult medical examination without abnormal findings Plan: Repeat in a year. (2) Moderate major depression: Code(s): F32.1 - Major depressive disorder, single episode, moderate Plan: Continue sertraline. Follow-up with psychiatry. (3) Diabetes mellitus: Code(s): E11.9 - Type 2 diabetes mellitus without complications Qualifiers: Diabetes mellitus complication detail: with microalbuminuria Diabetes mellitus complication status: with kidney complications Diabetes mellitus fci insulin use: without terminal gauger use Diabetes mellitus type: type 2 Qualified Code(s): E11.29 - Type 2 diabetes mellitus with other diabetic kidney complication; R80.9 - Proteinuria, unspecified Plan: Continue Synjardi and Ozempic. A1c goal is equal or less than 7%. (4) Morbid obesity: Comment: s/p gastric sleeve 2020 Code(s): E66.01 - Morbid (severe) obesity due to excess calories Plan: Advised to restart weight management. Start diet and exercise as tolerated. BMI goal is less than 30. Orders: Orders Lipid Panel 4 Months E78.5 - Hyperlipidemia, unspecified Microalbumin, Random (w Creat) 4 Months E11.9 - Type 2 diabetes mellitus without complications IRON PROFILE 4 Months D64.9 - Anemia, unspecified Vitamin D 25-OH Total 4 Months E55.9 - Vitamin D deficiency, unspecified Vitamin B12 and Folate 4 Months E53.8 - Deficiency of other specified B group vitamins Complete Blood Count Auto Diff 4 Months D64.9 - Anemia, unspecified Comprehensive [place]. Panel Fast 4 Months E11.29 - Type 2 diabetes mellitus with other diabetic kidney complication, R80.9 - Proteinuria, unspecified AMB Urinalysis Automated Today R30.0 - Dysuria Referrals CLINICAL LABORATORY DIRECTOR Referral N89.8 - Other specified noninflammatory disorders of vagina Medications: New amoxicillin-pot clavulanate 875-125 mg 1 tab PO BID 14 tabs 0RF 7 days J32.9 - Chronic sinusitis, unspecified fluconazole 150 mg PO Q3D 2 tabs 0RF 2 doses Coding Level of Care Code Est Pt Prev Care 40-64y(52329) Diagnoses Physical exam Z00.00 Moderate major depression F32.1 Type 2 diabetes mellitus with microalbuminuria, without long-term current use of insulin E11.29; R80.9 Diabetes mellitus complication detail: with microalbuminuria Diabetes mellitus complication status: with kidney complications Diabetes mellitus fci insulin use: without fci use Diabetes mellitus type: type 2 Morbid obesity E66.01 Time Spent (min) 35
== END 2023-12-22 10:02 | disposition home or self-care (01) ==
PROVIDERS: Visit Provider Internal Medicine
DX: Z00.00 Encounter for general adult medical examination without abnormal findings (principal); F32.1 Major depressive disorder, single episode, moderate; E66.01 Morbid (severe) obesity due to excess calories; Z68.43 Body mass index [BMI] 50.0-59.9, adult; E11.29 Type 2 diabetes mellitus with other diabetic kidney complication; R80.9 Proteinuria, unspecified; R30.0 Dysuria
CPT/HCPCS: 81003; 99396

== ENCOUNTER → 2024-01-03 06:42 | Day surgery (SDC) | payer OTHER, SELFPAY ==
[2023-12-30 14:41] VITALS: BMI 50.4
--- NOTE | 2023-12-30 15:14 | P.CONAN_ITS ---
HPI - Anesthesia Eval Consult details Narrative: 53yo F for Upper Endoscopy and Colonoscopy Anesthesia Pre-Procedure Meds Is the patient on any of the following meds?: GLP1/DPP4 and SGLT2 Inhib PMFSH Active Problems Active Problems: All Active Problems Physical exam (Acute) Vaginal pruritus (Acute) Sinusitis (Acute) Moderate major depression (Acute) GERD without esophagitis (Acute) Insomnia (Acute) Constipation (Acute) Carpal tunnel syndrome (Acute) Candidal intertrigo (Acute) History of total bilateral knee replacement (TKR) (Acute) S/P carpal tunnel release (Acute) Sleep apnea with use of continuous positive airway pressure (CPAP) (Acute) IBS (irritable bowel syndrome) (Acute) Depression (Acute) Anxiety (Acute) Hyponatremia (Acute) Status post repair of paraesophageal diaphragmatic hernia (Acute) Diaphragmatic hernia (Acute) Osteoarthritis of knees, bilateral (Acute) Hyperlipidemia LDL goal <70 (Acute) Essential hypertension (Acute) Diabetes mellitus (Acute) S/P laparoscopic sleeve gastrectomy (Acute) Pernicious anemia (Acute) Anemia (Acute) Thiamine deficiency (Acute) B12 deficiency (Acute) Steatosis, liver (Acute) Morbid obesity (Acute) Pure hypercholesterolemia (Acute) Past Medical History Medical History (Updated 12/22/23 @ 10:04 by Radha Woodson MD) Morbid obesity with BMI of 45.0-49.9, adult Microalbuminuria due to type 2 diabetes mellitus GERD without esophagitis On beta epifanio at home Osteoarthritis of right knee Osteoarthritis of left knee COVID-19 vaccine series completed Hand pain Pernicious anemia Depression with anxiety Anemia Thiamine deficiency B12 deficiency Sleep apnea with use of continuous positive airway pressure (CPAP) Steatosis, liver Hyperlipidemia Morbid obesity Obese Rash Pure hypercholesterolemia Diabetes mellitus Essential hypertension Family History Family History Father Diabetes Hypertension Prostate cancer Mother Hypertension Stomach cancer Family history of problems with anesthesia: No Surgical History Surgical History History of carpal tunnel release Status post total knee replacement, right History of arthroplasty of left knee Status post total left knee replacement Hx of carpal tunnel repair S/P laparoscopic sleeve gastrectomy Status post debridement History of total abdominal hysterectomy and bilateral salpingo-oophorectomy History of foot surgery History of Problems with Anesthesia: No Social History Social History Household Members: Family Household Members Other:: Brother Housing: Apartment Are you a primary career and transition teacher to a significant other at home: No Do you presently have visiting nurse or other home services: No Alcohol intake: never Patient Tobacco Use Status: Never used Tobacco e-Cigarette/Vaping Use: Never Used Second Hand Smoke Exposure: No Advance Directives Date on File: 04/16/22 service: No 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al status: disabled 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
== END ==
PROVIDERS: PCP Internal Medicine; Visit Provider Internal Medicine
DX: K58.9 Irritable bowel syndrome, unspecified (principal); D51.3 Other dietary vitamin B12 deficiency anemia; Z53.9 Procedure and treatment not carried out, unspecified reason

== ENCOUNTER 2024-01-10 10:51 | Outpatient (AMB) | payer OTHER, SELFPAY ==
[2024-01-10 10:58] VITALS: BP 130/70; BMI 51.0
--- NOTE | 2024-01-10 10:58 | MHC.OFFVIS ---
Vital Signs 01/10/24 10:58 Height 4 ft 10 in Weight 244 lb BMI 51.0 BP 130/70 Intake Visit Reasons: ? infection/referral Wood Model Builder Required: Yes Wood Model Builder Language: Towel Weaver Name: Debby, ID. [id number] Information Interpreted: clinical only Insurance Salesperson: Insurance Salesperson Present Allergies citalopram Allergy (Mild, Verified 01/10/24 10:59) Rash Medication List - Last Reviewed 01/10/24 by Kym Dennis CMA acetaminophen 650 mg (2 x 325 mg) PO Q6H PRN 30 days atorvastatin 80 mg PO BEDTIME 90 days bisacodyl (Dulcolax (bisacodyl)) 10 mg (2 x 5 mg) PO ONCE 1 day bisacodyl (Dulcolax (bisacodyl)) 20 mg (4 x 5 mg) PO ONCE 1 day blood sugar diagnostic Use 1 test strip twice a day empagliflozin-metformin 25-1,000 mg ER (Synjardy XR) 1 tab PO DAILY 90 days ezetimibe 10 mg PO DAILY 90 days ferrous sulfate 325 mg PO DAILY 90 days fluconazole 150 mg PO Q3D 2 doses folic acid 1 mg PO DAILY 90 days Grab bar As directed hydroxyzine pamoate 50 mg PO BID PRN 30 days insulin syringe,safetyneedle Use 1 needle once a month lancets Use 1 lancet twice a day lisinopril 40 mg PO DAILY 90 days loratadine 10 mg PO DAILY PRN 90 days methylcellulose (laxative) (Citrucel) 500 mg PO TID metoprolol succinate ER 100 mg PO DAILY pantoprazole 20 mg PO QAM polyethylene glycol 3350 (Miralax) 238 grams PO ONCE PRN 1 day quetiapine 25 mg PO BEDTIME semaglutide (Ozempic) 1 mg (1.472 mL) subcut QWEEK 30 days sertraline 25 mg PO QAM 30 days sertraline 50 mg PO QPM 30 days Shower Chair As directed syringe with needle, safety (BD Safety-Madina Detachable Needle) As directed trazodone 50 mg PO BEDTIME PRN 30 days walker Walker with seat and wheels Is last menstrual period known: No Post menopausal: Yes (hysterectomy 2013) Do you need a note to return to daycare/school/sports/work: No HPI HPI ? infection/referral: Details: Patient is referred from her primary care provider for vaginal itching. It feels like what she has had before that was yeast that was treated with a cream [place]. She has diabetes she is morbidly obese she says the itching is worse when her sugars are high. She had a total hysterectomy and her ovaries removed as well because they were filled with cysts. She did not have an abnormal Pap smear prior to that so she no longer needs Pap smears. She had weight loss surgery but then she was depressed and she gained a lot of weight from eating when she was stressed she does have counselor and or psychiatric care and she says it helps. She had total knee replacements on both knees 1 was last year and 1 was 2 years ago, she says they get swollen when she walks but she does try to walk. This itching started 2 weeks ago, and she is already doing all of the self-care items that are in line with caring for a yeast infection. [facility] Medical History Morbid obesity with BMI of 45.0-49.9, adult Microalbuminuria due to type 2 diabetes mellitus GERD without esophagitis On beta epifanio at home Osteoarthritis of right knee Osteoarthritis of left knee COVID-19 vaccine series completed Hand pain Pernicious anemia Depression with anxiety Anemia Thiamine deficiency B12 deficiency Sleep apnea with use of continuous positive airway pressure (CPAP) Steatosis, liver Hyperlipidemia Morbid obesity Obese Rash Pure hypercholesterolemia Diabetes mellitus Essential hypertension Surgical History History of carpal tunnel release Status post total knee replacement, right History of arthroplasty of left knee Status post total left knee replacement Hx of carpal tunnel repair S/P laparoscopic sleeve gastrectomy Status post debridement History of total abdominal hysterectomy and bilateral salpingo-oophorectomy History of foot surgery Family History Father Diabetes Hypertension Prostate cancer Mother Hypertension Stomach cancer Social History Household Members: Family Household Members Other:: Brother Housing: Apartment Are you a primary patient care technician instructor to a significant other at home: No Do you presently have visiting nurse or other home services: No Alcohol intake: never Patient Tobacco Use Status: Never used Tobacco e-Cigarette/Vaping Use: Never Used Second Hand Smoke Exposure: No Advance Directives Date on File: 04/16/22 service: No 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al status: disabled 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 Nutritional Appearance: obese Other: Patient has multiple skin folds and in all of her skin folds her lower abdomen and pannus and in areas of previous surgical scars the area is bright red with inflammation. Vaginal area is completely inflamed as well with a whitish discharge speculum exam not done as not necessary. Adipose tissue exacerbates the skin folds. Quality Reporting (2019) Adult ([facility] 138/10/27/68) Smoking risk assessment performed?: Yes Patient Tobacco Use Status: Never used Tobacco Assessment & Plan Assessment & Plan (1) Vaginal pruritus: Code(s): N89.8 - Other specified noninflammatory disorders of vagina Category: Medical (2) Candidal intertrigo: Code(s): B37.2 - Candidiasis of skin and nail Category: Medical (3) Morbid obesity: Comment: s/p gastric sleeve 2020 Code(s): E66.01 - Morbid (severe) obesity due to excess calories Category: Medical (4) Diabetes mellitus: Code(s): E11.9 - Type 2 diabetes mellitus without complications Category: Medical Qualifiers: Diabetes mellitus type: type 2 Diabetes mellitus ad terminal makeup operator insulin use: without ad terminal makeup operator use Diabetes mellitus complication status: with kidney complications Diabetes mellitus complication detail: with microalbuminuria Qualified Code(s): E11.29 - Type 2 diabetes mellitus with other diabetic kidney complication; R80.9 - Proteinuria, unspecified (5) Vulvar candidiasis: Code(s): B37.31 - Acute candidiasis of vulva and vagina Category: Medical Plan ---I reviewed her symptoms in detail, and the contributing factors that lead to growth of yeast including warm dark spaces, lack of air to body cavities and mucosal membrane, and elevated blood sugars. I reviewed what she can do to make things better in particular using cotton underwear, non-use of panty liners, allowing air to her vulva at night if at all possible. Use of cotton underwear that is not tight fitting was encouraged. Plain cool water rinsing/showering to area may be comforting. I reviewed use of the medications including Diflucan and cream as directed. --I reviewed that the most important thing at her case is to get her diabetes and her blood sugar under good control, and I encouraged her to re-double her efforts in this regard, and to work with her primary care provider in adjusting any medication dosages if necessary, and following their recommendations for checking her blood sugar, following dietary recommendations, exercise goals, and trying to get things in control. I stressed that while a yeast infection is very very uncomfortable, and can be very problematic, it can be indicative of diabetes that is not under good control and could lead to further challenges for her health especially regarding blood vessels and kidney function and heart etc. So any efforts to get her diabetes under better control, may help more than just her yeast symptoms. She is already doing much of these things. She has not used any cream thus far I instructed her that she can use the cream inside put it in her vagina as much as she can each it. She may use the powder for the outside areas and she should take Diflucan today and repeat it 3 days. I am giving her refills on the Diflucan on the Monistat powder and Monistat cream. The Diflucan however will interact with many of her other medications so it has not something that she would taken all the time. She is aware that when she has high blood sugars, the itching is worse and she is aware of the feedback between yeast and sugar. I encouraged her to continue in her efforts to be healthier and lose weight as in end that is the only thing that will help. She already wears only cotton underwear at night she does not sleep with any undies, and she has a fan blowing air on her. Medications: New miconazole nitrate 2% Use in skin folds as necessary 1 appl topical BID 85 grams 3RF miconazole nitrate 2% (Miconazole-7) Use internally and on labia for vaginal itching. 1 appful vaginal BEDTIME 7 days 45 grams 3RF Changed From fluconazole 150 mg PO Q3D 2 tabs 0RF To fluconazole Use for severe yeast infection 150 mg PO Q3D 2 tabs 3RF Coding Level of Care Code New Pt Level 3 (01062) Diagnoses Vaginal pruritus N89.8 Candidal intertrigo B37.2 Morbid obesity E66.01 Type 2 diabetes mellitus with microalbuminuria, without long-term current use of insulin E11.29; R80.9 Diabetes mellitus type: type 2 Diabetes mellitus ad terminal makeup operator insulin use: without ad terminal makeup operator use Diabetes mellitus complication status: with kidney complications Diabetes mellitus complication detail: with microalbuminuria Vulvar candidiasis B37.31
== END 2024-01-10 11:36 | disposition home or self-care (01) ==
PROVIDERS: PCP Internal Medicine; Visit Provider Advanced Practice Midwife
DX: N89.8 Other specified noninflammatory disorders of vagina (principal); B37.2 Candidiasis of skin and nail; E66.01 Morbid (severe) obesity due to excess calories; E11.29 Type 2 diabetes mellitus with other diabetic kidney complication; R80.9 Proteinuria, unspecified; B37.31 Acute candidiasis of vulva and vagina
CPT/HCPCS: 99203

== ENCOUNTER → 2024-01-10 10:51 | Outpatient (BNVA) | payer OTHER, SELFPAY | PROVIDERS: PCP Internal Medicine; Visit Provider Advanced Practice Midwife | DX: L29.2 Pruritus vulvae (principal); B37.2 Candidiasis of skin and nail; B37.31 Acute candidiasis of vulva and vagina; E11.29 Type 2 diabetes mellitus with other diabetic kidney complication; R80.9 Proteinuria, unspecified; E66.01 Morbid (severe) obesity due to excess calories; Z68.43 Body mass index [BMI] 50.0-59.9, adult; Z98.84 Bariatric surgery status | CPT/HCPCS: 99202 ==

== ENCOUNTER 2024-02-16 10:58 | Outpatient (REF) | payer OTHER, SELFPAY ==
--- NOTE | ~2024-02-16 | MM_ITS ---
EXAMINATION: MM SCREENING DIGITAL BREAST TOMOSYNTHESIS, BILATERAL CLINICAL INFORMATION: Screening. Asymptomatic. COMPARISON: Mammography: This study is compared with prior exams dating back to 2019. TECHNIQUE: Digital breast tomosynthesis is performed in both the craniocaudal and mediolateral oblique views along with computer-aided detection (CAD). Synthesized 2D images are generated from the tomosynthesis. FINDINGS: There are scattered areas of fibroglandular density (ACR BI-RADS breast composition Category b). There are no significant masses, abnormal calcifications, or other abnormalities. There are multiple, unchanged, benign, calcified oil cysts throughout the superior half of the right breast. MM/MM tomosynthesis screening BI IMPRESSION: No mammographic evidence of malignancy. ASSESSMENT: BI-RADS BI-RADS 2 - Benign Findings RECOMMENDATION: Routine annual mammography screening. 1 year F/U This examination should not preclude the clinical evaluation of a suspicious palpable abnormality. This patient's information was entered into a reminder system with a target due date for their next mammogram.
== END 2024-02-16 10:59 | disposition home or self-care (01) ==
LOC: HO.MAMMO 10:58
PROVIDERS: PCP Internal Medicine; Visit Provider Internal Medicine
DX: Z12.31 Encounter for screening mammogram for malignant neoplasm of breast (principal)
CPT/HCPCS: 77063; 77067

== ENCOUNTER → 2024-02-16 11:15 | Outpatient (BNV) | payer OTHER, SELFPAY | PROVIDERS: PCP Internal Medicine; Visit Provider Radiology Diagnostic Radiology | DX: Z12.31 Encounter for screening mammogram for malignant neoplasm of breast (principal) | CPT/HCPCS: 77063; 77067 ==

== ENCOUNTER 2024-02-22 12:39 | Outpatient (AMB) | payer OTHER, SELFPAY ==
--- NOTE | 2024-02-22 12:40 | A.OFFVIS_ITS ---
VS Expanded 02/22/24 12:57 BP 144/84 H Blood Pressure Location Rt brachial Blood Pressure Position Sitting Pulse 78 Pulse Source Pulse Oximeter Temp 97.3 F Temperature Source Temporal Artery Scan Pulse Oximetry 97 Oxygen Delivery Method Room Air Height 4 ft 10 in Weight 241 lb 9.6 oz BMI 50.5 Body Fat % 48.1 Body Fat Mass 116.2 Fat Free Mass 125.2 Visceral Fat Rating 18.0 Body Water % 36.9 Body Water Mass 89.0 Muscle Mass/Score 118.8 Basal Metabolic Rate/Score 1,774 Intake Visit Reasons: (OV) PO LSG 05/05/2021 Pediatrician Active Practice Required: Yes Allergies citalopram Allergy (Mild, Verified 02/22/24 12:45) Rash Medication List - Last Reconciled 02/22/24 by CARROLL Bradshaw acetaminophen 650 mg (2 x 325 mg) PO Q6H PRN 30 days atorvastatin 80 mg PO BEDTIME 90 days bisacodyl (Dulcolax (bisacodyl)) 10 mg (2 x 5 mg) PO ONCE 1 day bisacodyl (Dulcolax (bisacodyl)) 20 mg (4 x 5 mg) PO ONCE 1 day blood sugar diagnostic Use 1 test strip twice a day empagliflozin-metformin 25-1,000 mg ER (Synjardy XR) 1 tab PO DAILY 90 days ezetimibe 10 mg PO DAILY 90 days ferrous sulfate 325 mg PO DAILY 90 days fluconazole 150 mg PO Q3D 2 doses folic acid 1 mg PO DAILY 90 days Grab bar As directed hydroxyzine pamoate 50 mg PO BID PRN 30 days insulin syringe,safetyneedle Use 1 needle once a month lancets Use 1 lancet twice a day lisinopril 40 mg PO DAILY 90 days loratadine 10 mg PO DAILY PRN 90 days methylcellulose (laxative) (Citrucel) 500 mg PO TID metoprolol succinate ER 100 mg PO DAILY miconazole nitrate 2% 1 appl topical BID miconazole nitrate 2% (Miconazole-7) 1 appful vaginal BEDTIME 7 days pantoprazole 20 mg PO QAM polyethylene glycol 3350 (Miralax) 238 grams PO ONCE PRN 1 day quetiapine 25 mg PO BEDTIME semaglutide (Ozempic) 1 mg (1.472 mL) subcut QWEEK 30 days sertraline 25 mg PO QAM 30 days sertraline 50 mg PO QPM 30 days Shower Chair As directed syringe with needle, safety (BD Safety-Madina Detachable Needle) As directed trazodone 50 mg PO BEDTIME PRN 30 days walker Walker with seat and wheels HPI Comments Details: This?is a?54?yo female who is s/p LSG 05/05/2021. Weight at last visit on 05/20/2022 was 217.4 pounds with a BMI of 47, weight today is 241.6 pounds, representing a 24.2 pound weight gain with a BMI today of 50.5. Pt reports anxiety and depression which made it difficult for her to follow the meal plan. She has a psychiatrist and counselor. She is interested in meeting one of our providers to help with her eating habits when stressed/anxious. Pt on Ozempic, tolerating well, lost a little weight since starting. Present meal plan includes: breakfast- 30g shake lunch- 30g shake dinner- 2oz protein, 2oz veg protein bar during the day for a snack (suggested after lunch or after dinner) not currently taking urbano MVI but wants to start Exercise routine includes: tries to walk, but has some pain/swelling since has had surgery on both knees [facility] Medical History Morbid obesity with BMI of 45.0-49.9, adult Microalbuminuria due to type 2 diabetes mellitus GERD without esophagitis On beta epifanio at home Osteoarthritis of right knee Osteoarthritis of left knee COVID-19 vaccine series completed Hand pain Pernicious anemia Depression with anxiety Anemia Thiamine deficiency B12 deficiency Sleep apnea with use of continuous positive airway pressure (CPAP) Steatosis, liver Hyperlipidemia Morbid obesity Obese Rash Pure hypercholesterolemia Diabetes mellitus Essential hypertension Surgical History History of carpal tunnel release Status post total knee replacement, right History of arthroplasty of left knee Status post total left knee replacement Hx of carpal tunnel repair S/P laparoscopic sleeve gastrectomy Status post debridement History of total abdominal hysterectomy and bilateral salpingo-oophorectomy History of foot surgery Family History Father Diabetes Hypertension Prostate cancer Mother Hypertension Stomach cancer Social History Household Members: Family Household Members Other:: Brother Housing: Apartment Are you a primary assisted living care manager to a significant other at home: No Do you presently have visiting nurse or other home services: No Alcohol intake: never Patient Tobacco Use Status: Never used Tobacco e-Cigarette/Vaping Use: Never Used Second Hand Smoke Exposure: No Advance Directives Date on File: 04/16/22 service: No 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al status: disabled 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 Cognitive needs: Yes Hearing needs: No Vision needs: No Female Reproductive History Menstrual Age of Menarche: 12 Quality Reporting (2019) Adult ([facility] ) Smoking risk assessment performed?: Yes Patient Tobacco Use Status: Never used Tobacco Assessment & Plan Assessment & Plan (1) S/P laparoscopic sleeve gastrectomy: Comment: 04/2021 Code(s): Z98.84 - Bariatric surgery status Category: Surgical (2) Morbid obesity: Comment: s/p gastric sleeve 2020 Code(s): E66.01 - Morbid (severe) obesity due to excess calories Category: Medical Plan Will set up a visit with Nahomy to discuss strategies to help avoid turning to snacking/eating off plan foods when stressed/anxious. I think this is her primary problem and getting this under better control will help with adherence to plan. Overall will keep meal plan the same- 2 shakes, 1 bar or yogurt, and one meal of protein/veg per day. Using premade Pure shakes. Gave handout on protein bars. If she feels hungry can have an additional protein bar. Pt will start urbano MVI. Will order vitamin labs, pt can have done when she gets labs drawn for PCP. RTC 2-3 months, after visit with Nahomy. Patient is morbidly obese and is not considered stable at this time. I spent a total of 30 minutes reviewing/updating records, examining the patient and counseling the patient on weight management as detailed above. Orders: Orders Vitamin A Today Z98.84 - Bariatric surgery status Vitamin B12 and Folate Today Z98.84 - Bariatric surgery status TSH reflex Free T4 Today Z98.84 - Bariatric surgery status Zinc Today Z98.84 - Bariatric surgery status Vitamin D 25-OH Total Today Z98.84 - Bariatric surgery status Vitamin B1 Today Z98.84 - Bariatric surgery status
[2024-02-22 12:57] VITALS: BP 144/84; PULSE 78; TEMP 36.3; O2SAT 97; BMI 50.5
== END 2024-02-22 13:15 | disposition home or self-care (01) ==
PROVIDERS: PCP Internal Medicine; Visit Provider Physician Assistant Surgical
DX: E66.01 Morbid (severe) obesity due to excess calories (principal); Z68.43 Body mass index [BMI] 50.0-59.9, adult; Z90.3 Acquired absence of stomach [part of]; Z98.84 Bariatric surgery status
CPT/HCPCS: 99214

== ENCOUNTER → 2024-02-22 12:39 | Outpatient (BNVA) | payer OTHER, SELFPAY | PROVIDERS: PCP Internal Medicine; Visit Provider Physician Assistant Surgical | DX: E66.01 Morbid (severe) obesity due to excess calories (principal); Z98.84 Bariatric surgery status; Z68.43 Body mass index [BMI] 50.0-59.9, adult | CPT/HCPCS: 99212 ==

== ENCOUNTER 2024-04-19 13:02 | Outpatient (REF) | payer OTHER, SELFPAY ==
[2024-04-19 13:15] LABS: MANUAL DIFF FLAG NO
[2024-04-19 13:44] LABS: Basophils Percent Auto 0.4 % (0-2); Eosinophils Absolute Auto 0.2 X10*3/uL (0.0-0.4); Eosinophils Percent Auto 1.8 % (0-4); Hematocrit 40.3 % (37.0-47.0); Hemoglobin 13.1 g/dl (12.0-16.0); Imm Gran Abs Auto 0.03 X10*3/uL (0.00-0.03); Imm Gran Pct Auto 0.3 % (0.0-0.4); Lymphocytes Absolute Auto 1.7 X10*3/uL (1.2-4.9); Lymphocytes Percent Auto 17.3 % (20-40); Mean Corpuscular HGB Conc 32.5 g/dl (31.0-35.0); Mean Corpuscular Hemoglobin 29.3 pg (27.0-33.0); Mean Corpuscular Volume 90.2 fL (80.0-98.0); Mean Platelet Volume 9.7 fL (9.4-12.3); Monocytes Absolute Auto 0.7 X10*3/uL (0.1-1.2); Monocytes Percent Auto 7.1 % (2-11); Neutrophils Percent Auto 73.1 % (45-73); Platelet Count 275 X10*3/uL (160-400); Red Blood Count 4.47 X10*6/uL (4.20-5.50); Red Cell Distribution Width 13.3 % (11.0-16.0); White Blood Count 9.6 X10*3/uL (4.8-10.8)
[2024-04-19 15:08] LABS: Alanine Aminotransferase 17 U/L (0-31); Albumin Level 3.7 g/dL (3.5-5.0); Alkaline Phosphatase 151 U/L (39-117); Anion Gap 13 (12-20); Aspartate Amino Transferase 13 U/L (5-31); Bilirubin Total 0.5 mg/dL (0.0-1.0); Blood Urea Nitrogen 9 mg/dL (9-16); Calcium 9.1 mg/dL (8.4-10.2); Carbon Dioxide 23 mmol/L (22-29); Chloride 109 mmol/L (96-108); Cholesterol 192 mg/dL (<200); Estimated Glomerular Filt Rate > 60; Glucose Fasting 101 mg/dL (60-99); HDL Cholesterol 59 mg/dL (>40); Iron 103 mcg/dL (30-160); LDL Cholesterol Calculated 109 mg/dL (<100); Percent Iron Saturation 37 % (15-50); Potassium 4.3 mmol/L (3.3-5.1); Sodium 141 mmol/L (135-145); Total Iron Binding Capacity 278 mcg/dL (228-428); Triglycerides 121 mg/dL (<150); Unsaturated Iron Binding 175 ug/dL
[2024-04-19 15:23] LABS: Vitamin D 25-OH Total 30.9 ng/mL (>30)
[2024-04-19 15:28] LABS: Vitamin B12 187 pg/mL (200-900)
[2024-04-19 15:50] LABS: Creatinine Urine 121.75 mg/dL; Microalbum/Creatinine Ratio Ur 8.2 ug/mg cr (<30)
== END 2024-04-19 13:03 | disposition home or self-care (01) ==
LOC: HO.LAB 13:02
PROVIDERS: PCP Internal Medicine; Visit Provider Internal Medicine
DX: E55.9 Vitamin D deficiency, unspecified (principal); E11.29 Type 2 diabetes mellitus with other diabetic kidney complication; R80.9 Proteinuria, unspecified; E78.5 Hyperlipidemia, unspecified; E11.9 Type 2 diabetes mellitus without complications; D64.9 Anemia, unspecified; E53.8 Deficiency of other specified B group vitamins
CPT/HCPCS: 36415; 80053; 80061; 82043; 82306; 82570; 82607; 82746; 83540; 85025

== ENCOUNTER 2024-04-25 13:14 | Outpatient (AMB) | payer OTHER, SELFPAY ==
--- NOTE | 2024-04-25 13:17 | MHC.PC.OV ---
Vital Signs 04/25/24 13:20 Height 4 ft 10 in Weight 243 lb BMI 50.8 BP 140/80 H Blood Pressure Location Lt brachial Position Sitting Intake Visit Reasons: 6mof\u Intake Note: Patient here for a follow up 6 month Marketing Operations Coordinator Required: No Accompanied by: Self / Same As Patient Allergies citalopram Allergy (Mild, Verified 04/25/24 13:33) Rash Medication List - Last Reconciled 04/25/24 by Radha Woodson MD acetaminophen 650 mg (2 x 325 mg) PO Q6H PRN 30 days atorvastatin 80 mg PO BEDTIME 90 days bisacodyl (Dulcolax (bisacodyl)) 20 mg (4 x 5 mg) PO ONCE 1 day blood sugar diagnostic Use 1 test strip twice a day cyanocobalamin (vitamin B-12) 1,000 mcg IM Q4W 1 month empagliflozin-metformin 25-1,000 mg ER (Synjardy XR) 1 tab PO DAILY 90 days ezetimibe 10 mg PO DAILY 90 days ferrous sulfate 325 mg PO DAILY 90 days folic acid 1 mg PO DAILY 90 days Grab bar As directed hydroxyzine pamoate 50 mg PO BID PRN 30 days insulin syringe,safetyneedle Use 1 needle once a month insulin syringe-needle U-100 (Advocate Syringes) As directed lancets Use 1 lancet twice a day lisinopril 40 mg PO DAILY 90 days loratadine 10 mg PO DAILY PRN 90 days methylcellulose (laxative) (Citrucel) 500 mg PO TID metoprolol succinate ER 100 mg PO DAILY miconazole nitrate 2% 1 appl topical BID nystatin 1 appl topical BID 2 weeks pantoprazole 20 mg PO QAM polyethylene glycol 3350 (Miralax) 238 grams PO ONCE PRN 1 day quetiapine 25 mg PO BEDTIME semaglutide (Ozempic) 1 mg (1.472 mL) subcut QWEEK 30 days sertraline 25 mg PO QAM 30 days sertraline 50 mg PO QPM 30 days Shower Chair As directed syringe with needle, safety (BD Safety-Madina Detachable Needle) As directed trazodone 50 mg PO BEDTIME PRN 30 days walker Walker with seat and wheels Tobacco use date assessed: 10/27/23 Dental Screening Dental Screen Date: 04/25/24 Did you have a dental visit in the last 12 months?: No Did you have a dental problem in the last 6 months where you did not have access to dental care?: No Was dental information given to patient?: Patient has dentist HPI HPI Comments History of Present Illness Details This is a 54-year-old female with diabetes mellitus type 2, hypertension, dyslipidemia, moderate major depression and morbid obesity that comes today for follow-up on her conditions. A1c within goal. Blood pressure elevated but she has not take her medication yet. Blood pressure will be recheck in 3 weeks by nurse navigator. LDL not on goal and I resent Zetia as well as atorvastatin today. Depression stable with SSRIs. She is morbidly obese with a BMI of 50.8 and had gastric sleeve surgery. I will increase Ozempic to 2 mg. No chest pain or shortness on breath. She does have pernicious anemia and her vitamin B12 is very low. [facility] Medical History Morbid obesity with BMI of 45.0-49.9, adult Microalbuminuria due to type 2 diabetes mellitus GERD without esophagitis On beta epifanio at home Osteoarthritis of right knee Osteoarthritis of left knee COVID-19 vaccine series completed Hand pain Pernicious anemia Depression with anxiety Anemia Thiamine deficiency B12 deficiency Sleep apnea with use of continuous positive airway pressure (CPAP) Steatosis, liver Hyperlipidemia Morbid obesity Obese Rash Pure hypercholesterolemia Diabetes mellitus Essential hypertension Surgical History History of carpal tunnel release Status post total knee replacement, right History of arthroplasty of left knee Status post total left knee replacement Hx of carpal tunnel repair S/P laparoscopic sleeve gastrectomy Status post debridement History of total abdominal hysterectomy and bilateral salpingo-oophorectomy History of foot surgery Family History Father Diabetes Hypertension Prostate cancer Mother Hypertension Stomach cancer Social History Household Members: Family Household Members Other:: Brother Housing: Apartment Are you a primary resident care technician to a significant other at home: No Do you presently have visiting nurse or other home services: No Alcohol intake: never Patient Tobacco Use Status: Never used Tobacco e-Cigarette/Vaping Use: Never Used Second Hand Smoke Exposure: No Advance Directives Date on File: 04/16/22 service: No 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al status: disabled 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 Inder Hamm, Nneka Maire, Marcelo Contreras and colleagues, with an educational mabel from [employer]. Review of Systems Const All systems reviewed & are unremarkable except as noted in HPI and below Card Denies chest pain at rest, Denies chest pain with activity, Denies edema, Denies irregular heart rhythm, Denies claudication, Denies dyspnea, Denies dyspnea on exertion, Denies orthopnea, Denies paroxysmal nocturnal dyspnea and Denies slow heart rate Resp Denies cough, Denies dyspnea and Denies dyspnea on exertion GI Denies abdominal pain, Denies change in bowel habits, Denies excessive flatus, Denies nausea and Denies vomiting Denies urinary incontinence, Denies urinary hesitancy and Denies urinary urgency Musc Denies abnormal gait, Denies atrophy, Denies deformity and Denies limited range of motion Skin/Breast Denies bleeding lesions, Denies changing lesions and Denies rash Neuro Denies abnormal gait and Denies lack of coordination Physical exam (Primary Care) Vital Signs: Last Vital Signs BP 140/80 H 04/25/24 13:20 BMI result Body Mass Index 50.8 BMI Assessment/Plan discussion: High BMI High, discussed plan: lifestyle, weight reduction, dietary and physical activity Tobacco/Smoking Status: Tobacco use Status Tobacco use date assessed 10/27/23 04/25/24 13:18 Patient Tobacco Use Status Never used Tobacco 04/25/24 13:18 e-Cigarette/Vaping Use Never Used 04/25/24 13:18 Thrive Assessment: Date of Thrive Assessment Date Thrive assessed 10/27/23 04/25/24 13:18 Const Limitations: ambulation with cane Resp Effort & Inspection: normal respiratory effort Auscultation: clear to auscultation bilaterally Cardio Jugular venous distension: no JVD Rate: regular rate Rhythm: regular rhythm Heart sounds: S1 normal heart sound present and S2 normal heart sound present Extrem General: Yes full ROM Office Meds cyanocobalamin (vitamin B-12) 1,000 mcg/mL injection solution Performing Provider: Radha Woodson MD [facility] Administered by: Margaret Smith RN on 04/25/24 14:05 Dose Route Admin Location Dispensed Lot Number Expiration Date NDC [employer] Dig[employer] Truck [employer] 1,000 mcg IM 1 mL [id number] 02/02/25 Results AMB Hemoglobin A1c AMB Hemoglobin A1c 6.1 % Last Edit by XANDER Cesar on 04/25/24 13:28 Results Reviewed Results Reviewed: Laboratory Last Values Hgb A1c (Clinic) 6.1 % (4.0-6.0) H 04/25/24 13:17 Assessment and Plan Assessment & Plan (1) Moderate major depression: Code(s): F32.1 - Major depressive disorder, single episode, moderate Plan: Continue SSRIs. (2) Pernicious anemia: Code(s): D51.0 - Vitamin B12 deficiency anemia due to intrinsic factor deficiency Plan: Continue vitamin B12 intramuscular once a month. 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 A1c goal is equal or less than 7%. (4) Essential hypertension: Code(s): I10 - Essential (primary) hypertension Plan: Continue lisinopril. Blood pressure goal is equal or less than 130/80. Recheck blood pressure with nurse navigator in 3 weeks. (5) Hyperlipidemia LDL goal <70: Code(s): E78.5 - Hyperlipidemia, unspecified Plan: Continue statins and Zetia. LDL goal is less than 70. (6) Morbid obesity: Comment: s/p gastric sleeve 2020 Code(s): E66.01 - Morbid (severe) obesity due to excess calories Plan: Recommended to start diet and exercise. BMI goal is less than 30. Orders: Orders AMB Hemoglobin A1c Today E11.29 - Type 2 diabetes mellitus with other diabetic kidney complication, R80.9 - Proteinuria, unspecified AMB Vitamin B12 Injection Patient Supplied Today D51.0 - Vitamin B12 deficiency anemia due to intrinsic factor deficiency Medications: New semaglutide (Ozempic) 2 mg (0.75 mL) subcut QWEEK 3 mL 0RF 4 weeks E11.29 - Type 2 diabetes mellitus with other diabetic kidney complication, R80.9 - Proteinuria, unspecified Refilled atorvastatin 80 mg PO BEDTIME 90 tabs 1RF 90 days ezetimibe 10 mg PO DAILY 90 tabs 1RF 90 days folic acid 1 mg PO DAILY 90 tabs 3RF 90 days hydroxyzine pamoate 50 mg PO BID PRN 60 caps 1RF anxiety 30 days lisinopril 40 mg PO DAILY 90 tabs 1RF 90 days loratadine 10 mg PO DAILY PRN 90 tabs 1RF allergy symptoms 90 days J30.9 - Allergic rhinitis, unspecified metoprolol succinate ER 100 mg PO DAILY 90 tabs 1RF pantoprazole 20 mg PO QAM 90 tabs 1RF methylcellulose (laxative) (Citrucel) 500 mg PO TID 90 tabs 2RF Discontinued ferrous sulfate Discontinued Reason: Patient Completed Course 325 mg PO DAILY 90 days 90 tabs 1RF D64.9 - Anemia, unspecified semaglutide (Ozempic) for 4 weeks Discontinued Reason: Patient Completed Course 1 mg (1.472 mL) subcut QWEEK 30 days 7.36 mL 3RF E11.9 - Type 2 diabetes mellitus without complications Coding Level of Care Code Est Pt Level 4 (20331) Complex EM visit Add On G2211 Diagnoses Moderate major depression F32.1 Pernicious anemia D51.0 Type 2 diabetes mellitus with microalbuminuria, without long-term current use of insulin E11.29; R80.9 Diabetes mellitus type: type 2 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
[2024-04-25 13:20] VITALS: BP 140/80; BMI 50.8
--- NOTE | 2024-04-25 13:58 | AM.OFFVISNUR ---
Vital Signs 04/25/24 13:20 Height 4 ft 10 in Weight 243 lb BMI 50.8 BP 140/80 H Blood Pressure Location Lt brachial Position Sitting Intake Visit Reasons: 6mof\u Allergies citalopram Allergy (Mild, Verified 04/25/24 13:33) Rash Medication List - Last Reconciled 04/25/24 by Radha Woodson MD acetaminophen 650 mg (2 x 325 mg) PO Q6H PRN 30 days atorvastatin 80 mg PO BEDTIME 90 days bisacodyl (Dulcolax (bisacodyl)) 20 mg (4 x 5 mg) PO ONCE 1 day blood sugar diagnostic Use 1 test strip twice a day cyanocobalamin (vitamin B-12) 1,000 mcg IM Q4W 1 month empagliflozin-metformin 25-1,000 mg ER (Synjardy XR) 1 tab PO DAILY 90 days ezetimibe 10 mg PO DAILY 90 days ferrous sulfate 325 mg PO DAILY 90 days folic acid 1 mg PO DAILY 90 days Grab bar As directed hydroxyzine pamoate 50 mg PO BID PRN 30 days insulin syringe,safetyneedle Use 1 needle once a month insulin syringe-needle U-100 (Advocate Syringes) As directed lancets Use 1 lancet twice a day lisinopril 40 mg PO DAILY 90 days loratadine 10 mg PO DAILY PRN 90 days methylcellulose (laxative) (Citrucel) 500 mg PO TID metoprolol succinate ER 100 mg PO DAILY miconazole nitrate 2% 1 appl topical BID nystatin 1 appl topical BID 2 weeks pantoprazole 20 mg PO QAM polyethylene glycol 3350 (Miralax) 238 grams PO ONCE PRN 1 day quetiapine 25 mg PO BEDTIME semaglutide (Ozempic) 1 mg (1.472 mL) subcut QWEEK 30 days sertraline 25 mg PO QAM 30 days sertraline 50 mg PO QPM 30 days Shower Chair As directed syringe with needle, safety (BD Safety-Madina Detachable Needle) As directed trazodone 50 mg PO BEDTIME PRN 30 days walker Walker with seat and wheels Results AMB Hemoglobin A1c AMB Hemoglobin A1c 6.1 % Last Edit by XANDER Cesar on 04/25/24 13:28 Assessment & Plan Assessment & Plan Orders: Orders AMB Hemoglobin A1c Today E11.29 - Type 2 diabetes mellitus with other diabetic kidney complication, R80.9 - Proteinuria, unspecified Medications: New semaglutide (Ozempic) 2 mg (0.75 mL) subcut QWEEK 3 mL 0RF 4 weeks E11.29 - Type 2 diabetes mellitus with other diabetic kidney complication, R80.9 - Proteinuria, unspecified Refilled atorvastatin 80 mg PO BEDTIME 90 tabs 1RF 90 days ezetimibe 10 mg PO DAILY 90 tabs 1RF 90 days folic acid 1 mg PO DAILY 90 tabs 3RF 90 days hydroxyzine pamoate 50 mg PO BID PRN 60 caps 1RF anxiety 30 days lisinopril 40 mg PO DAILY 90 tabs 1RF 90 days loratadine 10 mg PO DAILY PRN 90 tabs 1RF allergy symptoms 90 days J30.9 - Allergic rhinitis, unspecified metoprolol succinate ER 100 mg PO DAILY 90 tabs 1RF pantoprazole 20 mg PO QAM 90 tabs 1RF methylcellulose (laxative) (Citrucel) 500 mg PO TID 90 tabs 2RF Discontinued ferrous sulfate Discontinued Reason: Patient Completed Course 325 mg PO DAILY 90 days 90 tabs 1RF D64.9 - Anemia, unspecified semaglutide (Ozempic) for 4 weeks Discontinued Reason: Patient Completed Course 1 mg (1.472 mL) subcut QWEEK 30 days 7.36 mL 3RF E11.9 - Type 2 diabetes mellitus without complications
== END 2024-04-25 13:57 | disposition home or self-care (01) ==
PROVIDERS: PCP Internal Medicine; Visit Provider Internal Medicine
DX: E11.29 Type 2 diabetes mellitus with other diabetic kidney complication (principal); F32.1 Major depressive disorder, single episode, moderate; E66.01 Morbid (severe) obesity due to excess calories; Z68.43 Body mass index [BMI] 50.0-59.9, adult; D51.0 Vitamin B12 deficiency anemia due to intrinsic factor deficiency; R80.9 Proteinuria, unspecified; I10 Essential (primary) hypertension; E78.5 Hyperlipidemia, unspecified
CPT/HCPCS: 83036; 96372; 99214; G2211; J3420

== ENCOUNTER → 2024-05-11 12:17 | Outpatient (BNVA) | payer OTHER, SELFPAY | PROVIDERS: PCP Internal Medicine; Visit Provider Counselor Mental Health ==

== ENCOUNTER → 2024-05-11 12:17 | Outpatient (AMB) | payer OTHER, SELFPAY ==
--- NOTE | 2024-05-11 12:20 | MHC.WMTHER ---
Intake Intake Visit Reasons: (TV)PO LSG 05/05/2021 Allergies citalopram Allergy (Mild, Verified 04/25/24 13:33) Rash [facility] Medical History (Updated 05/11/24 @ 13:00 by Nahomy Hinojosa [facility]) Depression with anxiety Morbid obesity with BMI of 45.0-49.9, adult Microalbuminuria due to type 2 diabetes mellitus GERD without esophagitis On beta epifanio at home Osteoarthritis of right knee Osteoarthritis of left knee COVID-19 vaccine series completed Hand pain Pernicious anemia Anemia Thiamine deficiency B12 deficiency Sleep apnea with use of continuous positive airway pressure (CPAP) Steatosis, liver Hyperlipidemia Morbid obesity Obese Rash Pure hypercholesterolemia Diabetes mellitus Essential hypertension Surgical History History of carpal tunnel release Status post total knee replacement, right History of arthroplasty of left knee Status post total left knee replacement Hx of carpal tunnel repair S/P laparoscopic sleeve gastrectomy Status post debridement History of total abdominal hysterectomy and bilateral salpingo-oophorectomy History of foot surgery Family History Father Diabetes Hypertension Prostate cancer Mother Hypertension Stomach cancer Social History Household Members: Family Household Members Other:: Brother Housing: Apartment Are you a primary manager urgent care to a significant other at home: No Do you presently have visiting nurse or other home services: No Alcohol intake: never Patient Tobacco Use Status: Never used Tobacco e-Cigarette/Vaping Use: Never Used Second Hand Smoke Exposure: No Advance Directives Date on File: 04/16/22 service: No 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al status: disabled 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 PT had bariatric surgery in [address] Pranav Schulz focused on information gathering as part of initial assessment and identify needs. PT appears to have a limited social support for her weight-loss journey, multiple health issues and a history of mental health that has increased over the last couple years. She sees a therapist on a bi-weekly basis and a prescriber however, PT alleges the medications they offered are not helping and the ones she needs will impact with other meds she is currently on. PAtient shared her current eating schedule and example of meals, indicating she has not make changes on eating behavior after surgery. PT will benefit form nutrition counseling and continue working with -provider for habit change, modification of eating behaviors, and learn/utilize effective coping skills for stress eating. Presenting Concerns Referral Source [facility]- Provider. Jenna Gama Reason for referral support due to concerns with eating behavior Precipitating Event Obesity, not following meal plan, struggling with stress-eating. Living Situation Current Living Situation Rent At risk of losing current housing? No Satisfied with current living situation? Yes Comments PT lives with her brother. Food/Weight/Diet History/Relationship with food Example of meals: Breakfast: @11 am [place] or corn flakes. Lunch: Skip Dinner: rice, meat, salad Night time: juice, ice tea, [place], cake, a shake. History/Relationship with weight In 2020 she was over 240Lbs, had bariatric surgery Social History Family history and relationship several years ago. She has 3 adult children. 6 siblings, parents . PT describes good family relationship, however she doesn;t feel they support her with her eating needs after surgery. 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 Lutheran/Spirituality Voodoo Cultural/Ethnic information PT was born and raised in [place]. Moved to [place] 5 years ago due to medical issues and the grief of losing her parents. Legal Involvement and History Current or historical involvement with the legal system? None reported Education Highest grade completed 12th grade. 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 Preferred learning style Written Currently enrolled in educational program? No Interested in further educational program? No Employment Employment Status Unemployed Wants help to find employment? No Meaningful activities None. During the day she mostly watches TV, scrolling cellphone and speaks with daughters over the phone. Financial Situation Describe current financial situation Occasional struggle Financial assistance? Food [place] and [employer]SI Service Service? No Mental Health and Addiction Treatment Psychiatric history PT attends Behavioral health services at [facility] since 2020. oJhn Adrian is her therapist and Dr. Adrian her psychiatrist. Attends counseling twice at month via telehealth, and prescriber every 1-3 months, depending on her symptoms. She doesn't know her diagnosis, but reported she can't be alone, gets overwhelmed with noises, hear voices, has sleeping issues and wakes up multiple times at night and then has a hard time falling back asleep. Denies ever been hospitalized for MH and/or in Crisis. Reported she has never dealt with SI/Sa and/or other concerns regarding self-harming and/or other-harm. Assessment & Plan Assessment & Plan (1) Eating disorder, unspecified: Code(s): F50.9 - Eating disorder, unspecified Qualifiers: Eating disorder type: unspecified eating disorder Qualified Code(s): F50.9 - Eating disorder, unspecified Plan: Cfollow up on 05/28/24 at 11am via Telehealth to finish assessment and continue working on habit change, modification of eating behaviors, and learn/utilize effective coping skills for stress eating. Telehealth Telehealth Telehealth Platform: [employer] Location of provider rendering services: practice address Location of patient: address on file Patient Identification confirmed using: Name, : Yes Telehealth method: voice only Patient verbally consented to treatment: Yes Patient verbally consented to billing insurance company: Yes Patient informed of any privacy concerns related to visit: No Minutes spent on Phone/Video with Pt.: 50 (start time: 12:10/ End Time: 1:00pm) Coding Level of Care Code New Pt Tele Psy Yolis Suresh (41715) Patient Type New Diagnoses Eating disorder, unspecified type F50.9 Eating disorder type: unspecified eating disorder Time Spent (min) 50
== END ==
PROVIDERS: PCP Internal Medicine; Visit Provider Counselor Mental Health
DX: F50.9 Eating disorder, unspecified (principal)
CPT/HCPCS: 90791

== ENCOUNTER 2024-05-14 10:49 | Outpatient (AMB) | payer OTHER, SELFPAY ==
--- NOTE | 2024-05-14 11:00 | A.OFFVIS_ITS ---
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 Allergies citalopram Allergy (Mild, Verified 05/14/24 11:07) Rash Medication List - Last Reconciled 05/14/24 by CARROLL Bradshaw acetaminophen 650 mg (2 x 325 mg) PO Q6H PRN 30 days atorvastatin 80 mg PO BEDTIME 90 days bisacodyl (Dulcolax (bisacodyl)) 20 mg (4 x 5 mg) PO ONCE 1 day blood sugar diagnostic Use 1 test strip twice a day cyanocobalamin (vitamin B-12) 1,000 mcg IM Q4W 1 month empagliflozin-metformin 25-1,000 mg ER (Synjardy XR) 1 tab PO DAILY 90 days ezetimibe 10 mg PO DAILY 90 days folic acid 1 mg PO DAILY 90 days Grab bar As directed hydroxyzine pamoate 50 mg PO BID PRN 30 days insulin syringe,safety needle Use 1 needle once a month insulin syringe-needle U-100 (Advocate Syringes) As directed lancets Use 1 lancet twice a day lisinopril 40 mg PO DAILY 90 days loratadine 10 mg PO DAILY PRN 90 days methylcellulose (laxative) (Citrucel) 500 mg PO TID metoprolol succinate ER 100 mg PO DAILY miconazole nitrate 2% 1 appl topical BID nystatin 1 appl topical BID 2 weeks pantoprazole 20 mg PO QAM polyethylene glycol 3350 (Miralax) 238 grams PO ONCE PRN 1 day semaglutide (Ozempic) 2 mg (0.75 mL) subcut QWEEK 4 weeks sertraline 25 mg PO QAM 30 days sertraline 50 mg PO QPM 30 days Shower Chair As directed syringe with needle, safety (BD Safety-Madina Detachable Needle) As directed trazodone 50 mg PO BEDTIME PRN 30 days walker Walker with seat and wheels HPI Comments Details: This?is a?54?yo female who is s/p LSG 05/05/2021. Presents for 3 year post op visit. Weight at last visit on 02/22/2024 was 241.6 pounds with a BMI of 50.5, weight today is 244.6 pounds, representing a 3 pound weight gain with a BMI today of 51.1.? No complaints of nausea, emesis, abdominal pain or reflux, or constipation. Saw Nahomy for initial assessment, will have another appt later this month. Still taking the Ozempic, reports no issues on it, feels hunger is better controlled. Present meal plan includes: breakfast- 30g shake lunch- 30g shake dinner- 2oz protein, 2oz veg protein bar during the day for a snack (suggested after lunch or after dinner) can have additional protein bar if hungry ? MVI Pt reports taking 1 protein shake, 1 bar, had difficulty with finances but plans to restart full plan Exercise routine includes: tries to walk, but has some pain/swelling since has had surgery on both knees is restarting exercise but was sick, plans to possibly restart today [facility] Medical History (Updated 05/11/24 @ 13:00 by Nahomy Hinojosa [facility]) Depression with anxiety Morbid obesity with BMI of 45.0-49.9, adult Microalbuminuria due to type 2 diabetes mellitus GERD without esophagitis On beta epifanio at home Osteoarthritis of right knee Osteoarthritis of left knee COVID-19 vaccine series completed Hand pain Pernicious anemia Anemia Thiamine deficiency B12 deficiency Sleep apnea with use of continuous positive airway pressure (CPAP) Steatosis, liver Hyperlipidemia Morbid obesity Obese Rash Pure hypercholesterolemia Diabetes mellitus Essential hypertension Surgical History History of carpal tunnel release Status post total knee replacement, right History of arthroplasty of left knee Status post total left knee replacement Hx of carpal tunnel repair S/P laparoscopic sleeve gastrectomy Status post debridement History of total abdominal hysterectomy and bilateral salpingo-oophorectomy History of foot surgery Family History Father Diabetes Hypertension Prostate cancer Mother Hypertension Stomach cancer Social History Household Members: Family Household Members Other:: Brother Housing: Apartment Are you a primary tree care foreman to a significant other at home: No Do you presently have visiting nurse or other home services: No Alcohol intake: never Patient Tobacco Use Status: Never used Tobacco e-Cigarette/Vaping Use: Never Used Second Hand Smoke Exposure: No Advance Directives Date on File: 04/16/22 service: No 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al status: disabled 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 Cognitive needs: Yes Hearing needs: No Vision needs: No Female Reproductive History Menstrual Age of Menarche: 12 Quality Reporting (2019) Adult ([facility] ) Smoking risk assessment performed?: Yes Patient Tobacco Use Status: Never used Tobacco Assessment & Plan Assessment & Plan (1) S/P laparoscopic sleeve gastrectomy: Comment: 04/2021 Code(s): Z98.84 - Bariatric surgery status Category: Medical (2) Morbid obesity: Comment: s/p gastric sleeve 2020 Code(s): E66.01 - Morbid (severe) obesity due to excess calories Category: Medical Plan Will continue same meal plan, gave pt a case of Ensure shakes. Pt plans to restart exercise as she recovers from recent illness. Recently had bloodwork done by PCP, B12 already supplemented. Pt to see Nahomy again later this month. RTC 6 months. I spent a total of 30 minutes reviewing/updating records, examining the patient and counseling the patient on weight management as detailed above.
[2024-05-14 11:11] VITALS: BP 175/78; PULSE 73; TEMP 36.4; O2SAT 99; BMI 51.1
== END 2024-05-14 11:34 | disposition home or self-care (01) ==
PROVIDERS: PCP Internal Medicine; Visit Provider Physician Assistant Surgical
DX: E66.01 Morbid (severe) obesity due to excess calories (principal); Z68.43 Body mass index [BMI] 50.0-59.9, adult; Z90.3 Acquired absence of stomach [part of]; Z98.84 Bariatric surgery status
CPT/HCPCS: 99214

== ENCOUNTER → 2024-05-14 10:49 | Outpatient (BNVA) | payer OTHER, SELFPAY | PROVIDERS: PCP Internal Medicine; Visit Provider Physician Assistant Surgical | DX: E66.01 Morbid (severe) obesity due to excess calories (principal); Z71.3 Dietary counseling and surveillance; Z98.84 Bariatric surgery status; Z68.43 Body mass index [BMI] 50.0-59.9, adult | CPT/HCPCS: 99212 ==

== ENCOUNTER 2024-05-21 11:20 | Day surgery (SDC) | payer OTHER, SELFPAY ==
--- NOTE | 2024-05-17 15:11 | P.CONAN_ITS ---
HPI - Anesthesia Eval Consult details Narrative: 54yo F for Upper Endoscopy and Colonoscopy Anesthesia Pre-Procedure Meds Is the patient on any of the following meds?: GLP1/DPP4 PMFSH Active Problems Active Problems: All Active Problems Depression with anxiety (Acute) Pernicious anemia (Acute) Vulvar candidiasis (Acute) Physical exam (Acute) Vaginal pruritus (Acute) Sinusitis (Acute) Moderate major depression (Acute) GERD without esophagitis (Acute) Insomnia (Acute) Constipation (Acute) Carpal tunnel syndrome (Acute) Candidal intertrigo (Acute) History of total bilateral knee replacement (TKR) (Acute) S/P carpal tunnel release (Acute) Sleep apnea with use of continuous positive airway pressure (CPAP) (Acute) IBS (irritable bowel syndrome) (Acute) Depression (Acute) Anxiety (Acute) Hyponatremia (Acute) Status post repair of paraesophageal diaphragmatic hernia (Acute) Diaphragmatic hernia (Acute) Osteoarthritis of knees, bilateral (Acute) Hyperlipidemia LDL goal <70 (Acute) Essential hypertension (Acute) Diabetes mellitus (Acute) S/P laparoscopic sleeve gastrectomy (Acute) Pernicious anemia (Acute) Anemia (Acute) Thiamine deficiency (Acute) B12 deficiency (Acute) Steatosis, liver (Acute) Morbid obesity (Acute) Pure hypercholesterolemia (Acute) Past Medical History Medical History (Updated 05/11/24 @ 13:00 by Nahomy Hinojosa [facility]) Depression with anxiety Morbid obesity with BMI of 45.0-49.9, adult Microalbuminuria due to type 2 diabetes mellitus GERD without esophagitis On beta epifanio at home Osteoarthritis of right knee Osteoarthritis of left knee COVID-19 vaccine series completed Hand pain Pernicious anemia Anemia Thiamine deficiency B12 deficiency Sleep apnea with use of continuous positive airway pressure (CPAP) Steatosis, liver Hyperlipidemia Morbid obesity Obese Rash Pure hypercholesterolemia Diabetes mellitus Essential hypertension Family History Family History Father Diabetes Hypertension Prostate cancer Mother Hypertension Stomach cancer Family history of problems with anesthesia: No Surgical History Surgical History History of carpal tunnel release Status post total knee replacement, right History of arthroplasty of left knee Status post total left knee replacement Hx of carpal tunnel repair S/P laparoscopic sleeve gastrectomy Status post debridement History of total abdominal hysterectomy and bilateral salpingo-oophorectomy History of foot surgery History of Problems with Anesthesia: No Social History Social History Household Members: Family Household Members Other:: Brother Housing: Apartment Are you a primary home health care respiratory therapist to a significant other at home: No Do you presently have visiting nurse or other home services: No Alcohol intake: never Patient Tobacco Use Status: Never used Tobacco e-Cigarette/Vaping Use: Never Used Second Hand Smoke Exposure: No Advance Directives Date on File: 04/16/22 service: No 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al status: disabled 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
--- NOTE | 2024-05-21 12:29 | MHC.SHP ---
Pre-Procedural Eval Section A - 24 Hr Update-Section A only Date of Service: 05/21/24 The patient is an INPATIENT: No The patient has been examined within 24 hours of the surgical procedure. The History & Physical has been completed within 30 days and I have reviewed it.: No Section B - Complete if H&P > 30 days Chief Complaint: screening, IBS, dysphagia, anemia Relevant Family History (Specify if Yes): Yes Relevant Social History: None Present Medications: see Short Stay Collaborative assessment Medical History: Significant History (Depression with anxiety Diabetes mellitus Essential hypertension Hand pain Hyperlipidemia Morbid obesity Obese On beta epifanio at home Osteoarthritis of left knee Osteoarthritis of right knee Pernicious anemia Pure hypercholesterolemia Rash Sleep apnea with use of continuous positive airway pressure) History of Previous Operations: Relevant previous surgery/procedure and date(s) (History of arthroplasty of left knee History of foot surgery History of total abdominal hysterectomy and bilateral salpingo-oophorectomy Hx of carpal tunnel repair S/P laparoscopic sleeve gastrectomy Status post debridement Status post total knee replacement, right Status post total left knee replac) Allergies: Allergies Allergy/AdvReac Type Severity Reaction Status Date / Time citalopram Allergy Mild Rash Verified 05/14/24 11:07 Review of Systems Sugical H&P ROS: Negative: Constitution, Cardiovascular, Respiratory and Gastrointestinal Exam Surgical H&P Exam: Normal: Heart, Normal: Lungs, Normal: Extremities and Normal: Abdomen Plan Diagnosis/Plan: Unchanged I have reviewed the history and physical and performed a pertinent physical examination on my patient. No changes have occurred unless specified. Time Spent With Patient Time: Total time managing care of this patient today ____ minutes.
[2024-05-21 13:21] VITALS: BP 160/75; PULSE 84; RESP 18; TEMP 36.6; O2SAT 98; BMI 52.6
[2024-05-21 13:40] LABS: Glucose, Whole Blood 93 mg/dL (60-115)
[2024-05-21] MEDS: Lactated Ringers 1,000 ML 100 ML IVCONT (13:46)
--- NOTE | 2024-05-21 14:25 | HO.OPN-COLON ---
Colonoscopy Operative Note Operative Note Date of Service: 05/21/24 Narrative: FLEXIBLE TRANSORAL UPPER GASTROINTESTINAL ENDOSCOPY WITH BIOPSIES AND COLONOSCOPY TILL CECUM WITH BIOPSIES AND SNARE POLYPECTOMY Pre-op diagnosis: Colon cancer screening, anemia, IBS with diarrhea and constipation, intermittent dysphagia to solids and intermittent vomting. Patient is status post gastric sleeve surgery 2 years ago. Post-op diagnosis: GERD, esophagitis, Gastritis, Diverticulosis, hemorrhoids Endoscopist:? Lisseth Amaro MD Anesthesia:?MAC UPPER ENDOSCOPY Consent: Indications for the procedure and potential complications of bleeding, perforation, reaction to medications and missed diagnosis were discussed with the patient and informed consent was obtained. Instrument: Olympus GIF H 190 mid size upper endoscope Monitoring: Vital signs and clinical assessment, continuous EKG monitoring, Pulse oximetry, Carbon Dioxide monitoring and blood pressure monitoring were done throughout the procedure. Procedure: The patient was placed in the left lateral decubitis position and pre-procedure medications were administered and a bite block was placed. The endoscope was inserted into the mouth and advanced under direct vision to the third part of duodenum. A careful inspection was made as the upper endoscope was withdrawn including a retroflexed examination of the proximal stomach; Findings and interventions are described below. Findings: Larynx: Normal Esophagus: GE junction at 36 cms. Mildly tortuous esophagus without stricture or ring Minimal focal esophagitis at GE junction. No Edge's. Stomach: Normal appearing gastric pouch with mild gastric erythema - biopsies were obtained from the antrum. Grade 2 flap valve on retroflexed examination of the cardia. Duodenum: Normal bulb and descending duodenum Biopsies were obtained from descending duodenum to check for celiac sprue Intervention: Biopsies as noted above COLONOSCOPY PROCEDURE NOTE Instrument: Olympus PCF H 190 L variable stiffness pediatric colonoscope Monitoring: Vital signs and clinical assessment, intermittent blood pressure monitoring, continuous EKG monitoring, Pulse oximetry and Carbon Dioxide monitoring were done throughout the procedure. Please see anesthesia flowsheet. Colon withdrawl time was 22 minutes. Procedure: The patient was placed in the left lateral decubitis position and pre-procedure medications were administered. After a digital rectal examination of the ano-rectum, the video colonoscope was inserted into the rectum and advanced through the colon to the cecum. The colonoscope was slowly withdrawn in a retrograde panoramic fashion and the colon mucosa was carefully examined including a retroflexed view of the rectum. Findings and interventions are described below. Procedure Difficulty: without difficulty Findings: Terminal Ileum: Distal 10 cms was examined and appeared normal - random biopsies were obtained Cecum: Normal Ascending Colon: Scattered 1-2 mm aphthoid ulcers in the ascending colon with normal intervening mucosa - random biopsies obatined to rule out IBD. Transverse Colon: Normal Descending Colon: Moderate diverticulosis Sigmoid Colon: Moderate diverticulosis Rectum: Normal Ano-rectum: Moderate internal hemorrhoids Colon preparation: Good after some irrigation. Filion Bowel Preparation Scale Right colon; 2 Transverse colon: 2 Left colon; 2 (0 = Unprepared colon segment with mucosa not seen due to solid stool that cannot be cleared. 1 = Portion of mucosa of the colon segment seen, but other areas of the colon segment not well seen due to staining, residual stool and/or opaque liquid. 2 = Minor amount of residual staining, small fragments of stool and/or opaque liquid, but mucosa of colon segment seen well. 3 = Entire mucosa of colon segment seen well with no residual staining, small fragments of stool or opaque liquid) Impression and Post Procedure Diagnosis: Endoscopy Findings: ESOPHAGUS: Mildly tortuous esophagus without stricture or ring Minimal focal esophagitis at GE junction. No Edge's. STOMACH: Normal appearing gastric pouch with mild gastric erythema - biopsies were obtained from the antrum. DUODENUM: Normal - biopsied to check for celiac sprue Colonoscopy Findings: No polyps were detected. Scattered 1-2 mm aphthoid ulcers in the ascending colon with normal intervening mucosa - random biopsies obatined to rule out IBD. Moderate diverticulosis seen in the left colon Moderate hemorrhoids on retroflexed exam. Plan: Pt has a FU appointment on 08/09/24 with CARROLL Doherty. Repeat Colonoscopy in 10 year if colon biopsies are normal. Above findings were reviewed with the patient and relevant handouts were given and the discharge area. BIOPSIES SHOWED: A. Small bowel, biopsy: Small bowel mucosa with preserved villous architecture and increased intraepithelial lymphocytes (see comment). B. Stomach, antrum, biopsy: Gastric antral mucosa with mild chronic inactive gastritis; negative for Helicobacter pylori, intestinal metaplasia and dysplasia. C. Terminal ileum, biopsy: Ileal mucosa within normal limits; negative for active or chronic ileitis. D. Colon, right side, biopsy: Active colitis with mild activity and incidental sessile serrated polyp/lesion without dysplasia. E. Colon, left side, biopsy: Colonic mucosa within normal limits; negative for active, chronic or microscopic colitis. COMMENT (A): These findings raise the possibility of celiac disease; however other pathologic processes, including H. pylori gastritis, peptic duodenitis, food allergies other than celiac disease, tropical sprue, viral enteritis, injury caused by drugs, autoimmune enteropathy, immunodeficiencies and Crohn?s disease can induce intraepithelial lymphocytosis with or without associated architectural changes. In many cases no definite cause is identified. Clinical and serological correlation is recommended. COMMENT (D): Neither chronic mucosal injury no granulomas are seen. The differential diagnosis includes infection, drug/medication effect and early idiopathic inflammatory bowel disease.
[2024-05-21 15:32] VITALS: BP 112/68; PULSE 113; RESP 23; TEMP 37.2; O2SAT 99
[2024-05-21 15:47] VITALS: BP 131/82; PULSE 103; RESP 22; O2SAT 97
[2024-05-21 16:02] VITALS: BP 130/75; PULSE 102; RESP 20; TEMP 37.1; O2SAT 97
== END 2024-05-21 16:32 | disposition home or self-care (01) ==
PROVIDERS: PCP Internal Medicine; Visit Provider Internal Medicine Gastroenterology
PROC: (CPT 45385; principal; 2024-05-21 12:50)
DX: Z12.11 Encounter for screening for malignant neoplasm of colon (principal); D12.2 Benign neoplasm of ascending colon; K57.30 Diverticulosis of large intestine without perforation or abscess without bleeding; K63.3 Ulcer of intestine; K64.8 Other hemorrhoids; K52.9 Noninfective gastroenteritis and colitis, unspecified; K58.2 Mixed irritable bowel syndrome; D51.3 Other dietary vitamin B12 deficiency anemia; R13.10 Dysphagia, unspecified; K29.50 Unspecified chronic gastritis without bleeding; K20.80 Other esophagitis without bleeding; K21.9 Gastro-esophageal reflux disease without esophagitis; Z98.84 Bariatric surgery status
CPT/HCPCS: 45385; 45380; 43239; 82947; 88305; 88313; 88342; J1596; J1805; J2250; J2405; J2704; J2765

== ENCOUNTER → 2024-05-21 11:20 | Outpatient (BNV) | payer OTHER, SELFPAY | PROVIDERS: PCP Internal Medicine; Visit Provider Internal Medicine Gastroenterology | DX: Z12.11 Encounter for screening for malignant neoplasm of colon (principal); K58.2 Mixed irritable bowel syndrome; K57.90 Diverticulosis of intestine, part unspecified, without perforation or abscess without bleeding; K64.8 Other hemorrhoids; R13.10 Dysphagia, unspecified; K21.00 Gastro-esophageal reflux disease with esophagitis, without bleeding; K29.70 Gastritis, unspecified, without bleeding; Z98.84 Bariatric surgery status | CPT/HCPCS: 43239; 45380 ==

== ENCOUNTER → 2024-05-28 11:19 | Outpatient (AMB) | payer OTHER, SELFPAY ==
--- NOTE | 2024-05-28 11:18 | MHC.WMTHER ---
Intake Intake Visit Reasons: (TV) PO LSG 05/05/2021 Allergies citalopram Allergy (Mild, Verified 05/14/24 11:07) Rash [facility] Medical History (Updated 05/11/24 @ 13:00 by Nahomy Hinojosa [facility]) Depression with anxiety Morbid obesity with BMI of 45.0-49.9, adult Microalbuminuria due to type 2 diabetes mellitus GERD without esophagitis On beta epifanio at home Osteoarthritis of right knee Osteoarthritis of left knee COVID-19 vaccine series completed Hand pain Pernicious anemia Anemia Thiamine deficiency B12 deficiency Sleep apnea with use of continuous positive airway pressure (CPAP) Steatosis, liver Hyperlipidemia Morbid obesity Obese Rash Pure hypercholesterolemia Diabetes mellitus Essential hypertension Surgical History History of carpal tunnel release Status post total knee replacement, right History of arthroplasty of left knee Status post total left knee replacement Hx of carpal tunnel repair S/P laparoscopic sleeve gastrectomy Status post debridement History of total abdominal hysterectomy and bilateral salpingo-oophorectomy History of foot surgery Family History Father Diabetes Hypertension Prostate cancer Mother Hypertension Stomach cancer Social History Household Members: Family Household Members Other:: Brother Housing: Apartment Are you a primary pet caretaker to a significant other at home: No Do you presently have visiting nurse or other home services: No Alcohol intake: never Patient Tobacco Use Status: Never used Tobacco e-Cigarette/Vaping Use: Never Used Second Hand Smoke Exposure: No Advance Directives Date on File: 04/16/22 service: No 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al status: disabled 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 There are things out of her control like who cooks since she lives with her brother and availiable foods at home as her brother also does groceries. PT disclosed history in childhood, preferences and denials for physical activity as a female, and how her family used food to comfort her when feeling upset. Objective: Betty presents for a follow up via Telehealth to continue assessment and receive support as a post-op client. We discussed functioning and used information gathering strategies to complete CA and identify current needs impacting weight-loss journey. We discussed family history and recent triggers. Patient described eating schedule and her choices. Psychoeducation for cycle of responses, cycle of anxiety/depression provided. We also started making a relationship in between triggers and her responses and how these lead to snackinh or using food as confort to calm strong feelings. PT has been advised of ways to increase physical activity and to consult with provider if Alfie Gan videos are approprite for her Some of the needs identified are: - Communication issues. PT is passive and would benefit from assertiveness training. (eats when unable to express feelings/disagreements as a comfort) -Current living situation -Limited social support -lack on engagement in activities outside home. Assessment/Response: Mental status: sad, but alert, open and talkative. Risk reported/identified: None. PT was open and responded well to interventions and modality. Presenting Concerns Referral Source WMP- Provider. Jenna Gama Reason for referral support due to concerns with eating behavior Precipitating Event Obesity, not following meal plan, struggling with stress-eating. Living Situation Current Living Situation Rent At risk of losing current housing? No Satisfied with current living situation? Yes Comments PT lives with her brother. Food/Weight/Diet Expectations of change PT had bariatric surgery in 04/2021, she was around 268Lbs before surgery and her lowest post op was 211Lbs. Current weight 246Lbs. History/Relationship with food Example of meals: Breakfast: @11 am [place] or corn flakes. Lunch: Skip Dinner: rice, meat, salad Night time: juice, ice tea, [place], cake, a shake. History/Relationship with weight In 2020 she was over 240Lbs, had bariatric surgery History/Relationship with dieting Baristric surgery Social History Family history and relationship several years ago. She has 3 adult children. 6 siblings, parents . PT describes good family relationship, however she doesn;t feel they support her with her eating needs after surgery. Parental/Familial sand hauler obligations None Developmental history and status None reported Social support Brother who lives with her. Congregational/Spirituality Gnosticist Cultural/Ethnic information PT was born and raised in [place]. Moved to [place] 5 years ago due to medical issues and the grief of losing her parents. Legal Involvement and History Current or historical involvement with the legal system? None reported Education Highest grade completed 12th grade. [employer] certificate (1 year). Preferred learning style Written Currently enrolled in educational program? No Interested in further educational program? No Employment Employment Status Unemployed Wants help to find employment? No Meaningful activities None. During the day she mostly watches TV, scrolling cellphone and speaks with daughters over the phone. Financial Situation Describe current financial situation Occasional struggle Financial assistance? Food [place] and [employer] Service Service? No Mental Health and Addiction Treatment Psychiatric history PT attends Behavioral health services at [facility] since 2020. John Adrian is her therapist and Dr. Adrian her psychiatrist. Attends counseling twice at month via telehealth, and prescriber every 1-3 months, depending on her symptoms. She doesn't know her diagnosis, but reported she can't be alone, gets overwhelmed with noises, hear voices, has sleeping issues and wakes up multiple times at night and then has a hard time falling back asleep. Denies ever been hospitalized for MH and/or in Crisis. Reported she has never dealt with SI/Sa and/or other concerns regarding self-harming and/or other-harm. Assessment & Plan Assessment & Plan (1) Depression with anxiety: Code(s): F41.8 - Other specified anxiety disorders Plan Follow up in 2 weeks. Next krish: 06/11/24 at 10am - Telehealth Telehealth Telehealth [facility] Location of provider rendering services: other Location of patient: address on file Patient Identification confirmed using: Name, : Yes Telehealth method: voice only Patient verbally consented to treatment: Yes Patient verbally consented to billing insurance company: Yes Patient informed of any privacy concerns related to visit: No Minutes spent on Phone/Video with Pt.: 45 Coding Level of Care Code Established Pt Tele Psytx 45 mins (72930) Patient Type Established Diagnoses Depression with anxiety F41.8 Time Spent (min) 45 Comment start time: 11:15 - End time: 12:00
== END ==
PROVIDERS: PCP Internal Medicine; Visit Provider Counselor Mental Health
DX: F41.8 Other specified anxiety disorders (principal)
CPT/HCPCS: 90834

== ENCOUNTER → 2024-05-28 11:19 | Outpatient (BNVA) | payer OTHER, SELFPAY | PROVIDERS: PCP Internal Medicine; Visit Provider Counselor Mental Health ==

== ENCOUNTER 2024-05-31 09:26 | Outpatient (AMB) | payer OTHER, SELFPAY ==
--- NOTE | 2024-05-31 09:36 | AM.OFFVISNUR ---
Intake Visit Reasons: B-12 shot Allergies citalopram Allergy (Mild, Verified 05/14/24 11:07) Rash Office Meds cyanocobalamin (vitamin B-12) 1,000 mcg/mL injection solution Performing Provider: Radha Woodson MD [facility] [place] [facility] Administered by: Lucero Guillen LPN on 05/31/24 09:38 Dose Route Admin Location Dispensed Lot Number Expiration Date [facility] Meat Packer 1,000 mcg IM left deltoid 1 mL [id number] 02/01/25 02896-811-03 Teamleader Assessment & Plan Assessment & Plan Orders: Orders AMB Vitamin B12 Injection Patient Supplied Today E53.8 - Deficiency of other specified B group vitamins Medications: New cyanocobalamin (vitamin B-12) 1,000 mcg IM ONCE 1 mL 0RF E53.8 - Deficiency of other specified B group vitamins
== END 2024-05-31 09:40 | disposition home or self-care (01) ==
PROVIDERS: PCP Internal Medicine; Visit Provider Internal Medicine
DX: E53.8 Deficiency of other specified B group vitamins (principal)
CPT/HCPCS: J3420

== ENCOUNTER → 2024-05-31 09:26 | Outpatient (BNVA) | payer OTHER, SELFPAY | PROVIDERS: PCP Internal Medicine; Visit Provider Internal Medicine | DX: E53.8 Deficiency of other specified B group vitamins (principal) | CPT/HCPCS: 96372 ==

== ENCOUNTER 2024-06-22 07:41 | Outpatient (AMB) | payer OTHER, SELFPAY ==
--- NOTE | 2024-06-22 07:48 | A.OFFVIS_ITS ---
Vital Signs 06/22/24 07:53 Height 4 ft 10 in Weight 246 lb BMI 51.4 BP 124/58 L Blood Pressure Location Lt brachial Position Sitting Pulse 70 Intake Visit Reasons: results Intake Note: Patient follow up for Anemia and EGD/Colonoscopy results. Sonya former patient. Patient cc: acid reflex with some burning sensation on and off, diarrhea, no appetite, denies any other GI issues. Director Of Institutional Sales Required: Yes Director Of Institutional Sales Name: Srinath Le Accompanied by: Self / Same As Patient Allergies citalopram Allergy (Mild, Verified 06/22/24 07:50) Rash Medication List - Last Reconciled 06/22/24 by Lisseth Amaro MD acetaminophen 650 mg (2 x 325 mg) PO Q6H PRN 30 days atorvastatin 80 mg PO BEDTIME 90 days blood sugar diagnostic Use 1 test strip twice a day buspirone 7.5 mg PO BID cyanocobalamin (vitamin B-12) 1,000 mcg IM Q4W 1 month empagliflozin-metformin 25-1,000 mg ER (Synjardy XR) 1 tab PO DAILY 90 days ezetimibe 10 mg PO DAILY 90 days folic acid 1 mg PO DAILY 90 days Grab bar As directed insulin syringe,safety needle Use 1 needle once a month insulin syringe-needle U-100 (Advocate Syringes) As directed lancets Use 1 lancet twice a day lisinopril 40 mg PO DAILY 90 days loratadine 10 mg PO DAILY PRN 90 days methylcellulose (laxative) (Citrucel) 500 mg PO TID metoprolol succinate ER 100 mg PO DAILY nystatin 1 appl topical BID 2 weeks pantoprazole 20 mg PO QAM semaglutide (Ozempic) 2 mg (0.75 mL) subcut QWEEK 4 weeks sertraline 25 mg PO QAM 30 days sertraline 50 mg PO QPM 30 days Shower Chair As directed syringe with needle, safety (BD Safety-Madina Detachable Needle) As directed trazodone 50 mg PO BEDTIME PRN 30 days walker Walker with seat and wheels HPI HPI results: Details: GI clinic visit for this 54 year old Zimbabwean speaking female with morbid obesity, diabetes mellitus, hypertension, sleep apnea for FU of GERD, chronic diarrhea to discuss EGD and colon results. Patient is status post gastric sleeve surgery in 2020 - Lost wt after Gastric sleeve and regained it again. 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 Sonya former patient. Patient cc: acid reflex with some burning sensation on and off, diarrhea, no appetite, denies any other GI issues. EGD and colon results were reviewed Patient complains of intermittent heartburn a few days a week and denies symptoms of nausea, vomiting, change in appetite or weight. Always has diarrhea after she eats or drinks anything even prior to having Gastric sleeve. Denies problems with milk products. Denies black stools or rectal bleeding. Patient has a hx of sleep apnea and denies major cardiac or pulmonary problems Denies being on chronic anticoagulation. 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 [facility]reviewed IMAGING STUDIES: 09/2020 ABD US WITH ELASTOGRAPHY SHOWED: 1. Diffuse fatty infiltration of the liver with areas of focal fatty sparing. Mild hepatomegaly. 2. The rest of the abdominal ultrasound is unremarkable. 3. Elastography: [id number] fibrosis. ENDOSCOPIC STUDIES: 05/21/24 EGD AND COLON SHOWED: Endoscopy Findings: ESOPHAGUS: Mildly tortuous esophagus without stricture or ring Minimal focal esophagitis at GE junction. No Edge's. STOMACH: Normal appearing gastric pouch with mild gastric erythema - biopsies were obtained from the antrum. DUODENUM: Normal - biopsied to check for celiac sprue Colonoscopy Findings: No polyps were detected. Scattered 1-2 mm aphthoid ulcers in the ascending colon with normal intervening mucosa - random biopsies obatined to rule out IBD. Moderate diverticulosis seen in the left colon Moderate hemorrhoids on retroflexed exam. Plan: Repeat Colonoscopy in 10 year if colon biopsies are normal. Above findings were reviewed with the patient and relevant handouts were given and the discharge area. BIOPSIES SHOWED: A. Small bowel, biopsy: Small bowel mucosa with preserved villous architecture and increased intraepithelial lymphocytes (see comment). B. Stomach, antrum, biopsy: Gastric antral mucosa with mild chronic inactive gastritis; negative for Helicobacter pylori, intestinal metaplasia and dysplasia. C. Terminal ileum, biopsy: Ileal mucosa within normal limits; negative for active or chronic ileitis. D. Colon, right side, biopsy: Active colitis with mild activity and incidental sessile serrated polyp/lesion without dysplasia. E. Colon, left side, biopsy: Colonic mucosa within normal limits; negative for active, chronic or microscopic colitis. COMMENT (A): These findings raise the possibility of celiac disease; however other pathologic processes, including H. pylori gastritis, peptic duodenitis, food allergies other than celiac disease, tropical sprue, viral enteritis, injury caused by drugs, autoimmune enteropathy, immu nodeficiencies and Crohn?s disease can induce intraepithelial lymphocytosis with or without associated architectural changes. In many cases no definite cause is identified. Clinical and serological correlation is recommended. COMMENT (D): Neither chronic mucosal injury no granulomas are seen. The differential diagnosis includes infection, drug/medication effect and early idiopathic inflammatory mely wel disease. PAST GI HISTORY BY REVIEW OF MEDICAL RECORDS: 01/2023 PATIENT WAS SEEN BY [facility] A 52 y/o female - colon screening in [place] many years ago presents with intermittent vomiting- gastric sleeve-2 years ago- She has hemorrhoids- loose stool with urgency- imodium not as good response anymore She has constipation as well - Sleep apnea- cpap Recent knee replacement-December doing very well No fever, chills abdominal pain, hematochezia, hematemesis A 52 y/o 0 beat female multiple comorbid illness- s/p gastric sleeve- DM- persistent acid reflux, alternating stool pattern Will be scheduled for EGD as well as colonoscopy, discussed indications, need for escorted due to anesthesia is of MiraLax Gatorade split prep. To feed is scheduled with anesthesia consult due to some GWENDOLYN CPAP [facility] Medical History (Updated 06/22/24 @ 07:57 by Lisseth Amaro MD) Depression with anxiety Morbid obesity with BMI of 45.0-49.9, adult Microalbuminuria due to type 2 diabetes mellitus GERD without esophagitis On beta epifanio at home Osteoarthritis of right knee Osteoarthritis of left knee COVID-19 vaccine series completed Hand pain Pernicious anemia Anemia Thiamine deficiency B12 deficiency Sleep apnea with use of continuous positive airway pressure (CPAP) Steatosis, liver Hyperlipidemia Morbid obesity Obese Rash Pure hypercholesterolemia Diabetes mellitus Essential hypertension Surgical History History of esophagogastroduodenoscopy (EGD) Hx of colonoscopy History of carpal tunnel release Status post total knee replacement, right History of arthroplasty of left knee Status post total left knee replacement Hx of carpal tunnel repair S/P laparoscopic sleeve gastrectomy Status post debridement History of total abdominal hysterectomy and bilateral salpingo-oophorectomy History of foot surgery Family History Father Diabetes Hypertension Prostate cancer Mother Hypertension Stomach cancer Social History Household Members: Family Household Members Other:: Brother Housing: Apartment Are you a primary morning caregiver to a significant other at home: No Do you presently have visiting nurse or other home services: No Alcohol intake: never Patient Tobacco Use Status: Never used Tobacco e-Cigarette/Vaping Use: Never Used Second Hand Smoke Exposure: No Advance Directives Date on File: 04/16/22 service: No 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al status: disabled 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 Cognitive needs: Yes Hearing needs: No Vision needs: No Female Reproductive History Menstrual Age of Menarche: 12 Review of Systems Const Denies fever(s), Denies headache(s) and Reports weight loss Eyes Denies eye discharge and Denies irritation ENT Reports Normal hearing present, Denies dysphagia, Denies dizziness and Denies headache(s) Card Denies chest pain, Denies leg edema and Denies dyspnea on exertion Resp Denies cough, Denies dyspnea on exertion and Reports wheezing GI Denies abdominal pain, Denies change in bowel habits, Reports constipation, Denies dysphagia, Reports heartburn, Reports diarrhea and Reports other (loss of appetite) Denies difficulty voiding, Reports nocturia (Urinary frequency) and Denies dysuria Musc Denies back pain, Denies arthralgias and Reports other (arthritis) Skin/Breast Denies pruritus, Denies rash and Denies jaundice Neuro Reports Normal hearing present, Denies Abnormal speech present, Denies dizziness, Denies headache(s) and Denies seizure-like activity Psych Reports anxiety, Reports depression and Denies panic attacks Endo Denies cold intolerance, Denies flushing and Denies heat intolerance Srikanth/Lymph Denies easy bleeding and Denies easy bruising Aller/Immun Reports wheezing Physical Exam Vital Signs: Last Vital Signs Pulse 70 06/22/24 07:53 BP 124/58 L 06/22/24 07:53 BMI result Body Mass Index 51.4 Const General: healthy appearing and no acute distress Nutritional Appearance: obese Orientation/consciousness: patient oriented x3 Limitations: no limitations HEENT Head: Yes normal to inspection Ears: hearing grossly normal bilaterally Mouth: Normal oral and palatal mucosa present Eyes Sclerae: sclerae normal Pupils: Equal, round and reactive pupils present Neck Neck: Yes normal visual inspection Chest Chest palpation & inspection: normal inspection of the chest Resp Effort & Inspection: normal respiratory effort Auscultation: clear to auscultation bilaterally Cardio Palpation: normal PMI Rate: regular rate Rhythm: regular rhythm Heart sounds: S1 normal heart sound present, S2 normal heart sound present and no murmurs GI Palpation (GI): Soft to palpation, nontender and No hepatosplenomegaly present Auscultation: normal bowel sounds Rectal Exam - Female: deferred Skin General skin exam: no rashes or lesions noted Neuro General: patient oriented x3, gait normal and moves all extremities Cranial nerves: Yes Equal, round and reactive pupils present and Yes Normal hearing present Speech: No Abnormal speech present Psych Appearance: grossly normal Mental Status: mental status grossly normal Quality Reporting (2019) Adult ([facility] 138/10/27/68) Smoking risk assessment performed?: Yes Patient Tobacco Use Status: Never used Tobacco Assessment & Plan Assessment & Plan (1) Steatosis, liver: Code(s): K76.0 - Fatty (change of) liver, not elsewhere classified Category: Medical (2) B12 deficiency: Code(s): E53.8 - Deficiency of other specified B group vitamins Category: Medical (3) IBS (irritable bowel syndrome): Code(s): K58.9 - Irritable bowel syndrome, unspecified Category: Medical (4) GERD without esophagitis: Code(s): K21.9 - Gastro-esophageal reflux disease without esophagitis Category: Medical (5) Elevated alkaline phosphatase level: Code(s): R74.8 - Abnormal levels of other serum enzymes Category: Medical Plan 54 year old Zimbabwean speaking female with morbid obesity, diabetes mellitus, hypertension, sleep apnea for FU of GERD, chronic diarrhea. Patient is status post gastric sleeve surgery in 2020 - Lost wt after Gastric sleeve and regained it again. Patient complains of intermittent heartburn a few days a week and denies symptoms of nausea, vomiting, change in appetite or weight. Always has diarrhea after she eats or drinks anything even prior to having Gas tric sleeve. 05/21/24 EGD showed minimal focal esophagitis and mild gastritis. Same day colonoscopy showed diverticulosis, hemorrhoids and scattered aphthoid ulcers in the ascending colon Biopsies showed active colitis with mild activity and incidental sessile serrated polyp Repeat Colonoscopy in 1 year for FU of incidental polyp detected on random colon biopsies Patient advised further evaluation with labs and stool studies to rule out IBD, celiac disease or pancreatic insufficiency. 09/2020 ABD US WITH ELASTOGRAPHY SHOWED: 1. Diffuse fatty infiltration of the liver with areas of focal fatty sparing. Mild hepatomegaly. 2. The rest of the abdominal ultrasound is unremarkable. 3. Elastography: [id number] fibrosis. Follow-up in 3 months - scheduled 10/04/24 Orders: Orders Transglutaminase IgA Today E53.8 - Deficiency of other specified B group vitamins, K21.9 - Gastro-esophageal reflux disease without esophagitis, K58.9 - Irritable bowel syndrome, unspecified, K76.0 - Fatty (change of) liver, not elsewhere classified Alkaline Phosphatase Isoenzyme Today R74.8 - Abnormal levels of other serum enzymes Calprotectin, Fecal Today K58.9 - Irritable bowel syndrome, unspecified [facility] IBD SGI Today K58.9 - Irritable bowel syndrome, unspecified Prothrombin Time INR Today K76.0 - Fatty (change of) liver, not elsewhere classified Transglutaminase Ab IgG Today K58.9 - Irritable bowel syndrome, unspecified Mitochondrial Antibody Today R74.8 - Abnormal levels of other serum enzymes Liver Fibrosis Pnl Today K76.0 - Fatty (change of) liver, not elsewhere classified C Reactive Protein Today K58.9 - Irritable bowel syndrome, unspecified Pancreatic Elastase-1 Today K58.9 - Irritable bowel syndrome, unspecified Fecal Fat Qualitative Today K58.9 - Irritable bowel syndrome, unspecified Medications: Refilled pantoprazole 20 mg PO QAM 90 tabs 1RF Coding Level of Care Code Est Pt Level 4 (06799) Diagnoses Steatosis, liver K76.0 B12 deficiency E53.8 IBS (irritable bowel syndrome) K58.9 GERD without esophagitis K21.9 Elevated alkaline phosphatase level R74.8 Time Spent (min) 30
[2024-06-22 07:53] VITALS: BP 124/58; PULSE 70; BMI 51.4
== END 2024-06-22 08:46 | disposition home or self-care (01) ==
PROVIDERS: PCP Internal Medicine; Visit Provider Internal Medicine Gastroenterology
DX: K76.0 Fatty (change of) liver, not elsewhere classified (principal); E53.8 Deficiency of other specified B group vitamins; K58.9 Irritable bowel syndrome, unspecified; K21.9 Gastro-esophageal reflux disease without esophagitis; R74.8 Abnormal levels of other serum enzymes
CPT/HCPCS: 99214

== ENCOUNTER 2024-06-29 10:56 | Outpatient (AMB) | payer OTHER, SELFPAY ==
--- NOTE | 2024-06-29 11:16 | AM.OFFVISNUR ---
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
== END 2024-06-29 11:40 | disposition home or self-care (01) ==
PROVIDERS: PCP Internal Medicine; Visit Provider Internal Medicine
DX: D51.0 Vitamin B12 deficiency anemia due to intrinsic factor deficiency (principal)
CPT/HCPCS: J3420

== ENCOUNTER → 2024-06-29 10:56 | Outpatient (BNVA) | payer OTHER, SELFPAY | PROVIDERS: PCP Internal Medicine; Visit Provider Internal Medicine | DX: D51.0 Vitamin B12 deficiency anemia due to intrinsic factor deficiency (principal) | CPT/HCPCS: 96372 ==

== ENCOUNTER 2024-08-08 12:36 | Outpatient (AMB) | payer OTHER, SELFPAY ==
--- NOTE | 2024-08-08 12:48 | AM.OFFVISNUR ---
Intake Visit Reasons: B12 Allergies citalopram Allergy (Mild, Verified 06/22/24 07:50) Rash Office Meds cyanocobalamin (vitamin B-12) 1,000 mcg/mL injection solution Performing Provider: Radha Woodson MD [facility] Administered by: Margaret Smith RN on 08/08/24 12:48 Dose Route Admin Location Dispensed Lot Number Expiration Date [facility] Information Security Risk Analyst 1,000 mcg IM 1 mL [id number] 08/04/25 76283-237-15 [facility] Assessment & Plan Assessment & Plan Orders: Orders AMB Vitamin B12 Injection Patient Supplied Today E53.8 - Deficiency of other specified B group vitamins Medications: New cyanocobalamin (vitamin B-12) 1,000 mcg IM ONCE 1 mL 0RF E53.8 - Deficiency of other specified B group vitamins
== END 2024-08-08 13:02 | disposition home or self-care (01) ==
PROVIDERS: PCP Internal Medicine; Visit Provider Internal Medicine
DX: E53.8 Deficiency of other specified B group vitamins (principal)

== ENCOUNTER → 2024-08-08 12:36 | Outpatient (BNVA) | payer OTHER, SELFPAY | PROVIDERS: PCP Internal Medicine; Visit Provider Internal Medicine | DX: E53.8 Deficiency of other specified B group vitamins (principal) | CPT/HCPCS: 96372; J3420 ==

== ENCOUNTER 2024-10-10 16:14 | Outpatient (AMB) | payer OTHER, SELFPAY ==
--- NOTE | 2024-10-10 16:19 | A.OFFPC_ITS ---
Vital Signs 10/10/24 16:21 Height 4 ft 10 in Weight 244 lb BMI 51.0 BP 120/80 Blood Pressure Location Lt brachial Position Sitting Intake Visit Reasons: dm - see comments Intake Note: Patient here for a follow up DM First Aid Attendant Required: Yes First Aid Attendant Language: Mailing Manager Name: Radha Woodson MD Information Interpreted: non-clinical & clinical Accompanied by: Self / Same As Patient Allergies citalopram Allergy (Mild, Verified 10/10/24 16:42) Rash Medication List - Last Reconciled 10/10/24 by Radha Woodson MD acetaminophen 650 mg (2 x 325 mg) PO Q6H PRN 30 days atorvastatin 80 mg PO BEDTIME 90 days blood sugar diagnostic Use 1 test strip twice a day buspirone 7.5 mg PO BID cyanocobalamin (vitamin B-12) 1,000 mcg IM Q4W 1 month empagliflozin-metformin 25-1,000 mg ER (Synjardy XR) 1 tab PO DAILY 90 days ezetimibe 10 mg PO DAILY 90 days folic acid 1 mg PO DAILY 90 days Grab bar As directed insulin syringe,safety needle Use 1 needle once a month insulin syringe-needle U-100 (Advocate Syringes) As directed lancets Use 1 lancet twice a day lisinopril 40 mg PO DAILY 90 days loratadine 10 mg PO DAILY PRN 90 days methylcellulose (laxative) (Citrucel) 500 mg PO TID metoprolol succinate ER 100 mg PO DAILY nystatin 1 appl topical BID 2 weeks pantoprazole 20 mg PO QAM semaglutide (Ozempic) 2 mg (0.75 mL) subcut QWEEK 4 weeks sertraline 100 mg PO DAILY Shower Chair As directed syringe with needle, safety (BD Safety-Madina Detachable Needle) As directed trazodone 50 mg PO BEDTIME PRN 30 days walker Walker with seat and wheels Tobacco use date assessed: 10/10/24 Dental Screening Dental Screen Date: 10/10/24 Did you have a dental visit in the last 12 months?: Yes Did you have a dental problem in the last 6 months where you did not have access to dental care?: No Was dental information given to patient?: Patient has dentist HPI HPI Comments History of Present Illness Details The patient is a 54-year-old female presenting with follow-up for chronic conditions management and medication evaluation. She has a history of type 2 diabetes mellitus, managed with SYNJARDY and Ozempic, though difficulties in medication approval by insurance have led to interruptions in treatment. Additionally, she has major depressive disorder, previously on sertraline 100 mg; however, she reports a problem in medication management and adherence difficulties, likely compounded by cognitive impairment symptoms, such as forgetfulness and impaired daily function (e.g., forgetting food on the stove and dropping objects). The patient also experiences a rash attributed to citalopram allergy. Hyperlipidemia is managed with atorvastatin 80 mg. The patient notes her obesity, highlighting a BMI of 51, compounded by difficulties in medication management. Previous bariatric intervention was noted. Essential hypertension is managed with Lisinopril 40 mg and Metoprolol. Following a knee surgery, the patient reports pain and is concerned due to swelling and cognitive effects, further complicated by issues with [employer], a disability service, indicating possible neurological involvement. [facility] Medical History (Updated 10/10/24 @ 20:18 by Radha Woodson MD) Moderate major depression Depression with anxiety Morbid obesity with BMI of 45.0-49.9, adult Microalbuminuria due to type 2 diabetes mellitus GERD without esophagitis On beta epifanio at home Osteoarthritis of right knee Osteoarthritis of left knee COVID-19 vaccine series completed Hand pain Pernicious anemia Anemia Thiamine deficiency B12 deficiency Sleep apnea with use of continuous positive airway pressure (CPAP) Steatosis, liver Hyperlipidemia Morbid obesity Obese Rash Pure hypercholesterolemia Diabetes mellitus Essential hypertension Surgical History History of esophagogastroduodenoscopy (EGD) Hx of colonoscopy History of carpal tunnel release Status post total knee replacement, right History of arthroplasty of left knee Status post total left knee replacement Hx of carpal tunnel repair S/P laparoscopic sleeve gastrectomy Status post debridement History of total abdominal hysterectomy and bilateral salpingo-oophorectomy History of foot surgery Family History Father Diabetes Hypertension Prostate cancer Mother Hypertension Stomach cancer Social History Household Members: Family Household Members Other:: Brother Housing: Apartment Are you a primary healthcare prof to a significant other at home: No Do you presently have visiting nurse or other home services: No Alcohol intake: never Patient Tobacco Use Status: Never used Tobacco e-Cigarette/Vaping Use: Never Used Second Hand Smoke Exposure: No Advance Directives Date on File: 04/16/22 service: No 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al status: disabled 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 1. Little interest or pleasure in doing things: several days 2. Feeling down, depressed, or hopeless: several days 3. Trouble falling or staying asleep, or sleeping too much: several days 4. Feeling tired or having little energy: several days 5. Poor appetite or overeating: not at all 6. Feeling bad about yourself - or that you are a failure or have let yourself or your family down: not at all 7. Trouble concentrating on things, such as reading the newspaper or watching television: not at all 8. Moving or speaking so slowly that other people could have noticed. Or the opposite - being so fidgety or restless that you have been moving around a lot more than usual: not at all 9. Thoughts that you would be better off or of hurting yourself in some way: not at all Total score: 4 Depression Screening Interpretation: Positive Depression Screening Follow-up: Existing condition, In treatment, Community Mental Health Worker F/U and Follow- up Visit Requested Depression Screening Done: Yes 55246 - PHQ-9 Billing: Yes Source: Developed by Drs. Inder Hamm, Nneka Marie, Marcelo Contreras and colleagues, with an educational mabel from [employer]. Thrive Questionnaire Date Thrive assessed: 10/10/24 I am a: Patient What is your living situation today?: I have a steady place to live Within the past 12 months, did the food you bought not last and you didn't have the money to get more?: Never true Within the past 12 months, did you worry whether your food would run out before you got money to buy more?: Never true Do you have trouble paying for medicines?: No Do you have trouble getting transportation to medical appointments?: No Do you have trouble paying your heating and electricity bill?: No Do you have trouble taking care of your child, family member or friend?: No Do you have trouble with day-to-day activities such as bathing, preparing meals, shopping, managing finances, etc.?: No Are you currently unemployed and looking for a job?: No Are you interested in more education?: No Please select the resources that you would like help with: None Currently or been in a relationship where the following occur: No concerns reported THRIVE Score: 0 AUDIT C Alcohol Use Questionnaire (AUDIT-C) 1. How often do you have a drink containing alcohol?: Never Total Score: 0 Score Reviewed/Action Taken: No MELANIE-7 AMB Questionnaire MELANIE-7 Date MELANIE - 7 assessed: 10/10/24 Feeling nervous, anxious, or on edge: 1 = Several days Not being able to stop or control worryin = Several days Worrying too much about different things: 1 = Several days Trouble relaxin = Several days Being so restless that it is hard to sit still: 0 = Not at all Becoming easily annoyed or irritable: 0 = Not at all Feeling afraid as if something awful might happen: 1 = Several days Total MELANIE-7 score (0-4 normal; 5-9 mild; 10-14 moderate; 15-21 severe): 5 Source: Developed by Drs. Inder Hamm, Nneka Marie, Marcelo Contreras and colleagues, with an educational mabel from [employer]. MELANIE-7 Assessment Billing MELANIE-7 Assessment Tool: MELANIE-7 Assessment 13508 Review of Systems Const All systems reviewed & are unremarkable except as noted in HPI and below Card Denies chest pain at rest, Denies chest pain with activity, Denies edema, Denies irregular heart rhythm, Denies claudication, Denies dyspnea, Denies dyspnea on exertion, Denies orthopnea, Denies paroxysmal nocturnal dyspnea and Denies slow heart rate Resp Denies cough, Denies dyspnea and Denies dyspnea on exertion GI Denies abdominal pain, Denies change in bowel habits, Denies excessive flatus, Denies nausea and Denies vomiting Denies urinary incontinence, Denies urinary hesitancy and Denies urinary urgency Musc Denies atrophy, Denies deformity and Denies limited range of motion Skin/Breast Denies bleeding lesions, Denies changing lesions and Denies rash Physical exam (Primary Care) Vital Signs: Last Vital Signs BP 120/80 10/10/24 16:21 BMI result Body Mass Index 51.0 BMI Assessment/Plan discussion: High BMI High, discussed plan: lifestyle, weight reduction, dietary and physical activity Tobacco/Smoking Status: Tobacco use Status Tobacco use date assessed 10/10/24 10/10/24 16:28 Patient Tobacco Use Status Never used Tobacco 10/10/24 16:28 e-Cigarette/Vaping Use Never Used 10/10/24 16:28 PHQ-9: PHQ-9 Score PHQ-9: Total score 4 10/10/24 16:49 Depression Screening Interpretation: Positive Depression Screening Follow-up: Existing condition, In treatment, Community Mental Health Worker F/U and Follow- up Visit Requested Thrive Assessment: Date of Thrive Assessment Date Thrive assessed 10/10/24 10/10/24 16:28 Currently or been in a relationship where the following occur: No concerns reported Resp Effort & Inspection: normal respiratory effort Auscultation: clear to auscultation bilaterally Cardio Jugular venous distension: no JVD Rate: regular rate Rhythm: regular rhythm Heart sounds: S1 normal heart sound present and S2 normal heart sound present Extrem General: Yes full ROM Office Procedures Flu Questionnaire Does the patient have a severe egg allergy?: No Results AMB Hemoglobin A1c AMB Hemoglobin A1c 6.1 % Last Edit by XANDER Cesar on 10/10/24 16:3 4 Immunizations Fluarix Triv [id number] (PF) 45 mcg (15 mcg x 3)/0.5 mL IM syringe Performing Provider: Radha Woodson MD [facility] [place] [facility] Documented (not given) by: XANDER Cesar on 10/10/24 16:28 Reason Not Given: Patient Refused Results Reviewed Results Reviewed: Laboratory Last Values Hgb A1c (Clinic) 6.1 % (4.0-6.0) H 10/10/24 16:18 Coding Level of Care Code Est Pt Level 4 (65566) Complex EM visit Add On G2211 Diagnoses Type 2 diabetes mellitus with microalbuminuria, without long-term current use of insulin E11.29; R80.9 Diabetes mellitus complication detail: with microalbuminuria Diabetes mellitus complication status: with kidney complications Diabetes mellitus fpc insulin use: without computer terminal operator use Diabetes mellitus type: type 2 Essential hypertension I10 Hyperlipidemia LDL goal <70 E78.5 Morbid obesity E66.01 Right ankle pain M25.571 Cognitive impairment R41.89 Skin lesion L98.9 Mild major depression F32.0 Additional Codes MELANIE-7 Assessment Billing - MELANIE-7 Assessment Tool: MELANIE-7 Assessment 14050 ([id number]) PHQ-9 - 23197 - PHQ-9 Billing: Yes ([id number]) Time Spent (min) 22 Assessment & Plan Assessment & Plan (1) Diabetes mellitus: Code(s): E11.9 - Type 2 diabetes mellitus without complications Category: Medical Qualifiers: Diabetes mellitus complication detail: with microalbuminuria Diabetes mellitus complication status: with kidney complications Diabetes mellitus fpc insulin use: without fpc use Diabetes mellitus type: type 2 Qualified Code(s): E11.29 - Type 2 diabetes mellitus with other diabetic kidney complication; R80.9 - Proteinuria, unspecified (2) Essential hypertension: Code(s): I10 - Essential (primary) hypertension Category: Medical (3) Hyperlipidemia LDL goal <70: Code(s): E78.5 - Hyperlipidemia, unspecified Category: Medical (4) Morbid obesity: Comment: s/p gastric sleeve 2020 Code(s): E66.01 - Morbid (severe) obesity due to excess calories Category: Medical (5) Right ankle pain: Code(s): M25.571 - Pain in right ankle and joints of right foot Category: Medical (6) Cognitive impairment: Code(s): R41.89 - Other symptoms and signs involving cognitive functions and awareness Category: Medical (7) Skin lesion: Code(s): L98.9 - Disorder of the skin and subcutaneous tissue, unspecified Category: Medical (8) Mild major depression: Code(s): F32.0 - Major depressive disorder, single episode, mild Category: Medical Plan - Ensure continuity of SYNJARDY and confirm insurance approval for Ozempic. - Monitor diabetes control via HbA1c; schedule blood work. - Continue atorvastatin for hyperlipidemia management. - Adjust depression treatment; consider neurologic evaluation for cognitive symptoms. - Assess hypertension management; continue Lisinopril and Metoprolol. - Schedule dermatology consultation for rash management. - Discuss alternatives with [employer] and consider neurology referral for cognitive concerns. - Evaluate functional status and potential adjustment of knee support. - Recommend lifestyle modifications for obesity; discuss managed diet via current restrictions. Patient was informed and verbally consented to the use of an ambient scribe for clinic note documentation during this visit. During the visit, we discussed the ongoing management of the patient's chronic conditions, especially focusing on her diabetes and the hurdles with medication insurance approvals. I emphasized the importance of consistent medication intake to ensure optimal diabetes management. We reviewed her HbA1c level, affirming satisfactory control, yet emphasized engaging further laboratory evaluation. We spoke about her depression and the necessity of correct medication dosage, considering it may influence her cognitive symptoms. We also discussed the importance of neurological evaluation for her cognitive complaints, exploring physical interventions for knee pain, and follow-up with bariatric strategies. Recommendations were provided for dermatological evaluation of her rash. Orders: Orders AMB Hemoglobin A1c Today E11.29 - Type 2 diabetes mellitus with other diabetic kidney complication, R80.9 - Proteinuria, unspecified Complete Blood Count Auto Diff Today D64.9 - Anemia, unspecified Influenza [id number] Immunization Today Z23 - Encounter for immunization Vitamin D 25-OH Total Today E55.9 - Vitamin D deficiency, unspecified Vitamin B12 and Folate Today E53.8 - Deficiency of other specified B group vitamins Lipid Panel Today E78.5 - Hyperlipidemia, unspecified Microalbumin, Random (w Creat) Today R80.9 - Proteinuria, unspecified IRON PROFILE Today D64.9 - Anemia, unspecified Comprehensive [place]. Panel Fast Today E11.29 - Type 2 diabetes mellitus with other diabetic kidney complication, R80.9 - Proteinuria, unspecified Referrals Dermatology Referral L98.9 - Disorder of the skin and subcutaneous tissue, unspecified Neurology Referral R41.89 - Other symptoms and signs involving cognitive functions and awareness Orthopedics Referral M25.571 - Pain in right ankle and joints of right foot Medications: Refilled semaglutide (Ozempic) 2 mg (0.75 mL) subcut QWEEK 3 mL 6RF 4 weeks E11.29 - Type 2 diabetes mellitus with other diabetic kidney complication, R80.9 - Proteinuria, unspecified empagliflozin-metformin 25-1,000 mg ER (Synjardy XR) 1 tab PO DAILY 90 ea 1RF 90 days Patient Instructions: - Ensure timely blood work for HbA1c, B12, and cholesterol. - Maintain current diabetes medications and consult for insurance resolution of Ozempic. - Monitor and adhere to sertraline regimen as prescribed. - Engage with [employer] regarding work-related assessment. - Observe for further skin irritations; avoid known allergens. - Discuss knee pain management options in a follow-up visit. - Contact the office if experiencing severe cognitive changes or skin reactions.
[2024-10-10 16:21] VITALS: BP 120/80; BMI 51.0
--- OUTSIDE RECORDS SUMMARY | 2024-10-10 16:39 | XMS_ITS | Clinical Summary ---
Author Organization [facility] ity Address [address] [place] [address] Care Team Providers Care Kraft Digester Operator Name Role Phone Unavailable Primary Care Provider Unavailabl e Social History Tobacco Use Types Packs/Day Years Used Date Smoking Tobacco: Never Assessed Sex and Gender Information Value Date Recorded Sex Assigned at Not on file Gender Identity Not on file Sexual Orientation Not on file Plan of Treatment Health Maintenance Due Date Last Done Comments Breast Cancer Screening 1970 DTaP,Tdap,and Td Vaccines (1 - Tdap) 1989 Hepatitis B Vaccines (1 of 3 - 19+ 3-dose series) 1989 Cervical Cancer Screening: P ap Smear 1991 Zoster Vaccines (1 of 2) 02/07/2020 Colorectal Cancer Screening: Colonoscopy 08/07/2022 Depression Screening 08/07/2022 HIV Screening 08/07/2022 Hepatitis C Screening 08/07/2022 Social Influencers of Health Screening 08/07/2022 COVID-19 Vaccine ( - 2023-2 5 season) 2024 Influenza Vaccine (#1) 2024 HIB Vaccines Aged Out No longer eligi ble based on patient's age to complete this topic HPV Vaccines Aged Out No longer eligi ble based on patient's age to complete this topic Hepatitis A Vaccines Aged Out No long er eligible based on patient's age to complete this topic IPV Vaccines Aged Out No longer eligi ble based on patient's age to complete this topic MMR Vaccines Aged Out No longer eligi ble based on patient's age to complete this topic Meningococcal ACWY Vaccine Aged Out N o longer eligible based on patient's age to complete this topic Pneumococcal Vaccine: Pediat rics (0 to 5 Years) and At-Risk Patients (6 to 64 Years) Aged Out No longer eligible b ased on patient's age to complete this topic RSV Immunization Patients Un lisandra 20 months Aged Out No longer eligible b ased on patient's age to complete this topic Varicella Vaccines Aged Out No longer eligible based on patient's age to complete this topic
--- OUTSIDE RECORDS SUMMARY | 2024-10-10 16:39 | XMS_ITS | Clinical Summary ---
Author Organization [facility] Address [address] [place] [address] Phone Care Team Providers Care Hotel Director Name Role Phone Radha Arevalo MD Primary Care Provider [phone] Allergies No known active allergies Medications atorvastatin (LIPITOR) 20 MG tablet 05/11/2021 Active Trulicity 0.75 MG/0.5ML solution pen-injector 06/15/2021 Active folic acid (FOLVITE) 1 MG tablet 05/11/2021 Active FREESTYLE LITE test strip 06/04/2021 Active hydroCHLOROthiaz corrine (HYDRODIURIL) 50 MG tablet Take 1 tablet by mouth 1 (one) time each day Active hydrOXYzine (VISTARIL) 50 MG capsule 06/15/2021 Active lisinopril 40 MG tablet 06/16/2021 Active loratadine (CLARITIN) 10 MG tablet 06/13/2021 Active metoprolol succinate XL (TOPROL-XL) 100 MG 24 hr tablet 06/19/2021 Act ramesh sertraline (ZOLOFT) 100 MG tablet 06/29/2021 Active Synjardy XR 25-1000 MG tablet sustained-releas e 24 hour TAKE 1 TABLET BY MOUTH 1 TIME EACH DAY. 90 tablet 5 06/27/2023 Active Active Problems Problem Noted Date Diagnosed Date Anemia in chronic kidney disease 06/04/2024 Asthma 07/03/2021 Body mass index 40+ - severely obese 07/03/2021 Chronic kidney disease stage 1 07/03/2021 Essential hypertension 07/03/2021 Hypercholesterolemia 07/03/2021 Hypertensive heart and renal disease with (congestive) heart failure 07/03/2021 Microalbuminuria 07/03/2021 Osteoarthritis 07/03/2021 Type 2 diabetes mellitus 07/03/2021 Family History Medical History Relation Comments Cancer Father Prostate Hypertension Father Cancer Mother Colon Diabetes Mother Hypertension Mother Hypertension Sibling brother Relation Status Comments Father Mother Sibling Social History Tobacco Use Types Packs/Day Years Used Date Smoking Tobacco: Never Smokeless Tobacco: Never Tobacco Cessation:Counseling Given: Not Answered Alcohol Use Standard Drinks/Week Comments No 0 (1 standard drink = 0.6 oz pur e alcohol) Comments Unknown Sex and Gender Information Value Date Recorded Sex Assigned at Not on file Legal Sex Female 4:57 PM EST Gender Identity Not on file Sexual Orientation Not on file Last Filed Vital Signs Vital Sign Reading Time Taken Comments Blood Pressure 122/70 06/04/2024 11:48 AM EDT Pulse 67 06/04/2024 11:48 AM EDT Temperature - - Respiratory Rate 18 06/29/2023 1:35 PM EDT Oxygen Saturation 98% 06/29/2023 1:35 PM EDT Inhaled Oxygen Concentration - - Weight 113 kg (248 lb 12.8 oz) 06/04/2024 11:48 AM EDT Height 149.9 cm (4' 11 ) 04/28/2022 2:44 PM EDT Body Mass Index 50.25 04/28/2022 2:44 PM EDT Plan of Treatment Upcoming Encounters Date Type Department Care Team (Late st Contact Info) Description 06/04/2025 11:00 AM EDT Office Visit [facility] [address] [phone] Vianey Yun ARNP [address] [phone] Health Maintenance Due Date Last Done Comments Breast Cancer Screening 1970 Pneumococcal Vaccine: Pediat rics (0 to 5 Years) and At-Risk Patients (6 to 64 Years) (1 of 2 - PCV) 02/07/1976 Hepatitis B Vaccine (1 of 3 - 19+ 3-dose series) 1989 Colorectal Cancer Screening: Annual FOBT 2019 Colorectal Cancer Screening: Colonoscopy 2019 Colorectal Cancer Screening: Sigmoidoscopy 2019 Diabetes: Ophthalmology Exam 10/06/2020 Diabetes: Pedal Pulse Checked 10/06/2020 Diabetes: Sensory Foot Exam 10/06/2020 Diabetes: Visual Foot Exam 10/06/2020 Diabetes: Hemoglobin A1C 07/29/2022 04/28/2022, 07/06 Influenza Vaccine (#1) 2024 Procedures Procedure Name Priority Date/Time Associated Diagnosis Comments HEMOGLOBIN A1C Routine 04/28/2022 3:38 PM EDT from Last 3 Months or Most Recently Relevant to Health Maintenance Results * Hemoglobin A1c (04/28/2022 3:38 PM EDT) Hemoglobin A1C 5.5 (4.0-5.6) % [facility] Comment: MONITORING: In known diabetic patients, hemoglobin A1c targets should be discussed with health care provider. DIAGNOSTIC USE: ??The [place] Diabetes Association (ADA) and the World Health Organization (WHO) recommend the use of HbA1c to diagnose diabetes using a threshold of 6.5%. Patients who have an HbA1c between 5.7% and 6.4% are considered at increased risk for developing diabetes in the future. CAUTION: Falsely low HbA1c results may be observed in patients with hemolytic anemia, homozygous forms of abnormal hemoglobin (e.g. SS, CC, SC), , recent blood loss or hemoglobin F greater than 7%. Fructosamine may be used as an alternate test in these cases. REFERENCE: ADA: Standards of Medical Care in Diabetes 2020, The Journal of Clinical and Applied Research and Education Volume 43, Supplement 1 Testing performed or reported by [facility], a Service of [facility], [address] [place] [address] Jennifer Painter MD, Java Web Engineer [facility]# [id number] 04/28/2022 3:38 PM EDT 04/28/2022 3:41 PM EDT Guillermo Samuel MD LAB BLOOD ORDERABLES Final Re sult [facility] from Last 3 Months or Most Recently Relevant to Health Maintenance [place] [address] [address] [place] [address] MEDICAID MEDICAID Care Teams Hotel Director Relationship Specialty Start Date End Date Radha Arevalo MD [address] [place] [address] PCP - General 09/15/20
== END 2024-10-10 16:56 | disposition home or self-care (01) ==
PROVIDERS: PCP Internal Medicine; Visit Provider Internal Medicine
DX: E11.29 Type 2 diabetes mellitus with other diabetic kidney complication (principal); E66.01 Morbid (severe) obesity due to excess calories; F32.0 Major depressive disorder, single episode, mild; Z68.43 Body mass index [BMI] 50.0-59.9, adult; R80.9 Proteinuria, unspecified; I10 Essential (primary) hypertension; E78.5 Hyperlipidemia, unspecified; M25.571 Pain in right ankle and joints of right foot; R41.89 Other symptoms and signs involving cognitive functions and awareness; L98.9 Disorder of the skin and subcutaneous tissue, unspecified

== ENCOUNTER → 2024-10-10 16:14 | Outpatient (BNVA) | payer OTHER, SELFPAY | PROVIDERS: PCP Internal Medicine; Visit Provider Internal Medicine | DX: E11.29 Type 2 diabetes mellitus with other diabetic kidney complication (principal); R80.9 Proteinuria, unspecified; I10 Essential (primary) hypertension; E78.5 Hyperlipidemia, unspecified; E66.01 Morbid (severe) obesity due to excess calories; M25.571 Pain in right ankle and joints of right foot; R41.89 Other symptoms and signs involving cognitive functions and awareness; L98.9 Disorder of the skin and subcutaneous tissue, unspecified; F32.0 Major depressive disorder, single episode, mild | CPT/HCPCS: 83036; 96127; 99212 ==

== ENCOUNTER 2024-10-23 14:40 | Outpatient (REF) | payer OTHER, SELFPAY ==
--- OUTSIDE RECORDS SUMMARY | 2024-10-23 15:42 | XMS_ITS | Clinical Summary ---
Author Organization [facility] ity Address [address] [place] [address] Care Team Providers Care Advisory Application Developer Name Role Phone Unavailable Primary Care Provider Unavailabl e Social History Tobacco Use Types Packs/Day Years Used Date Smoking Tobacco: Never Assessed Comments Unknown Sex and Gender Information Value Date Recorded Sex Assigned at Not on file Legal Sex Female 6:14 PM EST Gender Identity Not on file Sexual Orientation Not on file Plan of Treatment Health Maintenance Due Date Last Done Comments Breast Cancer Screening 1970 DTaP,Tdap,and Td Vaccines (1 - Tdap) 1989 Hepatitis B Vaccines (1 of 3 - 19+ 3-dose series) 1989 Cervical Cancer Screening: P ap Smear 1991 Pneumococcal Vaccine: 50+ Ye ars (1 of 1 - PCV) 02/07/2020 Zoster Vaccines (1 of 2) 02/07/2020 Colorectal [...] patient's age to complete this topic Meningococcal B Vacine Aged Out No lo nger eligible based on patient's age to complete [...]
--- OUTSIDE RECORDS SUMMARY | 2024-10-23 15:43 | XMS_ITS | Clinical Summary ---
Author Organization [facility] Address [address] [facility] [address] [place] [address] Phone Care Team Providers Care Retouching Operator Name Role Phone Radha Arevalo MD Primary Care Provider [phone] Allergies No known active allergies Medications atorvastatin [...] Visit [facility] [address] [phone] Vianey Yun ARNP [address] [phone] Health Maintenance Due Date Last Done Comments [...] PM EDT) Hemoglobin A1C 5.5 (4.0-5.6) % [facility] Comment: MONITORING: In known diabetic patients, hemoglobin A1c targets should be discussed with health care provider. DIAGNOSTIC USE: ??The [place] Diabetes Association (ADA) and the World Health [...] Supplement 1 Testing performed or reported by [facility], a Service of [facility], [address] [place] [address] Jennifer Painter MD, Key Bed Installer [facility]# [id number] 04/28/2022 3:38 PM EDT 04/28/2022 3:41 PM EDT Guillermo Samuel MD LAB BLOOD ORDERABLES Final Re sult [facility] from Last 3 Months or Most Recently Relevant to Health Maintenance [place] [address] [place] [address] MEDICAID MEDICAID Care Teams Retouching Operator Relationship Specialty Start Date End Date Radha Arevalo MD [address] [place] [address] PCP - General 09/15/20
[2024-10-29 18:19] LABS: Fecal Fat Qualitative NORMAL (NORMAL)
[2024-10-31 16:37] LABS: Pancreatic Elastase-1 18 mcg/g (>200)
== END 2024-10-23 14:41 | disposition home or self-care (01) ==
LOC: HO.LNP 14:40
PROVIDERS: Visit Provider Internal Medicine Gastroenterology
DX: K58.9 Irritable bowel syndrome, unspecified (principal)
CPT/HCPCS: 82656; 82705

== ENCOUNTER 2024-11-15 11:30 | Outpatient (AMB) | payer OTHER, SELFPAY ==
--- NOTE | 2024-11-15 11:41 | MHC.OFFVIS ---
Vital Signs 11/15/24 11:42 Height 4 ft 10 in Weight 244 lb BMI 51.0 BP 131/62 Blood Pressure Location Lt brachial Position Sitting Pulse 76 Intake Visit Reasons: 3 mo f/u r/s 10/04/24 Intake Note: Patient follow up for B12 deficiency and lab results Patient denies any other GI issues. Braid Pattern Setter Required: Yes Accompanied by: Self / Same As Patient Allergies citalopram Allergy (Mild, Verified 03/27/25 13:33) Rash Medication List - Last Reconciled 11/15/24 by Lisseth Amaro MD acetaminophen 650 mg (2 x 325 mg) PO Q6H PRN 30 days atorvastatin 80 mg PO BEDTIME 90 days blood sugar diagnostic Use 1 test strip twice a day buspirone 7.5 mg PO BID cyanocobalamin (vitamin B-12) 1,000 mcg IM Q4W 1 month empagliflozin-metformin 25-1,000 mg ER (Synjardy XR) 1 tab PO DAILY 90 days ezetimibe 10 mg PO DAILY 90 days folic acid 1 mg PO DAILY 90 days Grab bar As directed insulin syringe,safety needle Use 1 needle once a month insulin syringe-needle U-100 (Advocate Syringes) As directed lancets Use 1 lancet twice a day lisinopril 40 mg PO DAILY 90 days loratadine 10 mg PO DAILY PRN 90 days methylcellulose (laxative) (Citrucel) 500 mg PO TID metoprolol succinate ER 100 mg PO DAILY nystatin 1 appl topical BID 2 weeks pantoprazole 20 mg PO QAM semaglutide (Ozempic) 2 mg (0.75 mL) subcut QWEEK 4 weeks sertraline 100 mg PO DAILY Shower Chair As directed syringe with needle, safety (BD Safety-Madina Detachable Needle) As directed trazodone 50 mg PO BEDTIME PRN 30 days walker Walker with seat and wheels HPI HPI 3 mo f/u r/s 10/04/24: Details: GI clinic visit for this 54 year old [place] speaking female with morbid obesity, diabetes mellitus, hypertension, sleep apnea for FU of GERD, chronic diarrhea to discuss EGD and colon results. Patient is status post gastric sleeve surgery in 2020 - Lost wt after Gastric sleeve and regained it again. TODAY'S VISIT: Telephone Mixing Plant OperatorJennifer # [id number] Patient follow up for B12 deficiency and lab results Denies any change in diarrhea - can have 4-5 BMs a day depending on what she eats Almost everything she eats causes diarrhea. Hot and cold foods do not sit well with her Always has diarrhea after she eats or drinks anything even prior to having Gastric sleeve. PAST VISITS: Patient follow up for Anemia and EGD/Colonoscopy results. Sonya former patient. Patient cc: acid reflex with some burning sensation on and off, diarrhea, no appetite, denies any other GI issues. EGD and colon results were reviewed Patient complains of intermittent heartburn a few days a week and denies symptoms of nausea, vomiting, change in appetite or weight. Denies problems with milk products. Denies black stools or rectal bleeding. Patient has a hx of sleep apnea and denies major cardiac or pulmonary problems Denies being on chronic anticoagulation. 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 [facility] : 04/2024 -reviewed IMAGING STUDIES: 09/2020 [facility] US WITH ELASTOGRAPHY SHOWED: 1. Diffuse fatty infiltration of the liver with areas of focal fatty sparing. Mild hepatomegaly. 2. The rest of the abdominal ultrasound is unremarkable. 3. Elastography: Plnh-zl-pqloyrug fibrosis. ENDOSCOPIC STUDIES: 05/21/24 EGD AND COLON SHOWED: Endoscopy Findings: ESOPHAGUS: Mildly tortuous esophagus without stricture or ring Minimal focal esophagitis at GE junction. No Edge's. STOMACH: Normal appearing gastric pouch with mild gastric erythema - biopsies were obtained from the antrum. DUODENUM: Normal - biopsied to check for celiac sprue Colonoscopy Findings: No polyps were detected. Scattered 1-2 mm aphthoid ulcers in the ascending colon with normal intervening mucosa - random biopsies obatined to rule out IBD. Moderate diverticulosis seen in the left colon Moderate hemorrhoids on retroflexed exam. Plan: Repeat Colonoscopy in 10 year if colon biopsies are normal. Above findings were reviewed with the patient and relevant handouts were given and the discharge area. BIOPSIES SHOWED: A. Small bowel, biopsy: Small bowel mucosa with preserved villous architecture and increased intraepithelial lymphocytes (see comment). B. Stomach, antrum, biopsy: Gastric antral mucosa with mild chronic inactive gastritis; negative for Helicobacter pylori, intestinal metaplasia and dysplasia. C. Terminal ileum, biopsy: Ileal mucosa within normal limits; negative for active or chronic ileitis. D. Colon, right side, biopsy: Active colitis with mild activity and incidental sessile serrated polyp/lesion without dysplasia. E. Colon, left side, biopsy: Colonic mucosa within normal limits; negative for active, chronic or microscopic colitis. COMMENT (A): These findings raise the possibility of celiac disease; however other pathologic processes, including H. pylori gastritis, peptic duodenitis, food allergies other than celiac disease, tropical sprue, viral enteritis, injury caused by drugs, autoimmune enteropathy, immunodeficiencies and Crohn?s disease can induce intraepithelial lymphocytosis with or without associated architectural changes. In many cases no definite cause is identified. Clinical and serological correlation is recommended. COMMENT (D): Neither chronic mucosal injury no granulomas are seen. The differential diagnosis includes infection, drug/medication effect and early idiopathic inflammatory bowel disease. PAST GI HISTORY BY REVIEW OF MEDICAL RECORDS: 01/2023 PATIENT WAS SEEN BY [facility] A 52 y/o female - colon screening in [place] many years ago presents with intermittent vomiting- gastric sleeve-2 years ago- She has hemorrhoids- loose stool with urgency- imodium not as good response anymore She has constipation as well - Sleep apnea- cpap Recent knee replacement-December doing very well No fever, chills abdominal pain, hematochezia, hematemesis A 52 y/o 0 beat female multiple comorbid illness- s/p gastric sleeve- DM-persistent acid reflux, alternating stool pattern Will be scheduled for EGD as well as colonoscopy, discussed indications, need for escorted due to anesthesia is of MiraLax Gatorade split prep. To feed is scheduled with anesthesia consult due to some GWENDOLYN CPAP [facility] Medical History (Updated 04/17/25 @ 13:11 by Shannan Mulligan RN) Depression with anxiety Morbid obesity with BMI of 45.0-49.9, adult Microalbuminuria due to type 2 diabetes mellitus GERD without esophagitis Pernicious anemia Anemia Thiamine deficiency B12 deficiency Sleep apnea with use of continuous positive airway pressure (CPAP) Steatosis, liver Hyperlipidemia Pure hypercholesterolemia Diabetes mellitus Essential hypertension Surgical History (Updated 04/17/25 @ 13:12 by Shannan Mulligan RN) History of esophagogastroduodenoscopy (EGD) Hx of colonoscopy History of carpal tunnel release Status post total knee replacement, right Status post total left knee replacement S/P laparoscopic sleeve gastrectomy Status post debridement History of total abdominal hysterectomy and bilateral salpingo-oophorectomy History of foot surgery Family History Father Diabetes Hypertension Prostate cancer Mother Hypertension Stomach cancer Social History Household Members: Family Household Members Other:: Brother Housing: Apartment Are you a primary memory care program resident to a significant other at home: No Do you presently have visiting nurse or other home services: No Alcohol intake: never Patient Tobacco Use Status: Never used Tobacco e-Cigarette/Vaping Use: Never Used Second Hand Smoke Exposure: No Advance Directives: No Advance Directives Information Provided: Yes Advance Directives Date on File: 04/16/22 service: No 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al status: disabled 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 Cognitive needs: Yes Hearing needs: No Vision needs: No Female Reproductive History Menstrual Age of Menarche: 12 Review of Systems Const All systems reviewed & are unremarkable except as noted in HPI and below Physical Exam Vital Signs: Last Vital Signs Pulse 76 11/15/24 11:42 BP 131/62 11/15/24 11:42 BMI result Body Mass Index 51.0 Const General: healthy appearing and no acute distress Nutritional Appearance: obese (Morbidly obese) Orientation/consciousness: patient oriented x3 Limitations: language barrier HEENT Head: Yes normal to inspection Ears: hearing grossly normal bilaterally Eyes Sclerae: sclerae normal Pupils: Equal, round and reactive pupils present Neck Neck: Yes normal visual inspection Chest Chest palpation & inspection: normal inspection of the chest Resp Effort & Inspection: normal respiratory effort Auscultation: clear to auscultation bilaterally Cardio Palpation: normal PMI Rate: regular rate Rhythm: regular rhythm Heart sounds: S1 normal heart sound present, S2 normal heart sound present and no murmurs GI Palpation (GI): Soft to palpation, nontender and No hepatosplenomegaly present Auscultation: normal bowel sounds Rectal Exam - Female: deferred Skin General skin exam: no rashes or lesions noted Neuro General: patient oriented x3, gait normal and moves all extremities Cranial nerves: Yes Equal, round and reactive pupils present Psych Appearance: grossly normal Mental Status: mental status grossly normal Assessment & Plan Assessment & Plan (1) B12 deficiency: Code(s): E53.8 - Deficiency of other specified B group vitamins Category: Medical (2) Pernicious anemia: Code(s): D51.0 - Vitamin B12 deficiency anemia due to intrinsic factor deficiency Category: Medical (3) IBS (irritable bowel syndrome): Code(s): K58.9 - Irritable bowel syndrome, unspecified Category: Medical (4) Constipation: Code(s): K59.00 - Constipation, unspecified Category: Medical Qualifiers: Constipation type: unspecified constipation type Qualified Code(s): K59.00 - Constipation, unspecified (5) GERD without esophagitis: Code(s): K21.9 - Gastro-esophageal reflux disease without esophagitis Category: Medical (6) Pernicious anemia: Code(s): D51.0 - Vitamin B12 deficiency anemia due to intrinsic factor deficiency Category: Medical (7) Elevated alkaline phosphatase level: Code(s): R74.8 - Abnormal levels of other serum enzymes Category: Medical (8) Pancreatic insufficiency: Code(s): K86.89 - Other specified diseases of pancreas Category: Medical Plan 54 year old [place] speaking female with morbid obesity, diabetes mellitus, hypertension, sleep apnea for FU of GERD, chronic diarrhea. Patient is status post gastric sleeve surgery in 2020 - Lost wt after Gastric sleeve and regained it again. Patient complains of intermittent heartburn a few days a week and denies symptoms of nausea, vomiting, change in appetite or weight. Always has diarrhea after she eats or drinks anything even prior to having Gastric sleeve. 05/21/24 EGD showed minimal focal esophagitis and mild gastritis. Same day colonoscopy showed diverticulosis, hemorrhoids and scattered aphthoid ulcers in the ascending colon Biopsies showed active colitis with mild activity and incidental sessile serrated polyp Repeat Colonoscopy in 1 year for FU of incidental polyp detected on random colon biopsies Patient advised further evaluation with labs and stool studies to rule out IBD, celiac disease or pancreatic insufficiency. 09/2020 ABD US WITH ELASTOGRAPHY SHOWED: 1. Diffuse fatty infiltration of the liver with areas of focal fatty sparing. Mild hepatomegaly. 2. The rest of the abdominal ultrasound is unremarkable. 3. Elastography: Rvuo-aa-irqjlpni fibrosis. 11/15/24 Denies any change in diarrhea - can have 4-5 BMs a day depending on what she eats Almost everything she eats causes diarrhea. Patient was prescribed Zenpep 3 times daily with meals for pancreatic insufficiency (stool pancreatic elastase was 18 with normal stool fat) Patient was advised to schedule a colonoscopy. Colonoscopy prep, procedure and potential complications were reviewed with her. Follow-up in 4 months. Medications: New mtavtw-bdopglpk-vcfweom 10,000-32,000 -42,000 unit (Zenpep) administer with meals and/or snacks 1 cap PO TID 90 caps 3RF 30 days K86.89 - Other specified diseases of pancreas Coding Level of Care Code Est Pt Level 4 (00431) Diagnoses B12 deficiency E53.8 Pernicious anemia D51.0 IBS (irritable bowel syndrome) K58.9 Constipation, unspecified constipation type K59.00 Constipation type: unspecified constipation type GERD without esophagitis K21.9 Elevated alkaline phosphatase level R74.8 Pancreatic insufficiency K86.89 Time Spent (min) 23
[2024-11-15 11:42] VITALS: BP 131/62; PULSE 76; BMI 51.0
--- OUTSIDE RECORDS SUMMARY | 2024-11-15 14:52 | XMS_ITS | Clinical Summary ---
Author Organization [facility] Address [address] [facility] [address] [place] [address] Phone Care Team Providers Care Continuity Tester Name Role Phone Radha Arevalo MD Primary Care Provider [phone] Allergies No known active allergies Medications atorvastatin [...] Visit [facility] [address] [phone] Vianey Yun ARNP [address] [phone] Health Maintenance Due Date Last Done Comments [...] PM EDT) Hemoglobin A1C 5.5 (4.0-5.6) % [facility] Comment: MONITORING: In known diabetic patients, hemoglobin A1c targets should be discussed with health care provider. DIAGNOSTIC USE: ??The [place] Diabetes Association (ADA) and the World Health [...] Supplement 1 Testing performed or reported by [facility], a Service of [facility], [address] [place] [address] Jennifer Painter MD, Tapper Hand [facility]# [id number] 04/28/2022 3:38 PM EDT 04/28/2022 3:41 PM EDT Guillermo Samuel MD LAB BLOOD ORDERABLES Final Re sult [facility] from Last 3 Months or Most Recently Relevant to Health Maintenance [place] [address] [place] [address] MEDICAID MEDICAID Care Teams Continuity Tester Relationship Specialty Start Date End Date Radha Arevalo MD [address] [place] [address] PCP - General 09/15/20
--- OUTSIDE RECORDS SUMMARY | 2024-11-15 14:52 | XMS_ITS | Clinical Summary ---
Author Organization [facility] ity Address [address] [place] [address] Care Team Providers Care Leaf Stripper Name Role Phone Unavailable Primary Care Provider [...]
== END 2024-11-15 14:32 | disposition home or self-care (01) ==
LOC: HO.HGI 11:30
PROVIDERS: PCP Internal Medicine; Visit Provider Internal Medicine Gastroenterology
DX: E53.8 Deficiency of other specified B group vitamins (principal); D51.0 Vitamin B12 deficiency anemia due to intrinsic factor deficiency; K58.9 Irritable bowel syndrome, unspecified; K59.00 Constipation, unspecified; K21.9 Gastro-esophageal reflux disease without esophagitis; R74.8 Abnormal levels of other serum enzymes; K86.89 Other specified diseases of pancreas
CPT/HCPCS: 99499

== ENCOUNTER 2024-12-19 11:15 | Outpatient (REF) | payer OTHER, SELFPAY ==
[2024-12-19 11:31] LABS: MANUAL DIFF FLAG NO
[2024-12-19 12:00] LABS: Basophils Absolute Auto 0.1 X10*3/uL (0.0-0.2); Basophils Percent Auto 0.5 % (0-2); Eosinophils Absolute Auto 0.2 X10*3/uL (0.0-0.4); Eosinophils Percent Auto 1.9 % (0-4); Hematocrit 38.4 % (37.0-47.0); Hemoglobin 12.5 g/dl (12.0-16.0); Imm Gran Abs Auto 0.05 X10*3/uL (0.00-0.03); Imm Gran Pct Auto 0.5 % (0.0-0.4); Lymphocytes Absolute Auto 1.6 X10*3/uL (1.2-4.9); Lymphocytes Percent Auto 15.8 % (20-40); Mean Corpuscular HGB Conc 32.6 g/dl (31.0-35.0); Mean Corpuscular Hemoglobin 29.1 pg (27.0-33.0); Mean Corpuscular Volume 89.5 fL (80.0-98.0); Mean Platelet Volume 9.6 fL (9.4-12.3); Monocytes Absolute Auto 0.8 X10*3/uL (0.1-1.2); Monocytes Percent Auto 7.4 % (2-11); Neutrophils Absolute Auto 7.7 x10*3/uL (2.0-8.3); Neutrophils Percent Auto 73.9 % (45-73); Platelet Count 257 X10*3/uL (160-400); Red Blood Count 4.29 X10*6/uL (4.20-5.50); Red Cell Distribution Width 13.4 % (11.0-16.0); White Blood Count 10.3 X10*3/uL (4.8-10.8)
[2024-12-19 12:55] LABS: Alanine Aminotransferase 21 U/L (0-31); Albumin Level 3.8 g/dL (3.5-5.0); Alkaline Phosphatase 140 U/L (39-117); Anion Gap 9 (12-20); Aspartate Amino Transferase 17 U/L (5-31); Bilirubin Total 0.4 mg/dL (0.0-1.0); Blood Urea Nitrogen 13 mg/dL (9-16); Calcium 9.2 mg/dL (8.4-10.2); Carbon Dioxide 29 mmol/L (22-29); Chloride 111 mmol/L (96-108); Cholesterol 181 mg/dL (<200); Estimated Glomerular Filt Rate > 60; Glucose Fasting 77 mg/dL (60-99); HDL Cholesterol 57 mg/dL (>40); Iron 62 mcg/dL (30-160); LDL Cholesterol Calculated 97 mg/dL (<100); Percent Iron Saturation 21 % (15-50); Potassium 4.6 mmol/L (3.3-5.1); Sodium 144 mmol/L (135-145); Total Iron Binding Capacity 300 mcg/dL (228-428); Total Protein 6.8 g/dL (6.5-8.0); Triglycerides 136 mg/dL (<150); Unsaturated Iron Binding 238 ug/dL; Vitamin D 25-OH Total 21.1 ng/mL (>30)
[2024-12-19 13:02] LABS: Folate 6.4 ng/mL (> or = 4.0); Vitamin B12 333 pg/mL (200-900)
--- OUTSIDE RECORDS SUMMARY | 2024-12-19 13:44 | XMS_ITS | Clinical Summary ---
Author Organization [facility] Address [address] [facility] [address] [place] [address] Phone Care Team Providers Care Pin Ticket Machine Operator Name Role Phone Radha Arevalo MD Primary Care Provider [phone] Allergies No known active allergies Medications atorvastatin [...] Visit [facility] [address] [phone] Vianey Yun ARNP [address] [phone] Health Maintenance Due Date Last Done Comments Breast Cancer Screening 1970 Hepatitis B Vaccine (1 of 3 - 19+ 3-dose series) 1989 Pneumococcal Vaccine: 50+ Ye ars (1 of 2 - PCV) 1989 Colorectal Cancer Screening: Annual FOBT 2019 Colorectal Cancer Screening: Colonoscopy 2019 Colorectal Cancer Screening: Sigmoidoscopy 2019 Diabetes: Ophthalmology Exam 10/06/2020 Diabetes: Pedal Pulse Checked 10/06/2020 Diabetes: Sensory Foot Exam 10/06/2020 Diabetes: Visual Foot Exam 10/06/2020 Diabetes: Hemoglobin A1C 07/29/2022 04/28/2022, 07/06 Influenza Vaccine (Season Ended) 2025 Procedures Procedure Name Priority Date/Time Associated Diagnosis Comments HEMOGLOBIN A1C Routine 04/28/2022 3:38 PM EDT from Last 3 Months or Most Recently Relevant to Health Maintenance Results * Hemoglobin A1c (04/28/2022 3:38 PM EDT) Hemoglobin A1C 5.5 (4.0-5.6) % [facility] Comment: MONITORING: In known diabetic patients, hemoglobin A1c targets should be discussed with health care provider. DIAGNOSTIC USE: ??The [place] Diabetes Association (ADA) and the World Health [...] reported by [facility], a Service of [facility], [address] [place] [address] Jennifer Painter MD, Optical Worker [facility]# [id number] 04/28/2022 3:38 PM EDT 04/28/2022 3:41 PM EDT us Guillermo Samuel MD LAB BLOOD ORDERABLES Final Re sult [facility] from Last 3 Months or Most Recently Relevant to Health Maintenance [place] [address] Medicaid [facility] Medicaid Care Teams Pin Ticket Machine Operator Relationship Specialty Start Date End Date Radha Arevalo MD [address] [facility] [place] [address] PCP - General 09/15/20
--- OUTSIDE RECORDS SUMMARY | 2024-12-19 13:44 | XMS_ITS | Clinical Summary ---
Author Organization [facility] ity Address [address] [place] [address] Care Team Providers Care Cigar Wrapper Name Role Phone Unavailable Primary Care Provider [...] - 2023-2 5 season) 2024 Influenza Vaccine (Season Ended) 2025 HIB Vaccines Aged Out No longer eligi [...] age to complete this topic Meningococcal B Vaccine Aged Out No l onger eligible based on patient's age to complete [...]
== END 2024-12-19 11:16 | disposition home or self-care (01) ==
LOC: HO.LAB 11:15
PROVIDERS: Absent Provider Physician Assistant Surgical; PCP Internal Medicine; Visit Provider Internal Medicine
DX: D64.9 Anemia, unspecified (principal); E87.1 Hypo-osmolality and hyponatremia; E78.5 Hyperlipidemia, unspecified; R80.9 Proteinuria, unspecified; E53.8 Deficiency of other specified B group vitamins; E55.9 Vitamin D deficiency, unspecified
CPT/HCPCS: 36415; 80053; 80061; 82043; 82306; 82570; 82607; 82746; 83540; 85025

== ENCOUNTER 2024-12-25 10:58 | Outpatient (AMB) | payer OTHER, SELFPAY ==
--- NOTE | 2024-12-25 11:01 | A.OFFPC_ITS ---
Vital Signs 12/25/24 11:02 Height 4 ft 10 in Weight 248 lb BMI 51.8 BP 136/78 Blood Pressure Location Lt brachial Position Sitting Intake Visit Reasons: PE Intake Note: Patient here for a physical exam Equipment Or Machinery Cleaner Required: No Accompanied by: Self / Same As Patient Allergies citalopram Allergy (Mild, Verified 12/25/24 11:13) Rash Medication List - Last Reconciled 12/25/24 by Radha Woodson MD acetaminophen 650 mg (2 x 325 mg) PO Q6H PRN 30 days atorvastatin 80 mg PO BEDTIME 90 days blood sugar diagnostic Use 1 test strip twice a day buspirone 7.5 mg PO BID cyanocobalamin (vitamin B-12) 1,000 mcg IM Q4W 1 month empagliflozin-metformin 25-1,000 mg ER (Synjardy XR) 1 tab PO DAILY 90 days ezetimibe 10 mg PO DAILY 90 days folic acid 1 mg PO DAILY 90 days Grab bar As directed insulin syringe,safety needle Use 1 needle once a month insulin syringe-needle U-100 (Advocate Syringes) As directed lancets Use 1 lancet twice a day zzjzws-ijnwjcdh-abpklty 10,000-32,000 -42,000 unit (Zenpep) 1 cap PO TID 30 days lisinopril 40 mg PO DAILY 90 days loratadine 10 mg PO DAILY PRN 90 days methylcellulose (laxative) (Citrucel) 500 mg PO TID metoprolol succinate ER 100 mg PO DAILY nystatin 1 appl topical BID 2 weeks pantoprazole 20 mg PO QAM semaglutide (Ozempic) 2 mg (0.75 mL) subcut QWEEK 4 weeks sertraline 100 mg PO DAILY Shower Chair As directed syringe with needle, safety (BD Safety-Madina Detachable Needle) As directed trazodone 50 mg PO BEDTIME PRN 30 days walker Walker with seat and wheels Tobacco use date assessed: 10/10/24 Dental Screening Dental Screen Date: 10/10/24 HPI HPI Comments History of Present Illness Details The patient is a 54-year-old female presenting for her annual physical examination. She has a history of Type 2 Diabetes Mellitus, which is currently managed with Synjardy, and her last hemoglobin A1c was reported to be 6.1% in October, indicative of good control. She also has hyperlipidemia, for which she is taking Atorvastatin 80 mg and Ezetimibe 10 mg, although her LDL cholesterol levels have not yet reached target. The patient follows up with gastroenterology for the management of her GERD and reports using Imodium to manage its symptoms when necessary. She has a past psychiatric history of depression and anxiety, currently managed with Sertraline 100 mg and Buspirone. There was a recent change in her Sertraline prescription, and she needs clarification on whether the dosage has been increased to 125 mg. The patient denies suicidal ideation despite a PHQ-9 score of 16, and she is under current psychiatric follow-up. There is a known drug allergy to Citalopram, which causes a rash. Her surgical history includes bilateral knee replacements, gastric sleeve surgery in 2020, carpal tunnel release in 2022, hysterectomy in 2013 due to which Pap smears are no longer required, and a right foot surgery for fracture in 2005. The patient recently underwent both an endoscopy and a colonoscopy in the past year. Mammogram was last year. No need for Pap smears due to hysterectomy. She is morbidly obese with a BMI of 51.8 and will go to weight management again. Will have Tdap vaccine today. - Mammogram performed in February 2024. - Colonoscopy and endoscopy performed in 2023. - Recent eye examination performed last year; next due shortly. - Tetanus vaccination planned for today; recommended every 10 years. - Recommendation to avoid high-fat foods and increase dietary fiber for cholesterol management. [facility] Medical History (Updated 12/25/24 @ 11:45 by Radha Woodson MD) Moderate major depression Depression with anxiety Morbid obesity with BMI of 45.0-49.9, adult Microalbuminuria due to type 2 diabetes mellitus GERD without esophagitis On beta epifanio at home Osteoarthritis of right knee Osteoarthritis of left knee COVID-19 vaccine series completed Hand pain Pernicious anemia Anemia Thiamine deficiency B12 deficiency Sleep apnea with use of continuous positive airway pressure (CPAP) Steatosis, liver Hyperlipidemia Morbid obesity Obese Rash Pure hypercholesterolemia Diabetes mellitus Essential hypertension Surgical History History of esophagogastroduodenoscopy (EGD) Hx of colonoscopy History of carpal tunnel release Status post total knee replacement, right History of arthroplasty of left knee Status post total left knee replacement Hx of carpal tunnel repair S/P laparoscopic sleeve gastrectomy Status post debridement History of total abdominal hysterectomy and bilateral salpingo-oophorectomy History of foot surgery Family History Father Diabetes Hypertension Prostate cancer Mother Hypertension Stomach cancer Social History Household Members: Family Household Members Other:: Brother Housing: Apartment Are you a primary medicare interviewer to a significant other at home: No Do you presently have visiting nurse or other home services: No Alcohol intake: never Patient Tobacco Use Status: Never used Tobacco e-Cigarette/Vaping Use: Never Used Second Hand Smoke Exposure: No Advance Directives Date on File: 04/16/22 service: No 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al status: disabled 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 1. Little interest or pleasure in doing things: not at all 2. Feeling down, depressed, or hopeless: not at all 3. Trouble falling or staying asleep, or sleeping too much: nearly every day 4. Feeling tired or having little energy: nearly every day 5. Poor appetite or overeating: several days 6. Feeling bad about yourself - or that you are a failure or have let yourself or your family down: nearly every day 7. Trouble concentrating on things, such as reading the newspaper or watching television: nearly every day 8. Moving or speaking so slowly that other people could have noticed. Or the opposite - being so fidgety or restless that you have been moving around a lot more than usual: nearly every day 9. Thoughts that you would be better off or of hurting yourself in some way: not at all Total score: 16 Depression Screening Interpretation: Positive (no suicidal thoughts) Depression Screening Follow-up: Existing condition, In treatment, Community Mental Health Worker F/U and Follow-up Visit Requested Depression Screening Done: Yes 01836 - PHQ-9 Billing: Yes Source: Developed by Drs. Inder Hamm, Nneka Marie, Marcelo Contreras and colleagues, with an educational mabel from [employer]. Thrive Questionnaire Date Thrive assessed: 12/25/24 I am a: Patient What is your living situation today?: I choose not to answer this question Within the past 12 months, did the food you bought not last and you didn't have the money to get more?: I choose not to answer this question Within the past 12 months, did you worry whether your food would run out before you got money to buy more?: I choose not to answer this question Do you have trouble paying for medicines?: I choose not to answer this question Do you have trouble getting transportation to medical appointments?: I choose not to answer this question Do you have trouble paying your heating and electricity bill?: I choose not to answer this question Do you have trouble taking care of your child, family member or friend?: I choose not to answer this question Do you have trouble with day-to-day activities such as bathing, preparing meals, shopping, managing finances, etc.?: Yes Are you currently unemployed and looking for a job?: No Are you interested in more education?: No Please select the resources that you would like help with: Food and Transportation Currently or been in a relationship where the following occur: I choose not to answer THRIVE Score: 0 AUDIT C Alcohol Use Questionnaire (AUDIT-C) 1. How often do you have a drink containing alcohol?: Never Total Score: 0 Score Reviewed/Action Taken: No MELANIE-7 AMB Questionnaire MELANIE-7 Date MELANIE - 7 assessed: 12/25/24 Feeling nervous, anxious, or on edge: 3 = Nearly every day Not being able to stop or control worryin = Several days Worrying too much about different things: 1 = Several days Trouble relaxin = Several days Being so restless that it is hard to sit still: 1 = Several days Becoming easily annoyed or irritable: 1 = Several days Feeling afraid as if something awful might happen: 0 = Not at all Total MELANIE-7 score (0-4 normal; 5-9 mild; 10-14 moderate; 15-21 severe): 8 Source: Developed by Drs. Inder Hamm, Nneka Marie, Marcelo Contreras and colleagues, with an educational mabel from [employer]. MELANIE-7 Assessment Billing MELAINE-7 Assessment Tool: MELANIE-7 Assessment 63998 Review of Systems Const All systems reviewed & are unremarkable except as noted in HPI and below Card Denies chest pain at rest, Denies chest pain with activity, Denies edema, Denies irregular heart rhythm, Denies claudication, Denies dyspnea, Denies dyspnea on exertion, Denies orthopnea, Denies paroxysmal nocturnal dyspnea and Denies slow heart rate Resp Denies cough, Denies dyspnea and Denies dyspnea on exertion GI Denies abdominal pain, Denies change in bowel habits, Denies excessive flatus, Denies nausea and Denies vomiting Denies urinary incontinence, Denies urinary hesitancy and Denies urinary urgency Musc Denies abnormal gait, Denies atrophy, Denies deformity and Denies limited range of motion Skin/Breast Denies bleeding lesions, Denies changing lesions and Denies rash Neuro Denies abnormal gait, Denies behavioral changes and Denies lack of coordination Psych Denies behavioral changes Physical exam (Primary Care) Vital Signs: Last Vital Signs BP 136/78 12/25/24 11:02 BMI result Body Mass Index 51.8 BMI Assessment/Plan discussion: High BMI High, discussed plan: lifestyle, weight reduction, dietary and physical activity Tobacco/Smoking Status: Tobacco use Status Tobacco use date assessed 10/10/24 12/25/24 11:10 Patient Tobacco Use Status Never used Tobacco 12/25/24 11:10 e-Cigarette/Vaping Use Never Used 12/25/24 11:10 PHQ-9: PHQ-9 Score PHQ-9: Total score 16 12/25/24 11:24 Depression Screening Interpretation: Positive (no suicidal thoughts) Depression Screening Follow-up: Existing condition, In treatment, Community Mental Health Worker F/U and Follow-up Visit Requested Thrive Assessment: Date of Thrive Assessment Date Thrive assessed 12/25/24 12/25/24 11:10 Currently or been in a relationship where the following occur: I choose not to answer HENMT Head: Yes normal to inspection, Yes normocephalic and Yes atraumatic Ears: external ears normal Eyes General: appearance normal, both eyes and all related structures Eyelids: Yes eyelids normal Conjunctivae: conjunctivae normal Neck Neck: Yes normal visual inspection and Yes supple Resp Effort & Inspection: normal respiratory effort Auscultation: clear to auscultation bilaterally Cardio Jugular venous distension: no JVD Rate: regular rate Rhythm: regular rhythm Heart sounds: S1 normal heart sound present and S2 normal heart sound present GI Inspection: Yes normal to inspection Palpation (GI): Soft to palpation and nontender Auscultation: normal bowel sounds Skin General skin exam: no rashes or lesions noted Neuro General: no focal motor deficits Extrem General: Yes full ROM Psych Appearance: grossly normal Immunizations Boostrix Tdap 2.5 Lf unit-8 mcg-5 Lf/0.5 mL intramuscular syringe Performing Provider: Radha Woodson MD [facility] Administered by: Lucero Guillen LPN on 12/25/24 11:41 Dose Route Admin Location Dispensed Lot Number Expiration Date NDC Director Veterinary 0.5 mL IM Left Deltoid 0.5 mL [id number] 05/01/27 92236-713-04 [place] VIS Given Date VIS Provided VIS Publication Date 12/25/24 Single Vaccine 21 Eligibility Eligibility Date Funding Source Not [facility] Eligible 12/25/24 Private Coding Level of Care Code Est Pt Level 3 (09796) Est Pt Prev Care 40-64y(87866) Diagnoses Physical exam Z00.00 Diarrhea, unspecified type R19.7 Diarrhea type: unspecified type Type 2 diabetes mellitus with microalbuminuria, without long-term current use of insulin E11.29; R80.9 Diabetes mellitus complication detail: with microalbuminuria Diabetes mellitus complication status: with kidney complications Diabetes mellitus fci insulin use: without fci use Diabetes mellitus type: type 2 Morbid obesity E66.01 Mild major depression F32.0 Additional Codes PHQ-9 - 40317 - PHQ-9 Billing: Yes ([id number]) MELANIE-7 Assessment Billing - MELANIE-7 Assessment Tool: MELANIE-7 Assessment 61033 ([id number]) Time Spent (min) 35 Assessment & Plan Assessment & Plan (1) Physical exam: Code(s): Z00.00 - Encounter for general adult medical examination without abnormal findings Category: Medical (2) Diarrhea: Code(s): R19.7 - Diarrhea, unspecified Category: Medical Qualifiers: Diarrhea type: unspecified type Qualified Code(s): R19.7 - Diarrhea, unspecified (3) Diabetes mellitus: Code(s): E11.9 - Type 2 diabetes mellitus without complications Category: Medical Qualifiers: Diabetes mellitus complication detail: with microalbuminuria Diabetes mellitus complication status: with kidney complications Diabetes mellitus fci insulin use: without long term acute care registered nurse use Diabetes mellitus type: type 2 Qualified Code(s): E11.29 - Type 2 diabetes mellitus with other diabetic kidney complication; R80.9 - Proteinuria, unspecified (4) Morbid obesity: Comment: s/p gastric sleeve 2020 Code(s): E66.01 - Morbid (severe) obesity due to excess calories Category: Medical (5) Mild major depression: Code(s): F32.0 - Major depressive disorder, single episode, mild Category: Medical Plan The patient will continue current management of Type 2 Diabetes Mellitus with Synjardy, as her A1c demonstrates good control. Regarding her hyperlipidemia, she is advised to maintain current medications, but dietary modifications are discussed to aid further lipid control. For depression and anxiety, I encouraged clarification with psychiatry about her Sertraline dosage change and reinforced the importance of follow-up given her elevated PHQ-9 score. For GERD symptoms, monitoring her Imodium use is suggested while maintaining her gastroenterology follow-up. In terms of preventive care, ensuring her tetanus vaccination and discussing lifestyle modifications for cholesterol were priorities. Patient was informed and verbally consented to the use of an ambient scribe for clinic note documentation during this visit. I discussed the current management and future plan for the patient's Type 2 Diabetes Mellitus, noting the stable control with Synjardy. For hyperlipidemia, we explored potential dietary interventions alongside her current medication regimen. Conversations around her mental health focused on clarifying her current Sertraline dosage and addressing her psychiatric needs in light of a higher PHQ-9 score. I underscored the importance of maintaining close follow-up with psychiatry. We also reviewed her medication list, addressing potential allergies and the recent change in psychiatric medication. Preventive health care included confirmation of a tetanus vaccine administration recommendation and reinforcement of lifestyle modifications such as reducing dietary fat intake and increasing fiber. Orders: Orders Lipid Panel 4 Months E78.5 - Hyperlipidemia, unspecified Vitamin D 25-OH Total 4 Months E55.9 - Vitamin D deficiency, unspecified Comprehensive [place]. Panel Fast 4 Months E11.29 - Type 2 diabetes mellitus with other diabetic kidney complication, R80.9 - Proteinuria, unspecified TDaP Immunization Today Z23 - Encounter for immunization Microalbumin, Random (w Creat) 4 Months R80.9 - Proteinuria, unspecified Vitamin B12 and Folate 4 Months E53.8 - Deficiency of other specified B group vitamins Medications: New loperamide 2 mg PO Q6H 5 days PRN 10 caps 0RF loose stool R19.7 - Diarrhea, unspecified Patient Instructions: - Continue taking Synjardy for diabetes as prescribed. - Take Atorvastatin and Ezetimibe for cholesterol. - Clarify your Sertraline dosage with psychiatry. - Use Imodium as needed for GERD and follow up with gastroenterology. - Schedule the next eye exam. - Receive the tetanus vaccine today. - Follow a diet low in fat and high in fiber to help manage cholesterol. - Follow up with psychiatry regarding your PHQ-9 score.
[2024-12-25 11:02] VITALS: BP 136/78; BMI 51.8
--- OUTSIDE RECORDS SUMMARY | 2024-12-25 13:04 | XMS_ITS | Clinical Summary ---
Author Organization [facility] Address [address] [place] [address] Phone Care Team Providers Care Awning Hanger Helper Name Role Phone Radha Arevalo MD Primary Care Provider Allergies No known active allergies Medications atorvastatin [...] Visit [facility] [address] [phone] Vianey Yun ARNP [address] [phone] Health Maintenance Due Date Last Done Comments [...] PM EDT) Hemoglobin A1C 5.5 (4.0-5.6) % [facility] Comment: MONITORING: In known diabetic patients, hemoglobin A1c targets should be discussed with health care provider. DIAGNOSTIC USE: ??The [place] Diabetes Association (ADA) and the World Health [...] Supplement 1 Testing performed or reported by [facility], a Service of [facility], [address] [place] [id number] Jennifer Painter MD, Machine Wiper [facility]# [id number] 04/28/2022 3:38 PM EDT 04/28/2022 3:41 PM EDT us Guillermo Samuel MD LAB BLOOD ORDERABLES Final Re sult [facility] from Last 3 Months or Most Recently Relevant to Health Maintenance [place] [address] Medicaid [facility] Medicaid Care Teams Awning Hanger Helper Relationship Specialty Start Date End Date Radha Arevalo MD [address] [place] [address] PCP - General 09/15/20
--- OUTSIDE RECORDS SUMMARY | 2024-12-25 13:04 | XMS_ITS | Clinical Summary ---
Author Organization [facility] Address [address] [place] [address] Care Team Providers Care Project Eng Name Role Phone Unavailable Primary Care Provider [...]
== END 2024-12-25 11:46 | disposition home or self-care (01) ==
LOC: HO.HMCH 10:59
PROVIDERS: PCP Internal Medicine; Visit Provider Internal Medicine
DX: Z00.00 Encounter for general adult medical examination without abnormal findings (principal); E11.29 Type 2 diabetes mellitus with other diabetic kidney complication; E66.01 Morbid (severe) obesity due to excess calories; F32.0 Major depressive disorder, single episode, mild; Z68.43 Body mass index [BMI] 50.0-59.9, adult; R19.7 Diarrhea, unspecified; R80.9 Proteinuria, unspecified; Z23 Encounter for immunization

== ENCOUNTER → 2024-12-25 10:58 | Outpatient (BNVA) | payer OTHER, SELFPAY | PROVIDERS: PCP Internal Medicine; Visit Provider Internal Medicine | DX: Z00.00 Encounter for general adult medical examination without abnormal findings (principal); Z23 Encounter for immunization; R19.7 Diarrhea, unspecified; E11.29 Type 2 diabetes mellitus with other diabetic kidney complication; R80.9 Proteinuria, unspecified; E66.01 Morbid (severe) obesity due to excess calories; Z68.43 Body mass index [BMI] 50.0-59.9, adult; F32.0 Major depressive disorder, single episode, mild; Z98.84 Bariatric surgery status | CPT/HCPCS: 90471; 90715; 96127; 99212; 99396 ==

== ENCOUNTER 2025-01-01 10:24 | Outpatient (AMB) | payer OTHER, SELFPAY ==
--- NOTE | 2025-01-01 10:47 | A.OFFVIS_ITS ---
VS Expanded 01/01/25 11:35 BP 147/67 H Blood Pressure Location Rt brachial Blood Pressure Position Sitting Pulse 72 Pulse Source Pulse Oximeter Temp 96.8 F Temperature Source Temporal Artery Scan Pulse Oximetry 99 Oxygen Delivery Method Room Air Height 4 ft 10 in Weight 246 lb 6.4 oz BMI 51.5 Body Fat % 49.9 Body Fat Mass 122.8 Fat Free Mass 123.4 Visceral Fat Rating 19.0 Body Water % 35.7 Body Water Mass 88.0 Muscle Mass/Score 117.2 Basal Metabolic Rate/Score 1,763 Intake Visit Reasons: (OV) PO LSG 05/05/2021 Carton Liner Required: Yes Carton Liner Name: Olga Barrett [id number] Allergies citalopram Allergy (Mild, Verified 01/01/25 11:28) Rash Medication List - Last Reconciled 01/01/25 by CARROLL Bradshaw acetaminophen 650 mg (2 x 325 mg) PO Q6H PRN 30 days atorvastatin 80 mg PO BEDTIME 90 days blood sugar diagnostic Use 1 test strip twice a day buspirone 7.5 mg PO BID cyanocobalamin (vitamin B-12) 1,000 mcg IM Q4W 1 month empagliflozin-metformin 25-1,000 mg ER (Synjardy XR) 1 tab PO DAILY 90 days ezetimibe 10 mg PO DAILY 90 days folic acid 1 mg PO DAILY 90 days Grab bar As directed insulin syringe,safety needle Use 1 needle once a month insulin syringe-needle U-100 (Advocate Syringes) As directed lancets Use 1 lancet twice a day rjicgm-jnplvajz-solbkuj 10,000-32,000 -42,000 unit (Zenpep) 1 cap PO TID 30 days lisinopril 40 mg PO DAILY 90 days loperamide 2 mg PO Q6H PRN 5 days loratadine 10 mg PO DAILY PRN 90 days methylcellulose (laxative) (Citrucel) 500 mg PO TID metoprolol succinate ER 100 mg PO DAILY nystatin 1 appl topical BID 2 weeks pantoprazole 20 mg PO QAM semaglutide (Ozempic) 2 mg (0.75 mL) subcut QWEEK 4 weeks sertraline 100 mg PO DAILY Shower Chair As directed syringe with needle, safety (BD Safety-Amdina Detachable Needle) As directed trazodone 50 mg PO BEDTIME PRN 30 days walker Walker with seat and wheels HPI Comments Details: This?is a?54?yo F who is s/p LSG 05/05/2021. Presents for 3 year 8mo post op visit. Weight at last visit on 05/14/2024 was 244.6 pounds; weight today is 246.4 pounds, representing a 1.8 pound weight gain with a BMI today of 51.5.? No complaints of nausea, emesis, abdominal pain or reflux, or constipation. Continues on Ozempic. Feels it helps with hunger as well as blood sugar levels. She does have anxiety which she admits causes her to snack more often. She had met with Nahomy in the fall which she found helpful, however was also talking to her community therapist. Present meal plan includes: breakfast- 30g shake lunch- 30g shake dinner- 2oz protein, 2oz veg protein bar during the day for a snack (suggested after lunch or after dinner) can have additional protein bar if hungry Pt reports she has not been using shakes or bars- only if she happens to have the money to do so. Pt reports taking 1 protein shake, 1 bar, had difficulty with finances but plans to restart full plan Exercise routine includes: has not been able to exercise consistently due to knee pain PFSH Medical History Moderate major depression Depression with anxiety Morbid obesity with BMI of 45.0-49.9, adult Microalbuminuria due to type 2 diabetes mellitus GERD without esophagitis On beta epifanio at home Osteoarthritis of right knee Osteoarthritis of left knee COVID-19 vaccine series completed Hand pain Pernicious anemia Anemia Thiamine deficiency B12 deficiency Sleep apnea with use of continuous positive airway pressure (CPAP) Steatosis, liver Hyperlipidemia Morbid obesity Obese Rash Pure hypercholesterolemia Diabetes mellitus Essential hypertension Surgical History History of esophagogastroduodenoscopy (EGD) Hx of colonoscopy History of carpal tunnel release Status post total knee replacement, right History of arthroplasty of left knee Status post total left knee replacement Hx of carpal tunnel repair S/P laparoscopic sleeve gastrectomy Status post debridement History of total abdominal hysterectomy and bilateral salpingo-oophorectomy History of foot surgery Family History Father Diabetes Hypertension Prostate cancer Mother Hypertension Stomach cancer Social History Household Members: Family Household Members Other:: Brother Housing: Apartment Are you a primary certified social workers in health care to a significant other at home: No Do you presently have visiting nurse or other home services: No Alcohol intake: never Patient Tobacco Use Status: Never used Tobacco e-Cigarette/Vaping Use: Never Used Second Hand Smoke Exposure: No Advance Directives Date on File: 04/16/22 service: No 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al status: disabled 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 Cognitive needs: Yes Hearing needs: No Vision needs: No Female Reproductive History Menstrual Age of Menarche: 12 Physical Exam Vital Signs: Last Vital Signs Temp 96.8 F 01/01/25 11:35 Pulse 72 01/01/25 11:35 BP 147/67 H 01/01/25 11:35 Pulse Ox 99 01/01/25 11:35 Oxygen Delivery Method Room Air 01/01/25 11:35 BMI result Body Mass Index 51.5 Quality Reporting (2019) Adult ([facility] 138/10/27/68) Smoking risk assessment performed?: Yes Patient Tobacco Use Status: Never used Tobacco Assessment & Plan Assessment & Plan (1) S/P laparoscopic sleeve gastrectomy: Comment: 04/2021 Code(s): Z98.84 - Bariatric surgery status Category: Surgical (2) Morbid obesity: Comment: s/p gastric sleeve 2020 Code(s): E66.01 - Morbid (severe) obesity due to excess calories Category: Medical Plan Discussed the importance of adequate protein intake in weight loss. She is frustrated by her difficulty with exercise. Discussed chair videos which she has tried but is unenthusiastic about, I feel like they're not doing anything. Encouraged her to continue. Declined another meeting with Nahomy today. RTC end April/early May for annual.
[2025-01-01 11:35] VITALS: BP 147/67; PULSE 72; TEMP 36; O2SAT 99; BMI 51.5
--- OUTSIDE RECORDS SUMMARY | 2025-01-01 11:57 | XMS_ITS | Clinical Summary ---
Author Organization [facility] ity Address [address] [place] [address] Care Team Providers Care Home Improvement Advisor Name Role Phone Unavailable Primary Care Provider [...]
--- OUTSIDE RECORDS SUMMARY | 2025-01-01 11:57 | XMS_ITS | Clinical Summary ---
Author Organization [facility] Address [address] [facility] [address] [place] [address] Phone Care Team Providers Care Manager Strategic Partnerships Name Role Phone Radha Arevalo MD Primary Care Provider [phone] Allergies No known active allergies Medications atorvastatin [...] Visit [facility] [address] [phone] Vianey Yun ARNP [address] [phone] Health Maintenance Due Date Last Done Comments [...] PM EDT) Hemoglobin A1C 5.5 (4.0-5.6) % [facility] Comment: MONITORING: In known diabetic patients, hemoglobin A1c targets should be discussed with health care provider. DIAGNOSTIC USE: ??The [place] Diabetes Association (ADA) and the World Health [...] Supplement 1 Testing performed or reported by [facility], a Service of [facility], [address] [place] [id number] Jennifer Painter MD, Chapter Relations Administrator [facility]# [id number] 04/28/2022 3:38 PM EDT 04/28/2022 3:41 PM EDT us Guillermo Samuel MD LAB BLOOD ORDERABLES Final Re sult [facility] from Last 3 Months or Most Recently Relevant to Health Maintenance [place] [address] [place] [address] Medicaid [facility] Medicaid Care Teams Manager Strategic Partnerships Relationship Specialty Start Date End Date Radha Arevalo MD [address] [place] [address] PCP - General 09/15/20
== END 2025-01-01 12:02 | disposition home or self-care (01) ==
LOC: HO.HBS 10:24
PROVIDERS: PCP Internal Medicine; Visit Provider Physician Assistant Surgical
DX: E66.01 Morbid (severe) obesity due to excess calories (principal); E66.813 Obesity, class 3; Z68.43 Body mass index [BMI] 50.0-59.9, adult; Z98.84 Bariatric surgery status
CPT/HCPCS: 99214; G2211

== ENCOUNTER → 2025-01-01 10:24 | Outpatient (BNVA) | payer OTHER, SELFPAY | PROVIDERS: PCP Internal Medicine; Visit Provider Physician Assistant Surgical | DX: E66.01 Morbid (severe) obesity due to excess calories (principal); Z98.84 Bariatric surgery status; Z68.43 Body mass index [BMI] 50.0-59.9, adult | CPT/HCPCS: 99212 ==

== ENCOUNTER 2025-03-21 10:45 | Outpatient (AMB) | payer OTHER, SELFPAY ==
--- NOTE | 2025-03-21 10:51 | MHC.OFFVIS ---
Vital Signs 03/21/25 10:52 Height 4 ft 10 in Weight 246 lb BMI 51.4 BP 144/65 H Blood Pressure Location Lt brachial Position Sitting Pulse 71 Pulse Oximetry (%) 97 Oxygen Delivery Method Room Air Intake Visit Reasons: 4 mo f/u Intake Note: Patient follow up for B12 deficiency. Patient cc: abdominal pain on and off, daily diarrhea. Director Food Safety Required: Yes Director Food Safety Name: [facility] Interpeter Accompanied by: Self / Same As Patient Allergies citalopram Allergy (Mild, Verified 03/27/25 13:33) Rash Medication List - Last Reconciled 03/21/25 by Lisseth Amaro MD acetaminophen 650 mg (2 x 325 mg) PO Q6H PRN 30 days atorvastatin 80 mg PO BEDTIME 90 days blood sugar diagnostic Use 1 test strip twice a day buspirone 7.5 mg PO BID cyanocobalamin (vitamin B-12) 1,000 mcg IM Q4W 1 month empagliflozin-metformin 25-1,000 mg ER (Synjardy XR) 1 tab PO DAILY 90 days ezetimibe 10 mg PO DAILY 90 days folic acid 1 mg PO DAILY 90 days Grab bar As directed insulin syringe,safety needle Use 1 needle once a month insulin syringe-needle U-100 (Advocate Syringes) As directed lancets Use 1 lancet twice a day cievns-biamubqb-frbczwf 10,000-32,000 -42,000 unit (Zenpep) 1 cap PO TID 30 days lisinopril 40 mg PO DAILY 90 days loperamide 2 mg PO Q6H PRN 5 days loratadine 10 mg PO DAILY PRN 90 days methylcellulose (laxative) (Citrucel) 500 mg PO TID metoprolol succinate ER 100 mg PO DAILY nystatin 1 appl topical BID 2 weeks pantoprazole 20 mg PO QAM semaglutide (Ozempic) 2 mg (0.75 mL) subcut QWEEK 4 weeks sertraline 100 mg PO DAILY Shower Chair As directed syringe with needle, safety (BD Safety-Madina Detachable Needle) As directed trazodone 50 mg PO BEDTIME PRN 30 days walker Walker with seat and wheels HPI HPI 4 mo f/u: Details: GI clinic visit for this 55 year old Setswana speaking female with morbid obesity, diabetes mellitus, hypertension, sleep apnea for FU of GERD, chronic diarrhea to discuss EGD and colon results. Patient is status post gastric sleeve surgery in 2020 - Lost wt after Gastric sleeve and regained it again. TODAY'S VISIT: [facility] Card Feeder, Anuja Patient cc: abdominal pain on and off, daily diarrhea. Has abd pain after eating or drinking any liquids. Has to run to the bathroom with improvement in abd pain sometimes Can have loose to watery stools 7-9 times a day - stools are a little thick in the am and become watery the rest of the day. Can have bowel accidents. She was prescribed Loperamide by her PCP and has to take 2 tab for the medication to work for a few hrs Two older sister have similar symptoms and are being treated (pt does not know their diagnosis or medications they are taking) PAST VISITS: Denies any change in diarrhea - can have 4-5 BMs a day depending on what she eats Almost everything she eats causes diarrhea. Hot and cold foods do not sit well with her Always has diarrhea after she eats or drinks anything even prior to having Gastric sleeve. Patient follow up for Anemia and EGD/Colonoscopy results. Sonya former patient. Patient cc: acid reflex with some burning sensation on and off, diarrhea, no appetite, denies any other GI issues. EGD and colon results were reviewed Patient complains of intermittent heartburn a few days a week and denies symptoms of nausea, vomiting, change in appetite or weight. Denies problems with milk products. Denies black stools or rectal bleeding. Patient has a hx of sleep apnea and denies major cardiac or pulmonary problems Denies being on chronic anticoagulation. 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 LABS IN [employer] : 04/2024 -reviewed IMAGING STUDIES: 09/2020 ABD US WITH ELASTOGRAPHY SHOWED: 1. Diffuse fatty infiltration of the liver with areas of focal fatty sparing. Mild hepatomegaly. 2. The rest of the abdominal ultrasound is unremarkable. 3. Elastography: Giqq-fs-xjdetfst fibrosis. ENDOSCOPIC STUDIES: 05/21/24 EGD AND COLON SHOWED: Endoscopy Findings: ESOPHAGUS: Mildly tortuous esophagus without stricture or ring Minimal focal esophagitis at GE junction. No Edge's. STOMACH: Normal appearing gastric pouch with mild gastric erythema - biopsies were obtained from the antrum. DUODENUM: Normal - biopsied to check for celiac sprue Colonoscopy Findings: No polyps were detected. Scattered 1-2 mm aphthoid ulcers in the ascending colon with normal intervening mucosa - random biopsies obatined to rule out IBD. Moderate diverticulosis seen in the left colon Moderate hemorrhoids on retroflexed exam. Plan: Repeat Colonoscopy in 10 year if colon biopsies are normal. Above findings were reviewed with the patient and relevant handouts were given and the discharge area. BIOPSIES SHOWED: A. Small bowel, biopsy: Small bowel mucosa with preserved villous architecture and increased intraepithelial lymphocytes (see comment). B. Stomach, antrum, biopsy: Gastric antral mucosa with mild chronic inactive gastritis; negative for Helicobacter pylori, intestinal metaplasia and dysplasia. C. Terminal ileum, biopsy: Ileal mucosa within normal limits; negative for active or chronic ileitis. D. Colon, right side, biopsy: Active colitis with mild activity and incidental sessile serrated polyp/lesion without dysplasia. E. Colon, left side, biopsy: Colonic mucosa within normal limits; negative for active, chronic or microscopic colitis. COMMENT (A): These findings raise the possibility of celiac disease; however other pathologic processes, including H. pylori gastritis, peptic duodenitis, food allergies other than celiac disease, tropical sprue, viral enteritis, injury caused by drugs, autoimmune enteropathy, immunodeficiencies and Crohn?s disease can induce intraepithelial lymphocytosis with or without associated architectural changes. In many cases no definite cause is identified. Clinical and serological correlation is recommended. COMMENT (D): Neither chronic mucosal injury no granulomas are seen. The differential diagnosis includes infection, drug/medication effect and early idiopathic inflammatory bowel disease. PAST GI HISTORY BY REVIEW OF MEDICAL RECORDS: 01/2023 PATIENT WAS SEEN BY CARROLL CONTRERAS A 52 y/o female - colon screening in [place] many years ago presents with intermittent vomiting- gastric sleeve-2 years ago- She has hemorrhoids- loose stool with urgency- imodium not as good response anymore She has constipation as well - Sleep apnea- cpap Recent knee replacement-December doing very well No fever, chills abdominal pain, hematochezia, hematemesis A 52 y/o 0 beat female multiple comorbid illness- s/p gastric sleeve- DM-persistent acid reflux, alternating stool pattern Will be scheduled for EGD as well as colonoscopy, discussed indications, need for escorted due to anesthesia is of MiraLax Gatorade split prep. To feed is scheduled with anesthesia consult due to some GWENDOLYN [facility] Medical History (Updated 04/17/25 @ 13:11 by Shannan Mulligan RN) Depression with anxiety Morbid obesity with BMI of 45.0-49.9, adult Microalbuminuria due to type 2 diabetes mellitus GERD without esophagitis Pernicious anemia Anemia Thiamine deficiency B12 deficiency Sleep apnea with use of continuous positive airway pressure (CPAP) Steatosis, liver Hyperlipidemia Pure hypercholesterolemia Diabetes mellitus Essential hypertension Surgical History (Updated 04/17/25 @ 13:12 by Shannan Mulligan RN) History of esophagogastroduodenoscopy (EGD) Hx of colonoscopy History of carpal tunnel release Status post total knee replacement, right Status post total left knee replacement S/P laparoscopic sleeve gastrectomy Status post debridement History of total abdominal hysterectomy and bilateral salpingo-oophorectomy History of foot surgery Family History Father Diabetes Hypertension Prostate cancer Mother Hypertension Stomach cancer Social History Household Members: Family Household Members Other:: Brother Housing: Apartment Are you a primary medicare compliance auditor to a significant other at home: No Do you presently have visiting nurse or other home services: No Alcohol intake: never Patient Tobacco Use Status: Never used Tobacco e-Cigarette/Vaping Use: Never Used Second Hand Smoke Exposure: No Advance Directives: No Advance Directives Information Provided: Yes Advance Directives Date on File: 04/16/22 service: No 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al status: disabled 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 Cognitive needs: Yes Hearing needs: No Vision needs: No Female Reproductive History Menstrual Age of Menarche: 12 Review of Systems Const All systems reviewed & are unremarkable except as noted in HPI and below Physical Exam Vital Signs: Last Vital Signs Pulse 71 03/21/25 10:52 BP 144/65 H 03/21/25 10:52 Pulse Ox 97 03/21/25 10:52 Oxygen Delivery Method Room Air 03/21/25 10:52 BMI result Body Mass Index 51.4 Const General: healthy appearing and no acute distress Nutritional Appearance: obese Orientation/consciousness: patient oriented x3 Limitations: language barrier HEENT Head: Yes normal to inspection Ears: hearing grossly normal bilaterally Eyes Sclerae: sclerae normal Pupils: Equal, round and reactive pupils present Neck Neck: Yes normal visual inspection Chest Chest palpation & inspection: normal inspection of the chest Resp Effort & Inspection: normal respiratory effort Auscultation: clear to auscultation bilaterally Cardio Palpation: normal PMI Rate: regular rate Rhythm: regular rhythm Heart sounds: S1 normal heart sound present, S2 normal heart sound present and no murmurs GI Palpation (GI): Soft to palpation, nontender and No hepatosplenomegaly present Auscultation: normal bowel sounds Rectal Exam - Female: deferred Skin General skin exam: no rashes or lesions noted Neuro General: patient oriented x3, gait normal and moves all extremities Cranial nerves: Yes Equal, round and reactive pupils present Psych Appearance: grossly normal Mental Status: mental status grossly normal Assessment & Plan Assessment & Plan (1) Steatosis, liver: Code(s): K76.0 - Fatty (change of) liver, not elsewhere classified Category: Medical (2) Status post repair of paraesophageal diaphragmatic hernia: Code(s): Z98.890 - Other specified postprocedural states; Z87.19 - Personal history of other diseases of the digestive system Category: Surgical (3) IBS (irritable bowel syndrome): Code(s): K58.9 - Irritable bowel syndrome, unspecified Category: Medical (4) GERD without esophagitis: Code(s): K21.9 - Gastro-esophageal reflux disease without esophagitis Category: Medical (5) Pancreatic insufficiency: Code(s): K86.89 - Other specified diseases of pancreas Category: Medical (6) Diarrhea: Code(s): R19.7 - Diarrhea, unspecified Category: Medical Qualifiers: Diarrhea type: unspecified type Qualified Code(s): R19.7 - Diarrhea, unspecified Plan 55 year old Setswana speaking female with morbid obesity, diabetes mellitus, hypertension, sleep apnea for FU of GERD, chronic diarrhea. Patient is status post gastric sleeve surgery in 2020 - Lost wt after Gastric sleeve and regained it again. Patient complains of intermittent heartburn a few days a week and denies symptoms of nausea, vomiting, change in appetite or weight. Always has diarrhea after she eats or drinks anything even prior to having Gastric sleeve. 05/21/24 EGD showed minimal focal esophagitis and mild gastritis. Same day colonoscopy showed diverticulosis, hemorrhoids and scattered aphthoid ulcers in the ascending colon Biopsies showed active colitis with mild activity and incidental sessile serrated polyp Repeat Colonoscopy in 1 year for FU of incidental polyp detected on random colon biopsies Patient advised further evaluation with labs and stool studies to rule out IBD, celiac disease or pancreatic insufficiency. 09/2020 ABD US WITH ELASTOGRAPHY SHOWED: 1. Diffuse fatty infiltration of the liver with areas of focal fatty sparing. Mild hepatomegaly. 2. The rest of the abdominal ultrasound is unremarkable. 3. Elastography: Dhtn-ge-rmnpssmw fibrosis. 11/15/24 Denies any change in diarrhea - can have 4-5 BMs a day depending on what she eats Almost everything she eats causes diarrhea. Patient was prescribed Zenpep 3 times daily with meals for pancreatic insufficiency (stool pancreatic elastase was 18 with normal stool fat) 03/21/25 Can have loose to watery stools 7-9 times a day - stools are a little thick in the am and become watery the rest of the day. Can have bowel accidents. She was prescribed Loperamide by her PCP and has to take 2 tab for the medication to work for a few hrs Patient was advised to schedule a colonoscopy. Colonoscopy prep, procedure and potential complications were reviewed with her. Follow-up in 3 months Orders: Orders Calprotectin, Fecal 03/21/25 R19.7 - Diarrhea, unspecified Medications: Changed From loperamide 2 mg PO Q6H 5 days PRN 10 caps 0RF loose stool R19.7 - Diarrhea, unspecified To loperamide 2 mg PO Q6H PRN 120 caps 1RF loose stool 30 days R19.7 - Diarrhea, unspecified Coding Level of Care Code Est Pt Level 4 (41021) Complex EM visit Add On G2211 Diagnoses Steatosis, liver K76.0 Status post repair of paraesophageal diaphragmatic hernia Z98.890; Z87.19 IBS (irritable bowel syndrome) K58.9 GERD without esophagitis K21.9 Pancreatic insufficiency K86.89 Diarrhea, unspecified type R19.7 Diarrhea type: unspecified type Time Spent (min) 21
[2025-03-21 10:52] VITALS: BP 144/65; PULSE 71; O2SAT 97; BMI 51.4
--- OUTSIDE RECORDS SUMMARY | 2025-03-21 11:23 | XMS_ITS | Clinical Summary ---
Author Organization [facility] ity Address [address] [place] [address] Care Team Providers Care Monitor Car Operator Name Role Phone Unavailable Primary Care [...] 2023-2 5 season) 2024 Influenza Vaccine (#1) 2025 HIB Vaccines Aged Out No longer [...] 5 Years) and At-Risk Patients (6 to 49 Years) Aged Out No longer eligible b ased on patient's age to complete this topic RSV Immunization Patients Un lisandra 20 months Aged Out No longer eligible b ased on patient's age to complete this topic Varicella Vaccines Aged Out No longer eligible based on patient's age to complete this topic
--- OUTSIDE RECORDS SUMMARY | 2025-03-21 11:23 | XMS_ITS | Clinical Summary ---
Author Organization [facility] Address [address] [facility] [address] [place] [address] Phone Care Team Providers Care Pure Culture Operator Name Role Phone Radha Arevalo MD Primary Care Provider [phone] Allergies No known active allergies Medications atorvastatin [...] Visit [facility] [address] [phone] Vianey Yun ARNP [address] [phone] Health Maintenance Due Date Last Done Comments [...] A1C 07/29/2022 04/28/2022, 07/06 Influenza Vaccine (#1) 2025 Procedures Procedure Name Priority Date/Time Associated Diagnosis Comments HEMOGLOBIN A1C Routine 04/28/2022 3:38 PM EDT from Last 3 Months or Most Recently Relevant to Health Maintenance Results * Hemoglobin A1c (04/28/2022 3:38 PM EDT) Hemoglobin A1C 5.5 (4.0-5.6) % [facility] Comment: MONITORING: In known diabetic patients, hemoglobin A1c targets should be discussed with health care provider. DIAGNOSTIC USE: The [place] Diabetes Association (ADA) and the World Health [...] Supplement 1 Testing performed or reported by [facility], a Service of [facility], [address] [place] [id number] Jennifer Painter MD, Garage Door Opener Installer [facility]# [id number] 04/28/2022 3:38 PM EDT 04/28/2022 3:41 PM EDT us Guillermo Samuel MD LAB BLOOD ORDERABLES Final Re sult [facility] from Last 3 Months or Most Recently Relevant to Health Maintenance [place] [address] [place] [address] [place] [address] Medicaid Care Teams Pure Culture Operator Relationship Specialty Start Date End Date Radha Arevalo MD [address] [place] [address] PCP - General 09/15/20
== END 2025-03-21 16:06 | disposition home or self-care (01) ==
LOC: HO.HGI 10:46
PROVIDERS: PCP Internal Medicine; Visit Provider Internal Medicine Gastroenterology
DX: K76.0 Fatty (change of) liver, not elsewhere classified (principal); Z98.890 Other specified postprocedural states; Z87.19 Personal history of other diseases of the digestive system; K58.9 Irritable bowel syndrome, unspecified; K21.9 Gastro-esophageal reflux disease without esophagitis; K86.89 Other specified diseases of pancreas; R19.7 Diarrhea, unspecified
CPT/HCPCS: 99214

== ENCOUNTER 2025-03-21 14:58 | Outpatient (REF) | payer OTHER, SELFPAY | END 2025-03-21 14:59 | disposition home or self-care (01) | LOC: HO.MAMMO 14:58 | PROVIDERS: PCP Internal Medicine; Visit Provider Internal Medicine | DX: Z12.31 Encounter for screening mammogram for malignant neoplasm of breast (principal) | CPT/HCPCS: 77063; 77067 ==

== ENCOUNTER → 2025-03-21 15:15 | Outpatient (BNV) | payer OTHER, SELFPAY | PROVIDERS: PCP Internal Medicine; Visit Provider Internal Medicine | DX: Z12.31 Encounter for screening mammogram for malignant neoplasm of breast (principal) | CPT/HCPCS: 77063; 77067 ==

== ENCOUNTER 2025-03-27 13:24 | Outpatient (AMB) | payer OTHER, SELFPAY ==
[2025-03-27 13:26] VITALS: BP 120/62; PULSE 74; O2SAT 96; BMI 52.0
--- NOTE | 2025-03-27 13:26 | A.OFFVIS_ITS ---
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 she reports short term difficulty-difficulty recalling conversations, forgets appointments, has difficulty remembering to take medicines,trouble with names, misplaces things in the house. forgets how old she is . forgets phone numbers etc.she has trouble using her phone . she does not drive. she has h/o depression and anxiety- says not well controlled- has panic attacks. she becomes anxious in crowds. she has h/o sleep apnea and uses CPAP regularly. No recent head injury .she used to have gait issues and multiple falls. Her last fall was 3 years ago. she also reports of unawareness ?lasting few minutes [facility] Medical History Moderate major depression Depression with anxiety Morbid obesity with BMI of 45.0-49.9, adult Microalbuminuria due to type 2 diabetes mellitus GERD without esophagitis On beta epifanio at home Osteoarthritis of right knee Osteoarthritis of left knee COVID-19 vaccine series completed Hand pain Pernicious anemia Anemia Thiamine deficiency B12 deficiency Sleep apnea with use of continuous positive airway pressure (CPAP) Steatosis, liver Hyperlipidemia Morbid obesity Obese Rash Pure hypercholesterolemia Diabetes mellitus Essential hypertension Surgical History History of esophagogastroduodenoscopy (EGD) Hx of colonoscopy History of carpal tunnel release Status post total knee replacement, right History of arthroplasty of left knee Status post total left knee replacement Hx of carpal tunnel repair S/P laparoscopic sleeve gastrectomy Status post debridement History of total abdominal hysterectomy and bilateral salpingo-oophorectomy History of foot surgery Family History Father Diabetes Hypertension Prostate cancer Mother Hypertension Stomach cancer Social History Household Members: Family Household Members Other:: Brother Housing: Apartment Are you a primary acute care certified nursing assistant to a significant other at home: No Do you presently have visiting nurse or other home services: No Alcohol intake: never Patient Tobacco Use Status: Never used Tobacco e-Cigarette/Vaping Use: Never Used Second Hand Smoke Exposure: No Advance Directives Date on File: 04/16/22 service: No 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al status: disabled 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 Cognitive needs: Yes Hearing needs: No Vision needs: No Female Reproductive History Menstrual Age of Menarche: 12 Physical Exam Vital Signs: Last Vital Signs Pulse 74 03/27/25 13:26 BP 120/62 03/27/25 13:26 Pulse Ox 96 03/27/25 13:26 Oxygen Delivery Method Room Air 03/27/25 13:26 BMI result Body Mass Index 52.0 Const General: cooperative, comfortable and no acute distress Nutritional Appearance: obese Orientation/consciousness: patient oriented x3 Eyes Pupils: Equal, round and reactive pupils present Neuro General: patient oriented x3, tone normal, moves all extremities and no focal motor deficits Cranial nerves: Yes Equal, round and reactive pupils present, Yes Bilaterally intact EOM present, Yes Nystagmus not present, Yes Normal facial strength present, Yes Midline tongue present, Yes Symmetric palate elevation present and Yes Ability to bilaterally elevate shoulders present Cognition (Neuro): normal cognition Gait exam (Neuro): Antalgic gait present Motor exam (neuro): 5/5 motor strength present throughout and Normal motor muscle tone present throughout Deep tendon reflexes (DTR's): Right triceps reflex intensity grade: 1+, Left triceps reflex intensity grade: 1+, Rt Biceps (C5, C6): 1+, Left biceps reflex intensity grade: 1+, Right brachioradialis reflex intensity grade: 1+, Left brachioradialis reflex intensity grade: 1+, Right patellar reflex intensity grade: 1+ and Left patellar reflex intensity grade: 1+ Orientation What is the (year) (season) (date) (day) (month)?: year, season, day and month Where are we (state) (county) (town or city) (hospital) (floor)?: state, town or city, hospital/clinic and floor Registration Name of 3 unrelated objects clearly and slowly, then ask patient to repeat all 3 of them. (1st repeat determines score. Make sure they can repeat all three): object 1, object 2 and object 3 Attention & Calculation (CHOOSE ONE) Spell WORLD backwards (DLROW): 5 letters Recall Ask patient to repeat the 3 items from question #3.: object 1 Language Show patient a wristwatch & ask what it is. Repeat for pencil.: watch and pencil Ask the patient to repeat the phrase 'No ifs, ands, or buts' after you.: correct Ask the patient to 'take a piece of paper with their right hand' 'fold paper in half' 'place paper on floor': take paper in right hand, fold paper in half and place paper on floor Print the sentence 'CLOSE YOUR EYES' on a piece. If patient actually closes eyes then score.: followed written direction Give patient a blank piece of paper & ask to write a sentence. Score if it contains a noun & verb.: sentence contains subject and verb Ask patient to copy figure of intersecting pentagons exactly. Score if all 10 angles & 2 intersects are included.: all 10 angles present & 2 are intersected Score Score: 26 Assessment & Plan Assessment & Plan (1) Cognitive impairment: Comment: likely related to mood and vascular etiology Code(s): R41.89 - Other symptoms and signs involving cognitive functions and awareness Category: Medical Plan I will check her TSH Vit B 12 VIT D CBC CMP MRI Brain Cognitive evaluation and therapy Orders: Orders TSH reflex Free T4 Today R41.89 - Other symptoms and signs involving cognitive functions and awareness Erythrocyte Sedimentation Rate Today R41.89 - Other symptoms and signs involving cognitive functions and awareness Comprehensive Met. Panel Today R41.89 - Other symptoms and signs involving cognitive functions and awareness Vitamin D 25-OH (D2 and D3) Today R41.89 - Other symptoms and signs involving cognitive functions and awareness Vitamin B12 and Folate Today R41.89 - Other symptoms and signs involving cognitive functions and awareness Complete Blood Count Auto Diff Today R41.89 - Other symptoms and signs involving cognitive functions and awareness MR head/brain wo con Today R41.89 - Other symptoms and signs involving cognitive functions and awareness Referrals Speech and Hearing Referral R41.89 - Other symptoms and signs involving cognitive functions and awareness Coding Level of Care Code New Pt Level 4 (65615) Diagnoses Cognitive impairment R41.89
--- OUTSIDE RECORDS SUMMARY | 2025-03-27 13:57 | XMS_ITS | Clinical Summary ---
Author Organization [facility] ity Address [address] [place] [address] Care Team Providers Care Foundation Engineer Name Role Phone Unavailable Primary Care Provider [...] 2) 02/07/2020 Colorectal Cancer Screening: Colonoscopy 08/07/2022 HIV Screening 08/07/2022 Hepatitis C Screening 08/07/2022 Social Influencers of Health Screening 08/07/2022 COVID-19 Vaccine ( - 2023-2 5 season) 2024 Depression Screening 09/05/2024 Influenza Vaccine (#1) 2025 HIB Vaccines Aged [...]
--- OUTSIDE RECORDS SUMMARY | 2025-03-27 13:57 | XMS_ITS | Clinical Summary ---
Author Organization [facility] Address [address] [facility] [address] [place] [address] Phone Care Team Providers Care Wet Roaster Name Role Phone Radha Arevalo MD Primary Care Provider [phone] Allergies No known active allergies Medications atorvastatin [...] of the [facility] [address] [phone] Vianey Yun ARNP [address] [phone] Health Maintenance Due Date Last Done Comments [...] PM EDT) Hemoglobin A1C 5.5 (4.0-5.6) % [facility] Comment: MONITORING: In known diabetic patients, hemoglobin A1c targets should be discussed with health care provider. DIAGNOSTIC USE: The [place] Diabetes Association (ADA) and the World Health [...] Testing performed or reported by [facility], a Service of [facility], [address] [place] [address] Jennifer Painter MD, Appeals Court Associate Justice [facility]# [id number] 04/28/2022 3:38 PM EDT 04/28/2022 3:41 PM EDT us Guillermo Samuel MD LAB BLOOD ORDERABLES Final Re sult [facility] from Last 3 Months or Most Recently Relevant to Health Maintenance Insurance , [facility]. [address] [place] [id number] [place] [address] [place] [address] Medicaid Care Teams Wet Roaster Relationship Specialty Start Date End Date Radha Arevalo MD [address] [place] [address] PCP - General 09/15/20
== END 2025-03-27 14:14 | disposition home or self-care (01) ==
LOC: HO.HSMS 13:24
PROVIDERS: PCP Internal Medicine; Visit Provider Psychiatry & Neurology Neurology
DX: R41.89 Other symptoms and signs involving cognitive functions and awareness (principal)
CPT/HCPCS: 99204

== ENCOUNTER 2025-03-27 13:24 | Outpatient (REF) | payer OTHER, SELFPAY ==
[2025-03-27 17:41] LABS: MANUAL DIFF FLAG NO
[2025-03-27 17:46] LABS: Hematocrit 40.4 % (37.0-47.0); Hemoglobin 13.0 g/dl (12.0-16.0); Imm Gran Abs Auto 0.03 X10*3/uL (0.00-0.03); Imm Gran Pct Auto 0.3 % (0.0-0.4); Lymphocytes Absolute Auto 2.0 X10*3/uL (1.2-4.9); Mean Corpuscular HGB Conc 32.2 g/dl (31.0-35.0); Mean Corpuscular Hemoglobin 28.4 pg (27.0-33.0); Mean Corpuscular Volume 88.4 fL (80.0-98.0); NRBC Abs Auto 0.000 X10*3/uL (0.0-0.012); NRBC Pct Auto 0.0 /100WBC (0.0-0.2); Platelet Count 262 X10*3/uL (160-400); Red Blood Count 4.57 X10*6/uL (4.20-5.50); White Blood Count 9.0 X10*3/uL (4.8-10.8)
[2025-03-27 18:02] LABS: Alanine Aminotransferase 21 U/L (0-31); Albumin Level 4.1 g/dL (3.5-5.0); Alkaline Phosphatase 132 U/L (39-117); Anion Gap 11 (12-20); Aspartate Amino Transferase 19 U/L (5-31); Blood Urea Nitrogen 10 mg/dL (9-16); Calcium 8.9 mg/dL (8.4-10.2); Carbon Dioxide 27 mmol/L (22-29); Chloride 108 mmol/L (96-108); Estimated Glomerular Filt Rate > 60; Potassium 4.6 mmol/L (3.3-5.1); Sodium 141 mmol/L (135-145); Total Protein 7.2 g/dL (6.5-8.0)
[2025-03-27 18:30] LABS: Folate 7.5 ng/mL (> or = 4.0); Vitamin B12 269 pg/mL (200-900)
[2025-04-02 11:33] LABS: Vitamin D 25-OH, D2 4 ng/mL; Vitamin D 25-OH, D3 29 ng/mL; Vitamin D 25-OH, Total 33 ng/mL (30-100)
== END 2025-03-27 13:25 | disposition home or self-care (01) ==
LOC: HO.HKASLDS 13:24
PROVIDERS: PCP Internal Medicine; Visit Provider Psychiatry & Neurology Neurology
DX: R41.89 Other symptoms and signs involving cognitive functions and awareness (principal)
CPT/HCPCS: 36415; 80053; 82306; 82607; 82746; 84443; 85025; 85652; 99202

== ENCOUNTER 2025-04-16 17:37 | Outpatient (REF) | payer OTHER, SELFPAY ==
--- NOTE | ~2025-04-16 | MR_ITS ---
EXAMINATION: MR BRAIN WITHOUT CONTRAST CLINICAL INFORMATION: Other symptoms and signs involving cognitive functions and awareness. COMPARISON: None available. TECHNIQUE: MRI of the brain was obtained using routine sequences without contrast. FINDINGS: No restricted diffusion. No acute intracranial hemorrhage, mass effect, midline shift, hydrocephalus or herniation. Domínguez-white matter differentiation is normal. Inadequate evaluation of the hippocampi due to lack of appropriate coronal images. There is an apparent the asymmetry with volume loss in the right hippocampus with mild prominent temporal horn right lateral ventricle. Bilateral, a few and scattered, nonspecific subcortical and deep white matter hyperintense T2 FLAIR signal foci. Flow-void signal within the main cerebral vessels is normal. Posterior cranial fossa contents demonstrated no signal abnormality or mass effect. Sellar/suprasellar region is normal. Craniocervical junction demonstrates normal position of the cerebellar tonsils. Bilateral nonspecific prominent cervical lymph nodes. MR/MR head/brain wo con IMPRESSION: No acute brain abnormality. Nonspecific white matter T2 FLAIR signal. This could be seen patients with migraines. Probable asymmetric volume loss right hippocampus.. Electronically signed by: Collins Ernst MD 04/18/2025 07:52 AM EDT
--- OUTSIDE RECORDS SUMMARY | 2025-04-16 17:56 | XMS_ITS | Clinical Summary ---
Author Organization [facility] ity Address [address] [place] [address] Care Team Providers Care Trimmer And Borer Machine Operator Name Role Phone Unavailable Primary Care [...]
--- OUTSIDE RECORDS SUMMARY | 2025-04-16 17:56 | XMS_ITS | Clinical Summary ---
Author Organization [facility] Address [address] [facility] [address] [place] [address] Phone Care Team Providers Care Physician Ophthalmologist Name Role Phone Radha Arevalo MD Primary Care Provider [phone] Allergies No known active allergies Medications atorvastatin [...] [facility] [address] [phone] Vianey Yun ARNP [address] [phone] Health Maintenance Due Date Last Done Comments [...] PM EDT) Hemoglobin A1C 5.5 (4.0-5.6) % [facility] Comment: MONITORING: In known diabetic patients, hemoglobin A1c targets should be discussed with health care provider. DIAGNOSTIC USE: The [place] Diabetes Association (ADA) and the World Health [...] Supplement 1 Testing performed or reported by [facility], a Service of [facility], [address] [place] [address] Jennifer Painter MD, Senior Analyst Developer [facility]# [id number] 04/28/2022 3:3 8 PM EDT 04/28/2022 3:41 PM EDT us Guillermo Samuel MD LAB BLOOD ORDERABLES Final Re sult [facility] from Last 3 Months or Most Recently Relevant to Health Maintenance [place] [address] Medicaid Medicaid Care Teams Physician Ophthalmologist Relationship Specialty Start Date End Date Radha Arevalo MD [address] [place] [address] PCP - General 09/15/20
== END 2025-04-16 17:38 | disposition home or self-care (01) ==
LOC: HO.MRI 17:37
PROVIDERS: PCP Internal Medicine; Visit Provider Psychiatry & Neurology Neurology
DX: R41.89 Other symptoms and signs involving cognitive functions and awareness (principal)
CPT/HCPCS: 70551

== ENCOUNTER → 2025-04-16 17:37 | Outpatient (BNV) | payer OTHER, SELFPAY | PROVIDERS: PCP Internal Medicine; Visit Provider Radiology Diagnostic Radiology | DX: R41.89 Other symptoms and signs involving cognitive functions and awareness (principal) | CPT/HCPCS: 70551 ==

== ENCOUNTER 2025-04-19 09:48 | Day surgery (SDC) | payer OTHER, SELFPAY ==
--- OUTSIDE RECORDS SUMMARY | 2025-03-22 09:07 | XMS_ITS | Clinical Summary ---
Author Organization [facility] ity Address [address] [place] [address] Care Team Providers Care Warhead Maintenance Specialist Name Role Phone Unavailable Primary Care Provider [...]
--- OUTSIDE RECORDS SUMMARY | 2025-03-22 09:07 | XMS_ITS | Clinical Summary ---
Author Organization [facility] Address [address] [facility] [address] [place] [address] Phone Care Team Providers Care Dietitian Helper Name Role Phone Radha Arevalo MD [...] Visit [facility] [address] [phone] Vianey Yun ARNP [address] [phone] Health Maintenance Due Date Last Done Comments [...] PM EDT) Hemoglobin A1C 5.5 (4.0-5.6) % [facility] Comment: MONITORING: In known diabetic patients, hemoglobin A1c targets should be discussed with health care provider. DIAGNOSTIC USE: The [place] Diabetes Association (ADA) and the World Health [...] Supplement 1 Testing performed or reported by [facility], a Service of [facility], [address] [place] [address] Jennifer Painter MD, Shipmaster [facility]# [id number] 04/28/2022 3:38 PM EDT 04/28/2022 3:41 PM EDT us Guillermo Samuel MD LAB BLOOD ORDERABLES Final Re sult [facility] from Last 3 Months or Most Recently Relevant to Health Maintenance [place] [address] [address] [place] [address] [place] [address] Medicaid Care Teams Dietitian Helper Relationship Specialty Start Date End Date Radha Arevalo MD [address] [place] [address] PCP - General 09/15/20
[2025-04-17 13:17] VITALS: BMI 51.4
--- NOTE | 2025-04-18 10:15 | P.CONAN_ITS ---
Documented by User: Brianda Yarbrough NP 04/18/25 10:18 HPI - Anesthesia Eval Consult details Narrative: 55yo F for Colonoscopy BMI 51.4 Anesthesia Pre-Procedure Meds Is the patient on any of the following meds?: GLP1/DPP4 and SGLT2 Inhib PMFSH Active Problems Active Problems: All Active Problems Diarrhea (Acute) Pancreatic insufficiency (Acute) Mild major depression (Acute) Right ankle pain (Acute) Cognitive impairment (Acute) Skin lesion (Acute) Elevated alkaline phosphatase level (Acute) Vulvar candidiasis (Acute) Physical exam (Acute) Vaginal pruritus (Acute) Sinusitis (Acute) Insomnia (Acute) Constipation (Acute) Carpal tunnel syndrome (Acute) Candidal intertrigo (Acute) History of total bilateral knee replacement (TKR) (Acute) S/P carpal tunnel release (Acute) IBS (irritable bowel syndrome) (Acute) Hyperlipidemia LDL goal <70 (Acute) Osteoarthritis of knees, bilateral (Acute) Diaphragmatic hernia (Acute) Status post repair of paraesophageal diaphragmatic hernia (Acute) Hyponatremia (Acute) Anxiety (Acute) Depression (Acute) Morbid obesity (Acute) Depression with anxiety (Acute) GERD without esophagitis (Acute) Sleep apnea with use of continuous positive airway pressure (CPAP) (Acute) Essential hypertension (Acute) Diabetes mellitus (Acute) S/P laparoscopic sleeve gastrectomy (Acute) Pernicious anemia (Acute) Anemia (Acute) Thiamine deficiency (Acute) B12 deficiency (Acute) Steatosis, liver (Acute) Pure hypercholesterolemia (Acute) Past Medical History Medical History Depression with anxiety Morbid obesity with BMI of 45.0-49.9, adult Microalbuminuria due to type 2 diabetes mellitus GERD without esophagitis Pernicious anemia Anemia Thiamine deficiency B12 deficiency Sleep apnea with use of continuous positive airway pressure (CPAP) Steatosis, liver Hyperlipidemia Pure hypercholesterolemia Diabetes mellitus Essential hypertension Family History Family History Father Diabetes Hypertension Prostate cancer Mother Hypertension Stomach cancer Family history of problems with anesthesia: No Surgical History Surgical History History of esophagogastroduodenoscopy (EGD) Hx of colonoscopy History of carpal tunnel release Status post total knee replacement, right Status post total left knee replacement S/P laparoscopic sleeve gastrectomy Status post debridement History of total abdominal hysterectomy and bilateral salpingo-oophorectomy History of foot surgery History of Problems with Anesthesia: No Social History Social History Household Members: Family Household Members Other:: Brother Housing: Apartment Are you a primary reproductive healthcare assistant to a significant other at home: No Do you presently have visiting nurse or other home services: No Alcohol intake: never Patient Tobacco Use Status: Never used Tobacco e-Cigarette/Vaping Use: Never Used Second Hand Smoke Exposure: No Use of substances other than those prescribed or required for medical reasons: No Have you been hit, kicked, punched, or otherwise hurt by someone within the past year? 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 Cognitive needs: Yes Hearing needs: No Vision needs: No Meds Allergies Allergy/AdvReac Type Severity Reaction Status Date / Time citalopram Allergy Mild Rash Verified 03/27/25 13:33 Home Medications ?Medication ?Instructions ?Recorded ?Confirmed ?Last Taken ?Type buspirone 7.5 mg tablet 7.5 mg PO BID 06/22/2404/17 Unknown History sertraline 100 mg tablet 100 mg PO DAILY 10/10/24 Unknown History Exam Height,Weight and Vital Signs: Height 4 ft 10 in Weight 111.584 kg Pertinent Lab Results Pertinent Lab Results: Laboratory Tests 03/27/25 14:19 WBC 9.0 Hgb 13.0 Hct 40.4 Plt Count 262 Sodium 141 Potassium 4.6 Chloride 108 Carbon Dioxide 27 BUN 10 Creatinine 0.76 Narrative Narrative: MR head/brain wo con 04/2025 IMPRESSION: No acute brain abnormality. Nonspecific white matter T2 FLAIR signal. This could be seen patients with migraines. Probable asymmetric volume loss right hippocampus.. Assessment and Plan Assessment Anesthesia Assessment: Chart Reviewed Final Anesthetic Review Family History of Problems with Anesthesia: No History of Problems with Anesthesia: No Documented by User: Cuca Nuñez MD 04/19/25 10:36 PMFSH Past Medical History Medical History Depression with anxiety Morbid obesity with BMI of 45.0-49.9, adult Microalbuminuria due to type 2 diabetes mellitus GERD without esophagitis Pernicious anemia Anemia Thiamine deficiency B12 deficiency Sleep apnea with use of continuous positive airway pressure (CPAP) Steatosis, liver Hyperlipidemia Pure hypercholesterolemia Diabetes mellitus Essential hypertension Family History Family History Father Diabetes Hypertension Prostate cancer Mother Hypertension Stomach cancer Surgical History Surgical History History of esophagogastroduodenoscopy (EGD) Hx of colonoscopy History of carpal tunnel release Status post total knee replacement, right Status post total left knee replacement S/P laparoscopic sleeve gastrectomy Status post debridement History of total abdominal hysterectomy and bilateral salpingo-oophorectomy History of foot surgery Social History Social History Household Members: Family Household Members Other:: Brother Housing: Apartment Are you a primary reproductive healthcare assistant to a significant other at home: No Do you presently have visiting nurse or other home services: No Alcohol intake: never Patient Tobacco Use Status: Never used Tobacco e-Cigarette/Vaping Use: Never Used Second Hand Smoke Exposure: No Use of substances other than those prescribed or required for medical reasons: No Have you been hit, kicked, punched, or otherwise hurt by someone within the past year? 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 Cognitive needs: Yes Hearing needs: No Vision needs: No Meds Allergies Allergy/AdvReac Type Severity Reaction Status Date / Time citalopram Allergy Mild Rash Verified 03/27/25 13:33 Home Medications ?Medication ?Instructions ?Recorded ?Confirmed ?Last Taken ?Type buspirone 7.5 mg tablet 7.5 mg PO BID 06/22/2404/17 Unknown History sertraline 100 mg tablet 100 mg PO DAILY 10/10/24 Unknown History Exam Airway Mallampati Class: III TM Dist: >3cm Neck ROM: Limited Loose/Missing/Broken Teeth: No Heart: RRR Lungs: CTA Assessment and Plan Assessment Anesthesia Assessment: Anesthesia Plan Discussed Final Anesthetic Review NPO: Yes ASA Class: III Final Preanesthetic Review: Meds/Allgs Chart Reviewed, Consent Obtained/Reviewed and Anes Risks/Benef Reviewed Patient Risk: Intermediate Procedure Risk: Low Anesthetic Plan Anesthetic Plan: MAC: Disposition: Standard PACU
--- NOTE | 2025-04-19 08:58 | P.HPSUR_ITS ---
Pre-Procedural Eval Section A - 24 Hr Update-Section A only Date of Service: 04/19/25 The patient is an INPATIENT: No The patient has been examined within 24 hours of the surgical procedure. The History & Physical has been completed within 30 days and I have reviewed it.: No Section B - Complete if H&P > 30 days Chief Complaint: screening Relevant Family History (Specify if Yes): Yes Relevant Social History: None Present Medications: see Short Stay Collaborative assessment Medical History: Significant History (Pernicious anemia Anemia Thiamine deficie ncy B12 deficiency Sleep apnea with use of continuous positive airway pressure (CPAP) Steatosis, liver Hyperlipidemia Morbid obesity Obese Rash Pure hypercholesterolemia Diabetes mellitus Essential hypertension) History of Previous Operations: Relevant previous surgery/procedure and date(s) (History of esophagogastroduodenoscopy (EGD) Hx of colonoscopy History of carpal tunnel release Status post total knee replacement, right History of arthroplasty of left knee Status post total left knee replacement Hx of carpal tunnel repair S/P laparoscopic sleeve gastrectomy Status post debridement) Allergies: Allergies Allergy/AdvReac Type Severity Reaction Status Date / Time citalopram Allergy Mild Rash Verified 03/27/25 13:33 Review of Systems Sugical H&P ROS: Negative: Constitution, Cardiovascular, Respiratory and Gastrointestinal Exam Surgical H&P Exam: Normal: Heart, Normal: Lungs, Normal: Extremities and Normal: Abdomen Plan Diagnosis/Plan: Unchanged I have reviewed the history and physical and performed a pertinent physical examination on my patient. No changes have occurred unless specified. Time Spent With Patient Time: Total time managing care of this patient today ____ minutes.
[2025-04-19 10:09] VITALS: BMI 52.0
[2025-04-19 10:17] VITALS: BP 162/80; PULSE 72; RESP 16; TEMP 36.4; O2SAT 98
[2025-04-19 10:30] LABS: Glucose, Whole Blood 101 mg/dL (60-115)
[2025-04-19] MEDS: Lactated Ringers 1,000 ML 100 ML IVCONT (10:54)
[2025-04-19 12:20] VITALS: BP 124/74; PULSE 69; RESP 18; TEMP 36.5; O2SAT 100
--- NOTE | 2025-04-19 12:20 | P.OPN-COLO_ITS ---
Colonoscopy Operative Note Operative Note Date of Service: 04/19/25 Narrative: COLONOSCOPY TILL CECUM WITH CHROMOENDOSCOPY, BIOPSIES AND SNARE POLYPECTOMY Pre-op diagnosis: Surveillance for colon polyps, chronic diarrhea Post-op diagnosis:? Colon polyp, Diverticulosis, hemorrhoids Endoscopist:? Lisseth Amaro MD Anesthesia:?MAC Consent: Indications for the procedure and potential complications of bleeding, perforation, reaction to medications and missed diagnosis were discussed with the patient and informed consent was obtained. Instrument: Olympus PCF H 190 L variable stiffness pediatric colonoscope Monitoring: Vital signs and clinical assessment, intermittent blood pressure monitoring, continuous EKG monitoring, Pulse oximetry and Carbon Dioxide monitoring were done throughout the procedure. Please see anesthesia flowsheet. Colon withdrawl time was 20 minutes. Procedure: The patient was placed in the left lateral decubitis position and pre-procedure medications were administered. After a digital rectal examination of the ano-rectum, the video colonoscope was inserted into the rectum and advanced through the colon to the cecum. The colonoscope was slowly withdrawn in a retrograde panoramic fashion and the colon mucosa was carefully examined including a retroflexed view of the rectum. Findings and interventions are described below. Procedure Difficulty: without difficulty Findings: Terminal Ileum: Distal 5-7 cms was examined and appeared normal - random biopsies were obtained Cecum: Normal Ascending Colon: Right colon was examined with chromo endoscopy (using methylene blue 50 mg in 250 ml dilution) and no polyp was seen after multiple passes Transverse Colon: A 4-5 mm sessile polyp in the proximal transverse colon - removed with a cold snare and polyp was not retrieved Descending Colon: Moderate diverticulosis Sigmoid Colon: Moderate diverticulosis Rectum: Normal Ano-rectum: Moderate internal hemorrhoids Colon preparation: Good after some irrigation. [place] Bowel Preparation Scale Right colon; 2 Transverse colon: 2 Left colon; 2 (0 = Unprepared colon segment with mucosa not seen due to solid stool that cannot be cleared. 1 = Portion of mucosa of the colon segment seen, but other areas of the colon segment not well seen due to staining, residual stool and/or opaque liquid. 2 = Minor amount of residual staining, small fragments of stool and/or opaque liquid, but mucosa of colon segment seen well. 3 = Entire mucosa of colon segment seen well with no residual staining, small fragments of stool or opaque liquid) Impression and Post Procedure Diagnosis: Colonoscopy Findings: One small polyp was removed and not retrieved. Random biopsies were obtained from right and left colon to check for microscopic colitis. Moderate diverticulosis seen in the left colon Moderate hemorrhoids on retroflexed exam. Plan: Pt to schedule a FU appointment with Dr Amaro Repeat Colonoscopy in 5 years since a sessile appearing polyp was not retrieved. Above findings were reviewed with the patient and relevant handouts were given and the discharge area. BIOPSIES SHOWED: A. Terminal ileum, biopsy: Ileal mucosa with no specific change; no ileitis, granulomas or dysplasia. B. Colon, random right, biopsy: Colonic mucosa with lymphoid aggregate and no specific change; no evidence of microscopic colitis and no granulomas or dysplasia. C. Colon, random left, biopsy: Colonic mucosa with no specific change; no evidence of microscopic colitis and no granulomas or dysplasia Letter sent to the patient with biopsy results. Patient was placed on the colonoscopy recall list for repeat colonoscopy in 5 years.
[2025-04-19 12:35] VITALS: BP 139/73; PULSE 73; RESP 19; TEMP 36.1; O2SAT 98
== END 2025-04-19 13:21 | disposition home or self-care (01) ==
PROVIDERS: PCP Internal Medicine; Visit Provider Internal Medicine Gastroenterology
PROC: 0DJD8ZZ Inspection of Lower Intestinal Tract, Via Natural or Artificial Opening Endoscopic (ICD-10-PCS; CPT 45378; principal; 2025-04-19 11:10)
DX: Z12.11 Encounter for screening for malignant neoplasm of colon (principal); D12.3 Benign neoplasm of transverse colon; K57.30 Diverticulosis of large intestine without perforation or abscess without bleeding; K64.8 Other hemorrhoids; E11.9 Type 2 diabetes mellitus without complications; E78.00 Pure hypercholesterolemia, unspecified; K76.0 Fatty (change of) liver, not elsewhere classified; K86.89 Other specified diseases of pancreas; G47.33 Obstructive sleep apnea (adult) (pediatric); Z99.89 Dependence on other enabling machines and devices; Z79.899 Other long term (current) drug therapy; Z79.02 Long term (current) use of antithrombotics/antiplatelets
CPT/HCPCS: 45385; 45380; 82947; 88305; J2003; J2704

== ENCOUNTER → 2025-04-19 09:48 | Outpatient (BNV) | payer OTHER, SELFPAY | PROVIDERS: PCP Internal Medicine; Visit Provider Internal Medicine Gastroenterology | DX: Z12.11 Encounter for screening for malignant neoplasm of colon (principal); K63.5 Polyp of colon; K57.90 Diverticulosis of intestine, part unspecified, without perforation or abscess without bleeding; K64.8 Other hemorrhoids | CPT/HCPCS: 45380; 45385 ==

== ENCOUNTER 2025-05-02 13:35 | Outpatient (AMB) | payer OTHER, SELFPAY ==
[2025-05-02 13:55] VITALS: BP 132/76; PULSE 72; RESP 18; TEMP 36.3; O2SAT 97; BMI 52.3
--- NOTE | 2025-05-02 13:55 | MHC.PC.OV ---
Vital Signs 05/02/25 13:55 Height 4 ft 10 in Weight 250 lb 8 oz BMI 52.3 BP 132/76 Blood Pressure Location Lt brachial Position Sitting Respiration 18 Pulse 72 Pulse Source Pulse Oximeter Temp 97.3 F Temp Source Temporal Artery Scan Pulse Oximetry (%) 97 Oxygen Delivery Method Room Air Intake Visit Reasons: dm Landscape Drafter Required: No Accompanied by: Self / Same As Patient Allergies citalopram Allergy (Mild, Verified 05/02/25 13:58) Rash Medication List - Last Reconciled 05/02/25 by Radha Woodson MD acetaminophen 650 mg (2 x 325 mg) PO Q6H PRN 30 days atorvastatin 80 mg PO BEDTIME 90 days blood sugar diagnostic Use 1 test strip twice a day buspirone 7.5 mg PO BID cyanocobalamin (vitamin B-12) 1,000 mcg IM Q4W 1 month empagliflozin-metformin 25-1,000 mg ER (Synjardy XR) 1 tab PO DAILY 90 days ezetimibe 10 mg PO DAILY 90 days folic acid 1 mg PO DAILY 90 days Grab bar As directed insulin syringe,safety needle Use 1 needle once a month insulin syringe-needle U-100 ([employer]ocate Syringes) As directed lancets Use 1 lancet twice a day lisinopril 40 mg PO DAILY 90 days loperamide 2 mg PO Q6H PRN 30 days loratadine 10 mg PO DAILY PRN 90 days metoprolol succinate ER 100 mg PO DAILY nystatin 1 appl topical BID 2 weeks semaglutide (Ozempic) 2 mg (0.75 mL) subcut QWEEK 4 weeks sertraline 100 mg PO DAILY Shower Chair As directed syringe with needle, safety (BD Safety-Madina Detachable Needle) As directed walker Walker with seat and wheels Tobacco use date assessed: 05/02/25 Dental Screening Dental Screen Date: 05/02/25 Did you have a dental visit in the last 12 months?: Yes Did you have a dental problem in the last 6 months where you did not have access to dental care?: No Was dental information given to patient?: Patient has dentist HPI HPI Comments History of Present Illness Details The patient is a 55-year-old female presenting for follow-up of diabetes management. The patient's Type 2 Diabetes Mellitus is currently managed with Ozempic, which has effectively controlled her blood glucose levels, with a recent HbA1c of 6.5%. She reports that while Ozempic helps manage her blood sugar, it has not significantly impacted her weight. The patient also has a history of hypertension, which is well-controlled as noted in the current visit. She experiences anxiety, for which she is prescribed buspirone, but she reports ongoing issues with anxiety and insomnia. Her psychiatrist recently changed her medication, but she is unsure of the new medication's name. The patient has a history of Vitamin B12 deficiency, managed with injections, although recent trends show a decrease in levels. A repeat B12 level is planned in four months to assess the need for further supplementation. Hyperlipidemia is also part of her medical history, with a recent LDL level of 97 mg/dL. She has a history of migraines, with recent imaging showing changes consistent with migraine sufferers. She is scheduled to follow up with her neurologist in September. [facility] Medical History Depression with anxiety Morbid obesity with BMI of 45.0-49.9, adult Microalbuminuria due to type 2 diabetes mellitus GERD without esophagitis Pernicious anemia Anemia Thiamine deficiency B12 deficiency Sleep apnea with use of continuous positive airway pressure (CPAP) Steatosis, liver Hyperlipidemia Pure hypercholesterolemia Diabetes mellitus Essential hypertension Surgical History History of esophagogastroduodenoscopy (EGD) Hx of colonoscopy History of carpal tunnel release Status post total knee replacement, right Status post total left knee replacement S/P laparoscopic sleeve gastrectomy Status post debridement History of total abdominal hysterectomy and bilateral salpingo-oophorectomy History of foot surgery Family History Father Diabetes Hypertension Prostate cancer Mother Hypertension Stomach cancer Social History Household Members: Family Household Members Other:: Brother Housing: Apartment Are you a primary care process manager to a significant other at home: No Do you presently have visiting nurse or other home services: No Alcohol intake: never Patient Tobacco Use Status: Never used Tobacco Tobacco use type: Cigarette e-Cigarette/Vaping Use: Never Used Second Hand Smoke Exposure: No Advance Directives Date on File: 04/16/22 service: No 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al status: disabled 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 1. Little interest or pleasure in doing things: not at all 2. Feeling down, depressed, or hopeless: not at all 3. Trouble falling or staying asleep, or sleeping too much: nearly every day 4. Feeling tired or having little energy: nearly every day 5. Poor appetite or overeating: several days 6. Feeling bad about yourself - or that you are a failure or have let yourself or your family down: nearly every day 7. Trouble concentrating on things, such as reading the newspaper or watching television: nearly every day 8. Moving or speaking so slowly that other people could have noticed. Or the opposite - being so fidgety or restless that you have been moving around a lot more than usual: nearly every day 9. Thoughts that you would be better off or of hurting yourself in some way: not at all Total score: 16 Depression Screening Interpretation: Positive (no suicidal thoughts) Depression Screening Follow-up: Existing condition, In treatment, Community Mental Health Worker F/U and Follow-up Visit Requested Depression Screening Done: Yes 64345 - PHQ-9 Billing: Yes Source: Developed by Drs. Inder Hamm, Nneka Marie, Marcelo Contreras and colleagues, with an educational mabel from [employer]. Thrive Questionnaire Date Thrive assessed: 05/02/25 I am a: Patient What is your living situation today?: I choose not to answer this question Within the past 12 months, did the food you bought not last and you didn't have the money to get more?: I choose not to answer this question Within the past 12 months, did you worry whether your food would run out before you got money to buy more?: I choose not to answer this question Do you have trouble paying for medicines?: I choose not to answer this question Do you have trouble getting transportation to medical appointments?: I choose not to answer this question Do you have trouble paying your heating and electricity bill?: I choose not to answer this question Do you have trouble taking care of your child, family member or friend?: I choose not to answer this question Do you have trouble with day-to-day activities such as bathing, preparing meals, shopping, managing finances, etc.?: Yes Are you currently unemployed and looking for a job?: No Are you interested in more education?: No Currently or been in a relationship where the following occur: I choose not to answer THRIVE Score: 0 AUDIT C Alcohol Use Questionnaire (AUDIT-C) 1. How often do you have a drink containing alcohol?: Never 3. How often do you have six or more drinks on one occasion?: Never Total Score: 0 Score Reviewed/Action Taken: No MELANIE-7 AMB Questionnaire MELANIE-7 Date MELANIE - 7 assessed: 05/02/25 Feeling nervous, anxious, or on edge: 3 = Nearly every day Not being able to stop or control worryin = Several days Worrying too much about different things: 1 = Several days Trouble relaxin = Several days Being so restless that it is hard to sit still: 1 = Several days Becoming easily annoyed or irritable: 1 = Several days Feeling afraid as if something awful might happen: 0 = Not at all Total MELANIE-7 score (0-4 normal; 5-9 mild; 10-14 moderate; 15-21 severe): 8 Source: Developed by Drs. Inder Hamm, Nneka Marie, Marcelo Contreras and colleagues, with an educational mabel from [employer]. MELANIE-7 Assessment Billing MELANIE-7 Assessment Tool: MELANIE-7 Assessment 16564 Review of Systems Const All systems reviewed & are unremarkable except as noted in HPI and below Card Denies chest pain at rest, Denies chest pain with activity, Denies edema, Denies irregular heart rhythm, Denies claudication, Denies dyspnea, Denies dyspnea on exertion, Denies orthopnea, Denies paroxysmal nocturnal dyspnea and Denies slow heart rate Resp Denies cough, Denies dyspnea and Denies dyspnea on exertion GI Denies abdominal pain, Denies change in bowel habits, Denies excessive flatus, Denies nausea and Denies vomiting Denies urinary incontinence, Denies urinary hesitancy and Denies urinary urgency Physical exam (Primary Care) Vital Signs: Last Vital Signs Temp 97.3 F 05/02/25 13:55 Pulse 72 05/02/25 13:55 Resp 18 05/02/25 13:55 BP 132/76 05/02/25 13:55 Pulse Ox 97 05/02/25 13:55 Oxygen Delivery Method Room Air 05/02/25 13:55 BMI result Body Mass Index 52.3 Tobacco/Smoking Status: Tobacco use Status Tobacco use date assessed 05/02/25 05/02/25 14:08 Patient Tobacco Use Status Never used Tobacco 05/02/25 13:56 Tobacco use type Cigarette 05/02/25 13:56 e-Cigarette/Vaping Use Never Used 05/02/25 13:56 PHQ-9: PHQ-9 Score PHQ-9: Total score 16 05/02/25 14:21 Depression Screening Interpretation: Positive (no suicidal thoughts) Depression Screening Follow-up: Existing condition, In treatment, Community Mental Health Worker F/U and Follow-up Visit Requested Thrive Assessment: Date of Thrive Assessment Date Thrive assessed 05/02/25 05/02/25 14:08 Currently or been in a relationship where the following occur: I choose not to answer Resp Effort & Inspection: normal respiratory effort Auscultation: clear to auscultation bilaterally Cardio Jugular venous distension: no JVD Rate: regular rate Rhythm: regular rhythm Heart sounds: S1 normal heart sound present and S2 normal heart sound present Extrem General: Yes full ROM Results AMB Hemoglobin A1c AMB Hemoglobin A1c 6.5 % Last Edit by Anuja Feng CMA on 05/02/25 14:22 Results Reviewed Results Reviewed: Laboratory Last Values Hgb A1c (Clinic) 6.5 % (4.0-6.0) H 05/02/25 13:55 Coding Level of Care Code Est Pt Level 4 (26759) Complex EM visit Add On G2211 Diagnoses Mild major depression F32.0 Essential hypertension I10 Hyperlipidemia LDL goal <70 E78.5 Type 2 diabetes mellitus with microalbuminuria, without long-term current use of insulin E11.29; R80.9 Diabetes mellitus type: type 2 Diabetes mellitus long term care social worker insulin use: without detention use Diabetes mellitus complication status: with kidney complications Diabetes mellitus complication detail: with microalbuminuria Morbid obesity E66.01 Additional Codes MELANIE-7 Assessment Billing - MELANIE-7 Assessment Tool: MELANIE-7 Assessment 71650 ([id number]) PHQ-9 - 33432 - PHQ-9 Billing: Yes ([id number]) Time Spent (min) 23 Assessment & Plan Assessment & Plan (1) Mild major depression: Code(s): F32.0 - Major depressive disorder, single episode, mild Category: Medical (2) Essential hypertension: Code(s): I10 - Essential (primary) hypertension Category: Medical (3) Hyperlipidemia LDL goal <70: Code(s): E78.5 - Hyperlipidemia, unspecified Category: Medical (4) Diabetes mellitus: Code(s): E11.9 - Type 2 diabetes mellitus without complications Category: Medical Qualifiers: Diabetes mellitus type: type 2 Diabetes mellitus detention insulin use: without detention use Diabetes mellitus complication status: with kidney complications Diabetes mellitus complication detail: with microalbuminuria Qualified Code(s): E11.29 - Type 2 diabetes mellitus with other diabetic kidney complication; R80.9 - Proteinuria, unspecified (5) Morbid obesity: Comment: s/p gastric sleeve 2020 Code(s): E66.01 - Morbid (severe) obesity due to excess calories Category: Medical Plan Plan Patient was informed and verbally consented to the use of an ambient scribe for clinic note documentation during this visit. 1. Type 2 diabetes mellitus without complications E11.9 HCC 19 The patient's Type 2 Diabetes Mellitus is managed with Ozempic, which has effectively controlled her blood glucose levels, with a recent HbA1c of 6.5%. Continued monitoring of blood glucose levels and HbA1c is recommended. 2. Essential (primary) hypertension I10 The patient's hypertension is well-controlled, and no changes to her current management plan are necessary at this time. 3. Anxiety disorder, unspecified F41.9 The patient is currently prescribed buspirone for anxiety, but reports ongoing issues with anxiety and insomnia. Her psychiatrist has recently changed her medication, and further follow-up is needed to assess the effectiveness of the new regimen. 4. Hyperlipidemia, unspecified E78.5 The patient's hyperlipidemia is being monitored, with a recent LDL level of 97 mg/dL. 5. Migraine, unspecified, not intractable, without status migrainosus G43.909 The patient has a history of migraines, with recent imaging showing changes consistent with migraine sufferers. She is scheduled to follow up with her neurologist in September. 6. Insomnia, unspecified G47.00 The patient reports insomnia, which is contributing to her anxiety. Further evaluation and management of her sleep issues are necessary. Orders: Orders AMB Hemoglobin A1c Today Z13.9 - Encounter for screening, unspecified Complete Blood Count Auto Diff 4 Months D64.9 - Anemia, unspecified IRON PROFILE 4 Months D64.9 - Anemia, unspecified Lipid Panel 4 Months E78.5 - Hyperlipidemia, unspecified Microalbumin, Random (w Creat) 4 Months R80.9 - Proteinuria, unspecified Vitamin D 25-OH Total 4 Months E55.9 - Vitamin D deficiency, unspecified Vitamin B12 and Folate 4 Months E53.8 - Deficiency of other specified B group vitamins Comprehensive [place]. Panel Fast 4 Months E78.5 - Hyperlipidemia, unspecified
--- OUTSIDE RECORDS SUMMARY | 2025-05-02 14:19 | XMS_ITS | Clinical Summary ---
Author Organization [facility] ity Address [address] [place] [address] Care Team Providers Care Environmental Safety Specialist Name Role Phone Unavailable Primary Care [...] Influencers of Health Screening 08/07/2022 COVID-19 Vaccine (1 - 2023-2 5 season) 2024 Depression Screening [...]
--- OUTSIDE RECORDS SUMMARY | 2025-05-02 14:19 | XMS_ITS | Clinical Summary ---
Author Organization [facility] Address [address] [place] [address] Phone Care Team Providers Care Med Spa Manager Name Role Phone Radha Arevalo MD Primary Care Provider [phone] Allergies No known active allergies Medications atorvastatin [...] Visit [facility] [address] [phone] Vianey Yun ARNP [address] [phone] Health Maintenance Due Date Last Done Comments [...] PM EDT) Hemoglobin A1C 5.5 (4.0-5.6) % [facility] Comment: MONITORING: In known diabetic patients, hemoglobin A1c targets should be discussed with health care provider. DIAGNOSTIC USE: The [place] Diabetes [employer] (ADA) and the World Health [...] Supplement 1 Testing performed or reported by [facility], a Service of [facility], [address] [place] [id number] Jennifer Painter MD, Air Quality Engineer [facility]# [id number] 04/28/2022 3:3 8 PM EDT 04/28/2022 3:41 PM EDT us Guillermo Samuel MD LAB BLOOD ORDERABLES Final Re sult [facility] from Last 3 Months or Most Recently Relevant to Health Maintenance [place] [address] [place] [address] Medicaid Medicaid Care Teams Med Spa Manager Relationship Specialty Start Date End Date Radha Arevalo MD [address] [address] [address] [address] [place] [address] PCP - General 09/15/20
== END 2025-05-02 14:31 | disposition home or self-care (01) ==
LOC: HO.HMCH 13:36
PROVIDERS: PCP Internal Medicine; Visit Provider Internal Medicine
DX: E11.29 Type 2 diabetes mellitus with other diabetic kidney complication (principal); E66.01 Morbid (severe) obesity due to excess calories; Z68.43 Body mass index [BMI] 50.0-59.9, adult; F32.0 Major depressive disorder, single episode, mild; I10 Essential (primary) hypertension; E78.5 Hyperlipidemia, unspecified; R80.9 Proteinuria, unspecified

== ENCOUNTER → 2025-05-02 13:35 | Outpatient (BNVA) | payer OTHER, SELFPAY | PROVIDERS: PCP Internal Medicine; Visit Provider Internal Medicine | DX: E11.29 Type 2 diabetes mellitus with other diabetic kidney complication (principal); I10 Essential (primary) hypertension; F41.9 Anxiety disorder, unspecified; E53.8 Deficiency of other specified B group vitamins; E78.5 Hyperlipidemia, unspecified; G43.909 Migraine, unspecified, not intractable, without status migrainosus; F32.0 Major depressive disorder, single episode, mild; R80.9 Proteinuria, unspecified; E66.01 Morbid (severe) obesity due to excess calories; Z79.899 Other long term (current) drug therapy; Z68.43 Body mass index [BMI] 50.0-59.9, adult | CPT/HCPCS: 83036; 96127; 99212 ==

== ENCOUNTER 2025-07-11 12:28 | Outpatient (AMB) | payer OTHER, SELFPAY ==
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
[2025-07-11 12:31] VITALS: BP 142/68; PULSE 72; BMI 51.3
--- OUTSIDE RECORDS SUMMARY | 2025-07-11 15:22 | XMS_ITS | Clinical Summary ---
[facility] Address [address] [place] [address] Care Team Providers Care Drapery Rod Assembler Name Role Phone Unavailable Primary Care Provider [...] Last Done Comments Breast Cancer Screening 1970 Colorectal Cancer Screening: Colonoscopy 1970 DTaP,Tdap,and Td Vaccines (1 - Tdap) 1989 Hepatitis B Vaccines (1 of 3 - 19+ 3-dose series) 1989 Cervical Cancer Screening: P ap Smear 1991 Pneumococcal Vaccine: 50+ Ye ars (1 of 1 - PCV) 02/07/2020 Zoster Vaccines (1 of 2) 02/07/2020 HIV Screening 08/07/2022 Hepatitis C Screening 08/07/2022 Social Influencers of Health Screening 08/07/2022 Depression Screening 09/05/2024 COVID-19 Vaccine (1 - 2023-2 5 season) 2025 Influenza Vaccine (#1) 2025 RSV Immunization Adult Patie nts (1 - 1-dose 75+ series) 2045 HIB Vaccines Aged Out No longer eligi [...]
== END 2025-07-11 13:02 | disposition home or self-care (01) ==
LOC: HO.HGI 12:29
PROVIDERS: PCP Internal Medicine; Visit Provider Internal Medicine Gastroenterology
DX: Z98.890 Other specified postprocedural states (principal); Z87.19 Personal history of other diseases of the digestive system; K21.9 Gastro-esophageal reflux disease without esophagitis; K86.89 Other specified diseases of pancreas; K58.9 Irritable bowel syndrome, unspecified; K59.00 Constipation, unspecified; R19.7 Diarrhea, unspecified; K76.0 Fatty (change of) liver, not elsewhere classified
CPT/HCPCS: 99214

== ENCOUNTER → 2025-07-11 12:28 | Outpatient (BNVA) | payer OTHER, SELFPAY | PROVIDERS: PCP Internal Medicine; Visit Provider Internal Medicine Gastroenterology | DX: Z71.2 Person consulting for explanation of examination or test findings (principal); K76.0 Fatty (change of) liver, not elsewhere classified; K59.00 Constipation, unspecified; K58.9 Irritable bowel syndrome, unspecified; K21.9 Gastro-esophageal reflux disease without esophagitis; Z87.19 Personal history of other diseases of the digestive system; Z98.84 Bariatric surgery status | CPT/HCPCS: 99212 ==

== ENCOUNTER 2025-07-18 14:35 | Outpatient (REF) | payer OTHER, SELFPAY ==
--- OUTSIDE RECORDS SUMMARY | 2025-07-18 17:59 | XMS_ITS | Clinical Summary ---
[facility] Address [address] [place] [address] Care Team Providers Care Land Conservation Specialist Name Role Phone Unavailable Primary Care [...] Depression Screening 09/05/2024 COVID-19 Vaccine (1 - 2024-2 6 season) 2025 Influenza Vaccine (#1) 2025 RSV [...]
--- OUTSIDE RECORDS SUMMARY | 2025-07-18 17:59 | XMS_ITS | Clinical Summary ---
Author Organization [facility] Address [address] [place] [address] Phone Care Team Providers Care Calculus Tutor Name Role Phone Radha Arevalo MD Primary Care Provider [phone] Allergies No known active allergies Medications atorvastatin [...] EACH DAY. 90 tablet 5 06/27/2023 Active Cholecalciferol (Vitamin D3) 50 MCG (2000 UT) tabletIndication s:Vitamin D deficiency, not otherwise specified Take 2,000 Units by mouth 1 (one) time each day 30 tablet 11 06/05/2025 Active Active Problems Problem Noted Date Diagnosed Date Vitamin D deficiency, not otherwise specified Anemia in chronic kidney disease 06/04/2024 Asthma 07/03/2021 Body mass index 40+ - severely obese 07/03/2021 Chronic kidney disease stage 1 07/03/2021 Essential hypertension 07/03/2021 Hypercholesterolemia 07/03/2021 Hypertensive heart and renal disease with (congestive) heart failure 07/03/2021 Microalbuminuria 07/03/2021 Osteoarthritis 07/03/2021 Type 2 diabetes mellitus 07/03/2021 Encounters Date Type Department Care Team Description 06/05/2025 Orders Only [facility] [address] [id number] Vianey Yun ARNP Vitamin D deficiency, not otherwise specified (Primary Dx) 06/04/2025 11:00 AM EDT Office Visit [facility] [address] [id number] Vianey Yun ARNP Essential hypertension (Primary Dx); Microalbuminuria; Vitamin D deficiency, not otherwise specified 06/04/2025 Orders Only [facility] [address] [phone] Vianey Yun ARNP from Last 3 Months Family History Medical History Relation Comments Cancer [...] Sign Reading Time Taken Comments Blood Pressure 128/70 06/04/2025 10:29 AM EDT Pulse 76 06/04/2025 10:29 AM EDT Temperature - - Respiratory Rate 18 06/29/2023 1:35 PM EDT Oxygen Saturation 98% 06/04/2025 10:29 AM EDT Inhaled Oxygen Concentration - - Weight 113 kg (248 lb 12.8 oz) 06/04/2025 10:29 AM EDT Height 149.9 cm (4' 11 ) 04/28/2022 2:44 PM EDT Body Mass Index 50.25 04/28/2022 2:44 PM EDT Plan of Treatment Upcoming Encounters Date Type Department Care Team (Late st Contact Info) Description 06/04/2026 11:00 AM EDT Office Visit [facility] [address] [phone] YunVianeySTEFF [address] [address] Health Maintenance Due Date Last Done Comments [...] Procedure Name Priority Date/Time Associated Diagnosis Comments VITAMIN D 25 HYDROXY Routine 06/04/2025 11:58 AM EDT URINE ALBUMIN / CREATININE RATIO Routine 06/04/2025 11:58 AM EDT URINALYSIS WITH MICROSCOPIC Routine 06/04/2025 11:58 AM EDT CBC AND DIFFERENTIAL Routine 06/04/2025 11:58 AM EDT MICROSCOPIC EXAMINATION - DO NOT USE Routine 06/04/2025 11:58 AM EDT HEMOGLOBIN A1C Routine 04/28/2022 3:38 PM EDT from Last 3 Months or Most Recently Relevant to Health Maintenance Results * Microscopic Examination (06/04/2025 11:58 AM EDT) WBC, Urine 0-5 0 - 5 /hpf [facility] RBC, Urine None seen 0 - 2 /hpf [facility] Squamous Epithelial, Urine 0-10 0 - 10 /hpf [facility] Casts None seen None seen /lpf [facility] Bacteria, Urine None seen None seen/Few [facility] 06/04/2025 11:5 8 AM EDT 06/04/2025 Vianey [facility] MICROBIOLOGY - GENERAL ORDERABLES Final Result Performing Organization Address City/[facility]/ZIP Co de Phone Number [facility] [address] [place] [address] * Urine Albumin / Creatinine Ratio (06/04/2025 11:58 AM EDT) Creatinine, Ur 61.5 Not Estab. mg/dL [facility] Albumin, Urine 4.0 Not Estab. ug/mL [facility] Albumin/Creatin ine Ratio 7 0 - 29 mg/g creat [facility] Comment: Normal: 0 - 29 Moderately increased: 30 - 300 Severely increased: >300 06/04/2025 11:5 8 AM EDT 06/04/2025 Vianey Yun [facility] URINE ORDERABLES Final Result Performing Organization Address City/[facility]/ZIP Co de Phone Number [facility] [address] [place] [address] * (ABNORMAL) Vitamin D 25 Hydroxy (06/04/2025 11:58 AM EDT) Vitamin D, 25-OH, Total 17.1(L) 30.0 - 100.0 ng/mL [facility] Comment: Vitamin D deficiency has been defined by the [place] of Medicine and an Endocrine Society practice guideline as a level of serum 25-OH vitamin D less than 20 ng/mL (1,2). The Endocrine Society went on to further define vitamin D insufficiency as a level between 21 and 29 ng/mL (2). 1. IOM ([place] of Medicine). 2010. Dietary reference intakes for calcium and D. [place]: The National Academies Press. 2. Miguel Angel MF, Alan KENDALL, Rabia NASCIMENTO, et al. Evaluation, treatment, and prevention of vitamin D deficiency: an Endocrine Society clinical practice guideline. JCEM. 2010; 96(7):1911-30. 06/04/2025 11:5 8 AM EDT 06/04/2025 Vianey Yun [facility] BLOOD ORDERABLES Final Result [facility] [address] [place] [address] * (ABNORMAL) Urinalysis with microscopic (06/04/2025 11:58 AM EDT) Pathologist [facility] Specific [place], Urine 1.016 1.005 - 1.030 [facility] [phone] pH Urine 6.0 5.0 - 7.5 [facility] [phone] Color, Urine Yellow Yellow [facility] Appearance Urine Clear Clear [facility] [phone] WBC Esterase Urine 1+(A) Negative [facility] [phone] Protein, Ur Negative Negative/Tra ce [facility] [phone] Glucose, Ur 3+(A) Negative [facility] [phone] Ketones, Urine Negative Negative [facility] [phone] Blood Urine Negative Negative [facility] [phone] Bilirubin Urine Negative Negative [facility] Urobilinogen Urine 0.2 0.2 - 1.0 mg/dL [facility] Nitrite, Urine Negative Negative [facility] Microscopic Examination See below: [facility] [phone] Comment:Microscopic was charan cated and was performed. 06/04/2025 11:5 8 AM EDT 06/04/2025 Vianey Yun [facility] URINE ORDERABLES Final Result [facility] [address] [place] [address] * (ABNORMAL) CBC and Differential (06/04/2025 11:58 AM EDT) WBC 11.9(H) 3.4 - 10.8 x10E3/uL [facility] RBC 4.66 3.77 - 5.28 x10E6/uL [facility] Hemoglobin 13.4 11.1 - 15.9 g/dL [facility] Hematocrit 41.5 34.0 - 46.6 % [facility] MCV 89 79 - 97 fL [facility] MCH 28.8 26.6 - 33.0 pg [facility] MCHC 32.3 31.5 - 35.7 g/dL [facility] RDW 13.5 11.7 - 15.4 % [facility] Platelets 302 150 - 450 x10E3/uL [facility] Neutrophils Relative 74 Not Estab. % [facility] Lymphocytes Relative 18 Not Estab. % [facility] Monocytes 6 Not Estab. % [facility] Eosinophils Relative 2 Not Estab. % [facility] Basophils Relative 0 Not Estab. % [facility] Neutrophils Absolute 8.7(H) 1.4 - 7.0 x10E3/uL [facility] Lymphocytes Absolute 2.1 0.7 - 3.1 x10E3/uL [facility] Monocytes Absolute 0.7 0.1 - 0.9 x10E3/uL [facility] Eosinophils Absolute 0.3 0.0 - 0.4 x10E3/uL [facility] Basophils Absolute 0.1 0.0 - 0.2 x10E3/uL [facility] Immature Granulocytes 0 Not Estab. % [facility] Immature Grans (Absolute) 0.0 0.0 - 0.1 x10E3/uL [facility] 06/04/2025 11:5 8 AM EDT 06/04/2025 Vianey Yun [facility] BLOOD ORDERABLES Final Result [facility] [address] [place] [address] * Hemoglobin A1c (04/28/2022 3:38 PM EDT) [facility] Hemoglobin A1C 5.5 (4.0-5.6) % [facility] Comment: MONITORING: In known diabetic patients, hemoglobin A1c targets should be discussed with health care provider. DIAGNOSTIC USE: The [place] Diabetes Association (ADA) and the World Health [...] Supplement 1 Testing performed or reported by [facility], a Service of [facility], [address] [place] [address] Jennifer Painter MD, Carbonizer Tester [facility]# [id number] 04/28/2022 3:38 PM EDT 04/28/2022 3:41 PM EDT Guillermo Samuel MD LAB BLOOD ORDERABLES Final Re sult [facility] from Last 3 Months or Most Recently Relevant to Health Maintenance Insurance [address] [place] [address] Medicaid [address] [place] [address] Medicaid Care Teams Calculus Tutor Relationship Specialty Start Date End Date Radha Arevalo MD [address] [place], [place] PCP - General 09/15/20
[2025-07-25 20:23] LABS: Calprotectin, Fecal 24 mcg/g
== END 2025-07-18 14:36 | disposition home or self-care (01) ==
LOC: HO.LNP 14:35
PROVIDERS: Visit Provider Internal Medicine Gastroenterology
DX: R19.7 Diarrhea, unspecified (principal)
CPT/HCPCS: 83993

== ENCOUNTER 2025-08-13 09:46 | Outpatient (AMB) | payer OTHER, SELFPAY ==
--- NOTE | 2025-08-13 09:52 | MHC.OFFVIS ---
Vital Signs 08/13/25 09:53 Height 4 ft 10 in Weight 246 lb BMI 51.4 BP 123/64 Blood Pressure Location Lt brachial Position Sitting Pulse 78 Intake Visit Reasons: f/u Constipation Intake Note: Patient f/u diarrhea Patient cc: some dizziness on and off, diarrhea are better with new medication, and denies any other GI issues. Mixing Supervisor Required: Yes Mixing Supervisor Name: [facility] [place] Interpeter Accompanied by: Self / Same As Patient Allergies citalopram Allergy (Mild, Verified 08/13/25 09:52) Rash Medication List - Last Reconciled 08/13/25 by Lisseth Amaro MD acetaminophen 650 mg (2 x 325 mg) PO Q6H PRN 30 days atorvastatin 80 mg PO BEDTIME 90 days blood sugar diagnostic Use 1 test strip twice a day buspirone 7.5 mg PO BID cyanocobalamin (vitamin B-12) 1,000 mcg IM Q4W 1 month empagliflozin-metformin 25-1,000 mg ER (Synjardy XR) 1 tab PO DAILY 90 days ezetimibe 10 mg PO DAILY 90 days folic acid 1 mg PO DAILY 90 days Grab bar As directed insulin syringe,safety needle Use 1 needle once a month insulin syringe-needle U-100 ([employer] Syringes) As directed lancets Use 1 lancet twice a day wokqjl-roxfpbwk-llzpnib (pork) 10,000-32,000 -42,000 unit (Zenpep) 1 cap PO TID 30 days lisinopril 40 mg PO DAILY 90 days loperamide 2 mg PO Q6H PRN 30 days loratadine 10 mg PO DAILY PRN 90 days metoprolol succinate ER 100 mg PO DAILY nystatin 1 appl topical BID 2 weeks semaglutide (Ozempic) 2 mg (0.75 mL) subcut QWEEK 4 weeks sertraline 100 mg PO DAILY Shower Chair As directed syringe with needle, safety (BD Safety-Madina Detachable Needle) As directed walker Walker with seat and wheels HPI HPI f/u Constipation: Details: GI clinic visit for this 55 year old Slovenian speaking female with morbid obesity, diabetes mellitus, hypertension, sleep apnea for FU of GERD, chronic diarrhea to discuss EGD and colon results. Patient is status post gastric sleeve surgery in 2020 - Lost wt after Gastric sleeve and regained it again. TODAY'S VISIT: [facility] [place] Medical Educator, Ignacia Patient reports some dizziness on and off, diarrhea are better with new medication, Notes she has 3-4 formed BMs a day since she started taking pancreatic enzymes Still has some gurgling sensation in her abdomen after eating. PAST VISITS: Patient reports no changes w/diarrhea. Takes up to 3 tabs of Loperamide. Reports 4bm without eating breakfast. As soon as eating runs to the bathroom, Has to go again every time she eats or drinks something Reports she had diarrhea before she started taking Ozempic - unsure if diarrhea became worse after she started taking it Has abd pain after eating or drinking any liquids. Has to run to the bathroom with improvement in abd pain sometimes Can have loose to watery stools 7-9 times a day - stools are a little thick in the am and become watery the rest of the day. Can have bowel accidents. She was prescribed Loperamide by her PCP and has to take 2 tab for the medication to work for a few hrs Two older sister have similar symptoms and are being treated (pt does not know their diagnosis or medications they are taking) Denies any change in diarrhea - can have 4-5 BMs a day depending on what she eats Almost everything she eats causes diarrhea. Hot and cold foods do not sit well with her Always has diarrhea after she eats or drinks anything even prior to having Gastric sleeve. Patient follow up for Anemia and EGD/Colonoscopy results. Sonya former patient. Patient cc: acid reflex with some burning sensation on and off, diarrhea, no appetite, denies any other GI issues. EGD and colon results were reviewed Patient complains of intermittent heartburn a few days a week and denies symptoms of nausea, vomiting, change in appetite or weight. Denies problems with milk products. Denies black stools or rectal bleeding. Patient has a hx of sleep apnea and denies major cardiac or pulmonary problems Denies being on chronic anticoagulation. 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 [facility] IMAGING STUDIES: 09/2020 ABD US WITH ELASTOGRAPHY SHOWED: 1. Diffuse fatty infiltration of the liver with areas of focal fatty sparing. Mild hepatomegaly. 2. The rest of the abdominal ultrasound is unremarkable. 3. Elastography: Qhqd-lk-drcgwgwy fibrosis. ENDOSCOPIC STUDIES: 05/21/24 EGD AND COLON SHOWED: Endoscopy Findings: ESOPHAGUS: Mildly tortuous esophagus without stricture or ring Minimal focal esophagitis at GE junction. No Edge's. STOMACH: Normal appearing gastric pouch with mild gastric erythema - biopsies were obtained from the antrum. DUODENUM: Normal - biopsied to check for celiac sprue Colonoscopy Findings: No polyps were detected. Scattered 1-2 mm aphthoid ulcers in the ascending colon with normal intervening mucosa - random biopsies obatined to rule out IBD. Moderate diverticulosis seen in the left colon Moderate hemorrhoids on retroflexed exam. Plan: Repeat Colonoscopy in 10 year if colon biopsies are normal. Above findings were reviewed with the patient and relevant handouts were given and the discharge area. BIOPSIES SHOWED: A. Small bowel, biopsy: Small bowel mucosa with preserved villous architecture and increased intraepithelial lymphocytes (see comment). B. Stomach, antrum, biopsy: Gastric antral mucosa with mild chronic inactive gastritis; negative for Helicobacter pylori, intestinal metaplasia and dysplasia. C. Terminal ileum, biopsy: Ileal mucosa within normal limits; negative for active or chronic ileitis. D. Colon, right side, biopsy: Active colitis with mild activity and incidental sessile serrated polyp/lesion without dysplasia. E. Colon, left side, biopsy: Colonic mucosa within normal limits; negative for active, chronic or microscopic colitis. COMMENT (A): These findings raise the possibility of celiac disease; however other pathologic processes, including H. pylori gastritis, peptic duodenitis, food allergies other than celiac disease, tropical sprue, viral enteritis, injury caused by drugs, autoimmune enteropathy, immunodeficiencies and Crohn?s disease can induce intraepithelial lymphocytosis with or without associated architectural changes. In many cases no definite cause is identified. Clinical and serological correlation is recommended. COMMENT (D): Neither chronic mucosal injury no granulomas are seen. The differential diagnosis includes infection, drug/medication effect and early idiopathic inflammatory bowel disease. PAST GI HISTORY BY REVIEW OF MEDICAL RECORDS: 01/2023 PATIENT WAS SEEN BY [facility] A 52 y/o female - colon screening in [place] many years ago presents with intermittent vomiting- gastric sleeve-2 years ago- She has hemorrhoids- loose stool with urgency- imodium not as good response anymore She has constipation as well - Sleep apnea- cpap Recent knee replacement-December doing very well No fever, chills abdominal pain, hematochezia, hematemesis A 52 y/o 0 beat female multiple comorbid illness- s/p gastric sleeve- DM-persistent acid reflux, alternating stool pattern Will be scheduled for EGD as well as colonoscopy, discussed indications, need for escorted due to anesthesia is of MiraLax Gatorade split prep. scheduled with anesthesia consult due to some [facility] Medical History Depression with anxiety Morbid obesity with BMI of 45.0-49.9, adult Microalbuminuria due to type 2 diabetes mellitus GERD without esophagitis Pernicious anemia Anemia Thiamine deficiency B12 deficiency Sleep apnea with use of continuous positive airway pressure (CPAP) Steatosis, liver Hyperlipidemia Pure hypercholesterolemia Diabetes mellitus Essential hypertension Surgical History History of esophagogastroduodenoscopy (EGD) Hx of colonoscopy History of carpal tunnel release Status post total knee replacement, right Status post total left knee replacement S/P laparoscopic sleeve gastrectomy Status post debridement History of total abdominal hysterectomy and bilateral salpingo-oophorectomy History of foot surgery Family History Father Diabetes Hypertension Prostate cancer Mother Hypertension Stomach cancer Social History Household Members: Family Household Members Other:: Brother Housing: Apartment Are you a primary palliative care physician to a significant other at home: No Do you presently have visiting nurse or other home services: No Alcohol intake: never Patient Tobacco Use Status: Never used Tobacco Tobacco use type: Cigarette e-Cigarette/Vaping Use: Never Used Second Hand Smoke Exposure: No Advance Directives Date on File: 04/16/22 service: No 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al status: disabled 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 Cognitive needs: Yes Hearing needs: No Vision needs: No Female Reproductive History Menstrual Age of Menarche: 12 Review of Systems Const All systems reviewed & are unremarkable except as noted in HPI and below Physical Exam Vital Signs: Last Vital Signs Pulse 78 08/13/25 09:53 BP 123/64 08/13/25 09:53 BMI result Body Mass Index 51.4 Const General: healthy appearing and no acute distress Nutritional Appearance: obese Orientation/consciousness: patient oriented x3 Limitations: language barrier HEENT Head: Yes normal to inspection Ears: hearing grossly normal bilaterally Eyes Sclerae: sclerae normal Pupils: Equal, round and reactive pupils present Neck Neck: Yes normal visual inspection Chest Chest palpation & inspection: normal inspection of the chest Resp Effort & Inspection: normal respiratory effort Auscultation: clear to auscultation bilaterally Cardio Palpation: normal PMI Rate: regular rate Rhythm: regular rhythm Heart sounds: S1 normal heart sound present, S2 normal heart sound present and no murmurs GI Palpation (GI): Soft to palpation, nontender and No hepatosplenomegaly present Auscultation: normal bowel sounds Rectal Exam - Female: deferred Skin General skin exam: no rashes or lesions noted Neuro General: patient oriented x3, gait normal and moves all extremities Cranial nerves: Yes Equal, round and reactive pupils present Psych Appearance: grossly normal Mental Status: mental status grossly normal Assessment & Plan Assessment & Plan (1) GERD without esophagitis: Code(s): K21.9 - Gastro-esophageal reflux disease without esophagitis Category: Medical (2) Status post repair of paraesophageal diaphragmatic hernia: Code(s): Z98.890 - Other specified postprocedural states; Z87.19 - Personal history of other diseases of the digestive system Category: Surgical (3) Pancreatic insufficiency: Code(s): K86.89 - Other specified diseases of pancreas Category: Medical (4) Steatosis, liver: Code(s): K76.0 - Fatty (change of) liver, not elsewhere classified Category: Medical (5) Diarrhea: Code(s): R19.7 - Diarrhea, unspecified Category: Medical Qualifiers: Diarrhea type: unspecified type Qualified Code(s): R19.7 - Diarrhea, unspecified (6) Constipation: Code(s): K59.00 - Constipation, unspecified Category: Medical Qualifiers: Constipation type: unspecified constipation type Qualified Code(s): K59.00 - Constipation, unspecified (7) IBS (irritable bowel syndrome): Code(s): K58.9 - Irritable bowel syndrome, unspecified Category: Medical (8) Anemia: Comment: may be multifactorial, including due to chronic disease, B12 def and iron def Code(s): D64.9 - Anemia, unspecified Category: Medical Qualifiers: Anemia type: unspecified type Qualified Code(s): D64.9 - Anemia, unspecified Plan 55 year old Slovenian speaking female with morbid obesity, diabetes mellitus, hypertension, sleep apnea for FU of GERD, chronic diarrhea. Patient is status post gastric sleeve surgery in 2020 - Lost wt after Gastric sleeve and regained it again. Patient complains of intermittent heartburn a few days a week and denies symptoms of nausea, vomiting, change in appetite or weight. Always has diarrhea after she eats or drinks anything even prior to having Gastric sleeve. 05/21/24 EGD showed minimal focal esophagitis and mild gastritis. Same day colonoscopy showed diverticulosis, hemorrhoids and scattered aphthoid ulcers in the ascending colon Biopsies showed active colitis with mild activity and incidental sessile serrated polyp Repeat Colonoscopy in 1 year for FU of incidental polyp detected on random colon biopsies Patient advised further evaluation with labs and stool studies to rule out IBD, celiac disease or pancreatic insufficiency. 09/2020 ABD US WITH ELASTOGRAPHY SHOWED: 1. Diffuse fatty infiltration of the liver with areas of focal fatty sparing. Mild hepatomegaly. 2. The rest of the abdominal ultrasound is unremarkable. 3. Elastography: Hepi-do-qpijfupl fibrosis. Liver fibrosis tests showed Liver fibrosis stage of F0, normal platelet count and prothrombin time 11/15/24 Denies any change in diarrhea - can have 4-5 BMs a day depending on what she eats Almost everything she eats causes diarrhea. Patient was prescribed Zenpep 3 times daily with meals for pancreatic insufficiency (stool pancreatic elastase was 18 with normal stool fat) 03/21/25 Can have loose to watery stools 7-9 times a day - stools are a little thick in the am and become watery the rest of the day. Can have bowel accidents. She was prescribed Loperamide by her PCP and has to take 2 tab for the medication to work for a few hrs Patient was advised to schedule a colonoscopy. Colonoscopy prep, procedure and potential complications were reviewed with her. 04/19/25 COLONOSCOPY SHOWED: One small polyp was removed and not retrieved. Random biopsies were obtained from right and left colon to check for microscopic colitis. Moderate diverticulosis seen in the left colon Moderate hemorrhoids on retroflexed exam. Plan: Repeat Colonoscopy in 5 years since a sessile appearing polyp was not retrieved. BIOPSIES SHOWED: A. Terminal ileum, biopsy: Ileal mucosa with no specific change; no ileitis, granulomas or dysplasia. B. Colon, random right, biopsy: Colonic mucosa with lymphoid aggregate and no specific change; no evidence of microscopic colitis and no granulomas or dysplasia. C. Colon, random left, biopsy: Colonic mucosa with no specific change; no evidence of microscopic colitis and no granulomas or dysplasia Letter sent to the patient with biopsy results. Patient was placed on the colonoscopy recall list for repeat colonoscopy in 5 years. 07/11/25 Patient reports no changes w/diarrhea. Takes up to 3 tabs of Loperamide. Reports she had diarrhea before she started taking Ozempic - unsure if diarrhea became worse after she started taking it Stool studies showed normal stool fat and fecal calprotectin and low pancreatic elastase (18) Pt advised to continue pancreatic enzymes for the diarrhea due to pancreatic insufficiency 08/13/25 Notes she has 3-4 formed BMs a day since she started taking pancreatic enzymes Pt advised to continue taking pancreatic enzymes with meals and snacks FU in 6 months Medications: Changed From dqbhqh-bzdzdhaw-dzflmkk (pork) 10,000-32,000 -42,000 unit (Zenpep) Take 1 capsule before meals and snacks for diarrhea 1 cap PO TID 30 days 90 caps 3RF K86.89 - Other specified diseases of pancreas To nrojmt-cwiieegp-tjbqxxu (pork) 10,000-32,000 -42,000 unit (Zenpep) Take 1 capsule before meals and snacks for diarrhea 1 cap PO TID 180 caps 3RF 60 days K86.89 - Other specified diseases of pancreas Coding Level of Care Code Est Pt Level 3 (56299) Diagnoses GERD without esophagitis K21.9 Status post repair of paraesophageal diaphragmatic hernia Z98.890; Z87.19 Pancreatic insufficiency K86.89 Steatosis, liver K76.0 Diarrhea, unspecified type R19.7 Diarrhea type: unspecified type Constipation, unspecified constipation type K59.00 Constipation type: unspecified constipation type IBS (irritable bowel syndrome) K58.9 Anemia, unspecified type D64.9 Anemia type: unspecified type Time Spent (min) 16
[2025-08-13 09:53] VITALS: BP 123/64; PULSE 78; BMI 51.4
== END 2025-08-13 10:50 | disposition home or self-care (01) ==
LOC: HO.HGI 09:47
PROVIDERS: PCP Internal Medicine; Visit Provider Internal Medicine Gastroenterology
DX: K21.9 Gastro-esophageal reflux disease without esophagitis (principal); Z98.890 Other specified postprocedural states; Z87.19 Personal history of other diseases of the digestive system; K86.89 Other specified diseases of pancreas; K76.0 Fatty (change of) liver, not elsewhere classified; R19.7 Diarrhea, unspecified; K59.00 Constipation, unspecified; K58.9 Irritable bowel syndrome, unspecified; D64.9 Anemia, unspecified
CPT/HCPCS: 99213

== ENCOUNTER 2025-08-13 09:46 | Outpatient (REF) | payer OTHER, SELFPAY ==
[2025-08-13 11:11] LABS: MANUAL DIFF FLAG NO
[2025-08-13 11:41] LABS: Hematocrit 40.6 % (37.0-47.0); Hemoglobin 12.8 g/dl (12.0-16.0); Imm Gran Abs Auto 0.04 X10*3/uL (0.00-0.03); Imm Gran Pct Auto 0.3 % (0.0-0.4); Lymphocytes Absolute Auto 2.3 X10*3/uL (1.2-4.9); Mean Corpuscular HGB Conc 31.5 g/dl (31.0-35.0); Mean Corpuscular Hemoglobin 27.5 pg (27.0-33.0); Mean Corpuscular Volume 87.3 fL (80.0-98.0); NRBC Abs Auto 0.000 X10*3/uL (0.0-0.012); NRBC Pct Auto 0.0 /100WBC (0.0-0.2); Platelet Count 275 X10*3/uL (160-400); Red Blood Count 4.65 X10*6/uL (4.20-5.50); White Blood Count 12.1 X10*3/uL (4.8-10.8)
[2025-08-13 12:27] LABS: Alanine Aminotransferase 26 U/L (0-31); Albumin Level 3.9 g/dL (3.5-5.0); Alkaline Phosphatase 149 U/L (39-117); Anion Gap 5 (12-20); Aspartate Amino Transferase 22 U/L (5-31); Blood Urea Nitrogen 12 mg/dL (9-16); Calcium 8.9 mg/dL (8.4-10.2); Carbon Dioxide 31 mmol/L (22-29); Chloride 111 mmol/L (96-108); Cholesterol 144 mg/dL (<200); Estimated Glomerular Filt Rate > 60; HDL Cholesterol 55 mg/dL (>40); Iron 54 mcg/dL (30-160); Percent Iron Saturation 19 % (15-50); Potassium 4.1 mmol/L (3.3-5.1); Sodium 143 mmol/L (135-145); Total Iron Binding Capacity 283 mcg/dL (228-428); Total Protein 6.7 g/dL (6.5-8.0); Triglycerides 105 mg/dL (<150); Unsaturated Iron Binding 229 ug/dL
[2025-08-13 12:56] LABS: Microalbum/Creatinine Ratio Ur 6.5 ug/mg cr (<30)
[2025-08-13 13:02] LABS: Folate > 20.0 ng/mL (> or = 4.0); Vitamin B12 203 pg/mL (200-900)
== END 2025-08-13 09:47 | disposition home or self-care (01) ==
LOC: HO.LAB 09:46
PROVIDERS: Absent Provider Internal Medicine; PCP Internal Medicine; Visit Provider Internal Medicine Gastroenterology
DX: K21.9 Gastro-esophageal reflux disease without esophagitis (principal); K58.2 Mixed irritable bowel syndrome; E11.29 Type 2 diabetes mellitus with other diabetic kidney complication; K86.89 Other specified diseases of pancreas; I10 Essential (primary) hypertension; D64.9 Anemia, unspecified; E66.01 Morbid (severe) obesity due to excess calories; Z68.43 Body mass index [BMI] 50.0-59.9, adult; Z98.890 Other specified postprocedural states; E55.9 Vitamin D deficiency, unspecified; E53.8 Deficiency of other specified B group vitamins
CPT/HCPCS: 36415; 80053; 80061; 82043; 82306; 82570; 82607; 82746; 83540; 85025; 99212

== ENCOUNTER 2025-08-19 13:57 | Outpatient (AMB) | payer OTHER, SELFPAY ==
--- NOTE | 2025-08-19 14:18 | MHC.PC.OV ---
Vital Signs 08/19/25 14:19 Height 4 ft 10 in Weight 245 lb 6 oz BMI 51.3 BP 120/70 Blood Pressure Location Lt brachial Position Sitting Pulse 70 Pulse Source Pulse Oximeter Temp 96.9 F Temp Source Temporal Artery Scan Pulse Oximetry (%) 99 Oxygen Delivery Method Room Air Intake Visit Reasons: f/u DMII/ HTN Intake Note: Patient is here to follow up on DMII, HTN. Spent Grain Dryer Required: No Cryogenics Engineer: Not Required per policy Accompanied by: Self / Same As Patient Allergies citalopram Allergy (Mild, Verified 08/19/25 14:34) Rash Medication List - Last Reconciled 08/19/25 by Radha Woodson MD acetaminophen 650 mg (2 x 325 mg) PO Q6H PRN 30 days atorvastatin 80 mg PO BEDTIME 90 days blood sugar diagnostic Use 1 test strip twice a day buspirone 7.5 mg PO BID cyanocobalamin (vitamin B-12) 1,000 mcg IM Q4W 1 month empagliflozin-metformin 25-1,000 mg ER (Synjardy XR) 1 tab PO DAILY 90 days ezetimibe 10 mg PO DAILY 90 days folic acid 1 mg PO DAILY 90 days Grab bar As directed insulin syringe,safety needle Use 1 needle once a month insulin syringe-needle U-100 ([employer] Syringes) As directed lancets Use 1 lancet twice a day lqodqi-aqbljjwz-txjtrfm (pork) 10,000-32,000 -42,000 unit (Zenpep) 1 cap PO TID 60 days lisinopril 40 mg PO DAILY 90 days loperamide 2 mg PO Q6H PRN 30 days loratadine 10 mg PO DAILY PRN 90 days metoprolol succinate ER 100 mg PO DAILY nystatin 1 appl topical BID 2 weeks semaglutide (Ozempic) 2 mg (0.75 mL) subcut QWEEK 4 weeks sertraline 100 mg PO DAILY Shower Chair As directed syringe with needle, safety (BD Safety-Madina Detachable Needle) As directed walker Walker with seat and wheels Tobacco use date assessed: 08/19/25 Dental Screening Dental Screen Date: 05/02/25 HPI HPI Comments History of Present Illness Details The patient is a 55 year old female presenting for chronic condition management. She has a history of type 2 diabetes and notes her recent A1C was 5.6. Current medications for diabetes control include Synjardy. A previous attempt to get Ozempic approved was unsuccessful, and there is a discussion about trying Mounjaro. She is morbidly obese and was advised to do diet and exercise to reach BMI goal less than 30. For hypercholesterolemia, she takes atorvastatin 80 mg, which is reported to be working well. She also has a history of anxiety and takes aspirin, lisinopril 40, a second agent for blood pressure, loratadine, and metoprolol. Her vitamin level is slightly low, and she takes vitamin B12. The patient reports experiencing depression since a fall that occurred about three weeks ago. During the fall, she nearly hit the floor and braced herself with her hand. A recent MRI of the head was performed, which showed no mass but had changes consistent with migraines. She has a known allergy to citalopram. [facility] Medical History Depression with anxiety Morbid obesity with BMI of 45.0-49.9, adult Microalbuminuria due to type 2 diabetes mellitus GERD without esophagitis Pernicious anemia Anemia Thiamine deficiency B12 deficiency Sleep apnea with use of continuous positive airway pressure (CPAP) Steatosis, liver Hyperlipidemia Pure hypercholesterolemia Diabetes mellitus Essential hypertension Surgical History History of esophagogastroduodenoscopy (EGD) Hx of colonoscopy History of carpal tunnel release Status post total knee replacement, right Status post total left knee replacement S/P laparoscopic sleeve gastrectomy Status post debridement History of total abdominal hysterectomy and bilateral salpingo-oophorectomy History of foot surgery Family History Father Diabetes Hypertension Prostate cancer Mother Hypertension Stomach cancer Social History Household Members: Family Household Members Other:: Brother Housing: Apartment Are you a primary school child care attendant to a significant other at home: No Do you presently have visiting nurse or other home services: No Alcohol intake: never Patient Tobacco Use Status: Never used Tobacco Tobacco use type: Cigarette e-Cigarette/Vaping Use: Never Used Second Hand Smoke Exposure: No Advance Directives Date on File: 04/16/22 service: No 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al status: disabled 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 Cognitive needs: Yes Hearing needs: No Vision needs: No Female Reproductive History Menstrual Age of Menarche: 12 Questionnaire Thrive Questionnaire Date Thrive assessed: 12/25/24 I am a: Patient What is your living situation today?: I choose not to answer this question Within the past 12 months, did the food you bought not last and you didn't have the money to get more?: I choose not to answer this question Within the past 12 months, did you worry whether your food would run out before you got money to buy more?: I choose not to answer this question Do you have trouble paying for medicines?: I choose not to answer this question Do you have trouble getting transportation to medical appointments?: I choose not to answer this question Do you have trouble paying your heating and electricity bill?: I choose not to answer this question Do you have trouble taking care of your child, family member or friend?: I choose not to answer this question Do you have trouble with day-to-day activities such as bathing, preparing meals, shopping, managing finances, etc.?: Yes Are you currently unemployed and looking for a job?: No Are you interested in more education?: No Currently or been in a relationship where the following occur: I choose not to answer THRIVE Score: 0 MELANIE-7 AMB Questionnaire MELANIE-7 Date MELANIE - 7 assessed: 05/02/25 Source: Developed by Drs. Inder Hamm, Nneka Marie, Marcelo Contreras and colleagues, with an educational mabel from [employer]. Review of Systems Const All systems reviewed & are unremarkable except as noted in HPI and below Card Denies chest pain at rest, Denies chest pain with activity, Denies edema, Denies irregular heart rhythm, Denies claudication, Denies dyspnea, Denies dyspnea on exertion, Denies orthopnea, Denies paroxysmal nocturnal dyspnea and Denies slow heart rate Resp Denies cough, Denies dyspnea and Denies dyspnea on exertion Physical exam (Primary Care) Vital Signs: Last Vital Signs Temp 96.9 F 08/19/25 14:19 Pulse 70 08/19/25 14:19 BP 120/70 08/19/25 14:19 Pulse Ox 99 08/19/25 14:19 Oxygen Delivery Method Room Air 08/19/25 14:19 BMI result Body Mass Index 51.3 BMI Assessment/Plan discussion: High BMI High, discussed plan: lifestyle, weight reduction, dietary and physical activity Tobacco/Smoking Status: Tobacco use Status Tobacco use date assessed 08/19/25 08/19/25 14:27 Patient Tobacco Use Status Never used Tobacco 08/19/25 14:27 Tobacco use type Cigarette 08/19/25 14:27 e-Cigarette/Vaping Use Never Used 08/19/25 14:27 Thrive Assessment: Date of Thrive Assessment Date Thrive assessed 12/25/24 08/19/25 14:27 Currently or been in a relationship where the following occur: I choose not to answer Resp Effort & Inspection: normal respiratory effort Auscultation: clear to auscultation bilaterally Cardio Jugular venous distension: no JVD Rate: regular rate Rhythm: regular rhythm Heart sounds: S1 normal heart sound present and S2 normal heart sound present Extrem General: Yes full ROM Results AMB Hemoglobin A1c AMB Hemoglobin A1c 5.6 % Last Edit by XANDER Hart on 08/19/25 14:39 Results Reviewed Results Reviewed: Laboratory Last Values Hgb A1c (Clinic) 5.6 % (4.0-6.0) 08/19/25 14:18 Coding Level of Care Code Add On Preventative Visit Only Diagnoses Mild major depression F32.0 Anxiety F41.9 Essential hypertension I10 Hyperlipidemia LDL goal <70 E78.5 Type 2 diabetes mellitus with microalbuminuria, without long-term current use of insulin E11.29; R80.9 Diabetes mellitus type: type 2 Diabetes mellitus mcc insulin use: without rn long term care use Diabetes mellitus complication status: with kidney complications Diabetes mellitus complication detail: with microalbuminuria Morbid obesity E66.01 Time Spent (min) 23 Assessment & Plan Assessment & Plan (1) Mild major depression: Code(s): F32.0 - Major depressive disorder, single episode, mild Category: Medical (2) Anxiety: Code(s): F41.9 - Anxiety disorder, unspecified Category: Medical (3) Essential hypertension: Code(s): I10 - Essential (primary) hypertension Category: Medical (4) Hyperlipidemia LDL goal <70: Code(s): E78.5 - Hyperlipidemia, unspecified Category: Medical (5) Diabetes mellitus: Code(s): E11.9 - Type 2 diabetes mellitus without complications Category: Medical Qualifiers: Diabetes mellitus type: type 2 Diabetes mellitus rn long term care insulin use: without mcc use Diabetes mellitus complication status: with kidney complications Diabetes mellitus complication detail: with microalbuminuria Qualified Code(s): E11.29 - Type 2 diabetes mellitus with other diabetic kidney complication; R80.9 - Proteinuria, unspecified (6) Morbid obesity: Comment: s/p gastric sleeve 2020 Code(s): E66.01 - Morbid (severe) obesity due to excess calories Category: Medical Plan Plan 1. Type 2 Diabetes Mellitus Given that the patient's A1C is 5.6, her blood sugar is well-controlled. We discussed injectable options for diabetes management, specifically Mounjaro, as a prior authorization for Ozempic was not approved. I will proceed with ordering one of these injectable medications. A referral to endocrinology was also discussed to manage her diabetes. 2. Depression The patient reports new onset depression following a fall three weeks ago. I will prescribe medication for this. 3. Migraine A recent head MRI showed findings consistent with migraines. I will prescribe a medication to be taken as needed when she feels symptoms starting. 4. Hyperlipidemia Continue statins. LDL goal is less than 70. 5. Essential hypertension Continue lisinopril. Blood pressure goal is equal or less than 130/80. Orders: Orders Lipid Panel 4 Months E78.5 - Hyperlipidemia, unspecified Microalbumin, Random (w Creat) 4 Months R80.9 - Proteinuria, unspecified Comprehensive [place]. Panel Fast 4 Months I10 - Essential (primary) hypertension AMB Hemoglobin A1c Today E11.29 - Type 2 diabetes mellitus with other diabetic kidney complication, R80.9 - Proteinuria, unspecified Vitamin D 25-OH Total 4 Months E55.9 - Vitamin D deficiency, unspecified Vitamin B12 and Folate 4 Months E53.8 - Deficiency of other specified B group vitamins Medications: New meclizine 25 mg PO BID PRN 10 tabs 0RF dizziness 5 days Refilled semaglutide (Ozempic) 2 mg (0.75 mL) subcut QWEEK 3 mL 6RF 4 weeks E11.29 - Type 2 diabetes mellitus with other diabetic kidney complication, R80.9 - Proteinuria, unspecified
[2025-08-19 14:19] VITALS: BP 120/70; PULSE 70; TEMP 36.1; O2SAT 99; BMI 51.3
--- OUTSIDE RECORDS SUMMARY | 2025-08-19 20:21 | XMS_ITS | Clinical Summary ---
Author Organization [facility] ity Address [address] [place] [address] Care Team Providers Care Weaver Dobby Loom Name Role Phone Unavailable Primary Care Provider [...]
== END 2025-08-19 14:51 | disposition home or self-care (01) ==
LOC: HO.HMCH 13:58
PROVIDERS: PCP Internal Medicine; Visit Provider Internal Medicine
DX: F32.0 Major depressive disorder, single episode, mild (principal); F41.9 Anxiety disorder, unspecified; I10 Essential (primary) hypertension; E78.5 Hyperlipidemia, unspecified; E11.29 Type 2 diabetes mellitus with other diabetic kidney complication; R80.9 Proteinuria, unspecified; E66.01 Morbid (severe) obesity due to excess calories; Z68.43 Body mass index [BMI] 50.0-59.9, adult

== ENCOUNTER → 2025-08-19 13:57 | Outpatient (BNVA) | payer OTHER, SELFPAY | PROVIDERS: PCP Internal Medicine; Visit Provider Internal Medicine | DX: F32.0 Major depressive disorder, single episode, mild (principal); F41.9 Anxiety disorder, unspecified; I10 Essential (primary) hypertension; E78.5 Hyperlipidemia, unspecified; E11.29 Type 2 diabetes mellitus with other diabetic kidney complication; R80.9 Proteinuria, unspecified; E66.01 Morbid (severe) obesity due to excess calories; Z68.43 Body mass index [BMI] 50.0-59.9, adult | CPT/HCPCS: 83036; 99212 ==